=== PATIENT | female | born 1945 | race Two or more races ===

== ENCOUNTER 2017-03-12 12:50 | Inpatient (IN) | payer MEDICARE, OTHER ==
[~2017-03-12] VITALS: Ht 157.5 cm; Wt 58.5 kg
[~2017-03-12 12:50] MED LIST: CYCL30DR EACHEYE; GABA-534 PO; LORA0.5T PO; WARF5TAB77 PO
--- NOTE | 2017-03-12 12:55 | NUR ---
PT BIB RA C/O L SHOULDER PAIN, UNKNOWN ETIOLOGY, PT STATES SHE WOKE UP WITH IT. GOWNED PT . PLACED ON MONITOR
[2017-03-12] MEDS ORDERED: ACETAMINOPHEN ES 500 MG TABLET ONE (13:23)
[2017-03-12] MEDS ORDERED: ACETAMINOPHEN ES 500 MG TABLET PO ONE (13:30)
--- NOTE | 2017-03-12 13:34 | NUR ---
RAC #18 IV ACCESS. BLOOD SAMPLE COLLECTED SENT TO LAB
--- NOTE | 2017-03-12 13:38 | NUR ---
MOBILE DESIGNER AT BEDSIDE
[2017-03-12 13:56] LABS: BASOPHILS % (AUTO) 0.1 % (0.0-2.0); EOSINOPHILS % (AUTO) 0.2 % (0.0-6.0); HEMATOCRIT 46 % (33-45); HEMOGLOBIN 15.6 g/dL (11.5-14.8); LYMPHOCYTES # (AUTO) 1.1 /CMM (0.8-4.8); LYMPHOCYTES % (AUTO) 6.4 % (20.0-44.0); MEAN CORPUSCULAR HEMOGLOBIN 31 PG (26.0-33.0); MEAN CORPUSCULAR HGB CONC 34 g/dl (31.0-36.0); MEAN CORPUSCULAR VOLUME 91 fL (82-100); MONOCYTES % (AUTO) 5.4 % (2.0-12.0); NEUTROPHILS # (AUTO) 15.7 /CMM (1.8-8.9); NEUTROPHILS % (AUTO) 87.9 % (43.0-81.0); PLATELET COUNT (AUTO) 364 /CMM (150-450); RDW COEFFICIENT OF VARIATION 12.6 (11.5-15.0); RED BLOOD CELL COUNT(AUTO) 5.07 MIL/uL (4.0-5.2); WHITE BLOOD COUNT (AUTO) 17.8 K/uL (4.3-11.0)
[2017-03-12 14:01] LABS: CALCIUM, SERUM 9.3 mg/dL (8.5-10.1); CARBON DIOXIDE 26 mmol/L (21-32); CHLORIDE 104 mmol/L (98-107); GLUCOSE 117 mg/dL (74-106); POTASSIUM 3.5 mmol/L (3.5-5.1); SODIUM SERUM 139 mmol/L (136-145); UREA NITROGEN, BLOOD 12 mg/dL (7-18)
[2017-03-12 14:04] LABS: ALANINE AMINOTRANSFERASE 32 U/L (12-78); ALBUMIN 3.5 g/dL (3.4-5.0); ALKALINE PHOSPHATASE 86 U/L (46-116); ASPARTATE AMINOTRANSFERASE 26 U/L (15-37); BILIRUBIN,DIRECT 0.1 mg/dL (0.0-0.2); BILIRUBIN,TOTAL 0.5 mg/dL (0.2-1.0); TOTAL PROTEIN, SERUM 7.2 g/dL (6.4-8.2)
[2017-03-12 14:05] LABS: TROPONIN I < 0.017 ng/mL (0.00-0.056)
[2017-03-12 14:07] LABS: INR 1.92 (0.87-1.13); PROTHROMBIN TIME 21.4 SECS (9.5-12.7)
[2017-03-12] MEDS ORDERED: IV NS 0.9% 1,000 ML BAG IV ONE (14:30)
--- NOTE | 2017-03-12 16:55 | NUR ---
PAGED KARUNA MARI FOR PANEL ADMISSION
--- NOTE | 2017-03-12 16:59 | NUR ---
GAVE REPORT TO BLANKA GIMENEZ TELE ADMITTING DX SYNCOPE DR KARUNA MARI ADMITTING MD. TRANSFER VIA ACLS PROTOCOL
[2017-03-12 17:39] LABS: APPEARANCE,URINE Clear (CLEAR); BILIRUBIN,URINE Negative (NEGATIVE); BLOOD, URINE Negative Ery/uL (NEGATIVE); COLOR,URINE Yellow (YELLOW); KETONES,URINE 15 (NEGATIVE); LEUKOCYTE ESTERASE ,URINE Negative (NEGATIVE); NITRITE, URINE Negative (NEGATIVE); PH,URINE 7.5 (5.0-8.0); PROTEIN,URINE Negative (NEGATIVE); UGLUCOSE Negative (NEGATIVE); UROBILINOGEN,URINE 0.2 EU/dL (0.2)
[2017-03-12 18:11] LABS: BACTERIA,URINE None seen /HPF (None Seen); RBC,URINE 0-2 /HPF (0-2); SQUAMOUS EPITHELIAL CELL,UR None Seen /HPF (None Seen); WBC,URINE 0-2 /HPF (0-3)
[2017-03-12] MEDS ORDERED: TRAMADOL HCL 50 MG TABLET ONE (18:18)
[2017-03-12] MEDS ORDERED: TRAMADOL HCL 50 MG TABLET PO ONE (18:30)
[2017-03-12 18:43] VITALS: BP 106/60
--- NOTE | 2017-03-12 18:49 | NUR ---
HYDROTEL OPERATOR NOTES 71 YEARS OLD FEMALE, A/O X3 FORGETFUL. ADMITTED FROM HOME, BROUGHT IN FROM ER. ASSISTED PATIENT TO BED. AMBULATORY WITH ASSIST. LEFT SHOULDER WITH SLING IN PLACE. V/S TAKEN AND RECORDED, LEADS APPLIED FOR TELE MONITOR. BREATHING EVEN AND NON LABORED, ON ROOM AIR, TOLERATING WELL, NO SOB. PLACE CALL LIGHT WITHIN REACH. BED LOW AND LOCKED. FOR ADMISSION, WILL ENDORSE TO HOSPITAL ACCOUNT LIAISON RN.
--- NOTE | 2017-03-12 19:35 | NUR ---
DESIGNER/WRITER OPENING NOTES: RECEIVED PT IN BED LAYING DOWN WITH 2 FAMILY MEMBERS AT BEDSIDE. PT IS A/OX3 WITH MILD FORGETFULNESS. PT HAS SLING ON L SHOULDER. PT IS ON TELE MONITOR AND NO SIGNS OR SYMPTOMS OF DISTRESS NOTED AT THIS TIME. PT IS COMPLAINING OF L SHOULDER 9/10 PAIN. AWAITING FOR ADMISSION ORDERS TO BE PUT IN. CALL LIGHT WITHIN PT'S REACH. BED KEPT IN LOCKED, LOWEST POSITION, AND SIDE RAILS X 2 UP. WILL CONTINUE TO MONITOR PT.
[2017-03-12 20:00] VITALS: BP 106/60
--- NOTE | 2017-03-12 20:12 | NUR ---
FAMILY RESOURCE MANAGEMENT SPECIALIST NOTES: DR. MARI AT BEDSIDE SPEAKING TO PT AND 2 FAMILY MEMBERS. STILL AWAITING ADMITTING ORDERS.
--- NOTE | 2017-03-12 20:20 | NUR ---
COMMUNITY ARTS CENTRE MANAGER NOTES: DR. MARI SAID SHE IS ON REGULAR DIET. HE IS A LITTLE BACKED UP AND SAID WILL PUT IT ORDERS SOON HE CAN.
[2017-03-12 20:21] VITALS: BP 106/60
[2017-03-12] MEDS ORDERED: WARFARIN SODIUM 5 MG TABLET ONE (21:59)
[2017-03-12] MEDS ORDERED: WARFARIN SODIUM 5 MG TABLET PO SCH (22:00)
[2017-03-12] MEDS ORDERED: IV NS 0.9% 1,000 ML IV PRN (22:49)
[2017-03-12] MEDS ORDERED: LORAZEPAM 0.5 MG TABLET PO PRN (23:00)
[2017-03-12] MEDS ORDERED: ONDANSETRON HCL/PF 4 MG/2 ML VIAL IVP PRN (23:00)
[2017-03-12] MEDS ORDERED: ACETAMINOPHEN 325 MG TABLET PO PRN (23:00)
[2017-03-13] VITALS (8 sets, daily range): BP systolic 107–136; BP diastolic 68–79
[2017-03-13] MEDS ORDERED: ACETAMINOPHEN 325 MG TABLET ONE (01:37)
--- NOTE | 2017-03-13 01:39 | NUR ---
CARGO MATE NOTES: PT REQUESTED FOR PAIN MEDICATION FOR MILD HEADACHE PAIN. PT DOES NOT WANT ANY STRONG MEDICATION AND REQUESTED FOR TYLENOL. WILL CONTINUE TO MONITOR PT.
[2017-03-13 06:10] LABS: BASOPHILS # (AUTO) 0.1 /CMM (0.0-0.2); EOSINOPHILS # (AUTO) 0.1 /CMM (0.0-0.7); EOSINOPHILS % (AUTO) 0.5 % (0.0-6.0); HEMATOCRIT 43 % (33-45); HEMOGLOBIN 14.8 g/dL (11.5-14.8); LYMPHOCYTES # (AUTO) 2.6 /CMM (0.8-4.8); LYMPHOCYTES % (AUTO) 24.6 % (20.0-44.0); MEAN CORPUSCULAR HEMOGLOBIN 31 PG (26.0-33.0); MEAN CORPUSCULAR HGB CONC 34 g/dl (31.0-36.0); MEAN CORPUSCULAR VOLUME 92 fL (82-100); MONOCYTES # (AUTO) 0.6 /CMM (0.1-1.30); MONOCYTES % (AUTO) 5.6 % (2.0-12.0); NEUTROPHILS # (AUTO) 7.3 /CMM (1.8-8.9); NEUTROPHILS % (AUTO) 68.3 % (43.0-81.0); PLATELET COUNT (AUTO) 337 /CMM (150-450); RDW COEFFICIENT OF VARIATION 12.9 (11.5-15.0); WHITE BLOOD COUNT (AUTO) 10.7 K/uL (4.3-11.0)
--- NOTE | 2017-03-13 06:38 | NUR ---
LUBRICATION WORKER CLOSING NOTES: ALL NEEDS WERE ATTENDED AND ANTICIPATED FOR. PT IS A/OX2-3 WITH MILD FORGETFULNESS. PT HAS SLING ON L SHOULDER. PT IS ON TELE MONITOR AND NO SIGNS OR SYMPTOMS OF DISTRESS NOTED AT THIS TIME. PT IS SR 74. PT HAS IV ON R AC #18G AND IS PATENT AND INTACT AND IS CURRENTLY BEING INFUSED WITH NS AT 75ML/HR. CALL LIGHT WITHIN PT'S REACH. BED KEPT IN LOCKED, LOWEST POSITION, AND SIDE RAILS X 2 UP. WILL ENDORSE TO AM NURSE FOR ALIN.
[2017-03-13 06:39] LABS: ALBUMIN 3.1 g/dL (3.4-5.0); BILIRUBIN,TOTAL 0.5 mg/dL (0.2-1.0); CALCIUM, SERUM 8.5 mg/dL (8.5-10.1); CREATININE 0.8 mg/dL (0.6-1.3); MAGNESIUM 2.2 mg/dL (1.8-2.4); PHOSPHORUS 3.6 mg/dL (2.5-4.9); POTASSIUM 3.4 mmol/L (3.5-5.1); TOTAL PROTEIN, SERUM 6.6 g/dL (6.4-8.2)
[2017-03-13 06:47] LABS: THYROID STIMULATING HORMONE 0.711 uIU/mL (0.358-3.74)
[2017-03-13 06:53] LABS: INR 2.15 (0.87-1.13); PROTHROMBIN TIME 24.1 SECS (9.5-12.7)
--- NOTE | 2017-03-13 07:18 | NUR ---
MS/RN OPENING NOTES PT RECEIVED ASLEEP IN BED, EASILY AWAKENS. ALERT AND ORIENTED X2-3, NO C/O PAIN OR DISCOMFORTS AT THIS TIME. ON ROOM AIR, BREATHING EVEN AND UNLABORED. ON TELE-MONITORING WITH READING OF SR AND HR OF 78 AT THIS TIME, NO C/O CHEST PAIN AT THIS TIME. IV ACCESS ON RIGHT AC G#18 PATENT AND INTACT WITH IVF OF NS @ 75 ML/HR INFUSING, NO S/S OF INFILTRATION NOTED. BED IN LOWEST POSITION AND LOCKED. CALL LIGHT WITHIN REACH OF PT. WILL MAINTAIN ALL SAFETY MEASURES AND WILL CONTINUE TO MONITOR PT ACCORDINGLY.
[2017-03-13] MEDS ORDERED: IV NS 0.9% 1,000 ML IV PRN (09:01)
[2017-03-13 09:53] LABS: THYROID STIMULATING HORMONE 0.744 uIU/mL (0.358-3.74)
--- NOTE | 2017-03-13 10:15 | NUR ---
RN NOTES PATIENT WITH LOW K LEVEL OF 3.4, AWARE AND ORDERED K-DUR 20MEQ TAB X 3DOSES. WILL CONTINUE TO MONITOR
[2017-03-13] MEDS: POTASSIUM CHLORIDE 20 MEQ TAB.PRT.SR PO SCH ×3 (10:47→12:45)
--- NOTE | 2017-03-13 11:13 | NUR ---
RN NOTES PATIENT CHECKING FOR ORTHOSTATIC BLOOD PRESSURE. BP LYING 117/72MMHG AND SITTING 123/72MMHG. WILL CONTINUE TO MONITOR.
[2017-03-13] MEDS: WARFARIN SODIUM 1 MG TABLET PO SCH (17:19)
--- NOTE | 2017-03-13 19:01 | NUR ---
MS/RN CLOSING NOTES PATIENT RESTING IN BED IN NO SIGNS OF DISTRESS. ALERT AND ORIENTED X3, VERBALLY RESPONSIVE, NO COMPLAINTS OF PAIN DURING TOUR. NO SIGNIFICANT CHANGES NOTED THROUGHOUT THE DAY. ON TELE-MONITORING WITH CURRENT READING OF SR AND HR OF 86, NO C/O CHEST PAIN OR N & V. ON ROOM AIR, BREATHING EVEN AND UNLABORED, NO SOB NOTED. IV ACCESS ON RIGHT AC PATENT AND INTACT, SL LOCK ONLY. BED IN LOWEST POSITION AND LOCKED. CALL LIGHT WITHIN REACH OF PT. ALL SAFETY MEASURES MAINTAINED. ALL NEEDS ATTENDED WELL. WILL ENDORSED TO BOX STORAGE WORKER NURSE FOR ALIN.
--- NOTE | 2017-03-13 19:30 | NUR ---
RN NOTES RECEIVED PATIENT IN BED WAKE, AO X 3, ABLE TO MAKE NEEDS KNOWN. NO ACUTE DISTRESS NOTED. DENIES ANY PAIN AT THIS TIME. TELE READING SR HR 97. SAEFTY REMINDERS GIVEN. ON LOW BED WITH BILATERAL UPPER SIDE RAILS UP. CALL LIGHT WITHIN EASY REACH. WILL CONTINUE TO MONITOR.
[2017-03-13] MEDS ORDERED: QUETIAPINE FUMARATE 25 MG TABLET PO ONE (22:00)
[2017-03-13] MEDS: GABAPENTIN 300 MG CAPSULE PO SCH (22:56)
--- NOTE | 2017-03-13 23:58 | NUR ---
RN NOTES PATIENT C/O ANXIETY. NONPHARMACOLOGICAL INTERVENTIONS INEFFECTIVE. ATIVAN GIVEN ORDERED. WILL CONTINUE TO MONITOR.
[2017-03-14] VITALS: BP 133/74
[2017-03-14 04:44] VITALS: BP 104/70
--- NOTE | 2017-03-14 06:21 | NUR ---
RN NOTES PATIENT ASLEEP, AROUSES EASILY, RESPIRATIONS EVEN. NO SIGNS OF PAIN NOTED AT THIS TIME. DUE MEDS GIVEN WITH NO ASE NOTED. NEEDS ATTENDED. SAFETY PRECAUTIONS AND COMFORT MEASURES IN PLACE. WILL GIVE REPORT TO DAY SHIFT FOR CONTINUITY OF CARE.
[2017-03-14 06:38] LABS: BASOPHILS # (AUTO) 0.1 /CMM (0.0-0.2); BASOPHILS % (AUTO) 0.5 % (0.0-2.0); EOSINOPHILS # (AUTO) 0.3 /CMM (0.0-0.7); EOSINOPHILS % (AUTO) 2.5 % (0.0-6.0); HEMATOCRIT 42 % (33-45); HEMOGLOBIN 14.5 g/dL (11.5-14.8); LYMPHOCYTES # (AUTO) 3.6 /CMM (0.8-4.8); LYMPHOCYTES % (AUTO) 36.1 % (20.0-44.0); MEAN CORPUSCULAR HEMOGLOBIN 32 PG (26.0-33.0); MEAN CORPUSCULAR HGB CONC 35 g/dl (31.0-36.0); MEAN CORPUSCULAR VOLUME 92 fL (82-100); MONOCYTES # (AUTO) 0.8 /CMM (0.1-1.30); NEUTROPHILS # (AUTO) 5.3 /CMM (1.8-8.9); NEUTROPHILS % (AUTO) 52.9 % (43.0-81.0); PLATELET COUNT (AUTO) 319 /CMM (150-450); RED BLOOD CELL COUNT(AUTO) 4.54 MIL/uL (4.0-5.2)
[2017-03-14 07:02] VITALS: BP 105/70
[2017-03-14 07:12] LABS: ALBUMIN 2.9 g/dL (3.4-5.0); BILIRUBIN,TOTAL 0.5 mg/dL (0.2-1.0); CALCIUM, SERUM 8.5 mg/dL (8.5-10.1); CREATININE 0.8 mg/dL (0.6-1.3); MAGNESIUM 2.2 mg/dL (1.8-2.4); PHOSPHORUS 3.5 mg/dL (2.5-4.9); POTASSIUM 3.9 mmol/L (3.5-5.1); TOTAL PROTEIN, SERUM 6.5 g/dL (6.4-8.2)
--- NOTE | 2017-03-14 07:30 | NUR ---
MS/RN Patienet received Patient received from facilities maintenance supervisor. Sleeping at this time, appears comfortable in no distress. Tele reading NSR, heart rate 91. Call light within reach, bed in low setting, brakes locked. Will continue to monitor and ensure safety.
[2017-03-14] MEDS ORDERED: GADOVERSETAMIDE 2.5 MMOL/5 ML VIAL ONE (08:00)
--- NOTE | 2017-03-14 11:30 | NUR ---
MS/RN S/B Dr Gomez Seen by Dr Gomez - MRI brain ordered.
--- NOTE | 2017-03-14 12:30 | NUR ---
MS/RN S/B Dr Vásquez Seen by Dr Vásquez - patient to be discharged to home with prescription for sleeping medications.
[2017-03-14 12:38] VITALS: BP 98/62
--- NOTE | 2017-03-14 14:47 | NUR ---
MS/RN CT scan Call received from Letty Kim - patient to have CT scan of left shoulder before discharge.
[2017-03-14] MEDS ORDERED: MIRT15TA3 PO (15:06)
--- NOTE | 2017-03-14 15:54 | NUR ---
MS/RN CT scan Patient taken to CT scan of lrft shoulder.
--- NOTE | 2017-03-14 16:15 | NUR ---
MS/RN Back in room Patient back in room from CT scan, no result at this time.
[2017-03-14 16:46] VITALS: BP 101/76
--- NOTE | 2017-03-14 17:00 | NUR ---
MS/RN MRI Patient off floor at tis time in MRI, check list completed.
--- NOTE | 2017-03-14 18:06 | NUR ---
MS/RN End note Patient remains in MRI at this time. Discharge to home later this evening after dinner. Prescription sent electronically to [facility] pharmacy on [address] [facility] . Will endorse to material handler 2nd shift.
[2017-03-14] MEDS: WARFARIN SODIUM 1 MG TABLET PO SCH (18:51)
--- NOTE | 2017-03-14 19:30 | NUR ---
RN OPENING NOTES RECEIVED REPORT FROM GENNA RNHAYLEY. FOUND Pt AWAKE, RESTING IN BED. NO S/S OF ACUTE DISTRESS OR SOB NOTED. Pt IS A/OX3. IV ACCESS ON RHAND #22G, SL. Pt HAS ORDER TO BE DISCHARGED TONIGHT, BUT Pt IS REFUSING TO LEAVE TONIGHT AND IS REQUESTING TO STAY ONE MORE NIGHT AT THE HOSPITAL TO BE MONITORED DUE TO FEAR OF FALLING AGAIN. Pt IS ALSO REQUESTING TO STAY UNTIL RESULTS FROM MRI AND CT SCAN OF L SHOULDER IS IN. WILL SPEAK WITH SCLEROSCOPE TESTER EPIC MD TO SEE IF Pt CAN STAY FOR ONE MORE NIGHT. SAFETY MEASURES IN PLACE. BED LOW, LOCKED, HOB ELEVATED, SIDE RAILS UP, CALL LIGHT AND BEDSIDE TABLE WITHIN REACH. WILL CONTINUE TO MONITOR Pt THROUGHOUT THE NIGHT FOR SAFETY.
[2017-03-14 20:00] VITALS: BP 104/77
[2017-03-14] MEDS: GABAPENTIN 300 MG CAPSULE PO SCH (21:39)
[2017-03-14] MEDS ORDERED: MIRTAZAPINE 15 MG TABLET PO SCH ×2 (22:00)
--- NOTE | 2017-03-14 22:00 | NUR ---
HOSPITAL SOCIAL WORKER NOTES TAXI VOUCHER GIVEN FOR Pt TONIGHT TO BE TAKEN BACK HOME FOR DISCHARGE. ALL NEEDS MET AND ATTENDED TO. NO S/S OF ACUTE DISTRESS OR SOB NOTED. IV ACCESS PULLED OUT. SECURED WITH GAUZE AND TAPE. Pt TAKEN DOWN SAFELY VIA WHEELCHAIR BY NICOLE KIM. ALL DISCHARGE PAPERS SIGNED AND PLACED IN CHART AND COPIES GIVEN TO Pt.
== END 2017-03-14 21:45 | disposition home or self-care (01) | DRG 563 ==
LOC: ER 12:55 → TELE 18:31 → MED 03-14 12:28
PROVIDERS: ADMIT Nurse Practitioner Acute Care; ATTEND Nurse Practitioner Acute Care
DX: S42.122A Displaced fracture of acromial process, left shoulder, initial encounter for closed fracture (principal); E87.2 Acidosis; D68.61 Antiphospholipid syndrome; F33.1 Major depressive disorder, recurrent, moderate; G47.00 Insomnia, unspecified; D72.829 Elevated white blood cell count, unspecified; E87.6 Hypokalemia; F41.0 Panic disorder [episodic paroxysmal anxiety]; I10 Essential (primary) hypertension; Z86.718 Personal history of other venous thrombosis and embolism; Z86.711 Personal history of pulmonary embolism; Z79.01 Long term (current) use of anticoagulants; R56.9 Unspecified convulsions; X58.XXXA Exposure to other specified factors, initial encounter; Y93.9 Activity, unspecified; Y92.009 Unspecified place in unspecified non-institutional (private) residence as the place of occurrence of the external cause
CPT/HCPCS: 36415; 70450-TC; 70553-TC; 71010-TC; 73030-TC; 73200-TC; 80048-TC; 80053-TC; 80061-TC; 80076-TC; 81000-TC; 82306; 82550-TC; 83605-TC; 83735-TC; 84100-TC; 84439-TC; 84443-TC; 84484-TC; 85025-TC; 85610-TC; 85652-TC; 85730-TC; 86140-TC; 87040-TC; 87081-TC; 87086-TC; 93307-TC; 93880-TC; 95819-TC; A4606; A6402; A9579; J7030; Z7610

== ENCOUNTER 2017-04-10 18:39 | Emergency (ER) | payer MEDICARE, OTHER ==
[~2017-04-10] VITALS: Ht 157.5 cm; Wt 55.8 kg
[2017-04-10 18:39] VITALS: BP 131/70
[~2017-04-10 18:39] MED LIST changes: -GABA-534 PO; -LORA0.5T PO; +MIRT15TA3 PO
[2017-04-10] MEDS ORDERED: TETRACAINE HCL 0.5% OPHTALMIC 15 ML BOTTLE OP STA (18:57)
[2017-04-10] MEDS ORDERED: TETRACAINE HCL/PF 0.5% UD 2 ML BOTTLE ONE (19:03)
== END 2017-04-10 20:00 | disposition home or self-care (01) ==
LOC: ER 18:45
DX: B35.9 Dermatophytosis, unspecified (principal); I10 Essential (primary) hypertension; Z79.01 Long term (current) use of anticoagulants; Z88.2 Allergy status to sulfonamides
CPT/HCPCS: 93005; 99283; A4606; Z7610

== ENCOUNTER 2017-08-02 13:57 | Inpatient (IN) | payer MEDICARE, OTHER ==
[~2017-08-02] VITALS: Ht 162.6 cm; Wt 58.1 kg
[2017-08-02 14:25] LABS: BASOPHILS # (AUTO) 0.2 /CMM (0.0-0.2); BASOPHILS % (AUTO) 1.5 % (0.0-2.0); EOSINOPHILS % (AUTO) 0.2 % (0.0-6.0); HEMATOCRIT 48 % (33-45); HEMOGLOBIN 16.1 g/dL (11.5-14.8); LYMPHOCYTES # (AUTO) 1.6 /CMM (0.8-4.8); LYMPHOCYTES % (AUTO) 10.9 % (20.0-44.0); MEAN CORPUSCULAR HEMOGLOBIN 31 PG (26.0-33.0); MEAN CORPUSCULAR HGB CONC 34 g/dl (31.0-36.0); MEAN CORPUSCULAR VOLUME 91 fL (82-100); MONOCYTES # (AUTO) 0.6 /CMM (0.1-1.30); MONOCYTES % (AUTO) 4.1 % (2.0-12.0); NEUTROPHILS # (AUTO) 12.3 /CMM (1.8-8.9); NEUTROPHILS % (AUTO) 83.3 % (43.0-81.0); PLATELET COUNT (AUTO) 351 /CMM (150-450); RED BLOOD CELL COUNT(AUTO) 5.27 MIL/uL (4.0-5.2); WHITE BLOOD COUNT (AUTO) 14.7 K/uL (4.3-11.0)
[2017-08-02] MEDS ORDERED: IV NS 0.9% 1,000 ML BAG IV ONE (14:30)
[2017-08-02 14:36] LABS: CALCIUM, SERUM 9.9 mg/dL (8.5-10.1); CARBON DIOXIDE 17 mmol/L (21-32); CHLORIDE 103 mmol/L (98-107); CREATININE 1.2 mg/dL (0.6-1.3); GLUCOSE 142 mg/dL (74-106); POTASSIUM 3.5 mmol/L (3.5-5.1); SODIUM SERUM 140 mmol/L (136-145); UREA NITROGEN, BLOOD 10 mg/dL (7-18)
[2017-08-02 14:39] LABS: INR 2.21 (0.87-1.13)
[2017-08-02 14:42] LABS: ALANINE AMINOTRANSFERASE 21 U/L (12-78); ALBUMIN 3.9 g/dL (3.4-5.0); ALCOHOL, BLOOD 4 mg/dL (0-0); ALKALINE PHOSPHATASE 114 U/L (46-116); ASPARTATE AMINOTRANSFERASE 20 U/L (15-37); BILIRUBIN,TOTAL 0.3 mg/dL (0.2-1.0); TOTAL PROTEIN, SERUM 7.3 g/dL (6.4-8.2)
[2017-08-02 14:43] LABS: TROPONIN I < 0.017 ng/mL (0.00-0.056)
[2017-08-02 15:03] LABS: THYROID STIMULATING HORMONE 1.539 uIU/mL (0.358-3.74)
[2017-08-02] MEDS ORDERED: WARF3TAB6 PO (15:10)
[2017-08-02 15:18] LABS: APPEARANCE,URINE CLEAR (CLEAR); BILIRUBIN,URINE NEGATIVE (NEGATIVE); BLOOD, URINE TRACE-INTA Ery/uL (NEGATIVE); COLOR,URINE YELLOW (YELLOW); KETONES,URINE TRACE (NEGATIVE); LEUKOCYTE ESTERASE ,URINE NEGATIVE (NEGATIVE); NITRITE, URINE NEGATIVE (NEGATIVE); PH,URINE 6.5 (5.0-8.0); PROTEIN,URINE TRACE mg/dl (NEGATIVE); UGLUCOSE NEGATIVE (NEGATIVE); UROBILINOGEN,URINE 0.2 EU/dL (0.2)
[2017-08-02 15:25] LABS: BACTERIA,URINE 1+ /HPF (None Seen); WBC,URINE 0-2 /HPF (0-3)
[2017-08-02 15:26] LABS: MUCUS,URINE Few /LPF (None Seen); URINE AMORPHOUS URATE Few /HPF (None Seen)
[2017-08-02 17:00] VITALS: BP 120/71
[2017-08-02] MEDS ORDERED: MAG HYDROX/AL HYDROX/SIMETH 30 ML UDC PO PRN (17:00)
[2017-08-02] MEDS ORDERED: MAGNESIUM HYDROXIDE 30 ML UDC PO PRN (17:00)
[2017-08-02] MEDS ORDERED: Z GUARD REMEDY 2 OZ OINT TP PRN (17:00)
[2017-08-02] MEDS ORDERED: ACETAMINOPHEN 325 MG TABLET PO PRN (17:00)
[2017-08-02] MEDS ORDERED: ZOLPIDEM TARTRATE 5 MG TABLET PO PRN (17:00)
[2017-08-02] MEDS ORDERED: MORPHINE SULFATE INJ 2 MG/ML DISP.SYRIN IV PRN (17:00)
[2017-08-02] MEDS: ASPIRIN 81 MG TAB.CHEW PO SCH (17:33)
[2017-08-02] MEDS: IV NS 0.9% 1,000 ML IV PRN (17:33)
[2017-08-02] MEDS: ONDANSETRON HCL/PF 4 MG/2 ML VIAL IVP PRN (17:59)
[2017-08-02] MEDS: HYDROCODONE/APAP 5/325MG 1 EACH TABLET PO PRN ×2 (18:01→23:56)
[2017-08-02 20:00] VITALS: BP 98/61
[2017-08-02] MEDS: ATORVASTATIN 40 MG TABLET PO SCH (22:04)
[2017-08-03] VITALS: BP 99/61
[2017-08-03 04:00] VITALS: BP_SYST 108; BP_SYST 88; BP_DIAS 48; BP_DIAS 65
[2017-08-03] MEDS: IV NS 0.9% 1,000 ML IV PRN ×2 (05:17→17:36)
[2017-08-03] MEDS: HYDROCODONE/APAP 5/325MG 1 EACH TABLET PO PRN ×2 (07:51→23:16)
[2017-08-03] MEDS: ONDANSETRON HCL/PF 4 MG/2 ML VIAL IVP PRN (07:55)
[2017-08-03 08:00] VITALS: BP 124/71
[2017-08-03 08:33] LABS: BASOPHILS % (AUTO) 0.5 % (0.0-2.0); EOSINOPHILS # (AUTO) 0.1 /CMM (0.0-0.7); EOSINOPHILS % (AUTO) 1.4 % (0.0-6.0); HEMATOCRIT 42 % (33-45); HEMOGLOBIN 14.3 g/dL (11.5-14.8); LYMPHOCYTES # (AUTO) 2.3 /CMM (0.8-4.8); LYMPHOCYTES % (AUTO) 29.5 % (20.0-44.0); MEAN CORPUSCULAR HEMOGLOBIN 31 PG (26.0-33.0); MEAN CORPUSCULAR HGB CONC 34 g/dl (31.0-36.0); MEAN CORPUSCULAR VOLUME 92 fL (82-100); MONOCYTES # (AUTO) 0.6 /CMM (0.1-1.30); MONOCYTES % (AUTO) 7.6 % (2.0-12.0); NEUTROPHILS # (AUTO) 4.8 /CMM (1.8-8.9); PLATELET COUNT (AUTO) 296 /CMM (150-450); RDW COEFFICIENT OF VARIATION 13.9 (11.5-15.0); WHITE BLOOD COUNT (AUTO) 7.8 K/uL (4.3-11.0)
[2017-08-03] MEDS: ASPIRIN 81 MG TAB.CHEW PO SCH (09:00)
[2017-08-03 09:13] LABS: CALCIUM, SERUM 8.5 mg/dL (8.5-10.1); CREATININE 0.8 mg/dL (0.6-1.3); MAGNESIUM 2.3 mg/dL (1.8-2.4); PHOSPHORUS 3.2 mg/dL (2.5-4.9); POTASSIUM 3.5 mmol/L (3.5-5.1)
[2017-08-03] MEDS ORDERED: ALBUTEROL FS 2.5 MG/0.5 ML VIAL.NEB NEB ONE (09:30)
[2017-08-03] MEDS ORDERED: ALPRAZOLAM 0.25 MG TABLET PO ONE (09:30)
[2017-08-03 09:47] LABS: INR 1.9 (0.87-1.13); PROTHROMBIN TIME 19.9 SECS (9.5-12.7)
[2017-08-03 16:00] VITALS: BP 92/57
[2017-08-03] MEDS: WARFARIN SODIUM 1 MG TABLET PO SCH (17:32)
[2017-08-03 20:00] VITALS: BP 95/50
[2017-08-03 22:00] VITALS: BP 112/64
[2017-08-03] MEDS: ATORVASTATIN 40 MG TABLET PO SCH (23:13)
[2017-08-04 08:00] VITALS: BP 109/63
[2017-08-04] MEDS: ASPIRIN 81 MG TAB.CHEW PO SCH (09:36)
[2017-08-04 10:34] LABS: INR 1.67 (0.87-1.13); PROTHROMBIN TIME 17.5 SECS (9.5-12.7)
[2017-08-04] MEDS: HYDROCODONE/APAP 5/325MG 1 EACH TABLET PO PRN (14:15)
[2017-08-04] MEDS: ENOXAPARIN SODIUM 60 MG/0.6 ML DISP.SYRIN SQ SCH (15:43)
[2017-08-04 16:00] VITALS: BP 111/63
[2017-08-04] MEDS: BOOST PLUS FOOD-VANILLA 237 ML BOX PO SCH (16:52)
[2017-08-04] MEDS: WARFARIN SODIUM 1 MG TABLET PO SCH (16:57)
[2017-08-04 20:00] VITALS: BP 117/71
[2017-08-04 21:21] VITALS: BP 117/71
[2017-08-04] MEDS: ATORVASTATIN 40 MG TABLET PO SCH (21:44)
[2017-08-05 07:51] LABS: BASOPHILS # (AUTO) 0.1 /CMM (0.0-0.2); BASOPHILS % (AUTO) 0.7 % (0.0-2.0); EOSINOPHILS # (AUTO) 0.4 /CMM (0.0-0.7); EOSINOPHILS % (AUTO) 4.8 % (0.0-6.0); HEMATOCRIT 42 % (33-45); HEMOGLOBIN 14.5 g/dL (11.5-14.8); LYMPHOCYTES # (AUTO) 2.7 /CMM (0.8-4.8); LYMPHOCYTES % (AUTO) 34.8 % (20.0-44.0); MEAN CORPUSCULAR HEMOGLOBIN 31 PG (26.0-33.0); MEAN CORPUSCULAR HGB CONC 34 g/dl (31.0-36.0); MEAN CORPUSCULAR VOLUME 91 fL (82-100); MONOCYTES # (AUTO) 0.6 /CMM (0.1-1.30); MONOCYTES % (AUTO) 7.2 % (2.0-12.0); NEUTROPHILS % (AUTO) 52.5 % (43.0-81.0); PLATELET COUNT (AUTO) 283 /CMM (150-450); RDW COEFFICIENT OF VARIATION 13.5 (11.5-15.0); RED BLOOD CELL COUNT(AUTO) 4.66 MIL/uL (4.0-5.2); WHITE BLOOD COUNT (AUTO) 7.7 K/uL (4.3-11.0)
[2017-08-05 07:57] LABS: INR 1.57 (0.87-1.13); PROTHROMBIN TIME 16.4 SECS (9.5-12.7)
[2017-08-05 08:00] VITALS: BP 115/71
[2017-08-05 08:24] LABS: CALCIUM, SERUM 9.1 mg/dL (8.5-10.1); CREATININE 0.7 mg/dL (0.6-1.3); MAGNESIUM 2.2 mg/dL (1.8-2.4); PHOSPHORUS 3.2 mg/dL (2.5-4.9); POTASSIUM 3.7 mmol/L (3.5-5.1)
[2017-08-05] MEDS ORDERED: LEVETIRACETAM (250 MG) 250 MG TABLET PO SCH (09:00)
[2017-08-05] MEDS: ENOXAPARIN SODIUM 60 MG/0.6 ML DISP.SYRIN SQ SCH (09:05)
[2017-08-05] MEDS: BOOST PLUS FOOD-VANILLA 237 ML BOX PO SCH ×2 (10:17→17:44)
[2017-08-05] MEDS: HYDROCODONE/APAP 5/325MG 1 EACH TABLET PO PRN (15:18)
[2017-08-05 16:00] VITALS: BP 110/72
[2017-08-05] MEDS: WARFARIN SODIUM 1 MG TABLET PO SCH (17:46)
== END 2017-08-05 18:34 | disposition home or self-care (01) | DRG 887 ==
LOC: ER 14:01 → TELE 16:02 → MED 08-03 09:21
PROVIDERS: ADMIT Internal Medicine; ATTEND Internal Medicine
DX: G47.9 Sleep disorder, unspecified (principal); G93.40 Encephalopathy, unspecified; D68.62 Lupus anticoagulant syndrome; E86.0 Dehydration; D72.829 Elevated white blood cell count, unspecified; F32.9 Major depressive disorder, single episode, unspecified; Z88.2 Allergy status to sulfonamides; Z79.01 Long term (current) use of anticoagulants; Z86.711 Personal history of pulmonary embolism; R55 Syncope and collapse; E78.5 Hyperlipidemia, unspecified; I10 Essential (primary) hypertension
CPT/HCPCS: 36415; 70450-TC; 71010-TC; 71111-TC; 80048-TC; 80061-TC; 80076-TC; 80305; 81000-TC; 82550-TC; 83735-TC; 84100-TC; 84443-TC; 84484-TC; 85025-TC; 85610-TC; 85730-TC; 87081-TC; 95819-TC; 97116-TC; 97530-TC; A4606; G0480; J1650; J2405; J7030; Z7610

== ENCOUNTER 2017-08-28 16:25 | Inpatient (IN) | payer MEDICARE, OTHER ==
[~2017-08-28] VITALS: Ht 157.5 cm; Wt 57.2 kg
[~2017-08-28 16:25] MED LIST changes: -CYCL30DR EACHEYE; -MIRT15TA3 PO; +WARF3TAB6 PO; -WARF5TAB77 PO
[2017-08-28] MEDS ORDERED: IV NS 0.9% 1,000 ML BAG IV ONE (16:30)
--- NOTE | 2017-08-28 16:35 | NUR ---
NEW IV STARTED ON LAC, 18 G. BLOOD DRAWN AND SENT TO LAB.
[2017-08-28 16:39] LABS: BASOPHILS # (AUTO) 0.1 /CMM (0.0-0.2); BASOPHILS % (AUTO) 1.1 % (0.0-2.0); EOSINOPHILS # (AUTO) 0.1 /CMM (0.0-0.7); EOSINOPHILS % (AUTO) 1.4 % (0.0-6.0); HEMATOCRIT 44 % (33-45); HEMOGLOBIN 15.1 g/dL (11.5-14.8); LYMPHOCYTES # (AUTO) 1.9 /CMM (0.8-4.8); MEAN CORPUSCULAR HEMOGLOBIN 31 PG (26.0-33.0); MEAN CORPUSCULAR HGB CONC 35 g/dl (31.0-36.0); MEAN CORPUSCULAR VOLUME 91 fL (82-100); MONOCYTES # (AUTO) 0.5 /CMM (0.1-1.30); MONOCYTES % (AUTO) 6.9 % (2.0-12.0); NEUTROPHILS # (AUTO) 4.2 /CMM (1.8-8.9); NEUTROPHILS % (AUTO) 62.6 % (43.0-81.0); PLATELET COUNT (AUTO) 371 /CMM (150-450); RDW COEFFICIENT OF VARIATION 12.6 (11.5-15.0); RED BLOOD CELL COUNT(AUTO) 4.81 MIL/uL (4.0-5.2); WHITE BLOOD COUNT (AUTO) 6.8 K/uL (4.3-11.0)
--- NOTE | 2017-08-28 16:40 | NUR ---
PATIENT TAKEN TO CT VIA STRETCHER.
--- NOTE | 2017-08-28 16:48 | NUR ---
BBRA, PT FOUND BY NEIGHBOR LYING ON THE GROUND OUTSIDE HER HOME. BS-98. PT NOT ANSWERING QUESTIONS, ALERT, BUT UNABLE TO ASSESS MENTAL STATUS. BREATHING EVEN AND UNLABORED. NO SOB. VITALS STABLE. SAFETY AND COMFORT MEASURES IN PLACE. AWAITING MD ORDERS.
[2017-08-28 16:49] LABS: CALCIUM, SERUM 9.5 mg/dL (8.5-10.1); CARBON DIOXIDE 21 mmol/L (21-32); CHLORIDE 102 mmol/L (98-107); CREATININE 1.1 mg/dL (0.6-1.3); GLUCOSE 91 mg/dL (74-106); POTASSIUM 4.3 mmol/L (3.5-5.1); SODIUM SERUM 135 mmol/L (136-145); UREA NITROGEN, BLOOD 9 mg/dL (7-18)
[2017-08-28 16:53] LABS: INR 1.77 (0.87-1.13); PROTHROMBIN TIME 18.4 SECS (9.5-12.7)
[2017-08-28 16:54] LABS: ALANINE AMINOTRANSFERASE 18 U/L (12-78); ALBUMIN 3.8 g/dL (3.4-5.0); ALKALINE PHOSPHATASE 112 U/L (46-116); ASPARTATE AMINOTRANSFERASE 17 U/L (15-37); BILIRUBIN,TOTAL 0.3 mg/dL (0.2-1.0); TOTAL PROTEIN, SERUM 7.5 g/dL (6.4-8.2)
[2017-08-28 16:56] LABS: TROPONIN I < 0.017 ng/mL (0.00-0.056)
--- NOTE | 2017-08-28 16:56 | NUR ---
PATIENT RETURNED FROM CT IN STABLE CONDITION. TALKING AT THIS TIME, ALERT, BUT UNABLE TO RECAL HOW SHE GOT HERE. WILL CONTINUE TO MONITOR.
[2017-08-28 17:02] LABS: ALCOHOL, BLOOD < 3 mg/dL (0-0)
[2017-08-28 17:38] LABS: APPEARANCE,URINE Clear (CLEAR); BILIRUBIN,URINE Negative (NEGATIVE); BLOOD, URINE Negative Ery/uL (NEGATIVE); COLOR,URINE Yellow (YELLOW); KETONES,URINE Negative (NEGATIVE); LEUKOCYTE ESTERASE ,URINE Negative (NEGATIVE); NITRITE, URINE Negative (NEGATIVE); PH,URINE 7.5 (5.0-8.0); PROTEIN,URINE Negative (NEGATIVE); UGLUCOSE Negative (NEGATIVE); UROBILINOGEN,URINE 0.2 EU/dL (0.2)
[2017-08-28] MEDS: LEVETIRACETAM (500MG) 1,000 MG in IV NS 0.9% 100 ML IV SCH (18:35)
--- NOTE | 2017-08-28 18:40 | NUR ---
PATIENT C/O CHEST PAIN AND HEADACHE. MD INFORMED, ORDERED REPEAT EKG.
--- NOTE | 2017-08-28 19:02 | NUR ---
EPIC PAGED FOR PANEL CALL
[2017-08-28] MEDS ORDERED: IV NS 0.9% 1,000 ML IV PRN (19:15)
--- NOTE | 2017-08-28 19:20 | NUR ---
REPORT RECEIVED FROM AMMY BRITT ALIN.
--- NOTE | 2017-08-28 19:25 | NUR ---
REPORT GIVEN TO ABIOLA GIMENEZ FOR ALIN.
[2017-08-28] MEDS ORDERED: ACETAMINOPHEN 325 MG TABLET PO PRN (19:30)
[2017-08-28] MEDS ORDERED: Z GUARD REMEDY 2 OZ OINT TP PRN (19:30)
[2017-08-28] MEDS ORDERED: MAGNESIUM HYDROXIDE 30 ML UDC PO PRN (19:30)
[2017-08-28] MEDS ORDERED: MAG HYDROX/AL HYDROX/SIMETH 30 ML UDC PO PRN (19:30)
[2017-08-28] MEDS ORDERED: ZOLPIDEM TARTRATE 5 MG TABLET PO PRN (19:30)
[2017-08-28] MEDS ORDERED: ONDANSETRON HCL/PF 4 MG/2 ML VIAL IVP PRN (19:30)
[2017-08-28] MEDS ORDERED: ENOXAPARIN SODIUM 40 MG/0.4 ML DISP.SYRIN SQ SCH (21:00)
[2017-08-28 22:05] VITALS: BP 110/71
--- NOTE | 2017-08-28 22:05 | NUR ---
RN NOTES RECEIVED PATIENT FROM ER FOR DX ALOC. PATIENT AO X 3, ABLE TO MAKE NEEDS KNOWN. NO ACUTE DISTRESS NOTED. C/O 3/10 GENERALIZED PAIN AT THIS TIME. IV SITE PATENT, INTACT; FLUSHED. SKIN INTACT. ORIENTED TO ROOM. SAFETY REMINDERS GIVEN. ON LOW BED WITH BILATERAL UPPER SIDE RAILS UP. CALL BUTTON WITHIN EASY REACH. WILL CONTINUE TO MONITOR.
--- NOTE | 2017-08-28 22:30 | NUR ---
RN NOTES DR. ADHIKARI SAW PATIENT; ORDERED COUMADIN 3 MG PO TO BE GIVEN TO PATIENT TONIGHT ALONG WITH LOVENOX (ALREADY ORDERED); NOTED AND CARRIED OUT. PATIENT AWARE AND AGREEABLE WITH TREATMENT.
[2017-08-28] MEDS ORDERED: ENOXAPARIN SODIUM 60 MG/0.6 ML DISP.SYRIN SQ ONE (22:43)
[2017-08-28] MEDS ORDERED: WARFARIN SODIUM 2 MG TABLET ONE (22:44)
[2017-08-28] MEDS ORDERED: WARFARIN SODIUM 1 MG TABLET ONE (22:45)
[2017-08-28] MEDS ORDERED: HYDROCODONE/APAP 5/325MG 1 EACH TABLET ONE (23:01)
[2017-08-28] MEDS: HYDROCODONE/APAP 5/325MG 1 EACH TABLET PO PRN (23:18)
[2017-08-28] MEDS: WARFARIN SODIUM 1 MG TABLET PO SCH (23:23)
[2017-08-28] MEDS ORDERED: ENOXAPARIN SODIUM 60 MG/0.6 ML DISP.SYRIN SQ SCH (23:30)
[2017-08-29] VITALS (10 sets, daily range): BP systolic 93–127; BP diastolic 62–81
[2017-08-29] MEDS ORDERED: ONDANSETRON HCL/PF 4 MG/2 ML VIAL ONE (00:32)
[2017-08-29] MEDS: LEVETIRACETAM (500MG) 1,000 MG in IV NS 0.9% 100 ML IV SCH ×2 (05:30→16:50)
--- NOTE | 2017-08-29 06:00 | NUR ---
RN NOTES PATIENT ASLEEP, EASILY AROUSABLE. RESPIRATIONS EVEN. NO SIGNS OF PAIN NOTED. DUE MEDS GIVEN WITH NO ASE NOTED. NEEDS ATTENDED. SAFETY PRECAUTIONS AND COMFORT MEASURES IN PLACE. WILL GIVE REPORT TO DAY SHIFT FOR CONTINUITY OF CARE.
[2017-08-29] MEDS ORDERED: HYDROCODONE/APAP 5/325MG 1 EACH TABLET ONE (06:11)
--- NOTE | 2017-08-29 07:30 | NUR ---
RN NOTES KEPPRA ORDER FROM ER NOT ADMINISTERED
--- NOTE | 2017-08-29 07:30 | NUR ---
RN OPEN NOTES RECEIVED REPORT FROM CREW PERSON NURSE. PATIENT IS IN BED, AWAKE. ALERT AND ORIENTED TO NAME, PLACE AND TIME. NO SIGNS AND SYMPTOMS OF DISTRESS. BREATHING IS BILATERALLY EVEN AND UNLABORED. BED IN LOW POSITION, LOCKED AND TWO SIDE RAILS ARE UP. CALL LIGHT WITHIN REACH FOR SAFETY. WILL CONTINUE TO MONITOR AND ASSESS PATIENT THROUGH OUT MY SHIFT
--- NOTE | 2017-08-29 08:28 | NUR ---
ORTHOSTATIC BLOOD PRESSURE COMPETED IN A LAYING, SITTING AND STANDING POSITION. FIRER GLOST KILN DR DEL TORO NOTIFIED OF THE RESULT. REFER TO BLOOD PRESSURE FLOWCHART FOR DETAIL
[2017-08-29] MEDS ORDERED: ENOXAPARIN SODIUM 60 MG/0.6 ML DISP.SYRIN SQ SCH (08:41)
[2017-08-29] MEDS: HYDROCODONE/APAP 5/325MG 1 EACH TABLET PO PRN ×3 (08:44→22:08)
[2017-08-29 09:10] LABS: BASOPHILS # (AUTO) 0.1 /CMM (0.0-0.2); BASOPHILS % (AUTO) 0.9 % (0.0-2.0); EOSINOPHILS # (AUTO) 0.2 /CMM (0.0-0.7); HEMATOCRIT 38 % (33-45); HEMOGLOBIN 13.4 g/dL (11.5-14.8); LYMPHOCYTES # (AUTO) 2.9 /CMM (0.8-4.8); LYMPHOCYTES % (AUTO) 42.8 % (20.0-44.0); MEAN CORPUSCULAR HEMOGLOBIN 32 PG (26.0-33.0); MEAN CORPUSCULAR HGB CONC 35 g/dl (31.0-36.0); MEAN CORPUSCULAR VOLUME 93 fL (82-100); MONOCYTES # (AUTO) 0.5 /CMM (0.1-1.30); MONOCYTES % (AUTO) 7.8 % (2.0-12.0); NEUTROPHILS # (AUTO) 3.1 /CMM (1.8-8.9); NEUTROPHILS % (AUTO) 45.5 % (43.0-81.0); PLATELET COUNT (AUTO) 299 /CMM (150-450); RDW COEFFICIENT OF VARIATION 14.2 (11.5-15.0); RED BLOOD CELL COUNT(AUTO) 4.15 MIL/uL (4.0-5.2); WHITE BLOOD COUNT (AUTO) 6.8 K/uL (4.3-11.0)
[2017-08-29 09:45] LABS: ALBUMIN 3.1 g/dL (3.4-5.0); BILIRUBIN,TOTAL 0.4 mg/dL (0.2-1.0); CALCIUM, SERUM 8.7 mg/dL (8.5-10.1); CREATININE 0.8 mg/dL (0.6-1.3); MAGNESIUM 2.3 mg/dL (1.8-2.4); PHOSPHORUS 3.6 mg/dL (2.5-4.9); POTASSIUM 3.7 mmol/L (3.5-5.1); TOTAL PROTEIN, SERUM 6.2 g/dL (6.4-8.2)
[2017-08-29] MEDS: IV NS 0.9% 1,000 ML IV PRN ×2 (11:13→16:50)
[2017-08-29] MEDS ORDERED: LEVETIRACETAM (500MG) 500 MG in IV NS 0.9% 100 ML IV SCH (17:30)
[2017-08-29 17:37] LABS: INR 2.03 (0.87-1.13); PROTHROMBIN TIME 21.3 SECS (9.5-12.7)
[2017-08-29] MEDS: WARFARIN SODIUM 1 MG TABLET PO SCH (17:50)
[2017-08-29] MEDS ORDERED: Medication Not On Formulary EA (Warfarin Sodium 3 MG) PO SCH (18:00)
--- NOTE | 2017-08-29 18:41 | NUR ---
RN CLOSED NOTES PATIENT IS IN BED, AWAKE. ALERT AND ORIENTED TO NAME, PLACE AND TIME. NO SIGNS AND SYMPTOMS OF DISTRESS. BREATHING IS BILATERALLY EVEN AND UNLABORED. BED IN LOW POSITION, LOCKED AND TWO SIDE RAILS ARE UP. CALL LIGHT WITHIN REACH FOR SAFETY. ALL NURSING CARE PROVIDED. PATIENT KEPT CLEAN AND DRY. WILL ENDORSE TO SENIOR RELATIONSHIP MANAGER NURSE
--- NOTE | 2017-08-29 19:35 | NUR ---
TELE/RN NOTES RECEIVED PT. LYING IN BED. AWAKE, ALERT AND ORIENTED X3. BREATHING EVEN AND UNLABORED ON ROOM AIR. NO SOB, RESPIRATORY DISTRESS OR COMPLAINTS OF PAIN NOTED AT THIS TIME. PT. DENIES ANY LIGHTHEADED OR DIZZINESS AT THIS TIME. PT. WITH EXTERNAL PREVENTIVE MAINTENANCE ENGINEER PRESENT AND INTACT. CURRENT RHYTHM = SINUS RHYTHM HR 100. PT. WITH LEFT AC 18 GAUGE IV SALINE LOCK PRESENT, PATENT AND INTACT. PT. WITH RIGHT FOREARM 20 GAUGE PERIPHERAL IV PRESENT, PATENT AND INTACT ADMINISTERING TO PT. NS @ 200ML/HR. EDUCATED PT. TO CALL FOR ASSISTANCE BEFORE AMBULATING. PT. VERBALIZED UNDERSTANDING. BED LOCKED AND IN LOWEST POSITION, SIDE RAILS UP X2, BED ALARM ON, CALL LIGHT WITHIN REACH, WILL CONTINUE TO MONITOR.
[2017-08-30] VITALS: BP 102/67
[2017-08-30] MEDS: IV NS 0.9% 1,000 ML IV PRN (02:03)
[2017-08-30 04:00] VITALS: BP 105/68
--- NOTE | 2017-08-30 06:52 | NUR ---
TELE/RN NOTES PT. IS LYING IN BED RESTING. BREATHING EVEN AND UNLABORED ON ROOM AIR. NO SOB, RESPIRATORY DISTRESS OR COMPLAINTS OF PAIN NOTED AT THIS TIME. PT. DENIES ANY LIGHTHEADED OR DIZZINESS AT THIS TIME. PT. WITH EXTERNAL DENTAL RESIDENT PRESENT AND INTACT. CURRENT RHYTHM = SINUS RHYTHM HR 68. PT. WITH LEFT AC 18 GAUGE IV SALINE LOCK PRESENT, PATENT AND INTACT. PT. WITH RIGHT FOREARM 20 GAUGE PERIPHERAL IV PRESENT, PATENT AND INTACT ADMINISTERING TO PT. NS @ 200ML/HR. ALL PT. NEEDS MET. BED LOCKED AND IN LOWEST POSITION, SIDE RAILS UP X2, BED ALARM ON, CALL LIGHT WITHIN REACH, WILL ENDORSE TO DAYSHIFT NURSE FOR CONTINUITY OF CARE.
--- NOTE | 2017-08-30 07:45 | NUR ---
RN OPEN NOTES RECEIVED REPORT FROM CLIENT TECHNOLOGIES SPECIALIST NURSE. PATIENT IS IN BED, AWAKE. ALERT AND ORIENTED TO NAME, PLACE AND TIME. NO SIGNS AND SYMPTOMS OF DISTRESS. BREATHING IS BILATERALLY EVEN AND UNLABORED. BED IN LOW POSITION, LOCKED AND TWO SIDE RAILS ARE UP. CALL LIGHT WITHIN REACH FOR SAFETY. WILL CONTINUE TO MONITOR AND ASSESS PATIENT THROUGH OUT MY SHIFT
[2017-08-30 08:00] VITALS: BP 112/66
[2017-08-30] MEDS ORDERED: LEVETIRACETAM (500MG) 500 MG in IV NS 0.9% 100 ML IV SCH (09:00)
[2017-08-30 09:30] LABS: BASOPHILS # (AUTO) 0.1 /CMM (0.0-0.2); EOSINOPHILS # (AUTO) 0.5 /CMM (0.0-0.7); EOSINOPHILS % (AUTO) 7.6 % (0.0-6.0); HEMATOCRIT 39 % (33-45); HEMOGLOBIN 13.7 g/dL (11.5-14.8); LYMPHOCYTES # (AUTO) 3.1 /CMM (0.8-4.8); LYMPHOCYTES % (AUTO) 50.2 % (20.0-44.0); MEAN CORPUSCULAR HEMOGLOBIN 33 PG (26.0-33.0); MEAN CORPUSCULAR HGB CONC 35 g/dl (31.0-36.0); MEAN CORPUSCULAR VOLUME 93 fL (82-100); MONOCYTES # (AUTO) 0.4 /CMM (0.1-1.30); MONOCYTES % (AUTO) 6.4 % (2.0-12.0); NEUTROPHILS # (AUTO) 2.2 /CMM (1.8-8.9); NEUTROPHILS % (AUTO) 34.8 % (43.0-81.0); PLATELET COUNT (AUTO) 275 /CMM (150-450); RDW COEFFICIENT OF VARIATION 13.8 (11.5-15.0); RED BLOOD CELL COUNT(AUTO) 4.22 MIL/uL (4.0-5.2); WHITE BLOOD COUNT (AUTO) 6.3 K/uL (4.3-11.0)
[2017-08-30 10:08] LABS: ALANINE AMINOTRANSFERASE 17 U/L (12-78); ALBUMIN 2.9 g/dL (3.4-5.0); ALKALINE PHOSPHATASE 85 U/L (46-116); ASPARTATE AMINOTRANSFERASE 12 U/L (15-37); BILIRUBIN,TOTAL 0.3 mg/dL (0.2-1.0); CALCIUM, SERUM 8.5 mg/dL (8.5-10.1); CARBON DIOXIDE 24 mmol/L (21-32); CHLORIDE 113 mmol/L (98-107); CREATININE 0.8 mg/dL (0.6-1.3); GLUCOSE 87 mg/dL (74-106); PHOSPHORUS 2.9 mg/dL (2.5-4.9); POTASSIUM 3.7 mmol/L (3.5-5.1); SODIUM SERUM 147 mmol/L (136-145); TOTAL PROTEIN, SERUM 5.9 g/dL (6.4-8.2); UREA NITROGEN, BLOOD 6 mg/dL (7-18)
[2017-08-30 10:10] LABS: TROPONIN I < 0.017 ng/mL (0.00-0.056)
--- NOTE | 2017-08-30 14:15 | NUR ---
DRAFTER CONSTRUCTION NOTES DISCHARGE ORDER RECEIVED AND CARRIED OUT. PATIENT IS LEAVING IN A STABLE CONDITION. NO SIGNS AND SYMPTOMS OF DISTRESS. DENIED PAIN. DENIED DIZZINESS. ALL DISCHARGE INSTRUCTIONS EXPLAINED TO PATIENT. PATIENT IS AWARE TO F/U WITH PCP, NEURO, AND ZIPPER REPAIRER WITHIN 7 DAYS OF DISCHARGE. ALL PERSONAL BELONGING WITH PATIENT AT TIME OF DISCHARGE. BOTH DISCHARGE FORM AND BELONGING FORM SIGNED BY PATIENT AND PLACED IN THE CHART. IV SITE REMOVED. ID BAND REMOVED. PATIENT DISCHARGE HOME; PICKED UP BY HER NEIGHBOR. PATIENT ESCORTED TO THE MAIN LOBBY VIA A WHEELCHAIR AND A AIRFRAME TECHNICAL OFFICER.
== END 2017-08-30 14:05 | disposition home or self-care (01) | DRG 74 ==
LOC: ER 16:27 → TELE 20:13 → MED 08-30 09:24
PROVIDERS: ADMIT Internal Medicine; ATTEND Internal Medicine
DX: G90.8 Other disorders of autonomic nervous system (principal); D68.62 Lupus anticoagulant syndrome; R56.9 Unspecified convulsions; E87.1 Hypo-osmolality and hyponatremia; E86.1 Hypovolemia; E78.5 Hyperlipidemia, unspecified; I10 Essential (primary) hypertension; Z79.01 Long term (current) use of anticoagulants; Z86.711 Personal history of pulmonary embolism; Z88.2 Allergy status to sulfonamides; F32.9 Major depressive disorder, single episode, unspecified; F41.9 Anxiety disorder, unspecified; I49.9 Cardiac arrhythmia, unspecified; G47.00 Insomnia, unspecified; G89.29 Other chronic pain; I95.1 Orthostatic hypotension
CPT/HCPCS: 36415; 70450-TC; 71045-TC; 80048-TC; 80053-TC; 80076-TC; 80305; 81000-TC; 82550-TC; 82962-TC; 83735-TC; 84100-TC; 84484-TC; 85025-TC; 85610-TC; 85730-TC; 87081-TC; A4606; G0480; J1650; J1953; J2405; J7030; Z7610

== ENCOUNTER 2018-04-14 17:49 | Inpatient (IN) | payer MEDICARE, OTHER ==
[~2018-04-14] VITALS: Ht 160 cm; Wt 60.8 kg
[~2018-04-14 17:49] MED LIST changes: +WARF3TAB59 PO; -WARF3TAB6 PO
--- NOTE | 2018-04-14 17:50 | NUR ---
BIB 89 FROM HOME, JAX PERSON FOUND HER IN HER COUCH MOANING, AND REFUSING TO ANSWER QUESTIONS,BLOOD SUGAR 112. NAD NOTED, VSS, RESP EVEN AND UNLABORED, PT WAS PUT ON MONITOR, WAITING FOR MD CHU.
[2018-04-14] MEDS ORDERED: ALBU8.5H8 IH (18:29)
[2018-04-14] MEDS ORDERED: GABA-534 PO ×2 (18:29)
[2018-04-14] MEDS ORDERED: LORA1TAB PO (18:29)
[2018-04-14] MEDS ORDERED: ONDANSETRON HCL/PF 4 MG/2 ML VIAL IVP ONE (18:30)
[2018-04-14] MEDS ORDERED: PANTOPRAZOLE 40 MG VIAL IV ONE (18:30)
[2018-04-14] MEDS ORDERED: IV NS 0.9% 1,000 ML BAG IV ONE (18:30)
[2018-04-14] MEDS ORDERED: ONDANSETRON HCL/PF 4 MG/2 ML VIAL ONE (18:33)
[2018-04-14] MEDS ORDERED: PANTOPRAZOLE 40 MG VIAL ONE (18:33)
[2018-04-14] MEDS ORDERED: ACETAMINOPHEN ES 500 MG TABLET ONE (19:13)
[2018-04-14 19:21] LABS: CALCIUM, SERUM 9.2 mg/dL (8.5-10.1); CARBON DIOXIDE 21 mmol/L (21-32); CHLORIDE 104 mmol/L (98-107); GLUCOSE 107 mg/dL (74-106); POTASSIUM 3.4 mmol/L (3.5-5.1); SODIUM SERUM 135 mmol/L (136-145); UREA NITROGEN, BLOOD 12 mg/dL (7-18)
[2018-04-14 19:29] LABS: TROPONIN I 0.101 ng/mL (0.00-0.056)
[2018-04-14 19:35] LABS: SERUM AMMONIA 11 umol/L (11-32)
[2018-04-14 19:36] LABS: ALANINE AMINOTRANSFERASE 18 U/L (12-78); ALBUMIN 3.3 g/dL (3.4-5.0); ALCOHOL, BLOOD < 3 mg/dL (0-0); ALKALINE PHOSPHATASE 84 U/L (46-116); ASPARTATE AMINOTRANSFERASE 27 U/L (15-37); BILIRUBIN,DIRECT 0.1 mg/dL (0.0-0.2); BILIRUBIN,TOTAL 0.4 mg/dL (0.2-1.0); TOTAL PROTEIN, SERUM 7.2 g/dL (6.4-8.2)
[2018-04-14 19:37] LABS: BASOPHILS % (AUTO) 0.3 % (0.0-2.0); HEMATOCRIT 45 % (33-45); HEMOGLOBIN 14.9 g/dL (11.5-14.8); LYMPHOCYTES # (AUTO) 1.6 /CMM (0.8-4.8); LYMPHOCYTES % (AUTO) 12.5 % (20.0-44.0); MEAN CORPUSCULAR HEMOGLOBIN 31 PG (26.0-33.0); MEAN CORPUSCULAR HGB CONC 33 g/dl (31.0-36.0); MEAN CORPUSCULAR VOLUME 93 fL (82-100); MONOCYTES # (AUTO) 0.4 /CMM (0.1-1.30); MONOCYTES % (AUTO) 3.4 % (2.0-12.0); NEUTROPHILS # (AUTO) 10.5 /CMM (1.8-8.9); NEUTROPHILS % (AUTO) 83.8 % (43.0-81.0); PLATELET COUNT (AUTO) 323 /CMM (150-450); RDW COEFFICIENT OF VARIATION 12.3 (11.5-15.0); RED BLOOD CELL COUNT(AUTO) 4.83 MIL/uL (4.0-5.2); WHITE BLOOD COUNT (AUTO) 12.5 K/uL (4.3-11.0)
[2018-04-14] MEDS ORDERED: ASPIRIN 300 MG/SUPP.RECT RC ONE ×2 (19:39→20:00)
[2018-04-14] MEDS ORDERED: LORAZEPAM INJ 2 MG/ML VIAL ONE (19:40)
[2018-04-14 19:45] LABS: INR 3.51 (0.87-1.13); THYROID STIMULATING HORMONE 0.657 uIU/mL (0.358-3.74)
[2018-04-14] MEDS ORDERED: LORAZEPAM INJ 2 MG/ML VIAL IV ONE ×2 (20:00)
[2018-04-14] MEDS ORDERED: LEVETIRACETAM (500MG) 500 MG in IV NS 0.9% 100 ML IV SCH (20:00)
[2018-04-14] MEDS ORDERED: ENOXAPARIN SODIUM 60 MG/0.6 ML DISP.SYRIN SQ ONE ×2 (20:06→20:30)
[2018-04-14 20:17] LABS: ACETAMINOPHEN < 2 ug/ml (10-30)
[2018-04-14 20:30] LABS: APPEARANCE,URINE Clear (CLEAR); BILIRUBIN,URINE Negative (NEGATIVE); BLOOD, URINE Moderate Ery/uL (NEGATIVE); COLOR,URINE Yellow (YELLOW); KETONES,URINE 15 (NEGATIVE); LEUKOCYTE ESTERASE ,URINE Negative (NEGATIVE); NITRITE, URINE Negative (NEGATIVE); PH,URINE 8.5 (5.0-8.0); PROTEIN,URINE Trace mg/dl (NEGATIVE); UGLUCOSE Negative (NEGATIVE); UROBILINOGEN,URINE 0.2 EU/dL (0.2)
[2018-04-14 20:51] LABS: BACTERIA,URINE Few /HPF (None Seen); SQUAMOUS EPITHELIAL CELL,UR Few /HPF (None Seen); WBC,URINE 0-2 /HPF (0-3)
--- NOTE | 2018-04-14 21:14 | NUR ---
PT IS ASSIGNED TELE 324-1
[2018-04-14 21:55] VITALS: BP 109/69
--- NOTE | 2018-04-14 21:55 | NUR ---
TELE/RN NOTES RECEIVED PT. FROM ER VIA MARLEE. PT. IS AWAKE, ALERT AND ORIENTED TO SELF. BREATHING EVEN AND UNLABORED ON ROOM AIR. NO SOB, RESPIRATORY DISTRESS OR S/S OF PAIN NOTED AT THIS TIME. ORIENTED PT. TO ROOM. PLACED EXTERNAL OSTOMY NURSE ON PT. CURRENT RHYTHM = SINUS TACHYCARDIA HR 114. PT. WITH LEFT HAND 20 GAUGE IV SALINE LOCK PRESENT, PATENT AND INTACT. SEIZURE PRECAUTIONS IMPLEMENTED AND IN PLACE. BED LOCKED AND IN LOWEST POSITION, SIDE RAILS PADDED AND UP X3, BED ALARM ON, CALL LIGHT WITHIN REACH, WILL CONTINUE TO MONITOR.
[2018-04-14] MEDS ORDERED: Z GUARD REMEDY 2 OZ OINT TP PRN (22:30)
[2018-04-14] MEDS ORDERED: ONDANSETRON HCL/PF 4 MG/2 ML VIAL IVP PRN (22:30)
[2018-04-14] MEDS ORDERED: IV NS 0.9% 1,000 ML IV PRN (22:30)
[2018-04-14] MEDS ORDERED: ALBUTEROL 17GM INHALER IH PRN (22:30)
[2018-04-14 23:32] LABS: TROPONIN I 0.355 ng/mL (0.00-0.056)
[2018-04-14 23:41] LABS: CREATINE KINASE MB 1.6 ng/mL (0-3.6)
[2018-04-15] VITALS (8 sets, daily range): BP systolic 82–129; BP diastolic 41–72
--- NOTE | 2018-04-15 | NUR ---
TELE/RN NOTES PT. TEMPERATURE 100.4 F. COOLING MEASURES IMPLEMENTED. WILL CONTINUE TO MONITOR.
--- NOTE | 2018-04-15 00:40 | NUR ---
TELE/RN NOTES PT. CURRENT TEMPERATURE IS 98.2F, COOLING MEASURES EFFECTIVE. WILL CONTINUE TO MONITOR.
--- NOTE | 2018-04-15 01:24 | NUR ---
TELE/RN NOTES CALLED AND NOTIFIED EPIC VOCATIONAL TRAINING TEACHER DR. MARI PT. 2ND TROPONIN RESULTED AT 0.355 WHICH INCREASED FROM THE INITIAL RESULT OF 0.101. NO COMPLAINTS OF CHEST PAIN NOTED. PER MD MARI OK NO NEW ORDERS. ALSO NOTIFIED MD MARI PT. TOTAL CK RESULTED AT 2500, PER MD MARI NEW ORDER: INCREASE IV FLUIDS TO NS @ 100ML/HR. WILL CARRY OUT ORDER. WILL CONTINUE TO MONITOR.
[2018-04-15] MEDS: ACETAMINOPHEN 325 MG TABLET PO PRN ×2 (06:04→16:00)
[2018-04-15 06:14] LABS: CALCIUM, SERUM 8.2 mg/dL (8.5-10.1); CREATININE 0.8 mg/dL (0.6-1.3); MAGNESIUM 2.2 mg/dL (1.8-2.4); PHOSPHORUS 2.9 mg/dL (2.5-4.9); POTASSIUM 3.4 mmol/L (3.5-5.1)
--- NOTE | 2018-04-15 06:46 | NUR ---
TELE/RN NOTES PT. IS LYING IN BED RESTING. BREATHING EVEN AND UNLABORED ON ROOM AIR. NO SOB, RESPIRATORY DISTRESS OR S/S OF PAIN NOTED AT THIS TIME. PT. IS EASILY AROUSABLE TO NAME. AWAKE, ALERT AND ORIENTED X2-3. PT. WITH EXTERNAL COOK DINNER PRESENT AND INTACT, CURRENT RHYTHM = SINUS RHYTHM HR 93 PT. WITH LEFT HAND 20 GAUGE PERIPHERAL IV PRESENT, PATENT AND INTACT ADMINISTERING TO PT. NS @ 100ML/HR. ALL PT. NEEDS MET. SEIZURE PRECAUTIONS IMPLEMENTED AND IN PLACE. BED LOCKED AND IN LOWEST POSITION, SIDE RAILS PADDED AND UP X3, BED ALARM ON, CALL LIGHT WITHIN REACH, WILL ENDORSE TO DAYSHIFT NURSE FOR CONTINUITY OF CARE.
[2018-04-15 07:01] LABS: BASOPHILS % (AUTO) 0.4 % (0.0-2.0); EOSINOPHILS % (AUTO) 0.3 % (0.0-6.0); HEMATOCRIT 41 % (33-45); HEMOGLOBIN 13.6 g/dL (11.5-14.8); LYMPHOCYTES % (AUTO) 28.6 % (20.0-44.0); MEAN CORPUSCULAR HEMOGLOBIN 31 PG (26.0-33.0); MEAN CORPUSCULAR HGB CONC 34 g/dl (31.0-36.0); MEAN CORPUSCULAR VOLUME 94 fL (82-100); MONOCYTES # (AUTO) 0.7 /CMM (0.1-1.30); MONOCYTES % (AUTO) 6.8 % (2.0-12.0); NEUTROPHILS # (AUTO) 6.8 /CMM (1.8-8.9); NEUTROPHILS % (AUTO) 63.9 % (43.0-81.0); PLATELET COUNT (AUTO) 284 /CMM (150-450); RDW COEFFICIENT OF VARIATION 12.7 (11.5-15.0); RED BLOOD CELL COUNT(AUTO) 4.36 MIL/uL (4.0-5.2); WHITE BLOOD COUNT (AUTO) 10.7 K/uL (4.3-11.0)
--- NOTE | 2018-04-15 07:10 | NUR ---
TELE/RN NOTE PATIENT IN BED SLEEPING. RESPONSIVE TO VERBAL AND TACTILE STIMULI. RESPIRATION REGULAR AND UNLABORED. NO MANIFESTATION OF SOB AND DISTRESS NOTED. PATIENT IN STABLE CONDITION. LEFT HAND G 20 PATENT AND IV FLUID INFUSING WITH NO S/S INFILTRATION. BED LOW AND LOCKED. SIDE RAILS UP X3. CALL LIGHT WITHIN REACH. WILL CONTINUE TO MONITOR.
[2018-04-15 07:16] LABS: THYROID STIMULATING HORMONE 0.8 uIU/mL (0.358-3.74)
--- NOTE | 2018-04-15 07:50 | NUR ---
TELE/RN NOTE DR LEI IS MADE AWARE OF TROPONIN TRENDING UP. RECENT TROPONIN AT 0520 AND IT WAS 0.367. PER DR LEI, THE PATIENT WILL BE SEEN BY DR LAM FOR CARDIO EVAL. PATIENT DENIES CHEST PAIN AND OR ANY OTHER DISCOMFORT. PATIENT IN NO APPARENT DISTRESS. RESPIRATION REGULAR AND UNLABORED. DENIES SOB. WILL CONTINUE TO MONITOR.
[2018-04-15] MEDS: LEVETIRACETAM SOL (5 ML) 100 MG/ML UDC PO SCH ×2 (08:47→20:53)
[2018-04-15] MEDS ORDERED: GABAPENTIN 300 MG CAPSULE PO SCH ×2 (09:00→22:00)
[2018-04-15] MEDS: CEFTRIAXONE 1 G in IV D5W 50 ML IV SCH (09:14)
--- NOTE | 2018-04-15 10:00 | NUR ---
TELE/RN NOTE DR LAM IS MADE AWRAE OF TROPONIN TRENDING UP WITH RECENT RESULT AT 0520 WAS 0.367. PER MD, HE WILL PUT NEEDED ORDERS.
[2018-04-15] MEDS ORDERED: POTASSIUM CHLORIDE 20 MEQ TAB.PRT.SR PO SCH (10:30)
--- NOTE | 2018-04-15 10:41 | NUR ---
TELE/RN NOTE DR HAYS AND DR LAM ARE MADE AWARE OF INR 3.51 04/14/18 AND ACCORDING TO BOTH DOCTORS DISCONTINUE COUMADIN 2MG. PATIENT IS ON DAILY INR CHECK.
[2018-04-15] MEDS: PANTOPRAZOLE 40 MG TABLET.DR PO SCH (10:52)
[2018-04-15] MEDS: ASPIRIN EC 81 MG TABLET.DR PO SCH (10:52)
[2018-04-15] MEDS: IV NS 0.9% 1,000 ML IV PRN (10:58)
[2018-04-15] MEDS ORDERED: ALBUTEROL FS 2.5 MG/3 ML VIAL.NEB NEB PRN (11:30)
[2018-04-15] MEDS ORDERED: WARFARIN SODIUM 2 MG TABLET PO SCH (17:00)
--- NOTE | 2018-04-15 18:25 | NUR ---
TELE/RN CLOSING NOTE PATIENT ALERT AND ORIENTED X2. REDIRECTION AND REORIENTATION PROVIDED NEEDED. DENIES SOB AT THIS TIME. RESPIRATION REGULAR AND UNLABORED. PATIENT IS IN ROOM AIR AND OXYGEN SATURATION AT 96%. NO EPISODE OF SEIZURE DURING THE SHIFT. SEIZURE PRECAUTIONS TAKEN AT ALL TIMES. LEFT HAND G 20 PATENT AND IV INFUSING WITH NO S/S INFILTRATION. GOOD AND GENTLE SKIN CARE RENDERED. KEPT CLEAN, DRY AND COMFORTABLE. ALL NEEDS ATTENDED AND ANTICIPATED. BED LOW AND LOCKED. SIDE RAILS UP X3. CALL LIGHT WITHIN REACH. WILL ENDORSE TO QUALITY IMPROVEMENT COORDINATOR (RN).
--- NOTE | 2018-04-15 19:05 | NUR ---
DEALER ACCOUNTS INVESTIGATOR INITIAL NOTES Received patient A/O X2 with forgetfulness, on supine position on bed. With patent peripheral IV L hand G#20 with NS infusing well @100mL/hr. Kept bed padded, low and lock with 3 siderails up. On seizure precaution. No complaints of discomfort at this time. Kept clean, dry and comfortable. Will continue to monitor.
[2018-04-15] MEDS: ATORVASTATIN 10 MG TABLET PO SCH (21:06)
[2018-04-16] VITALS: BP 110/70
[2018-04-16] MEDS: IV NS 0.9% 1,000 ML IV PRN ×2 (01:58→16:48)
[2018-04-16 04:00] VITALS: BP 114/74
--- NOTE | 2018-04-16 06:43 | NUR ---
ELECTRICIAN MACHINE SHOP CLOSING NOTES Patient asleep on bed on supine position with patent peripheral IV line L hand G#20 with NS infusing well at 100ml/hr. On tele monitor with SR - 73. Remained free from injury all throughout the shift. Kept bed low, locked and 3 siderails up at all times. Room kept cool, quite and minimized lights. No new unusualities noted. Endorsed to the next shift.
[2018-04-16 07:09] LABS: BASOPHILS # (AUTO) 0.1 /CMM (0.0-0.2); BASOPHILS % (AUTO) 1.2 % (0.0-2.0); EOSINOPHILS % (AUTO) 4.9 % (0.0-6.0); HEMATOCRIT 39 % (33-45); HEMOGLOBIN 12.9 g/dL (11.5-14.8); LYMPHOCYTES % (AUTO) 40.4 % (20.0-44.0); MEAN CORPUSCULAR HEMOGLOBIN 31 PG (26.0-33.0); MEAN CORPUSCULAR HGB CONC 33 g/dl (31.0-36.0); MEAN CORPUSCULAR VOLUME 94 fL (82-100); MONOCYTES # (AUTO) 0.6 /CMM (0.1-1.30); NEUTROPHILS # (AUTO) 3.3 /CMM (1.8-8.9); NEUTROPHILS % (AUTO) 45.5 % (43.0-81.0); PLATELET COUNT (AUTO) 284 /CMM (150-450); RDW COEFFICIENT OF VARIATION 13.3 (11.5-15.0); WHITE BLOOD COUNT (AUTO) 7.3 K/uL (4.3-11.0)
--- NOTE | 2018-04-16 07:20 | NUR ---
TELE/RN OPENING NOTE PATIENT ALERT AND ORIENTED X2. PATIENT IN ROOM AIR AND DENIES SOB. RESPIRATION REGULAR AND UNLABORED. DENIES PAIN. EXTERNAL TELE MONITOR READING SR 93. LEFT HAND G 20 PATENT AND IV FLUID INFUSING WITH NO S/S INFILTRATION. BED LOW AND LOCKED. SIDE RAILS UP X3. CALL LIGHT WITHIN REACH. WILL CONTINUE TO MONITOR.
[2018-04-16 07:23] LABS: CALCIUM, SERUM 8.4 mg/dL (8.5-10.1); CREATININE 0.7 mg/dL (0.6-1.3); MAGNESIUM 2.2 mg/dL (1.8-2.4); PHOSPHORUS 2.4 mg/dL (2.5-4.9); POTASSIUM 3.8 mmol/L (3.5-5.1)
[2018-04-16] MEDS: PANTOPRAZOLE 40 MG TABLET.DR PO SCH (07:38)
[2018-04-16 08:00] VITALS: BP 122/70
--- NOTE | 2018-04-16 08:00 | NUR ---
TELE/RN NOTE PATIENT IS SEEN AND EXAMINED BY DR LAM AND IS MADE AWARE OF RECENT TROPONIN LEVEL OF 0.059. NO NEW ORDER. PATIENT IN STABLE CONDITION. NO MANIFESTATION OF DISTRESS NOTED. DENIES PAIN/DISCOMFORT. RESPIRATION REGULAR AND UNLABORED. DENIES SOB. WILL CONTINUE TO MONITOR.
[2018-04-16] MEDS: GABAPENTIN 300 MG CAPSULE PO SCH ×4 (08:07→21:03)
[2018-04-16] MEDS: LEVETIRACETAM SOL (5 ML) 100 MG/ML UDC PO SCH ×2 (08:07→20:17)
[2018-04-16] MEDS: ASPIRIN EC 81 MG TABLET.DR PO SCH (08:07)
[2018-04-16 09:31] LABS: INR 2.05 (0.87-1.13)
[2018-04-16] MEDS: CEFTRIAXONE 1 G in IV D5W 50 ML IV SCH (09:31)
--- NOTE | 2018-04-16 10:01 | NUR ---
MS/RN NOTE DR LEI IS MADE AWARE OF LAB RESULT PT=21.5 AND INR 2.05. NEW ORDERS ARE OBTAINED. READ BACK, VERIFIED. NOTED AND CARRIED OUT.
[2018-04-16] MEDS ORDERED: K PHOS NEUTRAL 250 MG TABLET PO ONE (15:30)
[2018-04-16 16:00] VITALS: BP 118/72
[2018-04-16] MEDS: WARFARIN SODIUM 2 MG TABLET PO SCH (16:44)
--- NOTE | 2018-04-16 17:54 | NUR ---
MS/RN NOTE NEW ORDER IS OBTAINED FROM DR THAKUR FOR NG TUBE TO BE CONNECTED TO LOW INTERMITTENT SUCTION. READ BACK, VERIFIED. NOTED AND CARRIED OUT. Addendum: 04/16/18 at 1756 by JASPREET HUITRON RN WRONG PATIENT CHARTING.
--- NOTE | 2018-04-16 18:14 | NUR ---
MS/RN CLOSING NOTE PATIENT ALERT AND ORIENTED X3 WITH EPISODES OF FORGETFULNESS. REDIRECTION AND REORIENTATION PROVIDED NEEDED. PATIENT IN ROOM AIR AND DENIES SOB. RESPIRATION REGULAR AND UNLABORED. DENIES PAIN. PATIENT IN NO APPARENT DISTRESS. LEFT HAND G 20 PATENT AND IV FLUID INFUSING PER ORDER AND NO S/S INFILTRATION NOTED. BED LOW AND LOCKED. SIDE RAILS UP X3. CALL LIGHT WITHIN REACH. WILL ENDORSE TO LOSS PREVENTION ASSOCIATE.
--- NOTE | 2018-04-16 19:10 | NUR ---
MS RN INITIAL NOTES Received patient awake on bed on semi-Rivas's position with patent peripheral IV line L hand G#20 with NS infusing well @ 100ml/hr. A/O x2-3, continent B/B with BSC, skin remained intact. No complaint made at this time. Kept clean, dry and comfortable. Will continue to monitor.
[2018-04-16 20:00] VITALS: BP 118/75
[2018-04-16] MEDS: ATORVASTATIN 10 MG TABLET PO SCH (21:04)
--- NOTE | 2018-04-16 21:55 | NUR ---
TILE EDGER NOTES ADMITTED PATIENT TO ROOM 328-2 FROM ER DUE TO S/P FALL WITH ADMITTING DIAGNOSIS SYNCOPE UNDER THE SERVICE OF DR. KARUNA MARI. A/O X3, WITH COMPLAINT OF PAIN ON L ANTERIOR CHEST WALL, PT UNABLE TO SCALE THE PAIN, NOTED MOANING AND GUARDING, AGGRAVATED BY MOVEMENT. PUT ON TELE MONITOR, NOTED WITH SR 76. ASSISTED TRANSFER TO BED, ADMISSION ROUTINE DONE. INITIAL BODY AND SKIN ASSESSMENT DONE. SKIN ISSUES NOTED AND PHOTOS TAKES. WITH PATENT PERIPHERAL IV LINE RAC G#18, SL. KEPT BED LOW AND LOCKED. CALL LIGHT WITHIN EASY REACH. WILL CONTINUE TO MONITOR. Addendum: 04/17/18 at 0220 by GENEVIEVE GAMBOA RN WRONG PATIENT
[2018-04-16] MEDS: LORAZEPAM 1 MG TABLET PO PRN (23:32)
--- NOTE | 2018-04-16 23:32 | NUR ---
MS RN NOTES Patient claimed unable to sleep and asking for something to sleep. Ativan 1mg given as ordered. Kept room cool and minimize lights. Monitored the patient.
[2018-04-17] MEDS: IV NS 0.9% 1,000 ML IV PRN ×2 (03:27→19:42)
--- NOTE | 2018-04-17 06:46 | NUR ---
MS RN CLOSING NOTES Patient asleep on semi-Fowlers position on bed with patent IV line L hand G#20 with NS infusing well at 100ml/hr as ordered. Noted asleep since receiving Ativan as ordered. Kept on low bed, locked, with 3 side rails padded and up, on seizure precautions. All needs attended. Kept clean, dry and comfortable. Afebrile the whole shift. For neuro eval. Endorsed to the next shift.
[2018-04-17 07:29] LABS: BASOPHILS % (AUTO) 0.4 % (0.0-2.0); EOSINOPHILS % (AUTO) 5.3 % (0.0-6.0); HEMATOCRIT 40 % (33-45); HEMOGLOBIN 13.4 g/dL (11.5-14.8); LYMPHOCYTES % (AUTO) 32.9 % (20.0-44.0); MEAN CORPUSCULAR HEMOGLOBIN 31 PG (26.0-33.0); MEAN CORPUSCULAR HGB CONC 33 g/dl (31.0-36.0); MEAN CORPUSCULAR VOLUME 93 fL (82-100); MONOCYTES # (AUTO) 0.1 /CMM (0.1-1.30); MONOCYTES % (AUTO) 1.5 % (2.0-12.0); NEUTROPHILS # (AUTO) 3.7 /CMM (1.8-8.9); NEUTROPHILS % (AUTO) 59.9 % (43.0-81.0); PLATELET COUNT (AUTO) 295 /CMM (150-450); RDW COEFFICIENT OF VARIATION 12.9 (11.5-15.0); WHITE BLOOD COUNT (AUTO) 6.2 K/uL (4.3-11.0)
--- NOTE | 2018-04-17 07:30 | NUR ---
RN MS OPENING NOTES PT RECEIVED ASLEEP IN BED IN LOWEST AND LOCKED POSITION SIDE RAILS X2, NO S/S OF DISTRESS OR PAIN NOTED, LEFT HAND 20 G IV PATENT AND INTACT WITH IVF RUNNING ORDERED, A/O X2-3, SAFETY PRECAUTIONS IN PLACE, WILL CONTINUE TO MONITOR AND ASSESS.
[2018-04-17 07:42] LABS: CREATININE 0.7 mg/dL (0.6-1.3); POTASSIUM 3.5 mmol/L (3.5-5.1)
[2018-04-17 07:54] LABS: INR 1.46 (0.87-1.13)
[2018-04-17 08:00] VITALS: BP 124/72
[2018-04-17] MEDS: GABAPENTIN 300 MG CAPSULE PO SCH ×4 (08:58→21:11)
[2018-04-17] MEDS: LEVETIRACETAM SOL (5 ML) 100 MG/ML UDC PO SCH ×2 (08:58→21:10)
[2018-04-17] MEDS: PANTOPRAZOLE 40 MG TABLET.DR PO SCH (08:58)
[2018-04-17] MEDS: ASPIRIN EC 81 MG TABLET.DR PO SCH (08:58)
[2018-04-17] MEDS: CEFTRIAXONE 1 G in IV D5W 50 ML IV SCH (09:07)
[2018-04-17] MEDS ORDERED: IV 1/2NS 1000 ML 1,000 ML IV ONE (12:00)
--- NOTE | 2018-04-17 14:56 | NUR ---
Social service consult requested by Dr. Patrick Vásquez for an APS report for self neglect. Pt. is a 72 year old female who was admitted to [facility] for Altered mental status. Pt. resides alone in an apartment located at [address] [place] [address], [address] Pt's emergency contact is her friend Megan . According to rn case management Sarah Catherine pt. has a caregiver who comes to see her daily. Pt. is refusing custodial facility at this time. Pt. to be discharged home with home health and a social service consult at home with the home health agency. SW filed APS report for self-neglect. APS report (Intake ID [id number]) was successfully submitted on 04/17/2018 at 2:54 PM.
[2018-04-17 16:00] VITALS: BP 117/72
[2018-04-17] MEDS: WARFARIN SODIUM 2 MG TABLET PO SCH (16:36)
--- NOTE | 2018-04-17 18:30 | NUR ---
RN MS CLOSING NOTES PT IN BED AT LOWEST AND LOCKED POSITION WITH SIDE RAILS UP X2, A/O X3, VS STABLE, NO S/S OF DISTRESS OR PAIN NOTED, PT SLEPT FOR MOST OF THE DAY, IV PATENT AND INTACT WITH IVF RUNNING ORDERED, CALL LIGHT WITHIN REACH AND WILL ENDORSE TO CUSTOMER SERVICE ADMINISTRATOR RN
--- NOTE | 2018-04-17 19:00 | NUR ---
MS RN INITIAL NOTES Received patient awake on semi-Fowlers position on bed 2 padded side rails up, low bed locked. A/O X3, able to communicated needs. With patent peripheral IV line R hand G#20 with 1/2NS infusing well at 150ml/hr as ordered. No complaints of discomfort at this time. Ensure bed safety, on seizure precaution. Kept clean dry and comfortable on bed. Will monitor accordingly.
--- NOTE | 2018-04-17 19:40 | NUR ---
MS RN NOTES Current IVF 1/2 NS consumed. Followed up with NS1L @ 100 ml/hr. Patient complained 2/10 localized posterior neck pain. Offered warm compress and asked if she wanted medication, patient denied medication this time. Provided rolled towel to support the neck, repositioned comfortably on bed. Will continue to monitor.
[2018-04-17 20:00] VITALS: BP 111/74
[2018-04-17] MEDS: ATORVASTATIN 10 MG TABLET PO SCH (21:10)
[2018-04-18] MEDS: LORAZEPAM 1 MG TABLET PO PRN (03:36)
--- NOTE | 2018-04-18 03:36 | NUR ---
MS RN NOTES Patient awake, asking for something to aid her sleep. Kept room cool, minimize lights. Administered Ativan as ordered. Will continue to monitor.
[2018-04-18] MEDS: IV NS 0.9% 1,000 ML IV PRN (05:59)
--- NOTE | 2018-04-18 06:44 | NUR ---
MS RN CLOSING NOTES Patient asleep on semi-Fowlers position with patent peripheral IV line L hand G#20 with NS infusing well @ 100ml/hr as ordered. Was able to sleep well with medication given as order. With patent peripheral IV line L hand G#20 with NS infusing well @ 100 ml/hr as ordered. No new complaint made,. no s/sx of discomfort at this time. Endorsed to the next shift.
--- NOTE | 2018-04-18 07:30 | NUR ---
RN MS NOTES PT IN BED, ASLEEP, EASY TO AROUSE, ALERT AND ORIENTED, NO COMPLAINT OF PAIN, IV FLUIDS INFUSING WELL, NOT IN DISTRESS, CALL LIGHT WITHIN REACH, NEEDS ATTENDED.
[2018-04-18 07:59] LABS: CALCIUM, SERUM 7.5 mg/dL (8.5-10.1); CREATININE 0.7 mg/dL (0.6-1.3); PHOSPHORUS 3.2 mg/dL (2.5-4.9); POTASSIUM 3.6 mmol/L (3.5-5.1)
[2018-04-18 08:00] VITALS: BP_SYST 103; BP_SYST 107; BP_DIAS 56; BP_DIAS 62
[2018-04-18 08:20] LABS: BASOPHILS # (AUTO) 0.1 /CMM (0.0-0.2); BASOPHILS % (AUTO) 0.9 % (0.0-2.0); EOSINOPHILS % (AUTO) 6.3 % (0.0-6.0); HEMATOCRIT 39 % (33-45); HEMOGLOBIN 13.3 g/dL (11.5-14.8); LYMPHOCYTES # (AUTO) 2.4 /CMM (0.8-4.8); LYMPHOCYTES % (AUTO) 40.9 % (20.0-44.0); MEAN CORPUSCULAR HEMOGLOBIN 32 PG (26.0-33.0); MEAN CORPUSCULAR HGB CONC 34 g/dl (31.0-36.0); MEAN CORPUSCULAR VOLUME 93 fL (82-100); MONOCYTES # (AUTO) 0.3 /CMM (0.1-1.30); MONOCYTES % (AUTO) 5.2 % (2.0-12.0); NEUTROPHILS # (AUTO) 2.7 /CMM (1.8-8.9); NEUTROPHILS % (AUTO) 46.7 % (43.0-81.0); PLATELET COUNT (AUTO) 312 /CMM (150-450); RDW COEFFICIENT OF VARIATION 12.7 (11.5-15.0); RED BLOOD CELL COUNT(AUTO) 4.21 MIL/uL (4.0-5.2); WHITE BLOOD COUNT (AUTO) 5.9 K/uL (4.3-11.0)
[2018-04-18] MEDS: GABAPENTIN 300 MG CAPSULE PO SCH ×3 (08:31→17:00)
[2018-04-18] MEDS: PANTOPRAZOLE 40 MG TABLET.DR PO SCH (08:31)
[2018-04-18] MEDS: LEVETIRACETAM SOL (5 ML) 100 MG/ML UDC PO SCH (08:31)
[2018-04-18] MEDS: CEFTRIAXONE 1 G in IV D5W 50 ML IV SCH (08:32)
[2018-04-18] MEDS: ASPIRIN EC 81 MG TABLET.DR PO SCH (08:32)
[2018-04-18 08:59] LABS: CREATINE KINASE MB 0.6 ng/mL (0-3.6)
[2018-04-18 10:01] LABS: INR 1.19 (0.87-1.13)
--- NOTE | 2018-04-18 13:00 | NUR ---
RN MS NOTES PT IN BED, RESTING, DENIES PAIN, RESPIRATIONS NORMAL AND NOT LABORED, SEEN BY PHYSICAL THERAPIST, ABLE TO WALK ALONG THE HALLWAY WITH AND WITHOUT WALKER, TOLERATED WELL, TOLERATING CURRENT DIET WELL, NEEDS ATTENDED.
[2018-04-18] MEDS ORDERED: ASPI-1152 PO (13:54)
[2018-04-18] MEDS ORDERED: GABA300C PO ×2 (13:54)
[2018-04-18] MEDS ORDERED: LEVE100S PO (13:54)
[2018-04-18] MEDS ORDERED: ATOR10TA PO (13:54)
[2018-04-18] MEDS ORDERED: WARF2TAB57 PO (13:54)
[2018-04-18] MEDS ORDERED: ENOX40DI SQ (13:55)
[2018-04-18 16:00] VITALS: BP 136/79
[2018-04-18] MEDS: WARFARIN SODIUM 2 MG TABLET PO SCH (16:59)
--- NOTE | 2018-04-18 19:05 | NUR ---
RN MS NOTES PT AWAKE, ALERT AND ORIENTED, NO COMPLAINT OF PAIN, RESPIRATIONS NORMAL AND NOT LABORED, PT SEEN BY DR. GOETZ, DISCHARGE ORDER GIVEN, PT INFORMED, DISCHARGE AND MEDICATION INSTRUCTIONS PROVIDED TO PT, VERBALIZED UNDERSTANDING, NEW PRESCRIPTIONS CALLED TO [facility], BELONGINGS ACCOUNTED FOR, PT TO BE FOLLOWED BY HOME HEALTH AT HOME, TAXI VOUCHER REQUESTED, ASSISTED BY LITHOGRAPHING MACHINE OPERATOR TO HOSPITAL LOBBY, LEFT IN STABLE CONDITION.
--- NOTE | 2018-04-21 14:47 | NUR ---
MILTON received a call from APS MILTON Gilbert following up regarding an APS report SW had made for self-neglect. MILTON informed ANNA Gilbert that pt. was discharged home with home health since pt. had refused SNF placement.
== END 2018-04-18 19:15 | disposition home or self-care (01) | DRG 871 ==
LOC: ER 17:50 → TELE 21:25 → MED 04-16 10:15
PROVIDERS: ADMIT Nurse Practitioner Acute Care; ATTEND Nurse Practitioner Acute Care
DX: A41.9 Sepsis, unspecified organism (principal); G93.40 Encephalopathy, unspecified; I21.A1 Myocardial infarction type 2; M62.82 Rhabdomyolysis; E87.1 Hypo-osmolality and hyponatremia; E87.2 Acidosis; E46 Unspecified protein-calorie malnutrition; D68.62 Lupus anticoagulant syndrome; K92.2 Gastrointestinal hemorrhage, unspecified; I10 Essential (primary) hypertension; Z88.2 Allergy status to sulfonamides; Z79.01 Long term (current) use of anticoagulants; Z79.899 Other long term (current) drug therapy; E78.5 Hyperlipidemia, unspecified; E87.6 Hypokalemia; Z86.711 Personal history of pulmonary embolism; R56.9 Unspecified convulsions; I49.9 Cardiac arrhythmia, unspecified; F41.9 Anxiety disorder, unspecified; G47.00 Insomnia, unspecified; F32.9 Major depressive disorder, single episode, unspecified; T45.515A Adverse effect of anticoagulants, initial encounter; Y92.009 Unspecified place in unspecified non-institutional (private) residence as the place of occurrence of the external cause
CPT/HCPCS: 36415; 70450-TC; 71045-TC; 80048-TC; 80061-TC; 80076-TC; 80305; 81000-TC; 82140-TC; 82550-TC; 82553-TC; 83605-TC; 83735-TC; 84100-TC; 84443-TC; 84484-TC; 85025-TC; 85610-TC; 85730-TC; 87040-TC; 87081-TC; 87086-TC; 93307-TC; 97110-TC; 97112-TC; 97116-TC; 97530-TC; A4606; C9113; G0480; J0696; J1650; J1953; J2060; J2405; J3490; J7030; J7060; Z7610

== ENCOUNTER 2018-05-11 13:51 | Outpatient (CLI) | payer MEDICARE, OTHER ==
[~2018-05-11 13:51] MED LIST changes: +ASPI-1152 PO; +ATOR10TA PO; +ENOX40DI SQ; +GABA300C PO; +LEVE100S PO; +WARF2TAB57 PO; -WARF3TAB59 PO
[2018-05-11 14:16] VITALS: BP 125/80
== END 2018-05-11 23:59 | disposition home or self-care (01) ==
LOC: MSC 13:51
PROVIDERS: ATTEND Internal Medicine
DX: Z51.89 Encounter for other specified aftercare (principal); R56.9 Unspecified convulsions; Z86.711 Personal history of pulmonary embolism; Z79.01 Long term (current) use of anticoagulants; G47.00 Insomnia, unspecified; F41.8 Other specified anxiety disorders; I10 Essential (primary) hypertension; D68.62 Lupus anticoagulant syndrome

== ENCOUNTER 2018-10-29 05:05 | Inpatient (IN) | payer MEDICARE, OTHER ==
[~2018-10-29] VITALS: Ht 157.5 cm; Wt 67.6 kg
[2018-10-29] VITALS (42 sets, daily range): BP systolic 71–102; BP diastolic 36–74
--- NOTE | 2018-10-29 05:09 | NUR ---
PT BIB RA WITH A C/O VOMITTING KRISHNA BLOOD X 3 HRS ROUTE DELIVERY MANAGER. PT IS AA&O X4. PT IS FEELING DIAPHORETIC, NAUSEATED, AND DIZZY. DR. ELAINE IS AT THE BEDSIDE. BLOOD WAS DRAWN AND SENT TO LAB.
--- NOTE | 2018-10-29 05:15 | NUR ---
PT STATED THAT SHE ONLY TAKES WARFARIN 3MG TUE, , TUE, AND 4MG ON TUE, TUE, TUESDAY, TUESDAY.
[2018-10-29] MEDS ORDERED: ONDANSETRON HCL/PF 4 MG/2 ML VIAL ONE (05:21)
[2018-10-29] MEDS ORDERED: PANTOPRAZOLE 40 MG VIAL ONE ×2 (05:26→06:35)
[2018-10-29] MEDS ORDERED: IV NS 0.9% 1,000 ML BAG IV ONE ×2 (05:30→07:00)
[2018-10-29] MEDS ORDERED: ONDANSETRON HCL/PF 4 MG/2 ML VIAL IVP ONE (05:30)
[2018-10-29] MEDS ORDERED: PANTOPRAZOLE 80 MG in IV NS 0.9% 500 ML IV ONE ×2 (05:30→07:00)
[2018-10-29] MEDS ORDERED: PANTOPRAZOLE 40 MG VIAL IV ONE ×2 (05:30→06:00)
--- NOTE | 2018-10-29 05:33 | NUR ---
PT REC'D MEDICATION ORDERED.
[2018-10-29 05:34] LABS: BASOPHILS # (AUTO) 0.1 /CMM (0.0-0.2); HEMATOCRIT 36 % (33-45); HEMOGLOBIN 12.2 g/dL (11.5-14.8); LYMPHOCYTES # (AUTO) 2.5 /CMM (0.8-4.8); LYMPHOCYTES % (AUTO) 26.2 % (20.0-44.0); MEAN CORPUSCULAR HGB CONC 34 g/dl (31.0-36.0); MEAN CORPUSCULAR VOLUME 89 fL (82-100); MONOCYTES # (AUTO) 0.5 /CMM (0.1-1.30); MONOCYTES % (AUTO) 5.4 % (2.0-12.0); NEUTROPHILS # (AUTO) 6.4 /CMM (1.8-8.9); NEUTROPHILS % (AUTO) 65.4 % (43.0-81.0); PLATELET COUNT (AUTO) 381 /CMM (150-450); RED BLOOD CELL COUNT(AUTO) 4.08 MIL/uL (4.0-5.2); WHITE BLOOD COUNT (AUTO) 9.7 K/uL (4.3-11.0)
[2018-10-29 05:43] LABS: CALCIUM, SERUM 8.7 mg/dL (8.5-10.1); CARBON DIOXIDE 24 mmol/L (21-32); CHLORIDE 106 mmol/L (98-107); CREATININE 0.9 mg/dL (0.6-1.3); GLUCOSE 117 mg/dL (74-106); POTASSIUM 4.6 mmol/L (3.5-5.1); SODIUM SERUM 139 mmol/L (136-145); UREA NITROGEN, BLOOD 43 mg/dL (7-18)
--- NOTE | 2018-10-29 05:45 | NUR ---
XRAY IN PROGRESS AT THE BEDSIDE.
[2018-10-29 05:49] LABS: ALANINE AMINOTRANSFERASE 29 U/L (12-78); ALKALINE PHOSPHATASE 72 U/L (46-116); ASPARTATE AMINOTRANSFERASE 21 U/L (15-37); BILIRUBIN,TOTAL 0.3 mg/dL (0.2-1.0); LIPASE 231 U/L (73-393); TOTAL PROTEIN, SERUM 6.4 g/dL (6.4-8.2)
--- NOTE | 2018-10-29 06:00 | NUR ---
PT LEFT FOR CT VIA GURNEY.
--- NOTE | 2018-10-29 06:12 | NUR ---
PT RETURNED FROM CT.
[2018-10-29 06:20] LABS: APPEARANCE,URINE CLEAR (CLEAR); BILIRUBIN,URINE NEGATIVE (NEGATIVE); BLOOD, URINE NEGATIVE Ery/uL (NEGATIVE); COLOR,URINE YELLOW (YELLOW); KETONES,URINE 1+ (NEGATIVE); LEUKOCYTE ESTERASE ,URINE NEGATIVE (NEGATIVE); NITRITE, URINE NEGATIVE (NEGATIVE); PROTEIN,URINE NEGATIVE (NEGATIVE); UGLUCOSE NEGATIVE (NEGATIVE); UROBILINOGEN,URINE 0.2 EU/dL (0.2)
[2018-10-29 06:31] LABS: SQUAMOUS EPITHELIAL CELL,UR Few /HPF (None Seen)
--- NOTE | 2018-10-29 06:31 | NUR ---
DR MONDRAGON IS AT THE BEDSIDE SPEAKING TO THE PT.
[2018-10-29 06:32] LABS: BACTERIA,URINE Rare /HPF (None Seen); RBC,URINE 0-2 /HPF (0-2); WBC,URINE 0-2 /HPF (0-3)
--- NOTE | 2018-10-29 06:35 | NUR ---
DR MONDRAGON IS AT THE BEDSIDE FOR GUIAC TEST. Female cloth mercerizer operator, China Del Real, accompanied female patient for the test. Guiac is positive.
--- NOTE | 2018-10-29 06:49 | NUR ---
CALLING RHEA RE: CT READ
--- NOTE | 2018-10-29 06:52 | NUR ---
AUTOMOBILE PARKER IS AT THE BEDSIDE FOR RE-TYPE AND SCREEN.
--- NOTE | 2018-10-29 07:33 | NUR ---
REPORT GIVEN TO AMMY SCHNEIDER FOR ALIN.
--- NOTE | 2018-10-29 07:36 | NUR ---
REPORT RECEIVED FROM [facility] FOR ALIN. PT IS AAOX3, NOT IN RESPIRATORY DISTRESS, V/S STABLE, AWAITING ROOM FOR ADMISSION.
[2018-10-29] MEDS ORDERED: MAGNESIUM HYDROXIDE 30 ML UDC PO PRN (08:00)
[2018-10-29] MEDS ORDERED: MAG HYDROX/AL HYDROX/SIMETH 30 ML UDC PO PRN (08:00)
[2018-10-29] MEDS ORDERED: Z GUARD REMEDY 2 OZ OINT TP PRN (08:00)
[2018-10-29] MEDS ORDERED: ZOLPIDEM TARTRATE 5 MG TABLET PO PRN (08:00)
--- NOTE | 2018-10-29 08:00 | NUR ---
REPORT GIVEN TO AMMY LINDSEY FOR ALIN.
--- NOTE | 2018-10-29 08:30 | NUR ---
SUPERVISOR ORDER TAKERS INITIAL NOTES RECEIVED PT REPORT FROM ER NURSE AT 0800. RECEIVED PT VIA MARLEE. PT A&OX3. PATIENT COMPLAINS OF NAUSEA. PATIENT KEPT NPO. STATED THAT SHE AMBULATES BUT IS VERY WEAK RIGHT NOW. IV IN LAC #18G S/L AND R WRIST 18G. ON OXYGEN 2L, TOLERATING WELL. SAFETY MEASURES IN PLACE. HEAD TO TOE ASSESSMENT DONE. ADMISSION ASSESSMENTS DONE. BED IN LOW LOCKED POSITION. CALL LIGHT WITHIN REACH. WILL CONTINUE TO MONITOR PATIENT CLOSELY THROUGHOUT SHIFT.
[2018-10-29] MEDS: ONDANSETRON HCL/PF 4 MG/2 ML VIAL IVP PRN ×2 (08:57→17:58)
--- NOTE | 2018-10-29 08:59 | NUR ---
CLARIFIED WITH DR. KOROMA PROTONIX DRIP PER MD CONTINUE DRIP FROM ER,[facility] THEY WILL TRY TO RECOMMEND TO MD TO WILL SWITCH TO IVP.WILL FF. UP.
--- NOTE | 2018-10-29 09:05 | NUR ---
QUALITY CLOTH TESTER NOTES PATIENT VOMITED APPROXIMATELY 90CC OF FLUIDS, BRIGHT RED. MADE AWARE.
[2018-10-29] MEDS: HYDROCODONE/APAP 5/325MG 1 EACH TABLET PO PRN (10:08)
[2018-10-29 11:00] LABS: BASOPHILS # (AUTO) 0.1 /CMM (0.0-0.2); BASOPHILS % (AUTO) 0.7 % (0.0-2.0); EOSINOPHILS % (AUTO) 0.7 % (0.0-6.0); HEMATOCRIT 23 % (33-45); HEMOGLOBIN 7.9 g/dL (11.5-14.8); LYMPHOCYTES # (AUTO) 2.6 /CMM (0.8-4.8); MEAN CORPUSCULAR HGB CONC 34 g/dl (31.0-36.0); MEAN CORPUSCULAR VOLUME 89 fL (82-100); MONOCYTES # (AUTO) 0.5 /CMM (0.1-1.30); MONOCYTES % (AUTO) 6.7 % (2.0-12.0); NEUTROPHILS # (AUTO) 4.9 /CMM (1.8-8.9); NEUTROPHILS % (AUTO) 59.9 % (43.0-81.0); PLATELET COUNT (AUTO) 301 /CMM (150-450); RED BLOOD CELL COUNT(AUTO) 2.61 MIL/uL (4.0-5.2); WHITE BLOOD COUNT (AUTO) 8.1 K/uL (4.3-11.0)
[2018-10-29] MEDS ORDERED: METOCLOPRAMIDE HCL 10 MG/2 ML VIAL IV PRN (11:00)
[2018-10-29] MEDS ORDERED: IV NS 0.9% 500 ML IV ONE (11:30)
--- NOTE | 2018-10-29 11:47 | NUR ---
BOLUS NORMAL SALINE GIVEN PER MD EDWARD NOTIFIED ALSO PT. HAD SEIZURE FOR 8 SECONDS AND BECOME ALTERED.
--- NOTE | 2018-10-29 11:48 | NUR ---
AT BEDSIDE AND DISCUSSED WITH PT. PLAN OF CARE ,PT. REFUSED TO TAKE ANY SEIZURE MEDS .MD AWARE,AWAITS NEURO AND GI CONSULT.WILL CONTINUE TO MONITOR.
--- NOTE | 2018-10-29 12:05 | NUR ---
c/o nausea and diaphoretic repeat sbp on 70 ,hr 150,c/o abdominal pain 02/28,dr. betancourt at bedside,requested icu bed for close monitoring.
--- NOTE | 2018-10-29 12:15 | NUR ---
STATE ARCHIVIST RECEIVED PT FROM KEVIN BY BED. REPORT RECEIVED FROM KEVIN RN. PT EASILY AROUSEABLE. FOLLOWING COMMANDS. PT HAD HEMATEMESIS BY REPORT. NONE AT THIS TIME. PT TACHYCARDIC 130'S HYPOTENSIVE. NS BOLUS INFUSING. NEW IV LINES STARTED IN RIGHT FOREARM. WILL REQUEST FOR PICC LINE.
--- NOTE | 2018-10-29 12:15 | NUR ---
JUNIOR BUSINESS ANALYST NOTES TRANSFERRED PATIENT TO ICU VIA BED D/T HEMODYNAMIC INSTABILITY. ENDORSED TO ICU NURSE FOR ALIN.
[2018-10-29] MEDS: IV NS 0.9% 1,000 ML IV PRN ×2 (12:44→21:16)
--- NOTE | 2018-10-29 16:30 | NUR ---
MOTOR GRADER OPERATOR. RECEIVED THE PT FROM SUSANNA MEAD RN. PT AWAKE. ALERT, FOLLOW COMMANDS. OXYGEN 2L VIA NASAL CANNULA. SAT 99%. NO ACUTE DISTRESS NOTED TISSUE COORDINATOR SHOWING S TACH. IV LT UPPER ARM PICC LINE. RT HAND 20G. IVF NS 125ML/H,PROTONIX 50ML/H. PRBC RUNNING. HOB ELEVATED. PT IS NPO. SEIZURE PRECAUTION INITIATED. AFEBRILE. WILL CONTINUE TO MONITOR VITALS.
--- NOTE | 2018-10-29 16:58 | NUR ---
MORTGAGE ACCOUNTING CLERK. PER CONTRACT PARALEGAL SUSANNA MÁRQUEZ TO USE PICC LINE.
--- NOTE | 2018-10-29 16:59 | NUR ---
CLEARANCE DIVER. ESSIE SIENE MAKER AT BED SIDE. EVALUATE THE PT.
--- NOTE | 2018-10-29 17:03 | NUR ---
AIRPLANE RIGGER. IST UNIT PRBC DONE. DURING TRANSFUSION NO COMPLICATION NOTED. WILL CONTINUE TO MONITOR,
[2018-10-29] MEDS ORDERED: CYAN100T PO (17:23)
[2018-10-29] MEDS ORDERED: WARF3TAB59 PO (17:23)
[2018-10-29] MEDS ORDERED: GABA-534 PO ×2 (17:23)
[2018-10-29] MEDS ORDERED: NOREPINEPHRINE 16 MG in IV D5W 500 ML IV PRN (17:30)
--- NOTE | 2018-10-29 17:47 | NUR ---
FINAL COAT SPRAYER. 2ND UNIT PRBC STARTED. WILL CONTINUE TO MONITOR.
[2018-10-29] MEDS: PANTOPRAZOLE 80 MG in IV NS 0.9% 500 ML IV PRN (17:58)
--- NOTE | 2018-10-29 19:05 | NUR ---
GRAVEL INSPECTOR. HEMATEMESIS NOTED. ZOFRAN GIVEN PER ORDERED. WILL CONTINUE TO MONITOR.
--- NOTE | 2018-10-29 19:06 | NUR ---
ROTARY DUMP OPERATOR. 2ND UNIT BLOOD FINISHED. DURING TRANSFUSION NO COMPLICATION NOTED.
[2018-10-29 20:24] LABS: HEMOGLOBIN 8.3 g/dL (11.5-14.8); WHITE BLOOD COUNT (AUTO) 11.6 K/uL (4.3-11.0)
[2018-10-29 20:25] LABS: BASOPHILS # (AUTO) 0.1 /CMM (0.0-0.2); BASOPHILS % (AUTO) 0.6 % (0.0-2.0); EOSINOPHILS % (AUTO) 0.2 % (0.0-6.0); HEMATOCRIT 25 % (33-45); LYMPHOCYTES # (AUTO) 2.5 /CMM (0.8-4.8); LYMPHOCYTES % (AUTO) 21.8 % (20.0-44.0); MEAN CORPUSCULAR HGB CONC 34 g/dl (31.0-36.0); MEAN CORPUSCULAR VOLUME 88 fL (82-100); MONOCYTES # (AUTO) 1.1 /CMM (0.1-1.30); MONOCYTES % (AUTO) 9.1 % (2.0-12.0); NEUTROPHILS # (AUTO) 7.9 /CMM (1.8-8.9); NEUTROPHILS % (AUTO) 68.3 % (43.0-81.0); PLATELET COUNT (AUTO) 210 /CMM (150-450)
--- NOTE | 2018-10-29 20:46 | NUR ---
CLEANING SUPERVISOR. ESSIE HYDROGEN TREATER ORDERED. NGT PLACEMENT AND LOW INTERMITTENT SUCTION. PT REFUSED. NGT. DURING PLACEMENT PT NGT PULLED OUT.
--- NOTE | 2018-10-29 20:48 | NUR ---
DETENTION DEPUTY. TOMORROW AM EGD . CONSENT PT SIGNED. CONSENT FORM PLACED IN THE CHART.
--- NOTE | 2018-10-29 21:27 | NUR ---
KETTLE CHIPPER. AFTER PRBC H&H RESULT ,DIMAS PINK MADE AWARE.
--- NOTE | 2018-10-29 22:08 | NUR ---
MANAGER MOLECULAR. ESSIE PINK ORDERED. 1 UNIT FFP.
--- NOTE | 2018-10-29 22:36 | NUR ---
TRANSACTION ADVISORY SERVICES MANAGER. BP 66/35. LEVOPHED STARTED PER PROTOCOL
--- NOTE | 2018-10-29 22:37 | NUR ---
BAKER DOUGHNUT. PT STOOL MIXED WITH BLOOD. H&H STAT ORDERED.
[2018-10-29 22:53] LABS: HEMOGLOBIN 7.9 g/dL (11.5-14.8)
[2018-10-30] VITALS (46 sets, daily range): BP systolic 83–129; BP diastolic 36–76
--- NOTE | 2018-10-30 00:01 | NUR ---
AIDS COUNSELOR. FFP FINISHED. DURING TRANSFUSION NO COMPLICATION NOTED
[2018-10-30 01:40] LABS: BASOPHILS # (AUTO) 0.1 /CMM (0.0-0.2); BASOPHILS % (AUTO) 0.4 % (0.0-2.0); EOSINOPHILS % (AUTO) 0.1 % (0.0-6.0); LYMPHOCYTES # (AUTO) 3.2 /CMM (0.8-4.8); LYMPHOCYTES % (AUTO) 20.4 % (20.0-44.0); MEAN CORPUSCULAR HGB CONC 34 g/dl (31.0-36.0); MEAN CORPUSCULAR VOLUME 88 fL (82-100); MONOCYTES # (AUTO) 0.9 /CMM (0.1-1.30); MONOCYTES % (AUTO) 5.8 % (2.0-12.0); NEUTROPHILS # (AUTO) 11.6 /CMM (1.8-8.9); NEUTROPHILS % (AUTO) 73.3 % (43.0-81.0); PLATELET COUNT (AUTO) 226 /CMM (150-450); RED BLOOD CELL COUNT(AUTO) 2.37 MIL/uL (4.0-5.2); WHITE BLOOD COUNT (AUTO) 15.8 K/uL (4.3-11.0)
[2018-10-30 01:44] LABS: HEMATOCRIT 21 % (33-45)
[2018-10-30 01:55] LABS: CARBON DIOXIDE 21 mmol/L (21-32); CHLORIDE 120 mmol/L (98-107); GLUCOSE 148 mg/dL (74-106); MAGNESIUM 1.8 mg/dL (1.8-2.4); PHOSPHORUS 2.8 mg/dL (2.5-4.9); POTASSIUM 4.5 mmol/L (3.5-5.1); SODIUM SERUM 149 mmol/L (136-145); UREA NITROGEN, BLOOD 48 mg/dL (7-18)
[2018-10-30 01:56] LABS: CHOLESTEROL 114 mg/dL (<200); HDL CHOLESTEROL 18 mg/dL (40-60); LDL 58 mg/dL (0-99); TRIGLYCERIDES 251 mg/dL (30-150)
--- NOTE | 2018-10-30 02:16 | NUR ---
TRANSPORTATION INSPECTOR. STAT LAB ORDER DONE. RESULT SHASHANK MADE AWARE.
[2018-10-30] MEDS ORDERED: PHENYLEPHRINE 10 MG/ML VIAL ONE (02:49)
[2018-10-30] MEDS: PHENYLEPHRINE 80 MG in IV D5W 250 ML IV PRN (02:58)
[2018-10-30] MEDS ORDERED: IV NS 0.9% 500 ML IV ONE (03:00)
--- NOTE | 2018-10-30 03:14 | NUR ---
ICU RM CARDIAC MO NITOR SHOWING S TACH. HEART RATE WAS 160S. STRATEGIC PLANNING SPECIALIST CATHALAN MADE AWARE. NEW ORDER RECEIVED. NS 500ML BOLUS GIVEN. LATEST H&H IS 7-0. ONE UNIT PRBC ORDERED. LEVOPHED CHANGED TO YANNA STARTED. WILL CONTINUE TO MONITOR.
--- NOTE | 2018-10-30 03:19 | NUR ---
FINE CRAFT ARTIST. AM CARE, ORAL CARE, BED BATH GIVEN. LINEN CHANGED. REMAINING SAME IV FLUIDS AND OXYGEN TOLERATED WELL. VENEER JOINTER OFFBEARER SHOWING S TACH. RATE IS 144. HOB ELEVATED. LT UPPER ARM PICC LINE. PT IS NPO. WILL CONTINUE TO MONITOR.
[2018-10-30] MEDS: PANTOPRAZOLE 80 MG in IV NS 0.9% 500 ML IV PRN (03:24)
[2018-10-30] MEDS: IV NS 0.9% 1,000 ML IV PRN ×2 (04:46→21:45)
--- NOTE | 2018-10-30 05:30 | NUR ---
COOKIE BREAKER. REMAINING SAME OXYGEN 2L VIA NASAL CANNULA TOLERATED WELL. SAT 98%. NO ACUTE DISTRESS NOTED. SECURITIES SETTLEMENT PROCESSOR SHOWING S TACH. IV LT UPPER ARM PICC LINE IVF NS 125ML/H,YANNA 40MCG/MIN,PROTONIX 50ML/H. HOB ELEVATED. NPO. THIS MORNING EGD. AFEBRILE. TURN AND REPOSITION Q2H. WILL CONTINUE TO MONITOR VITALS.
[2018-10-30 07:30] LABS: HEMOGLOBIN 6.9 g/dL (11.5-14.8)
--- NOTE | 2018-10-30 07:30 | NUR ---
RN NOTES RECEIVED PATIENT IN BED, ASLEEP BUT EASILY AWAKEN BY VERBAL STIMULI, A/O X4, ABLE TO MAKE NEEDS KNOWN. NO SOB NOTED. ON OXYGEN SUPPORT VIA NASAL CANNULA AT 2LPM, SATING AT 100. ST ON THE MONITOR WITH HR AT 120 AT THIS TIME. PATIENT WITH DWAYNE PICC LINE, L HAND G 20 AND R HAND G 20; ALL IN PLACE AND PATENT ON FLUSHING. DRESSING C/D/I. NO SIGN OF INFILTRATION OR PHLEBITIS NOTES PATIENT WITH RUNNING YANNA AT 40MCG/MIN, PROTONIX AT 53 ML/HR, AND NS AT 125 ML / HR. PATIENT REITERATED ON NPO STATUS. ENCOURAGE TO VERBALIZED FEELING AND CONCERN AND USE CALL LIGHT FOR ASSISTANCE. SAFETY MEASURES OBSERVED AND MAINTAINED. CALL LIGHT PLACED WITHIN REACH. WILL CONTINUE TO MONITOR PATIENT CLOSELY
--- NOTE | 2018-10-30 08:00 | NUR ---
RN NOTES INFORMED DR. LEI THAT HGB AT 6.9 TODAY. OBTAINED ORDER TO TRANSFUSE 2 UNIT OF PRBC. ORDER NOTED AND CARRIED OUT
--- NOTE | 2018-10-30 10:31 | NUR ---
RN NOTES STARTED INFUSION OF FIRST BAG: PRBC. MD CONSENT, PT FULL NAME, PT DATE OF , PT BLOOD TYPE, EXPIRATION DATE, SIGNS OF LEAGE , PRESENCE OF CLOT, DISCOLORATION: ALL CHECKED AND VERIFIED WITH AMMY SKINNER. PATIENT ENCOURAGE TO REPORT ANY UNTOWARD S/S SUCH FLUSHING, ITCHING AND SHORTNESS OF BREATHE. PATIENT MONITORED CLOSELY
--- NOTE | 2018-10-30 10:35 | NUR ---
PRBC VERIFIED WITH AMMY ACOSTA. CONSENT SIGNED, PT FULL NAME CHECKED, PT CHECKED, BLOOD TYPE CHECKED EXPIRATION DATE CHECKED, NO SIGNS OV LEAKING, NO CLOTS PRESENT, NO DISCOLORATION.
--- NOTE | 2018-10-30 13:20 | NUR ---
RN NOTES PATIENT STARTED ON 2ND BAG OF PRBC. OR TEAM ALSO AT BEDSIDE AT THIS TIME, PATIENT BEING PICKED UP FOR EGD. PATIENT ENDORSED FOR CONTINUITY OF CARE. PATIENT ON STABLE CONDITION NOT ON ANY FORM OF DISTRESS. VITAL SIGNS ARE FOLLOWS, BP AT 96/57. HR AT 117. RR AT 17.
--- NOTE | 2018-10-30 14:45 | NUR ---
RN NOTES PATIENT BACK FROM OR. AWAKE, ALERT AND ORIENTED. NOT ON ANY FORM OF DISTRESS NO SOB NOTED. NO COMPLAINTS OF PAIN. 2ND BAG OF RBC STILL INFUSING WELL. NO S/S OF BLOOD TRANSFUSION REACTION NOTED AT THIS TIME. PATIENT ENCOURAGE TO VERBALIZE FEELINGS AND CONCERN. POST PROCEDURE ORDERS NOTED. CLARIFIED DIET ORDER AND PROTONIX DRIP ADMINISTRATION Tamar PORTILLO. ORDERS CARRIED OUT. WILL CONTINUE TO MONITOR PATIENT
[2018-10-30] MEDS: CEFTRIAXONE 1 G in IV D5W 50 ML IV SCH (15:10)
--- NOTE | 2018-10-30 16:30 | NUR ---
RN NOTES ACCOMPANIED PATIENT TO HIDA SCAN VIA ACLS PROTOCOL.
--- NOTE | 2018-10-30 19:30 | NUR ---
RN NOTES ENDORSED PATIENT FOR CONTINUITY OF CARE. NO SIGNIFICANT CHANGES WITHIN THE SHIFT. PATIENT ON OXYGEN VIA NASAL CANNULA AT 2LPM, NO SHORTNESS OF BREATH NOTED, NO COMPLAINTS OF PAIN. S/P 2BAG OF RBC INFUSED, PENDING H/H RECHECKED. ENDORSED TO INCOMING SHIFT REGARDING ESSIE PORTILLO, NO WANTING RESULTS TO BE SEND TO HER. ALL NURSING NEEDS ATTENDED AND MET. SAFETY MEASURES AND SEIZURE PRECAUTIONS IN PLACE AT ALL TIMES. CALL LIGHT WITHIN REACH ALWAYS.
[2018-10-30] MEDS: PANTOPRAZOLE 40 MG VIAL IV SCH (19:33)
[2018-10-30] MEDS: LORAZEPAM INJ 2 MG/ML VIAL IV SCH ×2 (19:34→23:13)
[2018-10-30] MEDS: SUCRALFATE 1 G TABLET PO SCH ×2 (19:34→23:13)
--- NOTE | 2018-10-30 20:00 | NUR ---
CHIEF MEDICAL TECHNOLOGIST - NOTES - RECEIVED PATIENT IN BED, AWAKE A/O X4, ABLE TO MAKE NEEDS KNOWN. NO SOB NOTED. ON OXYGEN SUPPORT VIA NASAL CANNULA AT 2LPM, SATING AT 100. ST ON THE MONITOR WITH HR AT 130S AT THIS TIME. PATIENT WITH DWAYNE PICC LINE, R AC 20G AND R HAND 20G; ALL IN PLACE AND PATENT ON FLUSHING. DRESSING C/D/I. NO SIGN OF INFILTRATION OR PHLEBITIS NOTES PATIENT WITH RUNNING YANNA AT 40MCG/MIN, AND NS AT 125 ML/HR. PATIENT ON CLEAR LIQUID DIET. ENCOURAGE TO VERBALIZED FEELING AND CONCERN AND USE CALL LIGHT FOR ASSISTANCE. SAFETY MEASURES OBSERVED AND MAINTAINED. CALL LIGHT PLACED WITHIN REACH. WILL CONTINUE TO MONITOR PATIENT CLOSELY
[2018-10-30 20:40] LABS: HEMOGLOBIN 7.1 g/dL (11.5-14.8)
[2018-10-30] MEDS: ONDANSETRON HCL/PF 4 MG/2 ML VIAL IVP PRN (20:44)
--- NOTE | 2018-10-30 20:45 | NUR ---
PT JUST HAD AN EPISODE OF VOMITING BLOOD, HR INCREASED TO 160S, ZOFRAN GIVEN
--- NOTE | 2018-10-30 20:59 | NUR ---
PT JUST HAD 2ND EPISODE OF VOMITING SMALL AMOUNT OF BLOOD, HR 150S, BP 104/63, O2SAT 100%
--- NOTE | 2018-10-30 21:17 | NUR ---
PT HAD A MODERATE SIZED EPISODE OF LIQUID DARK RED STOOL, SAMPLE SENT OF STOOL OB
--- NOTE | 2018-10-30 22:15 | NUR ---
PT HAD 3RD EPISODE OF LARGE AMOUNT OF VOMITING BLOOD APPROX 400 ML, HR UP TO 160S, AWAITING BLOOD PRODUCTS
[2018-10-30 22:54] LABS: BASOPHILS # (AUTO) 0.1 /CMM (0.0-0.2); BASOPHILS % (AUTO) 0.7 % (0.0-2.0); EOSINOPHILS % (AUTO) 1.4 % (0.0-6.0); LYMPHOCYTES # (AUTO) 3.2 /CMM (0.8-4.8); LYMPHOCYTES % (AUTO) 26.4 % (20.0-44.0); MEAN CORPUSCULAR HGB CONC 33 g/dl (31.0-36.0); MEAN CORPUSCULAR VOLUME 92 fL (82-100); NEUTROPHILS # (AUTO) 7.7 /CMM (1.8-8.9); NEUTROPHILS % (AUTO) 63.5 % (43.0-81.0); PLATELET COUNT (AUTO) 104 /CMM (150-450); RED BLOOD CELL COUNT(AUTO) 2.05 MIL/uL (4.0-5.2); WHITE BLOOD COUNT (AUTO) 12.1 K/uL (4.3-11.0)
[2018-10-30 22:55] LABS: HEMOGLOBIN 6.2 g/dL (11.5-14.8)
[2018-10-30 22:56] LABS: HEMATOCRIT 19 % (33-45)
[2018-10-30 23:25] LABS: ALANINE AMINOTRANSFERASE 11 U/L (12-78); ALKALINE PHOSPHATASE 26 U/L (46-116); ASPARTATE AMINOTRANSFERASE 13 U/L (15-37); BILIRUBIN,TOTAL 0.1 mg/dL (0.2-1.0); CALCIUM, SERUM 6.5 mg/dL (8.5-10.1); CARBON DIOXIDE 19 mmol/L (21-32); CHLORIDE 123 mmol/L (98-107); CREATININE 0.9 mg/dL (0.6-1.3); GLUCOSE 140 mg/dL (74-106); POTASSIUM 3.9 mmol/L (3.5-5.1); SODIUM SERUM 150 mmol/L (136-145); TOTAL PROTEIN, SERUM 3.1 g/dL (6.4-8.2); UREA NITROGEN, BLOOD 40 mg/dL (7-18)
[2018-10-30 23:36] LABS: ALBUMIN 1.4 g/dL (3.4-5.0)
[2018-10-30 23:36] LABS: OCCULT BLOOD STOOL POSITIVE (NEGATIVE)
[2018-10-31] VITALS (140 sets, daily range): BP systolic 72–152; BP diastolic 29–98
--- NOTE | 2018-10-31 00:52 | NUR ---
PT SAID SHE TOOK COUMADIN 5 MG ON SATURDAY 10/28, SHE WAS TAKING DAILY BEFORE SAT.
[2018-10-31 01:08] LABS: NEUTROPHILS % (MANUAL) 75 (42-76)
[2018-10-31 01:09] LABS: LYMPHOCYTES % (MANUAL) 20 % (16-48); MONOCYTES % (MANUAL) 2 % (0-11.0)
[2018-10-31 01:28] LABS: PLATELET COUNT (AUTO) 104 /CMM (150-450)
[2018-10-31 01:29] LABS: D-DIMER < 0.19 mg/L(FEU (0.17-0.50)
--- NOTE | 2018-10-31 02:30 | NUR ---
PT HAD A 2ND LARGE DARK RED BLOODY BOWEL MOVEMENT, PT CLEANED AND REPOSITIONED.
[2018-10-31] MEDS: LORAZEPAM INJ 2 MG/ML VIAL IV SCH ×4 (04:41→22:13)
[2018-10-31 05:17] LABS: BASOPHILS # (AUTO) 0.1 /CMM (0.0-0.2); BASOPHILS % (AUTO) 0.5 % (0.0-2.0); CALCIUM, SERUM 6.6 mg/dL (8.5-10.1); CARBON DIOXIDE 23 mmol/L (21-32); CHLORIDE 120 mmol/L (98-107); CREATININE 0.8 mg/dL (0.6-1.3); EOSINOPHILS % (AUTO) 1.6 % (0.0-6.0); GLUCOSE 106 mg/dL (74-106); HEMATOCRIT 21 % (33-45); HEMOGLOBIN 7.3 g/dL (11.5-14.8); LYMPHOCYTES # (AUTO) 3.2 /CMM (0.8-4.8); LYMPHOCYTES % (AUTO) 33.7 % (20.0-44.0); MAGNESIUM 1.8 mg/dL (1.8-2.4); MEAN CORPUSCULAR HGB CONC 35 g/dl (31.0-36.0); MEAN CORPUSCULAR VOLUME 90 fL (82-100); MONOCYTES # (AUTO) 0.8 /CMM (0.1-1.30); MONOCYTES % (AUTO) 8.4 % (2.0-12.0); NEUTROPHILS # (AUTO) 5.3 /CMM (1.8-8.9); NEUTROPHILS % (AUTO) 55.8 % (43.0-81.0); PHOSPHORUS 2.4 mg/dL (2.5-4.9); PLATELET COUNT (AUTO) 61 /CMM (150-450); POTASSIUM 3.8 mmol/L (3.5-5.1); RED BLOOD CELL COUNT(AUTO) 2.36 MIL/uL (4.0-5.2); SODIUM SERUM 151 mmol/L (136-145); UREA NITROGEN, BLOOD 29 mg/dL (7-18); WHITE BLOOD COUNT (AUTO) 9.5 K/uL (4.3-11.0)
--- NOTE | 2018-10-31 05:30 | NUR ---
PT HAD A 3RD LARGE DARK RED BLOODY BOWEL MOVEMENT, PT CLEANED AND REPOSITIONED.
[2018-10-31] MEDS: SUCRALFATE 1 G TABLET PO SCH ×4 (05:40→23:13)
[2018-10-31 05:58] LABS: EOSINOPHILS % (MANUAL) 1 % (0-4); LYMPHOCYTES % (MANUAL) 30 % (16-48); MONOCYTES % (MANUAL) 5 % (0-11.0); NEUTROPHILS % (MANUAL) 64 (42-76)
--- NOTE | 2018-10-31 06:41 | NUR ---
PT HAD 2 UNITS PRBC AND 1 UNIT PRBC, HR NOW IN 110S, PT IS MORE COMFORTABLE, PT IS NOT PALE BEFORE AND RESTING COMFORTABLY IN BED, STILL ON 40 MCG OF YANNA AND IVF NS @ 125 ML/HR
--- NOTE | 2018-10-31 08:45 | NUR ---
Pt seen & examined by Dr. Saldaña & updated about pt condition.
--- NOTE | 2018-10-31 09:01 | NUR ---
Pt seen & examined by Dr. Verma w/ orders to do STAT US Doppler of the BLE to r/o DVT.
[2018-10-31] MEDS: PANTOPRAZOLE 40 MG VIAL IV SCH ×2 (09:26→17:24)
[2018-10-31 09:30] LABS: THYROID STIMULATING HORMONE 2.268 uIU/mL (0.358-3.74)
[2018-10-31] MEDS: IV NS 0.9% 1,000 ML IV PRN (09:30)
[2018-10-31] MEDS ORDERED: IV NS 0.9% 500 ML IV ONE (10:00)
--- NOTE | 2018-10-31 10:06 | NUR ---
Dr. Verma ordered to give IVF bolus NS 500cc bolus. May check CVP x1.
[2018-10-31] MEDS: IV D5W 1,000 ML IV PRN ×2 (10:39→22:20)
[2018-10-31] MEDS ORDERED: K PHOS NEUTRAL 250 MG TABLET PO ONE (11:00)
--- NOTE | 2018-10-31 11:00 | NUR ---
Consent secured for CT scan of the abdomen & pelvis w/ contrast, signed by pt.
[2018-10-31] MEDS: CEFTRIAXONE 1 G in IV D5W 50 ML IV SCH (13:15)
[2018-10-31] MEDS: PHENYLEPHRINE 80 MG in IV D5W 250 ML IV PRN (13:47)
--- NOTE | 2018-10-31 14:00 | NUR ---
1400H Pt had episode of bright red vomitus & melena. Gail PINK made aware w/ orders to insert NGT & connect to LIS. However, pt refusing NGT insertion. TUTORIAL LABORATORY SUPERVISOR made aware. 1425H Pt c/o of chest pain, pressure like, radiating to L arm, 05/31. Dr. Wilson made aware w/ orders to do STAT ECG. ECG relayed to Dr. Wilson. Per , he will inform GI but this is non cardiac related. Dr. Verma also updated about pt current condition & ordered STAT H/H. MD requesting to talk to Gail PINK, awaiting call from Gail PINK. Addendum: 10/31/18 at 1531 by MANUEL REICH RN Addendum: NGT successfully inserted on L nare, connected to LIS as ordered - noted bright red discharge. STAT CXR ordered per Dr. Verma for placement.
[2018-10-31] MEDS: ONDANSETRON HCL/PF 4 MG/2 ML VIAL IVP PRN (14:14)
--- NOTE | 2018-10-31 15:29 | NUR ---
Dr. Verma ordered to have standby of 6 units PRBC, 4 units FFP & 10 units Cryoprecipitate STAT.
--- NOTE | 2018-10-31 15:30 | NUR ---
FC inserted w/ clear pale yellow UOP. NGT inserted on L nare & connected to LIS as ordered. Noted bright red output upon insertion of NGT. CXR done & confirmed placement.
--- NOTE | 2018-10-31 16:30 | NUR ---
Pt seen & examined by Gail PINK & updated about pt condition. JOESPH Reynolds explained to the pt regarding the planned EGD today at 6pm. Pt verbalized understanding regarding the planned EGD procedure & consent was signed by the pt.
[2018-10-31 16:55] LABS: PLATELET COUNT (AUTO) 62 /CMM (150-450)
--- NOTE | 2018-10-31 17:08 | NUR ---
Per Gail CARPET BINDER to transfuse PRBC first - 2 units each & recheck H/H after BT. Then transfuse plasma after 2 units of PRBC.
[2018-10-31] MEDS ORDERED: ANESTHESIA TRAY IN PYXIS 1 EA TRAY MC ONE (17:41)
--- NOTE | 2018-10-31 18:00 | NUR ---
Clarified w/ Dr. Verma regarding the BT orders. Per MD, transfuse 2 units PRBC, 2 units FFP & 1 unit platelet.
[2018-10-31 18:05] LABS: D-DIMER < 0.19 mg/L(FEU (0.17-0.50)
--- NOTE | 2018-10-31 18:30 | NUR ---
183H OR team came at bedside to start EGD procedure as planned, c/o Dr. Rizvi. Per anesthesiologist to give 2nd unit of PRBC & platelet at the same time. 1854H PRBC started. 1856H Platelet started. While undergoing EGD procedure, pt noted desaturation <50%, OR team started ambu bagging the pt. HR at 150's, BP at 70's. OR team decided to intubate the pt. Per anesth this is for airway protection & be able to proceed w/ the EGD procedure. Dr. Ramirez & Dr. Verma updated about pt condition. Endorsed to PM RN for ALIN. Still pending to be transfused 2 units of FFP and to check CBC after BT.
[2018-10-31] MEDS ORDERED: ETOMIDATE 2 MG/ML VIAL ONE (20:58)
[2018-10-31] MEDS ORDERED: SUCCINYLCHOLINE CHLORIDE 20 MG/ML VIAL ONE (20:58)
[2018-10-31] MEDS: PROPOFOL 100 ML IV PRN ×3 (21:38→22:17)
--- NOTE | 2018-10-31 21:48 | NUR ---
@[address] BY [address] YEE, GOOD COLOR CHANGE ON THE CO2 DETECTOR EQUAL CHEST RISE. ETT SIZE IS 7.0 SECURED AT 22CM AT THE LIP. PLACED ON 840 VENT. AC 15, 450, 100%, +5.
[2018-10-31 22:39] LABS: ABG BASE EXCESS -2.8 mmol/L; ABG OXYGEN SATURATION 98.4 % (92.0-98.5); ABG PH 7.445 (7.350-7.450); ABG PO2 363.3 mmHg (75.0-100.0); AaDO2 318.7 mmHg; COHb 0.3 % (0.5-1.5); MetHb 1.2 % (0.0-1.5); O2Hb 96.9 % (94.0-97.0); PEEP,BG 5 cm H2O; SITE, ABG Right Radial
--- NOTE | 2018-10-31 22:41 | NUR ---
POST INTUBATION ABG DONE. NOTIFIED RN WITH THE RESULT.
[2018-11-01] VITALS (104 sets, daily range): BP systolic 82–127; BP diastolic 35–76
[2018-11-01] MEDS ORDERED: diphenhydrAMINE HCL 50 MG/ML VIAL IV ONE (01:00)
[2018-11-01] MEDS: PROPOFOL 100 ML IV PRN ×5 (03:01→22:42)
[2018-11-01 04:42] LABS: BASOPHILS # (AUTO) 0.1 /CMM (0.0-0.2); BASOPHILS % (AUTO) 1.1 % (0.0-2.0); EOSINOPHILS % (AUTO) 1.8 % (0.0-6.0); HEMATOCRIT 27 % (33-45); HEMOGLOBIN 9.6 g/dL (11.5-14.8); LYMPHOCYTES # (AUTO) 1.6 /CMM (0.8-4.8); LYMPHOCYTES % (AUTO) 14.6 % (20.0-44.0); MEAN CORPUSCULAR HGB CONC 36 g/dl (31.0-36.0); MEAN CORPUSCULAR VOLUME 88 fL (82-100); MONOCYTES # (AUTO) 0.4 /CMM (0.1-1.30); MONOCYTES % (AUTO) 3.4 % (2.0-12.0); NEUTROPHILS # (AUTO) 8.7 /CMM (1.8-8.9); NEUTROPHILS % (AUTO) 79.1 % (43.0-81.0); RED BLOOD CELL COUNT(AUTO) 3.06 MIL/uL (4.0-5.2); WHITE BLOOD COUNT (AUTO) 11.1 K/uL (4.3-11.0)
[2018-11-01 04:48] LABS: PLATELET COUNT (AUTO) 13 /CMM (150-450)
--- NOTE | 2018-11-01 05:02 | NUR ---
AUTOMOTIVE TIRE TESTER FERN BECERRA NOTIFIED OF CRITICAL PLATELET VALUE 13, SHE ORDERED 1 UNIT PLATELET AND 1 UNIT FFP, PT HGB INCREASED TO 9.6, WILL HOLD LAST 2 UNITS PRBC PER JOESPH BECERRA
[2018-11-01 05:05] LABS: ALANINE AMINOTRANSFERASE 12 U/L (12-78); ALKALINE PHOSPHATASE 28 U/L (46-116); ASPARTATE AMINOTRANSFERASE 15 U/L (15-37); BILIRUBIN,TOTAL 0.1 mg/dL (0.2-1.0); CALCIUM, SERUM 6.2 mg/dL (8.5-10.1); CARBON DIOXIDE 22 mmol/L (21-32); CHLORIDE 116 mmol/L (98-107); CREATININE 0.6 mg/dL (0.6-1.3); GLUCOSE 124 mg/dL (74-106); MAGNESIUM 1.5 mg/dL (1.8-2.4); PHOSPHORUS 1.8 mg/dL (2.5-4.9); SODIUM SERUM 146 mmol/L (136-145); UREA NITROGEN, BLOOD 28 mg/dL (7-18)
[2018-11-01 05:11] LABS: LYMPHOCYTES % (MANUAL) 10 % (16-48); MONOCYTES % (MANUAL) 3 % (0-11.0); NEUTROPHILS % (MANUAL) 87 (42-76)
[2018-11-01 05:14] LABS: ALBUMIN 1.3 g/dL (3.4-5.0)
[2018-11-01] MEDS: SUCRALFATE 1 G TABLET PO SCH ×4 (05:27→23:44)
[2018-11-01] MEDS: LORAZEPAM INJ 2 MG/ML VIAL IV SCH ×4 (05:27→23:43)
[2018-11-01] MEDS: POTASSIUM CL. PREMIX PERIPHER. 50 ML IV SCH ×4 (06:43→11:18)
[2018-11-01] MEDS ORDERED: POTASSIUM PHOSPHATE MM 15 MMOL in IV D5W 250 ML IV SCH (07:00)
[2018-11-01] MEDS: Magnesium 1GM/D5W 100ML PREMIX 100 ML IV SCH ×2 (07:02→08:28)
--- NOTE | 2018-11-01 07:45 | NUR ---
ICU/RN: Dr Ramirez at bedside; updated on labs, GI recommendations, ongoing transfusions. New orders noted and carried out.
[2018-11-01] MEDS: PANTOPRAZOLE 40 MG VIAL IV SCH ×2 (08:25→16:51)
--- NOTE | 2018-11-01 08:45 | NUR ---
ICU/RN: Dr Verma at bedside; updated on pt status. Vent settings reviewed.
[2018-11-01 08:52] LABS: ABG BASE EXCESS -1.3 mmol/L; ABG OXYGEN SATURATION 96.4 % (92.0-98.5); ABG PCO2 37.7 mmHg (35.0-45.0); ABG PH 7.407 (7.350-7.450); ABG PO2 95.9 mmHg (75.0-100.0); AaDO2 145.9 mmHg; COHb 0.3 % (0.5-1.5); O2Hb 95.1 % (94.0-97.0); PEEP,BG 5 cm H2O; SITE, ABG Right Radial; VT, ABG 450 mL
--- NOTE | 2018-11-01 09:17 | NUR ---
SPOKE WITH RN. PT STILL UNSTABLE TO COME DOWN FOR CT ABDOMEN PELVIS WITH CONTRAST.
--- NOTE | 2018-11-01 11:15 | NUR ---
ICU/RN: Dr Dumont at bedside; discussed labs and active bleeding with MD. S/P 5U PRBC, 4 FFP and 2 PLT transfusions. Pending repeat labs. Per MD, recheck labs in 6 hours, standing orders for blood transfusions given.
[2018-11-01] MEDS ORDERED: FUROSEMIDE 20 MG/2 ML VIAL IV PRN (11:30)
--- NOTE | 2018-11-01 11:30 | NUR ---
ICU/RN: Per Dr Dumont, order Amicar IV stat, per MD "they need to order it from another facility if they need to; Rx notified, per Rx not available. Per Rx, tranexamic acid available as replacement. Per Dr Dumont, "I will speak with Rx."
[2018-11-01 11:53] LABS: PLATELET COUNT (AUTO) 95 /CMM (150-450)
[2018-11-01] MEDS: PHENYLEPHRINE 80 MG in IV D5W 250 ML IV PRN (11:55)
[2018-11-01] MEDS ORDERED: TRANEXAMIC ACID IV ONE ×2 (12:00→17:00)
[2018-11-01] MEDS ORDERED: NS 0.9% IV ONE ×2 (12:00→17:00)
[2018-11-01] MEDS ORDERED: DESMOPRESSIN 20 MCG in IV NS 0.9% 50 ML IV ONE (12:00)
[2018-11-01] MEDS: IV D5W 1,000 ML IV PRN (12:01)
--- NOTE | 2018-11-01 12:15 | NUR ---
ICU/RN: Spoke with Rx, Jass - per pharmacy, martinez clemente MD. Okay to substitute tranexemic acid for Amicar IV.
[2018-11-01 12:37] LABS: D-DIMER < 0.19 mg/L(FEU (0.17-0.50)
[2018-11-01] MEDS: CEFTRIAXONE 1 G in IV D5W 50 ML IV SCH (13:31)
--- NOTE | 2018-11-01 14:00 | NUR ---
ICU/RN: Pt noted with periods of agitation and restlessness. Hygienic and restraint care rendered. Will cont to monitor pt.
[2018-11-01] MEDS: Potassium Chloride 40 MEQ in IV D5W 1,000 ML IV PRN (14:45)
--- NOTE | 2018-11-01 15:00 | NUR ---
ICU/RN: Noted with small amount black tarry stool.
--- NOTE | 2018-11-01 16:00 | NUR ---
ICU/RN: Repeat CBC, labs drawn. Pending results.
[2018-11-01] MEDS ORDERED: IOHEXOL-300 100 ML VIAL IV ONE (16:10)
[2018-11-01] MEDS ORDERED: IV NS 0.9% 250 ML IV ONE (16:10)
[2018-11-01] MEDS ORDERED: CT SWABBABLE VALVE TRANS SET 1 EA INFUS.SET MC ONE (16:10)
[2018-11-01 16:31] LABS: BASOPHILS # (AUTO) 0.1 /CMM (0.0-0.2); BASOPHILS % (AUTO) 0.6 % (0.0-2.0); EOSINOPHILS % (AUTO) 3.7 % (0.0-6.0); HEMATOCRIT 23 % (33-45); HEMOGLOBIN 7.9 g/dL (11.5-14.8); LYMPHOCYTES # (AUTO) 1.8 /CMM (0.8-4.8); LYMPHOCYTES % (AUTO) 16.8 % (20.0-44.0); MEAN CORPUSCULAR HGB CONC 35 g/dl (31.0-36.0); MEAN CORPUSCULAR VOLUME 87 fL (82-100); MONOCYTES # (AUTO) 0.6 /CMM (0.1-1.30); MONOCYTES % (AUTO) 5.3 % (2.0-12.0); NEUTROPHILS # (AUTO) 8.1 /CMM (1.8-8.9); NEUTROPHILS % (AUTO) 73.6 % (43.0-81.0); PLATELET COUNT (AUTO) 93 /CMM (150-450); RED BLOOD CELL COUNT(AUTO) 2.59 MIL/uL (4.0-5.2)
[2018-11-01 16:56] LABS: BAND % (MANUAL) 6 % (0.0-5.0); EOSINOPHILS % (MANUAL) 3 % (0-4); LYMPHOCYTES % (MANUAL) 11 % (16-48); MONOCYTES % (MANUAL) 2 % (0-11.0); NEUTROPHILS % (MANUAL) 78 (42-76)
--- NOTE | 2018-11-01 18:30 | NUR ---
ICU/RN: Unable to complete tranexamic dose; blood transfusion ongoing. Will administer after completion of blood products.
[2018-11-01] MEDS: TRANEXAMIC ACID IV SCH ×3 (19:00→23:44)
[2018-11-01] MEDS: NS 0.9% IV SCH ×3 (19:00→23:44)
--- NOTE | 2018-11-01 19:30 | NUR ---
ICU/RN: Gail Crum NP at bedside for GI consult. Informed that unable to take to CT Abd with contrast today dt pt instability, recommends transfer to tertiary facility for higher level of care. Addendum: 11/01/18 at 1941 by FELY HINDS RN Aware of limited intravenous access, will complete infusion of tranexamic acid as soon as blood products are finished infusing.
--- NOTE | 2018-11-01 20:23 | NUR ---
NAVAL GUNFIRE LIAISON OFFICER: TRANEXAMIC ACID AT 1900 NOT ADMINISTERED 1 MORE BAG IS STILL PENDING (1801 SCANNED BY DAY SHIFT RN) TO BE ADMINISTERED DUE TO LIMITED IV ACCESS. CHARGE NURSE AT BEDSIDE TRYING TO PUT ADDITIONAL IV ACCESS. STILL ONGOING PRBC TRANSFUSION AT THIS TIME. NO ADVERSE CHANGES NOTED. VENT SETTINGS ORDERED TO ETT WT NO ACUTE DISTRESS. WILL CONTINUE TO MONITOR.
--- NOTE | 2018-11-01 20:45 | NUR ---
TUBE AND MANIFOLD BUILDER: PRBC TRANSFUSED WT NO ADVERSE REACTION. CHARGE NURSE ABLE TO INSERT IV ACCESS ON LEFT BREAST GAUGE 22. WILL RESUME K PHOS AND TRANEXAMIC ACID.
--- NOTE | 2018-11-01 21:00 | NUR ---
FLAT FINISHER: CALLED BLOOD BANK AND SPOKE WT NICA AND SAID PLATELET IS NOT READY YET AND AWAITING FOR DELIVERY FROM [facility].
[2018-11-01] MEDS: DESMOPRESSIN 4 MCG/ML AMPUL SQ SCH (21:39)
[2018-11-02] VITALS (82 sets, daily range): BP systolic 91–140; BP diastolic 49–88
[2018-11-02] MEDS: PHENYLEPHRINE 80 MG in IV D5W 250 ML IV PRN (00:43)
[2018-11-02] MEDS: TRANEXAMIC ACID IV SCH ×6 (01:21→13:21)
[2018-11-02] MEDS: NS 0.9% IV SCH ×6 (01:21→13:21)
--- NOTE | 2018-11-02 02:00 | NUR ---
OFFICE LEAD: PLATELET TRANSFUSION ENDED WT NO ADVERSE REACTIONS. NO ACTIVE BLEEDING AT THIS TIME. WILL CONTINUE TO MONITOR.
[2018-11-02] MEDS: PROPOFOL 100 ML IV PRN ×2 (04:08→08:49)
[2018-11-02 05:00] LABS: ALANINE AMINOTRANSFERASE 15 U/L (12-78); ALBUMIN 1.6 g/dL (3.4-5.0); ALKALINE PHOSPHATASE 44 U/L (46-116); ASPARTATE AMINOTRANSFERASE 27 U/L (15-37); BILIRUBIN,TOTAL 0.3 mg/dL (0.2-1.0); CALCIUM, SERUM 6.6 mg/dL (8.5-10.1); CARBON DIOXIDE 22 mmol/L (21-32); CHLORIDE 109 mmol/L (98-107); CREATININE 0.6 mg/dL (0.6-1.3); GLUCOSE 99 mg/dL (74-106); MAGNESIUM 2.1 mg/dL (1.8-2.4); PHOSPHORUS 2.8 mg/dL (2.5-4.9); SODIUM SERUM 138 mmol/L (136-145); TOTAL PROTEIN, SERUM 4.1 g/dL (6.4-8.2); UREA NITROGEN, BLOOD 15 mg/dL (7-18)
[2018-11-02 05:20] LABS: BASOPHILS % (AUTO) 0.6 % (0.0-2.0); EOSINOPHILS % (AUTO) 6.5 % (0.0-6.0); HEMATOCRIT 24 % (33-45); HEMOGLOBIN 8.5 g/dL (11.5-14.8); LYMPHOCYTES # (AUTO) 1.3 /CMM (0.8-4.8); LYMPHOCYTES % (AUTO) 16.7 % (20.0-44.0); MEAN CORPUSCULAR HGB CONC 36 g/dl (31.0-36.0); MEAN CORPUSCULAR VOLUME 87 fL (82-100); MONOCYTES # (AUTO) 0.5 /CMM (0.1-1.30); MONOCYTES % (AUTO) 6.7 % (2.0-12.0); NEUTROPHILS # (AUTO) 5.2 /CMM (1.8-8.9); NEUTROPHILS % (AUTO) 69.5 % (43.0-81.0); PLATELET COUNT (AUTO) 94 /CMM (150-450); RED BLOOD CELL COUNT(AUTO) 2.75 MIL/uL (4.0-5.2); WHITE BLOOD COUNT (AUTO) 7.6 K/uL (4.3-11.0)
[2018-11-02] MEDS: LORAZEPAM INJ 2 MG/ML VIAL IV SCH ×4 (05:24→23:00)
[2018-11-02] MEDS: SUCRALFATE 1 G TABLET PO SCH ×4 (05:24→23:36)
[2018-11-02 05:33] LABS: EOSINOPHILS % (MANUAL) 3 % (0-4); LYMPHOCYTES % (MANUAL) 12 % (16-48); MONOCYTES % (MANUAL) 5 % (0-11.0); NEUTROPHILS % (MANUAL) 80 (42-76)
--- NOTE | 2018-11-02 06:05 | NUR ---
HEALTH SAFETY MANAGER: SEEN AND EXAMINED BY DR. MILTON. UPDATED PT'S CONDITION AND AM LAB RESULTS. WILL ORDER 1 UNIT OF PLATELET PER STANDING ORDER, AGREED. SPOKE WT BLOOD BANK AND SAID THEY WILL ORDER PLATELET FROM [facility]. PT REMAIN SEDATED ON DIPRIVAN AT 45MCG/KG/MIN, NEOSYNEPHRINE DRIP AT 60MCG/MINI AND D5W WT KCL 40MEQ AT 50ML/HR AND TRANEXAMIC ACID AT 70ML/HR. NO ACTIVE BLEEDING AT THIS TIME. VENT SETTINGS ORDERED WT NO ACUTE DISTRESS. WILL CONTINUE TO MONITOR.
--- NOTE | 2018-11-02 07:05 | NUR ---
CROSS TIE TURNER INITIAL NOTES RECEIVED PT IN BED, SEDATED ON DIPRIVAN DRIP AT 45MCG/KG/MIN. PT INTUBATED AND RESPONDING WELL TO VENT SETTINGS. SETTINGS CHECKED FOR ACCURACY. ( AC 15, TV 450, FIO2 40%, PEEP 5). PT SATING WELL AT 100%. NO SOB OR ACUTE SIGNS OF DISTRESS NOTED. BREATHING IS EVEN AND UNLABORED. PT CURRENTLY SR ON THE TELE MONITOR. CHILDS CATHETER NOTED TO BE PATENT AND INTACT/ LEFT NARES NG TUBE NOTED AND CONNECTED TO LOW INTERMITTENT SUCTION. NO CONTENTS NOTED IN SUCTION CANISTER AT THIS TIME. LEFT BREAST 22G IV NOTED TO BE PATENT AND INTACT. LEFT UPPER ARM MIDLINE NOTED TO BE PATENT AND INTACT. GOOD BLOOD RETURN NOTED. PT CURRENTLY RECEIVING YANNA DRIP @60MCG/MIN AND KCL 40MEQ @ 50ML/HR. PT TOLERATING IN FUSIONS WELL. NO REDNESS OR SIGNS OF INFILTRATION NOTED. BED IN LOW LOCKED POSITION, SIDE RAILS UP X3, BILATERAL SOFT WRIST RESTRAINTS NOTED, FOR FURTHER SAFETY. WILL CONTINUE TO MONITOR
--- NOTE | 2018-11-02 07:12 | NUR ---
RESEARCH MICROBIOLOGIST: RADIOLOGIST CALLED AND SAID TO HAVE PICC LINE NURSE CHECK THE PICC LINE PLACEMENT. ENDORSED TO DAY SHIFT RN.
--- NOTE | 2018-11-02 08:09 | NUR ---
RT NOTE RCVD PT ORALLY INTUBATED WITH 7.0 ETT SECURED @ 22 CM AT THE LIP. PT IS SEDATED. VENT PLUGGED INTO RED OUTLET , ALARM SET AND AUDIBLE. SUCTIONED MODERATE AMOUNT OF PINK TINGED. AMBU BAG AT BEDSIDE. NO RESPIRATORY DISTRESS NOTED AT THIS TIME. WILL CONTINUE TO MONITOR THE PT.
--- NOTE | 2018-11-02 08:23 | NUR ---
FOREST FIRE OFFICER NOTES: MD ROUNDING (DR. GARRETT) DR. GARRETT AT BEDSIDE AND MADE AWARE OF PT'S CONDITION. PER MD, "GET A DIETARY CONSULT SO THAT WE MAY BEGIN FEEDING HER"
--- NOTE | 2018-11-02 08:40 | NUR ---
ROLLOFF TRUCK DRIVER NOTES: BLOOD BANK (PLATELETS) BLOOD BANK TECH CALLED TO STATE THAT THEY ARE UNABLE TO GET PLATELETS UNTIL TOMORROW. TECH MADE AWARE THAT PT IS IN NEED OF BLOOD PRODUCTS. TECH STATES THE HE WILL TRY TO OBTAIN A UNIT TODAY
[2018-11-02] MEDS: PANTOPRAZOLE 40 MG VIAL IV SCH ×2 (08:49→18:23)
[2018-11-02] MEDS: DESMOPRESSIN 4 MCG/ML AMPUL SQ SCH ×2 (08:50→21:25)
[2018-11-02] MEDS: Potassium Chloride 40 MEQ in IV D5W 1,000 ML IV PRN (09:36)
--- NOTE | 2018-11-02 10:29 | NUR ---
BALLISTIC EXPERT NOTES: TRANEXAMIC ACID ADMINISTRATION PHARMACIST CALLED AROUND 0900 IN REGARDS TO ADMINISTRATION OF MEDICATION AND MED NOT BEING ON THE UNIT. PER PHARMACIST KIMI "THERE IS NO PROTOCOL TO ADMINISTER MEDICATION ON THE FLOOR, I WILL FOLLOW UP WITH DR. ANDERSON IF SHE WANTS TO CONTINUE ADMINISTRATION. HOLD MED FOR NOW". PT STABLE AT THIS TIME. VSS. NO SINGS OF BLEEDING NOTED AT THIS TIME. NO BLOOD NOTED FROM ETT SUCTION OF NG. WILL CONTINUE TO MONITOR
--- NOTE | 2018-11-02 12:15 | NUR ---
GLYCERINE PLANT OPERATOR NOTES: PICC LINE PLACEMENT PICC LINE NURSE NOTIFIED OF RADIOLOGIST'S CONCERN'S OF PICC PLACEMENT. PICC NURSE SHOWED CXR IMPRESSIONS AND IMAGES. PER PICC NURSE, "PT'S PICC IS IN CORRECT POSITIONING AND OKAY TO USE"
[2018-11-02] MEDS: CEFTRIAXONE 1 G in IV D5W 50 ML IV SCH (13:20)
[2018-11-02] MEDS: IV NS 0.9% 1,000 ML IV PRN (13:21)
[2018-11-02 15:11] LABS: ABG BASE EXCESS 0.8 mmol/L; ABG OXYGEN SATURATION 96.5 % (92.0-98.5); ABG PCO2 29.3 mmHg (35.0-45.0); ABG PH 7.518 (7.350-7.450); ABG PO2 89.5 mmHg (75.0-100.0); COHb 0.3 % (0.5-1.5); O2Hb 95.2 % (94.0-97.0); SITE, ABG Right Radial
[2018-11-02] MEDS ORDERED: DC PROPOFOL WHEN EXTUBATED XX PRN (15:15)
--- NOTE | 2018-11-02 15:16 | NUR ---
SCREED OPERATOR NOTES: EXTUBATION 1515 DR DA SILVA MADE AWARE OF PT'S MOST RECENT ABG RESULTS AND NEURO STATUS, PER "PROCEED WITH EXTUBATION" Addendum: 11/02/18 at 1619 by BROOKE DONALDSON RN PT SUCCESSFULLY ESTIMATED AT 1521. VSS. PT ON 4L VIA NC AND SATING WELL @ 100%. NO SOB OR ACUTE SIGNS OF DISTRESS NOTED
--- NOTE | 2018-11-02 15:24 | NUR ---
RT NOTE PT WAS EXTUBATED AT THIS TIME, PER MD WEANING ORDER, PT PLACED ON NASAL CANNULA CHANI WELL, WILL CONTINUE TO MONITOR
--- NOTE | 2018-11-02 18:30 | NUR ---
TRACTOR TRAILER MECHANIC NOTES: MATHEMATICS DEPARTMENT CHAIR ROUNDING ESSIE MATHEMATICS DEPARTMENT CHAIR AT BEDSIDE AND UPDATED ON PT'C CONDITION. MATHEMATICS DEPARTMENT CHAIR ALSO MADE AWARE THAT PT WAS UNABLE TO GO TO CT DUE TO EARLIER CONDITION. MATHEMATICS DEPARTMENT CHAIR STATES THAT IT MAY BE DONE TOMORROW. MATHEMATICS DEPARTMENT CHAIR ALSO MADE AWARE THAT PT NO LONGER HAS AN NG TUBE AND STATES THAT IT IS FINE.
--- NOTE | 2018-11-02 18:48 | NUR ---
PUNCH BOX TENDER CLOSING NOTES PT REMAINS STABLE S/P EXTUBATION. VSS. NO SOB OR ACUTE SIGNS OF DISTRESS NOTED. BREATHING EVEN AND UNLABORED. INVASIVE LINES REMAIN C/D/I. CHILDS CATHETER REMAINS PATENT AND DRAINING TO GRAVITY. PT STABLE POST 1UNIT OF PLATELETS. CAMP ASSISTANT MADE AWARE TO RETURN AT 1900 FOR BLOOD DRAW FOR CBC AND FIBRINOGEN. PRN CARE RENDERED. PT REPOSITIONED AND TURNED PER PROTOCOL. SAFETY MEASURES REMAIN IN PLACE. WILL ENDORSE TO NIGHTSHIFT RN FOR ALIN
[2018-11-02 21:08] LABS: BASOPHILS % (AUTO) 0.4 % (0.0-2.0); EOSINOPHILS % (AUTO) 2.8 % (0.0-6.0); HEMATOCRIT 23 % (33-45); HEMOGLOBIN 7.9 g/dL (11.5-14.8); LYMPHOCYTES # (AUTO) 1.1 /CMM (0.8-4.8); LYMPHOCYTES % (AUTO) 14.4 % (20.0-44.0); MEAN CORPUSCULAR HGB CONC 35 g/dl (31.0-36.0); MEAN CORPUSCULAR VOLUME 88 fL (82-100); MONOCYTES # (AUTO) 0.4 /CMM (0.1-1.30); MONOCYTES % (AUTO) 5.3 % (2.0-12.0); NEUTROPHILS # (AUTO) 5.7 /CMM (1.8-8.9); NEUTROPHILS % (AUTO) 77.1 % (43.0-81.0); PLATELET COUNT (AUTO) 113 /CMM (150-450); RED BLOOD CELL COUNT(AUTO) 2.56 MIL/uL (4.0-5.2); WHITE BLOOD COUNT (AUTO) 7.3 K/uL (4.3-11.0)
--- NOTE | 2018-11-02 22:10 | NUR ---
STUDENT SPECIALIST: NOTIFIED DR. MENDEZ OF LATEST CBC RESULTS WT EMPHASIS ON HGB=7.9 WT NO ACTIVE BLEEDING. CLARIFIED IF SHE STILL WANTS 1U PRBC TRANSFUSION PER STANDING ORDER. SAID TO HOLD TRANSFUSION AT THIS TIME AND TO CONTINUE TO MONITOR. NO ALIN. PT REMAINS WEAK BUT ABLE TO ANSWER QUESTIONS CORRECTLY. ON 02 VIA NC WT NO ACUTE DISTRESS. NO C/O PAIN. SAFETY MEASURES IN PLACE. WILL CONTINUE TO MONITOR.
[2018-11-02] MEDS: ONDANSETRON HCL/PF 4 MG/2 ML VIAL IVP PRN (22:45)
--- NOTE | 2018-11-02 23:03 | NUR ---
SOLIDWORKS DRAFTER: HELD ATIVAN IV AT THIS TIME. PT IS STILL LETHARGIC/DROWSY. SEIZURE PRECAUTION NOTED AT ALL TIMES.
[2018-11-03] VITALS (21 sets, daily range): BP systolic 89–129; BP diastolic 51–71
[2018-11-03 04:32] LABS: BASOPHILS % (AUTO) 0.7 % (0.0-2.0); EOSINOPHILS % (AUTO) 5.1 % (0.0-6.0); HEMATOCRIT 22 % (33-45); HEMOGLOBIN 7.6 g/dL (11.5-14.8); LYMPHOCYTES % (AUTO) 17.5 % (20.0-44.0); MEAN CORPUSCULAR HGB CONC 35 g/dl (31.0-36.0); MEAN CORPUSCULAR VOLUME 87 fL (82-100); MONOCYTES # (AUTO) 0.4 /CMM (0.1-1.30); MONOCYTES % (AUTO) 6.5 % (2.0-12.0); NEUTROPHILS # (AUTO) 4.2 /CMM (1.8-8.9); NEUTROPHILS % (AUTO) 70.2 % (43.0-81.0); PLATELET COUNT (AUTO) 102 /CMM (150-450)
[2018-11-03 04:43] LABS: CALCIUM, SERUM 6.7 mg/dL (8.5-10.1); CREATININE 0.6 mg/dL (0.6-1.3); GLUCOSE 92 mg/dL (74-106); MAGNESIUM 1.9 mg/dL (1.8-2.4); PHOSPHORUS 2.3 mg/dL (2.5-4.9); UREA NITROGEN, BLOOD 8 mg/dL (7-18)
[2018-11-03] MEDS: IV NS 0.9% 1,000 ML IV PRN ×2 (04:44→22:58)
[2018-11-03 04:50] LABS: CHLORIDE 105 mmol/L (98-107); SODIUM SERUM 139 mmol/L (136-145)
[2018-11-03 04:51] LABS: CARBON DIOXIDE 26 mmol/L (21-32)
[2018-11-03] MEDS: LORAZEPAM INJ 2 MG/ML VIAL IV SCH ×3 (05:00→17:00)
[2018-11-03] MEDS: SUCRALFATE 1 G TABLET PO SCH (05:13)
--- NOTE | 2018-11-03 05:13 | NUR ---
DEVOPS: ATIVAN IV CONTINUE TO HOLD PT REMAINS LETHARGIC AT THIS TIME. CARAFATE HELD WELL AWAITING SWALLOW EVAL. NO ACTIVE BLEEDING NOTED. ON 2L 02 VIA NC WT NO ACUTE DISTRESS. ABLE TO MAKE NEEDS KNOWN. ST ON PRINCIPAL ACCOUNTS CLERK. SAFETY/SEIZURE PRECAUTION NOTED AT ALL TIMES.
[2018-11-03] MEDS: POTASSIUM CL. PREMIX PERIPHER. 50 ML IV SCH ×4 (06:22→10:20)
[2018-11-03] MEDS ORDERED: POTASSIUM PHOSPHATE MM 15 MMOL in IV D5W 250 ML IV SCH (06:30)
--- NOTE | 2018-11-03 06:40 | NUR ---
INSPECTOR AIDE: KCL REPLACEMENT INITIATED PER DR. DEL TORO'S ORDER. K PHOS WILL BE ENDORSED TO DAY SHIFT WHEN PHARMACY OPENS AND WILL ENDORSE HGB=7.6 FROM 7.9 (WT NO ACTIVE BLEEDING) IF DR. MENDEZ WANTS TO HOLD ANOTHER UNIT OF PRBC PER STANDING BLOOD TRANSFUSION ORDERS.
--- NOTE | 2018-11-03 07:58 | NUR ---
INITIAL FINANCIAL SERVICE REP NOTE RCVD PT AWAKE AND ALERT, SHOWING NO S/O DISTRESS/PAIN AT THIS TIME. SR/ST ON MONITOR, TOLERATING O2 VIA NASAL CANNULA, CHILDS TO GRAVITY DRAINING CLEAR, YELLOW URINE. DWAYNE PICC C/D/I/PATENT, NO S/O INFILTRATION/PHLEBITIS OBSERVED UPON FLUSHING, IVF INFUSING ORDERED. WILL CONTINUE TO MONITOR PT FOR SAFETY AND COMFORT. BED IN LOW AND LOCKED POSITION, HEAD OF BED ELEVATED, CALL LIGHT WITHIN REACH.
[2018-11-03] MEDS: PANTOPRAZOLE 40 MG VIAL IV SCH ×2 (08:18→17:43)
[2018-11-03] MEDS: DESMOPRESSIN 4 MCG/ML AMPUL SQ SCH ×2 (08:18→21:41)
--- NOTE | 2018-11-03 08:37 | NUR ---
SALES SERVICE ASSISTANT NOTE DR. MILTON IN UNIT DISCONTINUED CVP MONITORING, NO BLOOD TRANSFUSION RECOMMENDED AT THIS TIME DESPITE HGB TRENDING DOWN THIS AM. NO ACTIVE BLEEDING OBSERVED. VITAL SIGNS STABLE, WILL CONTINUE TO MONITOR.
[2018-11-03] MEDS ORDERED: CT SWABBABLE VALVE TRANS SET 1 EA INFUS.SET MC ONE (12:11)
[2018-11-03] MEDS ORDERED: IV NS 0.9% 250 ML IV ONE (12:11)
[2018-11-03] MEDS ORDERED: IOHEXOL-300 100 ML VIAL IV ONE (12:11)
[2018-11-03] MEDS: SUCRALFATE 1 G/10 ML UDC GT SCH ×2 (12:51→17:42)
[2018-11-03] MEDS: CEFTRIAXONE 1 G in IV D5W 50 ML IV SCH (12:52)
[2018-11-03 16:57] LABS: BASOPHILS % (AUTO) 0.5 % (0.0-2.0); EOSINOPHILS % (AUTO) 4.2 % (0.0-6.0); HEMATOCRIT 25 % (33-45); HEMOGLOBIN 8.8 g/dL (11.5-14.8); LYMPHOCYTES % (AUTO) 16.2 % (20.0-44.0); MEAN CORPUSCULAR HGB CONC 35 g/dl (31.0-36.0); MEAN CORPUSCULAR VOLUME 88 fL (82-100); MONOCYTES # (AUTO) 0.5 /CMM (0.1-1.30); MONOCYTES % (AUTO) 7.7 % (2.0-12.0); NEUTROPHILS # (AUTO) 4.3 /CMM (1.8-8.9); NEUTROPHILS % (AUTO) 71.4 % (43.0-81.0); RED BLOOD CELL COUNT(AUTO) 2.86 MIL/uL (4.0-5.2)
[2018-11-03 16:58] LABS: PLATELET COUNT (AUTO) 94 /CMM (150-450)
[2018-11-03] MEDS: GABAPENTIN 300 MG CAPSULE PO SCH ×2 (17:42→21:24)
--- NOTE | 2018-11-03 18:04 | NUR ---
CONFIGURATOR NOTE PT REMAINS STABLE, NO S/O DISTRESS OBSERVED DURING SHIFT, SR/ST ON MONITOR, CHILDS TO GRAVITY DRAINING CLEAR, GREEN TINGED URINE, POOR APPETITE ALL DAY, DENIES NAUSEA, NO VOMITING. PT WAS TAKEN TO RADIOLOGY FOR CT ABDOMEN/PELVIS PER PROTOCOL, TOLERATED STUDY WELL. PT TO BE TRANSFERRED TO [facility] VIA BED TO ROOM 114-1.
--- NOTE | 2018-11-03 18:30 | NUR ---
KEVIN RN NOTES RECEIVED REPORT FROM ICU NURSEDEAN FOR ALIN.
--- NOTE | 2018-11-03 18:40 | NUR ---
KEVIN RN INITIAL NOTES RECEIVED PT FROM ICU VIA BED. AWAKE AND ALERT, SHOWING NO S/O DISTRESS/PAIN AT THIS TIME. ON 2L VIA NC, TOLERATING WELL, NO SOB NOTED, RR EVEN AND UNLABORED. VITALS WNL. SR ON MONITOR WITH HR 90. CHILDS TO GRAVITY DRAINING CLEAR, YELLOW URINE. DWAYNE PICC C/D/I/PATENT, NO S/O INFILTRATION/PHLEBITIS OBSERVED UPON FLUSHING. SAFETY MEASURES IN PLACE. BED IN LOW AND LOCKED POSITION, HEAD OF BED ELEVATED, CALL LIGHT WITHIN REACH. WILL CONTINUE TO MONITOR THROUGHOUT SHIFT.
--- NOTE | 2018-11-03 19:00 | NUR ---
KEVIN RN CLOSING NOTES PATIENT CURRENTLY STABLE. ENDORSED TO WOOD BOAT BUILDER SUPERVISOR NURSE FOR ALIN.
--- NOTE | 2018-11-03 20:00 | NUR ---
KEVIN RN NOTES RECEIVED PTS IN BED A/OX3 ON 02 AT 1 LITER VIA NC SATING 96% ,SR ON THE MONITOR , NO SOB NO DISTRESS NOTED , V/S STABLE AFEBRILE .PTS WITH PICC LINE ON LEFT UPPER ARM INTACT AND PATENT ,ALL NEEDS ATTENDED TOO .CALL LIGHT WITHIN REACH , KEPT PTS CLEAN DRY AND COMFORTABLE .F/C INTACT AND PATENT DRAINING WITH YELLOWISH URINE OUTPUT, WILL CONTINUE TO MONITOR PTS.
--- NOTE | 2018-11-03 20:30 | NUR ---
KEVIN RN NOTES PTS ON IVF OF NS AT 40CC/HR INFUSING WELL.
[2018-11-04] VITALS: BP 102/53
[2018-11-04] MEDS: SUCRALFATE 1 G/10 ML UDC GT SCH ×5 (00:38→23:05)
[2018-11-04 04:00] VITALS: BP 96/56
[2018-11-04] MEDS: HYDROCODONE/APAP 5/325MG 1 EACH TABLET PO PRN (05:11)
--- NOTE | 2018-11-04 06:00 | NUR ---
KEVIN RN NOTES WEIGHTS TAKEN FROM BEDS ROSINA IS 160 PTS NOTED WITH GENERALIZED EDEMA.PTS REMAINS IN BED A/O X4 NO SOB NO DISTRESS NOTED , PICC LINE DRESSING ON DWAYNE DONE WITH ASEPTIC TECHNIQUE, KEPT PTS CLEAN DRY AND COMFORTABLE.
--- NOTE | 2018-11-04 07:00 | NUR ---
KEVIN RN OPENING NOTES RECEIVED PT IN BED, ASLEEP BUT AROUSABLE. A/OX3. ON 2L NC O2 SAT WNL. PT C/O GENERALIZED WEAKNESS. PER PM NURSE, PT HAD A SMALL SMEAR OF BLOOD WITH BM. F/C DRAINING CLEAR YELLOW URINE. NS INFUSING AT 40 ML/HR. NO C/O OF PAIN AT THIS TIME. BED IN LOCKED/LOWEST POSITION. WILL CONT TO MONITOR.
[2018-11-04 08:00] VITALS: BP 109/58
[2018-11-04] MEDS: GABAPENTIN 300 MG CAPSULE PO SCH ×4 (09:27→21:32)
[2018-11-04] MEDS: PANTOPRAZOLE 40 MG VIAL IV SCH ×2 (09:27→21:32)
[2018-11-04] MEDS: DESMOPRESSIN 4 MCG/ML AMPUL SQ SCH ×2 (09:27→23:21)
[2018-11-04 10:36] LABS: BASOPHILS % (AUTO) 0.5 % (0.0-2.0); EOSINOPHILS % (AUTO) 3.9 % (0.0-6.0); HEMATOCRIT 24 % (33-45); HEMOGLOBIN 8.3 g/dL (11.5-14.8); LYMPHOCYTES # (AUTO) 0.6 /CMM (0.8-4.8); LYMPHOCYTES % (AUTO) 14.4 % (20.0-44.0); MEAN CORPUSCULAR HGB CONC 35 g/dl (31.0-36.0); MEAN CORPUSCULAR VOLUME 87 fL (82-100); MONOCYTES # (AUTO) 0.4 /CMM (0.1-1.30); MONOCYTES % (AUTO) 9.1 % (2.0-12.0); NEUTROPHILS # (AUTO) 3.2 /CMM (1.8-8.9); NEUTROPHILS % (AUTO) 72.1 % (43.0-81.0); PLATELET COUNT (AUTO) 91 /CMM (150-450); RED BLOOD CELL COUNT(AUTO) 2.71 MIL/uL (4.0-5.2); WHITE BLOOD COUNT (AUTO) 4.5 K/uL (4.3-11.0)
[2018-11-04] MEDS ORDERED: diphenhydrAMINE HCL 50 MG/ML VIAL IV PRN (11:30)
[2018-11-04 11:38] LABS: EOSINOPHILS % (MANUAL) 4 % (0-4); LYMPHOCYTES % (MANUAL) 13 % (16-48); MONOCYTES % (MANUAL) 2 % (0-11.0); NEUTROPHILS % (MANUAL) 81 (42-76)
[2018-11-04 12:00] VITALS: BP 114/62
[2018-11-04] MEDS: ENSURE ENLIVE 237 ML LIQUID (VANILLA) PO SCH ×2 (12:29→16:58)
[2018-11-04 16:00] VITALS: BP 122/71
--- NOTE | 2018-11-04 17:00 | NUR ---
KEVIN RN NOTES PHARMACY CALLED RE: PROTONIX IV. PER PHARMACY DRUG IS NOT STOCKED AT THIS TIME. WILL FOLLOW UP.
[2018-11-04 17:33] LABS: BASOPHILS % (AUTO) 0.4 % (0.0-2.0); HEMATOCRIT 25 % (33-45); HEMOGLOBIN 8.8 g/dL (11.5-14.8); LYMPHOCYTES # (AUTO) 0.8 /CMM (0.8-4.8); LYMPHOCYTES % (AUTO) 15.9 % (20.0-44.0); MEAN CORPUSCULAR HGB CONC 35 g/dl (31.0-36.0); MEAN CORPUSCULAR VOLUME 87 fL (82-100); MONOCYTES # (AUTO) 0.5 /CMM (0.1-1.30); MONOCYTES % (AUTO) 9.1 % (2.0-12.0); NEUTROPHILS # (AUTO) 3.6 /CMM (1.8-8.9); NEUTROPHILS % (AUTO) 70.6 % (43.0-81.0); PLATELET COUNT (AUTO) 87 /CMM (150-450); WHITE BLOOD COUNT (AUTO) 5.2 K/uL (4.3-11.0)
[2018-11-04 18:40] LABS: EOSINOPHILS % (MANUAL) 3 % (0-4); LYMPHOCYTES % (MANUAL) 20 % (16-48); MONOCYTES % (MANUAL) 9 % (0-11.0); NEUTROPHILS % (MANUAL) 68 (42-76)
--- NOTE | 2018-11-04 19:00 | NUR ---
KEVIN RN CLOSING NOTES PT RESTING IN BED, FAMILY VISITING. PT NOT IN DISTRESS. NO C/O PAIN. HAD 1 BM TODAY W/ MELENA. REPORTED TO ESSIE PORTILLO NP. SEIZURE PRECAUTIONS MAINTAINED. BED IN LOCKED/LOWEST POSITION. CALL LIGHT IN REACH. WILL ENDORSE TO PM SHIFT FOR ALIN.
[2018-11-04 20:00] VITALS: BP 119/74
--- NOTE | 2018-11-04 20:00 | NUR ---
KEVIN RN NOTES RECEIVED PTS IN BED A/OX3 NO SOB NO DISTRESS NOTED V/S STABLE AFEBRILE REMAINS ON 2LITERS OF O2 VIA NC SATING 94% ALL NEEDS ATTENDED TOO CALL LIGHT WITHIN REACH, DUE MEDS GIVEN ORDERED ON IVF OF NS AT 40CC/HR INFUSING WELL .DUE MEDS GIVEN ORDERED ,TURNED AND REPOSITION . WILL CONTINUE TO MONITOR PTS.
[2018-11-04] MEDS ORDERED: PANTOPRAZOLE 40 MG VIAL ONE (21:24)
[2018-11-04] MEDS ORDERED: POTASSIUM CHLORIDE 20 MEQ TAB.PRT.SR PO ONE (23:00)
[2018-11-04] MEDS ORDERED: DESMOPRESSIN 4 MCG/ML AMPUL ONE (23:14)
[2018-11-04] MEDS: IV NS 0.9% 1,000 ML IV PRN (23:14)
[2018-11-05] VITALS: BP 115/67
[2018-11-05 04:00] VITALS: BP 130/73
[2018-11-05] MEDS: SUCRALFATE 1 G/10 ML UDC GT SCH ×3 (05:59→17:03)
[2018-11-05] MEDS: ACETAMINOPHEN 325 MG TABLET PO PRN (06:05)
--- NOTE | 2018-11-05 07:30 | NUR ---
KEVIN RN NOTES RECEIVED PTS IN BED A/OX3 NO SOB NO DISTRESS NOTED ON 2LITERS OF O2 VIA NC , ALL NEEDS ATTENDED CALL LIGHT WITHIN REACH, ON IVF OF NS AT 40CC/HR INFUSING WELL . ORDERED ,TURNED AND REPOSITION . WILL CONTINUE TO MONITOR PTS.,ON TELE MONITOR ST 105 . LT UA PICC LINE INTACT,BED IN LOWEST AND LOCKED POSITION .PLAN OF CARE DISCUSSED WITH PATIENT
[2018-11-05 08:00] VITALS: BP 98/53
[2018-11-05] MEDS: GABAPENTIN 300 MG CAPSULE PO SCH ×4 (08:08→21:32)
[2018-11-05] MEDS: ENSURE ENLIVE 237 ML LIQUID (VANILLA) PO SCH ×2 (08:09→16:12)
--- NOTE | 2018-11-05 09:00 | NUR ---
KEVIN RN NOTE DR BRENNAN DIALS INSPECTOR AT BEDSIDE NOTIFIED THAT PATIENT C\O COUGHING AND CHEST TIGHT ,ROBITUSSIN ORDERED WILL F\U Addendum: 11/05/18 at 0954 by JOSEPH GARCIA RN ROBITUSSIN I GIVEN ORDERED ,WILL Lamine
[2018-11-05] MEDS: PANTOPRAZOLE 40 MG VIAL IV SCH ×2 (09:05→16:15)
[2018-11-05] MEDS: GUAIFENESIN/D-METHORPHAN HB 5 ML UDC PO PRN ×2 (09:10→19:15)
[2018-11-05 12:00] VITALS: BP 110/80
--- NOTE | 2018-11-05 12:51 | NUR ---
KEVIN RN NOTE SPOKE WITH DR MILTON NOTIFIED THAT EARLIER PATIENT WAS COUGHING AND ROBITUSSIN GIVEN STATED THAT NO NEED TO DO CHEST X RAY AT THIS TIME , WILL CONT TO MONITOR CLOSELY
--- NOTE | 2018-11-05 13:56 | NUR ---
KEVIN RN NOTE SPOKE WITH ESSIE POWERS RN FRONT DESK MANAGER, AWARE THAT NO BLEEDING IN STOOL AT THIS TIME ,OK TO START SOFT DIET
--- NOTE | 2018-11-05 15:05 | NUR ---
KEIVN RN NOTE ASSISTED TO GET UP 0N CHAIR , ALL NEEDS ATTENDED ,CALL LIGHT WITHIN REACH , WILL CONT TO MONITOR CLOSELY ON IVF ORDERED
[2018-11-05 16:00] VITALS: BP 109/68
[2018-11-05 17:09] LABS: BASOPHILS % (AUTO) 0.5 % (0.0-2.0); EOSINOPHILS % (AUTO) 4.1 % (0.0-6.0); HEMATOCRIT 26 % (33-45); HEMOGLOBIN 8.9 g/dL (11.5-14.8); LYMPHOCYTES # (AUTO) 0.9 /CMM (0.8-4.8); LYMPHOCYTES % (AUTO) 16.8 % (20.0-44.0); MEAN CORPUSCULAR HGB CONC 35 g/dl (31.0-36.0); MEAN CORPUSCULAR VOLUME 86 fL (82-100); MONOCYTES # (AUTO) 0.6 /CMM (0.1-1.30); MONOCYTES % (AUTO) 11.3 % (2.0-12.0); NEUTROPHILS # (AUTO) 3.8 /CMM (1.8-8.9); NEUTROPHILS % (AUTO) 67.3 % (43.0-81.0); PLATELET COUNT (AUTO) 92 /CMM (150-450); RED BLOOD CELL COUNT(AUTO) 2.97 MIL/uL (4.0-5.2); WHITE BLOOD COUNT (AUTO) 5.6 K/uL (4.3-11.0)
[2018-11-05 17:34] LABS: EOSINOPHILS % (MANUAL) 2 % (0-4); LYMPHOCYTES % (MANUAL) 18 % (16-48); MONOCYTES % (MANUAL) 10 % (0-11.0); NEUTROPHILS % (MANUAL) 69 (42-76); REACTIVE LYMPHOCYTES 1 % (0-0)
--- NOTE | 2018-11-05 18:14 | NUR ---
KEVIN RN NOTE DR MENDEZ AT BEDSIDE WITH ORDER UPON DISCHARGE TRANFER TO [facility] NOTIFIED
--- NOTE | 2018-11-05 18:25 | NUR ---
KEVIN RN NOTE HAVING DINNER , ABLE TO EAT SELF, NOT IN ACUTE DISTRESS, NO SOB NOTED , CONT ON IVF ORDERED , BED IN LOWEST AND LOCKED POSITION , BOTH LEGS WITH DVT PUMPS, WILL CONT TO MONITOR CLOSELY
[2018-11-05 20:00] VITALS: BP 112/60
[2018-11-05] MEDS: IV NS 0.9% 1,000 ML IV PRN (23:45)
[2018-11-06] VITALS: BP 115/58
[2018-11-06] MEDS: SUCRALFATE 1 G/10 ML UDC GT SCH ×5 (00:52→23:39)
[2018-11-06] MEDS: ACETAMINOPHEN 325 MG TABLET PO PRN ×2 (01:44→17:40)
[2018-11-06 04:00] VITALS: BP 112/56
[2018-11-06 06:38] LABS: CALCIUM, SERUM 7.3 mg/dL (8.5-10.1); CARBON DIOXIDE 25 mmol/L (21-32); CHLORIDE 114 mmol/L (98-107); CREATININE 0.6 mg/dL (0.6-1.3); GLUCOSE 121 mg/dL (74-106); PHOSPHORUS 2.2 mg/dL (2.5-4.9); SODIUM SERUM 146 mmol/L (136-145); UREA NITROGEN, BLOOD 7 mg/dL (7-18)
[2018-11-06 06:42] LABS: POTASSIUM 2.7 mmol/L (3.5-5.1)
[2018-11-06 08:00] VITALS: BP 109/54
[2018-11-06] MEDS: GABAPENTIN 300 MG CAPSULE PO SCH ×4 (09:34→21:17)
[2018-11-06] MEDS: ENSURE ENLIVE 237 ML LIQUID (VANILLA) PO SCH (09:34)
[2018-11-06 12:00] VITALS: BP 110/73
[2018-11-06] MEDS: PANTOPRAZOLE 40 MG VIAL IV SCH ×2 (12:11→18:11)
[2018-11-06] MEDS: POTASSIUM CHLORIDE 20 MEQ TAB.PRT.SR PO SCH ×2 (14:39→15:26)
[2018-11-06] MEDS: ENSURE ENLIVE CHOC 237 ML CAN PO SCH ×2 (15:25→17:41)
[2018-11-06 16:00] VITALS: BP 134/81
[2018-11-06] MEDS ORDERED: K PHOS NEUTRAL 250 MG TABLET PO ONE (16:00)
[2018-11-06 17:43] LABS: BASOPHILS % (AUTO) 0.7 % (0.0-2.0); EOSINOPHILS % (AUTO) 2.5 % (0.0-6.0); HEMATOCRIT 27 % (33-45); HEMOGLOBIN 9.4 g/dL (11.5-14.8); LYMPHOCYTES # (AUTO) 0.8 /CMM (0.8-4.8); LYMPHOCYTES % (AUTO) 10.6 % (20.0-44.0); MEAN CORPUSCULAR HGB CONC 35 g/dl (31.0-36.0); MEAN CORPUSCULAR VOLUME 88 fL (82-100); MONOCYTES # (AUTO) 0.7 /CMM (0.1-1.30); MONOCYTES % (AUTO) 9.6 % (2.0-12.0); NEUTROPHILS # (AUTO) 5.7 /CMM (1.8-8.9); NEUTROPHILS % (AUTO) 76.6 % (43.0-81.0); PLATELET COUNT (AUTO) 99 /CMM (150-450); RED BLOOD CELL COUNT(AUTO) 3.08 MIL/uL (4.0-5.2); WHITE BLOOD COUNT (AUTO) 7.5 K/uL (4.3-11.0)
[2018-11-06 19:04] LABS: EOSINOPHILS % (MANUAL) 3 % (0-4); LYMPHOCYTES % (MANUAL) 10 % (16-48); MONOCYTES % (MANUAL) 8 % (0-11.0); NEUTROPHILS % (MANUAL) 79 (42-76)
[2018-11-06 20:00] VITALS: BP 115/70
--- NOTE | 2018-11-06 20:11 | NUR ---
KEVIN RN NOTES, RECEIVED PATIENT IN BED SLEEPING AT THIS TIME, BUT EASILY AROUSABLE TO VERBAL STIMULI, NO SOB NO DISTRESS NOTED, ON 2LITERS OF O2 VIA NC, ST IN THE TELE MONITOR AT THIS TIME HR 120S, ON IVF OF NS AT 40CC/HR INFUSING WELL AND PATIENT TOLERATED WELL, DWAYNE PICC LINE INTACT, BED IN LOCKED POSITION, ALL NEEDS ATTENDED, CALL LIGHT WITHIN REACH, WILL CONTINUE TO MONITOR PATIENT CLOSELY.
[2018-11-07] VITALS: BP 124/74
[2018-11-07] MEDS: GUAIFENESIN/D-METHORPHAN HB 5 ML UDC PO PRN (00:39)
[2018-11-07 04:00] VITALS: BP 131/70
[2018-11-07] MEDS: ACETAMINOPHEN 325 MG TABLET PO PRN ×2 (04:10→15:38)
[2018-11-07] MEDS: IV NS 0.9% 1,000 ML IV PRN (04:14)
[2018-11-07] MEDS: SUCRALFATE 1 G/10 ML UDC GT SCH ×3 (06:17→17:19)
--- NOTE | 2018-11-07 06:42 | NUR ---
KEVIN RN NOTES, PATIENT IN BED SLEEPING AT THIS TIME, BUT EASILY AROUSABLE TO VERBAL STIMULI, NO SOB NO DISTRESS NOTED, ON O2 2L VIA NC, ST IN THE TELE MONITOR AT THIS TIME HR 110S, ON IVF OF NS AT 40CC/HR INFUSING WELL AND PATIENT TOLERATED WELL, DWAYNE PICC LINE INTACT, BED IN LOCKED POSITION, ALL NEEDS ATTENDED, NO SIGNIFICANT CHANGE IN CONDITION DURING THE NIGHT, CALL LIGHT WITHIN REACH, WILL ENDORSE CONTINUITY OF CARE TO ONCOMING NURSE.
[2018-11-07 08:00] VITALS: BP 102/70
[2018-11-07] MEDS: GABAPENTIN 300 MG CAPSULE PO SCH ×4 (08:20→21:47)
[2018-11-07] MEDS: ENSURE ENLIVE CHOC 237 ML CAN PO SCH ×2 (08:24→17:00)
[2018-11-07] MEDS: PANTOPRAZOLE 40 MG TABLET.DR PO SCH ×2 (08:47→21:47)
[2018-11-07 12:00] VITALS: BP 133/89
[2018-11-07 16:00] VITALS: BP_SYST 113; BP_SYST 131; BP_DIAS 81
[2018-11-07 17:50] LABS: BASOPHILS # (AUTO) 0.1 /CMM (0.0-0.2); BASOPHILS % (AUTO) 0.9 % (0.0-2.0); HEMATOCRIT 26 % (33-45); HEMOGLOBIN 8.9 g/dL (11.5-14.8); LYMPHOCYTES # (AUTO) 1.1 /CMM (0.8-4.8); LYMPHOCYTES % (AUTO) 17.1 % (20.0-44.0); MEAN CORPUSCULAR HGB CONC 34 g/dl (31.0-36.0); MEAN CORPUSCULAR VOLUME 88 fL (82-100); MONOCYTES # (AUTO) 0.6 /CMM (0.1-1.30); MONOCYTES % (AUTO) 9.3 % (2.0-12.0); NEUTROPHILS # (AUTO) 4.5 /CMM (1.8-8.9); NEUTROPHILS % (AUTO) 68.7 % (43.0-81.0); PLATELET COUNT (AUTO) 105 /CMM (150-450); RED BLOOD CELL COUNT(AUTO) 2.95 MIL/uL (4.0-5.2); WHITE BLOOD COUNT (AUTO) 6.6 K/uL (4.3-11.0)
[2018-11-07 17:57] LABS: CALCIUM, SERUM 8.5 mg/dL (8.5-10.1); CARBON DIOXIDE 26 mmol/L (21-32); CHLORIDE 110 mmol/L (98-107); CREATININE 0.8 mg/dL (0.6-1.3); GLUCOSE 119 mg/dL (74-106); POTASSIUM 3.5 mmol/L (3.5-5.1); SODIUM SERUM 143 mmol/L (136-145); UREA NITROGEN, BLOOD 13 mg/dL (7-18)
[2018-11-07 20:00] VITALS: BP 126/74
[2018-11-08] VITALS: BP 124/54
[2018-11-08] MEDS: SUCRALFATE 1 G/10 ML UDC GT SCH ×5 (00:27→23:59)
[2018-11-08] MEDS: ACETAMINOPHEN 325 MG TABLET PO PRN (00:32)
[2018-11-08 04:00] VITALS: BP 125/68
[2018-11-08] MEDS: HYDROCODONE/APAP 5/325MG 1 EACH TABLET PO PRN ×2 (05:39→15:37)
--- NOTE | 2018-11-08 06:00 | NUR ---
pt still having dark stool last night, headache complained overnight tylenol not effective and given norco this morning and more effctive.ambulatory. continue with iv fluids. vss,afebrile. will continue to monitor, sinus tachy on monitor. no significant changes overnight, all needs attended, bed bath provided with am care.
[2018-11-08 06:42] LABS: BASOPHILS # (AUTO) 0.1 /CMM (0.0-0.2); BASOPHILS % (AUTO) 1.1 % (0.0-2.0); EOSINOPHILS % (AUTO) 4.9 % (0.0-6.0); HEMATOCRIT 26 % (33-45); HEMOGLOBIN 8.9 g/dL (11.5-14.8); LYMPHOCYTES # (AUTO) 1.2 /CMM (0.8-4.8); LYMPHOCYTES % (AUTO) 19.2 % (20.0-44.0); MEAN CORPUSCULAR HGB CONC 35 g/dl (31.0-36.0); MEAN CORPUSCULAR VOLUME 87 fL (82-100); MONOCYTES # (AUTO) 0.6 /CMM (0.1-1.30); MONOCYTES % (AUTO) 10.4 % (2.0-12.0); NEUTROPHILS # (AUTO) 3.9 /CMM (1.8-8.9); NEUTROPHILS % (AUTO) 64.4 % (43.0-81.0); PLATELET COUNT (AUTO) 110 /CMM (150-450); RED BLOOD CELL COUNT(AUTO) 2.95 MIL/uL (4.0-5.2); WHITE BLOOD COUNT (AUTO) 6.1 K/uL (4.3-11.0)
--- NOTE | 2018-11-08 07:30 | NUR ---
RN OPENING NOTES RECEIVED REPORT FROM BACK GRINDER RN. PT IS AWAKE AND RESTING IN BED. DENIES ANY PAIN AT PRESENT MOMENT. PT DENIES ANY SOB. PT IS A&OX4. BED IS LOCKED AND IN LOWEST POSITION. CALL LIGHT WITHIN REACH OF PT. WILL CONTINUE TO MONITOR.
[2018-11-08 08:00] VITALS: BP 118/65
[2018-11-08] MEDS: ENSURE ENLIVE CHOC 237 ML CAN PO SCH (08:53)
[2018-11-08] MEDS: PANTOPRAZOLE 40 MG TABLET.DR PO SCH ×2 (08:53→20:28)
[2018-11-08] MEDS: GABAPENTIN 300 MG CAPSULE PO SCH ×4 (08:53→20:28)
[2018-11-08 12:00] VITALS: BP 118/65
[2018-11-08 16:00] VITALS: BP 112/72
[2018-11-08 18:06] LABS: BASOPHILS # (AUTO) 0.1 /CMM (0.0-0.2); EOSINOPHILS % (AUTO) 4.9 % (0.0-6.0); HEMATOCRIT 27 % (33-45); HEMOGLOBIN 9.1 g/dL (11.5-14.8); LYMPHOCYTES # (AUTO) 1.1 /CMM (0.8-4.8); LYMPHOCYTES % (AUTO) 21.1 % (20.0-44.0); MEAN CORPUSCULAR HGB CONC 34 g/dl (31.0-36.0); MEAN CORPUSCULAR VOLUME 88 fL (82-100); MONOCYTES # (AUTO) 0.5 /CMM (0.1-1.30); MONOCYTES % (AUTO) 8.5 % (2.0-12.0); NEUTROPHILS # (AUTO) 3.4 /CMM (1.8-8.9); NEUTROPHILS % (AUTO) 64.5 % (43.0-81.0); PLATELET COUNT (AUTO) 103 /CMM (150-450); RED BLOOD CELL COUNT(AUTO) 3.05 MIL/uL (4.0-5.2); WHITE BLOOD COUNT (AUTO) 5.3 K/uL (4.3-11.0)
--- NOTE | 2018-11-08 19:17 | NUR ---
RN CLOSING NOTES GAVE REPORT TO RETAIL BUYER RN. PT IS AWAKE AND RESTING IN BED. DENIES ANY PAIN AT PRESENT MOMENT. PT DENIES ANY SOB. PT IS A&OX4. BED IS LOCKED AND IN LOWEST POSITION. CALL LIGHT WITHIN REACH OF PT. ENDORSED CONTINUITY OF CARE .
[2018-11-08 20:00] VITALS: BP 126/78
[2018-11-08] MEDS ORDERED: PEG 3350/NA SULF,BICARB,CL/KCL 4,000 ML BOTTLE PO ONE (20:00)
[2018-11-09] MEDS: ACETAMINOPHEN 325 MG TABLET PO PRN ×2 (02:09→06:25)
[2018-11-09 04:00] VITALS: BP 110/67
[2018-11-09] MEDS: SUCRALFATE 1 G/10 ML UDC GT SCH ×3 (05:50→18:00)
[2018-11-09] MEDS ORDERED: SORBITOL SOLUTION 30 ML PO ONE (06:00)
[2018-11-09] MEDS ORDERED: SORBITOL SOLUTION 30 ML PO SCH (06:00)
--- NOTE | 2018-11-09 07:00 | NUR ---
PT FOR COLONOSCOPY AND EGD TODAY, TOLERATED 4 LITERS OF GOLYTELY AND JUST TOOK SORBITOL THIS MORNING. STOOL ALREADY CLEAR, INCONTINENT. CONTINUE WITH IV FLUIDS , VSS,AFEBRILE. ALL NEEDS ATTENDED, KEPT CLEAN AND DRY.
[2018-11-09 08:00] VITALS: BP 137/72
[2018-11-09] MEDS: PANTOPRAZOLE 40 MG TABLET.DR PO SCH ×2 (09:00→22:20)
[2018-11-09] MEDS: GABAPENTIN 300 MG CAPSULE PO SCH ×4 (09:00→22:20)
[2018-11-09] MEDS: HYDROCODONE/APAP 5/325MG 1 EACH TABLET PO PRN ×2 (12:30→22:21)
[2018-11-09 16:00] VITALS: BP 111/62
[2018-11-09 16:23] VITALS: BP 137/72
[2018-11-09] MEDS: LORAZEPAM INJ 2 MG/ML VIAL IV PRN (16:50)
[2018-11-09 20:00] VITALS: BP 97/68
[2018-11-10] MEDS: SUCRALFATE 1 G/10 ML UDC GT SCH ×3 (00:59→11:57)
[2018-11-10] MEDS: ACETAMINOPHEN 325 MG TABLET PO PRN (02:13)
[2018-11-10] MEDS: LORAZEPAM INJ 2 MG/ML VIAL IV PRN ×2 (03:14→13:34)
[2018-11-10 04:00] VITALS: BP 118/67
[2018-11-10 07:08] LABS: BASOPHILS # (AUTO) 0.1 /CMM (0.0-0.2); BASOPHILS % (AUTO) 2.5 % (0.0-2.0); HEMATOCRIT 25 % (33-45); HEMOGLOBIN 8.4 g/dL (11.5-14.8); LYMPHOCYTES # (AUTO) 1.2 /CMM (0.8-4.8); LYMPHOCYTES % (AUTO) 31.6 % (20.0-44.0); MEAN CORPUSCULAR HGB CONC 34 g/dl (31.0-36.0); MEAN CORPUSCULAR VOLUME 88 fL (82-100); MONOCYTES # (AUTO) 0.4 /CMM (0.1-1.30); MONOCYTES % (AUTO) 10.4 % (2.0-12.0); NEUTROPHILS # (AUTO) 1.9 /CMM (1.8-8.9); NEUTROPHILS % (AUTO) 49.5 % (43.0-81.0); PLATELET COUNT (AUTO) 83 /CMM (150-450); RED BLOOD CELL COUNT(AUTO) 2.84 MIL/uL (4.0-5.2); WHITE BLOOD COUNT (AUTO) 3.8 K/uL (4.3-11.0)
--- NOTE | 2018-11-10 07:15 | NUR ---
RN OPENING NOTE RECEIVED PATIENT ASLEEP BUT EASILY AROUSABLE. WAS COMPLAINING OF PAIN 8/10 HEADACHE. WILL GIVE PAIN MEDS. A&Ox4. HAS A RIGHT HAND #20 WITH NS RUNNING AT 40ML/HR. PATIENT WILL BE DISCHARGED TODAY TO [facility]. WILL CONTINUE TO MONITOR PATIENT CLOSELY
[2018-11-10 08:00] VITALS: BP 115/77
--- NOTE | 2018-11-10 08:00 | NUR ---
RN NOTE ADMINISTERED NORCO FOR HEADACHE 03/31.
[2018-11-10] MEDS: PANTOPRAZOLE 40 MG TABLET.DR PO SCH (08:22)
[2018-11-10] MEDS: GABAPENTIN 300 MG CAPSULE PO SCH ×2 (08:22→12:01)
[2018-11-10] MEDS: HYDROCODONE/APAP 5/325MG 1 EACH TABLET PO PRN (08:31)
[2018-11-10 08:53] LABS: EOSINOPHILS % (MANUAL) 5 % (0-4); LYMPHOCYTES % (MANUAL) 27 % (16-48); MONOCYTES % (MANUAL) 8 % (0-11.0); NEUTROPHILS % (MANUAL) 60 (42-76)
--- NOTE | 2018-11-10 10:03 | NUR ---
AMMY NOTE PATIENT WANTED TO ADVANCE HER DIET TO PUREED FROM CLEAR LIQUIDS. ORDER CARRIED OUT Addendum: 11/10/18 at 1005 by ELYSIA CHAUDHRY RN PER JILLIAN MORELAND RN, DIET CAN BE ADVANCED PER PATIENT REQUEST, PER MD ORDER STARTING YESTERDAY
[2018-11-10] MEDS ORDERED: ENSURE ENLIVE 237 ML LIQUID (VANILLA) PO SCH (11:30)
--- NOTE | 2018-11-10 14:00 | NUR ---
RN NOTE PATIENT WAS PICKED UP BY THE AMBULANCE TO BE TRANSFER TO [facility]. PATIENT WAS A BIT ANXIOUS AND REQUESTED ATIVAN. EXIT CARE WAS GIVEN TO THE AMBULANCE PERSONNEL WITH NEW PRESCRIPTION OF MEDICATION. PATIENT STABLE WHEN LEAVING THE UNIT.
[2018-11-27] MEDS ORDERED: WARF5TAB77 PO (11:11)
== END 2018-11-10 14:00 | DRG 377 ==
LOC: ER 05:12 → TELE1 08:07 → TELE-TD 11:11 → ICU 12:04 → TELE-TD 11-03 18:22 → TELE1 11-07 12:35 → MEDSG1 11-08 10:12
PROVIDERS: ADMIT Student in an Organized Health Care Education/Training Program; ATTEND Nurse Practitioner Acute Care
PROC: 02HV33Z Insertion of Infusion Device into Superior Vena Cava, Percutaneous Approach (ICD-10-PCS; principal; 2018-10-29)
PROC: B548ZZA Ultrasonography of Superior Vena Cava, Guidance (ICD-10-PCS; 2018-10-29)
PROC: 30233N1 Transfusion of Nonautologous Red Blood Cells into Peripheral Vein, Percutaneous Approach (ICD-10-PCS; 2018-10-29)
PROC: 30233K1 Transfusion of Nonautologous Frozen Plasma into Peripheral Vein, Percutaneous Approach (ICD-10-PCS; 2018-10-29)
PROC: 0DB98ZX Excision of Duodenum, Via Natural or Artificial Opening Endoscopic, Diagnostic (ICD-10-PCS; 2018-10-30)
PROC: 5A1945Z Respiratory Ventilation, 24-96 Consecutive Hours (ICD-10-PCS; 2018-10-31)
PROC: 0BH17EZ Insertion of Endotracheal Airway into Trachea, Via Natural or Artificial Opening (ICD-10-PCS; 2018-10-31)
PROC: 30233R1 Transfusion of Nonautologous Platelets into Peripheral Vein, Percutaneous Approach (ICD-10-PCS; 2018-10-31)
PROC: 0D598ZZ Destruction of Duodenum, Via Natural or Artificial Opening Endoscopic (ICD-10-PCS; 2018-10-31)
PROC: 0D548ZZ Destruction of Esophagogastric Junction, Via Natural or Artificial Opening Endoscopic (ICD-10-PCS; 2018-10-31)
PROC: 0DJD8ZZ Inspection of Lower Intestinal Tract, Via Natural or Artificial Opening Endoscopic (ICD-10-PCS; 2018-11-09)
PROC: 0DJ08ZZ Inspection of Upper Intestinal Tract, Via Natural or Artificial Opening Endoscopic (ICD-10-PCS; 2018-11-09)
DX: K29.81 Duodenitis with bleeding (principal); R57.8 Other shock; D65 Disseminated intravascular coagulation [defibrination syndrome]; E43 Unspecified severe protein-calorie malnutrition; D62 Acute posthemorrhagic anemia; D68.61 Antiphospholipid syndrome; R65.10 Systemic inflammatory response syndrome (SIRS) of non-infectious origin without acute organ dysfunction; E87.2 Acidosis; E87.0 Hyperosmolality and hypernatremia; K22.10 Ulcer of esophagus without bleeding; K21.0 Gastro-esophageal reflux disease with esophagitis; K31.82 Dieulafoy lesion (hemorrhagic) of stomach and duodenum; G40.909 Epilepsy, unspecified, not intractable, without status epilepticus; F41.9 Anxiety disorder, unspecified; E78.5 Hyperlipidemia, unspecified; E86.9 Volume depletion, unspecified; K44.9 Diaphragmatic hernia without obstruction or gangrene; F32.9 Major depressive disorder, single episode, unspecified; E87.6 Hypokalemia; I10 Essential (primary) hypertension; Z86.711 Personal history of pulmonary embolism; Z79.01 Long term (current) use of anticoagulants; K57.30 Diverticulosis of large intestine without perforation or abscess without bleeding; Z68.27 Body mass index [BMI] 27.0-27.9, adult; K64.8 Other hemorrhoids; K22.2 Esophageal obstruction; K25.9 Gastric ulcer, unspecified as acute or chronic, without hemorrhage or perforation; D72.829 Elevated white blood cell count, unspecified; G47.00 Insomnia, unspecified; K31.9 Disease of stomach and duodenum, unspecified
CPT/HCPCS: 31720; 36415; 36569; 36600; 70450-TC; 71045-TC; 80048-TC; 80053-TC; 80061-TC; 80076-TC; 80305; 81000-TC; 82248-TC; 82272-TC; 82728-TC; 82803-TC; 82962-TC; 83540-TC; 83605-TC; 83690-TC; 83735-TC; 84100-TC; 84439-TC; 84443-TC; 84484-TC; 85025-TC; 85027-TC; 85385-TC; 85396; 85610-TC; 85730-TC; 86850-TC; 86921-TC; 87040-TC; 87081-TC; 87086-TC; 88305-TC; 92521; 92526; 93307-TC; 93970-TC; 93971-TC; 94002-TC; 94003-TC; 94760-TC; 94799-TC; 97110-TC; 97116-TC; 97530-TC; 99082-TC; A4216; A6403; A9560; C1751; C9113; G0378; J0330; J0696; J1200; J1940; J2060; J2370; J2405; J2597; J2704; J2765; J3475; J3480; J3490; J7030; J7040; J7050; J7060; J7070; P9016-BL; P9017-BL; P9034-BL; Q9967

== ENCOUNTER 2018-11-14 16:13 | Inpatient (IN) | payer MEDICARE, OTHER ==
[~2018-11-14] VITALS: Ht 157.5 cm; Wt 65.3 kg
[~2018-11-14 16:13] MED LIST changes: -ASPI-1152 PO; -ATOR10TA PO; +CYAN100T PO; -ENOX40DI SQ; +GABA-534 PO; -GABA300C PO; -LEVE100S PO; -WARF2TAB57 PO
--- NOTE | 2018-11-14 16:15 | NUR ---
PT BIB PA DUE TO ELEVATED TROPONIN THIS MORNING,C/O ON & OFF CP, PT IS AAOX3, NOT IN RESPIRATORY DISTRESS, V/S STABLE, HOOKED TO MONITOR, KEPT RESTED AND COMFORTABLE, WILL CONTINUE TO MONITOR.
--- NOTE | 2018-11-14 16:42 | NUR ---
DR. STOVER AT BEDSIDE FOR EVAL.
--- NOTE | 2018-11-14 17:10 | NUR ---
ER PHLEB AT BEDSIDE FOR BLOOD DRAW.
[2018-11-14 17:18] LABS: BASOPHILS # (AUTO) 0.1 /CMM (0.0-0.2); BASOPHILS % (AUTO) 1.1 % (0.0-2.0); EOSINOPHILS % (AUTO) 4.2 % (0.0-6.0); HEMATOCRIT 28 % (33-45); HEMOGLOBIN 9.4 g/dL (11.5-14.8); LYMPHOCYTES # (AUTO) 1.2 /CMM (0.8-4.8); LYMPHOCYTES % (AUTO) 25.1 % (20.0-44.0); MEAN CORPUSCULAR HGB CONC 33 g/dl (31.0-36.0); MEAN CORPUSCULAR VOLUME 87 fL (82-100); MONOCYTES # (AUTO) 0.6 /CMM (0.1-1.30); MONOCYTES % (AUTO) 11.8 % (2.0-12.0); NEUTROPHILS # (AUTO) 2.8 /CMM (1.8-8.9); NEUTROPHILS % (AUTO) 57.8 % (43.0-81.0); PLATELET COUNT (AUTO) 123 /CMM (150-450); RED BLOOD CELL COUNT(AUTO) 3.23 MIL/uL (4.0-5.2); WHITE BLOOD COUNT (AUTO) 4.8 K/uL (4.3-11.0)
[2018-11-14] MEDS ORDERED: IOHEXOL-350 100 ML VIAL IV ONE (17:22)
[2018-11-14] MEDS ORDERED: CT SWABBABLE VALVE TRANS SET 1 EA INFUS.SET MC ONE (17:22)
[2018-11-14] MEDS ORDERED: IV NS 0.9% 250 ML IV ONE (17:23)
[2018-11-14 17:28] LABS: CALCIUM, SERUM 8.6 mg/dL (8.5-10.1); CARBON DIOXIDE 27 mmol/L (21-32); CHLORIDE 106 mmol/L (98-107); CREATININE 1.2 mg/dL (0.6-1.3); GLUCOSE 80 mg/dL (74-106); POTASSIUM 4.2 mmol/L (3.5-5.1); SODIUM SERUM 139 mmol/L (136-145); UREA NITROGEN, BLOOD 14 mg/dL (7-18)
[2018-11-14 17:32] LABS: ALBUMIN 2.5 g/dL (3.4-5.0); BILIRUBIN,TOTAL 0.1 mg/dL (0.2-1.0); TOTAL PROTEIN, SERUM 6.3 g/dL (6.4-8.2)
[2018-11-14 17:41] LABS: B-TYPE NATRIURETIC PEPTIDE 385 PG/ML (0-125)
--- NOTE | 2018-11-14 17:54 | NUR ---
PT IS BACK FROM THE CT SCAN.
--- NOTE | 2018-11-14 18:10 | NUR ---
URINE SPECIMEN COLLECTED AND SENT TO LAB.
--- NOTE | 2018-11-14 18:10 | NUR ---
TECH AT BEDSIDE FOR ULTRASOUND.
[2018-11-14 18:20] LABS: APPEARANCE,URINE Clear (CLEAR); BILIRUBIN,URINE Negative (NEGATIVE); BLOOD, URINE Trace-intact Ery/uL (NEGATIVE); COLOR,URINE Yellow (YELLOW); KETONES,URINE Negative (NEGATIVE); LEUKOCYTE ESTERASE ,URINE Negative (NEGATIVE); NITRITE, URINE Negative (NEGATIVE); PH,URINE 7.5 (5.0-8.0); PROTEIN,URINE Negative (NEGATIVE); UGLUCOSE Negative (NEGATIVE); UROBILINOGEN,URINE 0.2 EU/dL (0.2)
[2018-11-14] MEDS ORDERED: ASPIRIN 81 MG TAB.CHEW PO ONE (19:00)
[2018-11-14 19:02] LABS: BACTERIA,URINE None seen /HPF (None Seen); SQUAMOUS EPITHELIAL CELL,UR Few /HPF (None Seen); WBC,URINE 0-2 /HPF (0-3)
[2018-11-14] MEDS ORDERED: ASPIRIN 81 MG TAB.CHEW ONE (19:12)
--- NOTE | 2018-11-14 19:30 | NUR ---
REPORT GIVEN TO AMMY SAM FOR ALIN.
--- NOTE | 2018-11-14 19:40 | NUR ---
EPIC PAGED FOR POSSIBLE ADMISSIONS
--- NOTE | 2018-11-14 19:52 | NUR ---
113-1 TELE NATI MILTON
[2018-11-14] MEDS ORDERED: CARVEDILOL 6.25 MG TABLET PO SCH (21:00)
[2018-11-14] MEDS ORDERED: MAG HYDROX/AL HYDROX/SIMETH 30 ML UDC PO PRN (21:00)
[2018-11-14] MEDS ORDERED: DOCUSATE SODIUM 100 MG CAPSULE PO PRN (21:00)
[2018-11-14] MEDS ORDERED: ONDANSETRON HCL/PF 4 MG/2 ML VIAL IVP PRN (21:00)
[2018-11-14 21:05] VITALS: BP 118/96
--- NOTE | 2018-11-14 21:05 | NUR ---
KEVIN RN NOTE PATIENT RECEIVED FROM ER A/O X 4. PATIENT HAS NO C/O DISTRESS. NO CHEST PAIN, NO SOB/. PATIENT HAS PICC TLC PICC IN DWAYNE, VERY DIFFICULT TO FLUSH.. PATIENT SKIN GROSSLY INTACT. LUNG SOUNDS CLEAR TO AUSCULTATION,NO ABNORMAL HEART SOUNDS. RN WILL CONTINUE TO MONITOR CLOSELY.
[2018-11-14] MEDS: GABAPENTIN 300 MG CAPSULE PO SCH (21:30)
[2018-11-14] MEDS: CYANOCOBALAMIN 100 MCG TABLET PO SCH (21:32)
[2018-11-14] MEDS: NITROGLYCERIN 0.4 MG/TAB BOTTLE SL PRN (22:53)
[2018-11-14] MEDS: MORPHINE SULFATE INJ 2 MG/ML DISP.SYRIN IV PRN (22:58)
--- NOTE | 2018-11-14 23:37 | NUR ---
KEVIN RN NOTE SPOKE TO MD NEGRETE ABOUT PATIENT'S HIGH VTE RISK. RECOMMENDED CHEMICAL PROPHYLAXIS. MD STATED SHE HAS HAD "MASSIVE GI BLEED". DVT PUMPS APPLIED PER MD ORDER.
[2018-11-15] VITALS: BP 90/49
[2018-11-15 04:00] VITALS: BP 96/61
[2018-11-15 06:39] LABS: BASOPHILS # (AUTO) 0.1 /CMM (0.0-0.2); BASOPHILS % (AUTO) 2.4 % (0.0-2.0); EOSINOPHILS % (AUTO) 6.4 % (0.0-6.0); HEMATOCRIT 27 % (33-45); LYMPHOCYTES # (AUTO) 1.1 /CMM (0.8-4.8); LYMPHOCYTES % (AUTO) 31.2 % (20.0-44.0); MEAN CORPUSCULAR HGB CONC 34 g/dl (31.0-36.0); MEAN CORPUSCULAR VOLUME 86 fL (82-100); MONOCYTES # (AUTO) 0.5 /CMM (0.1-1.30); MONOCYTES % (AUTO) 14.2 % (2.0-12.0); NEUTROPHILS # (AUTO) 1.7 /CMM (1.8-8.9); NEUTROPHILS % (AUTO) 45.8 % (43.0-81.0); PLATELET COUNT (AUTO) 144 /CMM (150-450); RED BLOOD CELL COUNT(AUTO) 3.11 MIL/uL (4.0-5.2); WHITE BLOOD COUNT (AUTO) 3.7 K/uL (4.3-11.0)
[2018-11-15 06:58] LABS: CALCIUM, SERUM 8.8 mg/dL (8.5-10.1); CARBON DIOXIDE 25 mmol/L (21-32); CHLORIDE 106 mmol/L (98-107); CREATININE 1.2 mg/dL (0.6-1.3); GLUCOSE 94 mg/dL (74-106); MAGNESIUM 2.5 mg/dL (1.8-2.4); PHOSPHORUS 5.2 mg/dL (2.5-4.9); POTASSIUM 4.1 mmol/L (3.5-5.1); SODIUM SERUM 140 mmol/L (136-145); UREA NITROGEN, BLOOD 12 mg/dL (7-18)
--- NOTE | 2018-11-15 07:13 | NUR ---
KEVIN RN NOTE PATIENT TOLERATED THE NIGHT WELL NO FURTHER S/S OF DISTRESS/CHEST PAIN. PATIENT SLEPT WELL. NO SOB/. ENDORSED POC TO AM FOR ALIN.
[2018-11-15 07:14] LABS: CHOLESTEROL 200 mg/dL (<200); HDL CHOLESTEROL 33 mg/dL (40-60); LDL 135 mg/dL (0-99); TRIGLYCERIDES 195 mg/dL (30-150)
--- NOTE | 2018-11-15 07:47 | NUR ---
RN NOTE: RECEIVED PATIENT IN BED, AWAKE, ALERT AND VERBALLY RESPONSIVE. RESPIRATION EVEN AND UNLABORED SATURATING 98%. DENIED ANY PAIN. NO CHEST PAIN NOTED. (L) UA PICC LINE WITH 3 LUMENS NOTED IN PLACED AND WAS NOTED WITH RESISTANCE UPON FLUSHING WITH NS AND PER REPORT OF THE PM SHIFT NURSE. ON MEDICAL DEVICE ASSEMBLER SR= 88. BED ON LOWEST POSITION AND LOCKED AT ALL TIMES. HOB ELEVATED. CALL LIGHT WITHIN REACH. NEEDS ANTICIPATED.
[2018-11-15 08:00] VITALS: BP 111/67
[2018-11-15] MEDS: ASPIRIN 81 MG TAB.CHEW PO SCH (09:05)
[2018-11-15] MEDS: GABAPENTIN 300 MG CAPSULE PO SCH ×3 (09:05→21:15)
[2018-11-15] MEDS: CYANOCOBALAMIN 100 MCG TABLET PO SCH (09:05)
[2018-11-15] MEDS: IV NS 0.9% 1,000 ML IV PRN ×2 (10:11→19:29)
--- NOTE | 2018-11-15 11:30 | NUR ---
RN NOTE: CALLED AND INFORMED DR. DEL TORO REGARDING THE PATIENT'S BP OF 93/57 AND HR= 90. PATIENT WAS SCHEDULED TO GO FOR A CTCA PER DR. DEL TORO. PER , OK TO DO THE PROCEDURE BY TOMORROW. DR. THAKUR WAS INFORMED ABOUT IT. PATIENT MADE AWARE.
[2018-11-15 12:00] VITALS: BP 99/54
[2018-11-15] MEDS: METOPROLOL TARTRATE 50 MG TABLET PO SCH ×2 (12:00→18:00)
[2018-11-15 16:00] VITALS: BP 108/64
--- NOTE | 2018-11-15 19:26 | NUR ---
RN NOTE: PATIENT ON STABLE CONDITION. BEDSIDE REPORT GIVEN TO PM SHIFT NURSE FOR CONTINUITY OF CARE. CALL LIGHT WITHIN REACH.
--- NOTE | 2018-11-15 19:30 | NUR ---
BOW TACKER NOTE REPORT GIVEN BEDSIDE. PATIENT IN BED A/O X 4. NO C/O PAIN/ CHEST PAIN/ SOB/. PATIENT 20 G LFA PATENT ON 125 ML/ HR OF NS. NO S/S OF INFILTRATION/INFECTION. PATIENT DENIES PAIN/DISCOMFORT AT IV SITE. PATIENT SR ON MONITOR IN THE 80'S. PATIENT STABLE NO S.S OF ACUTE DISTRESS. RN WILL CONTINUE TO MONITOR. SAFETY PRECAUTIONS IN PLACE, CALL LIGHT AT HAND.
[2018-11-15 20:00] VITALS: BP 115/75
[2018-11-15] MEDS: NITROGLYCERIN 0.4 MG/TAB BOTTLE SL PRN (21:15)
[2018-11-15] MEDS: MORPHINE SULFATE INJ 2 MG/ML DISP.SYRIN IV PRN (22:23)
[2018-11-16] VITALS: BP 112/61
[2018-11-16] MEDS: METOPROLOL TARTRATE 50 MG TABLET PO SCH ×4 (00:42→17:10)
[2018-11-16 04:00] VITALS: BP 112/61
[2018-11-16] MEDS: IV NS 0.9% 1,000 ML IV PRN ×2 (04:33→15:26)
[2018-11-16] MEDS: MORPHINE SULFATE INJ 2 MG/ML DISP.SYRIN IV PRN (04:33)
[2018-11-16 06:45] LABS: BASOPHILS # (AUTO) 0.1 /CMM (0.0-0.2); BASOPHILS % (AUTO) 2.5 % (0.0-2.0); HEMATOCRIT 27 % (33-45); LYMPHOCYTES % (AUTO) 26.8 % (20.0-44.0); MEAN CORPUSCULAR HGB CONC 34 g/dl (31.0-36.0); MEAN CORPUSCULAR VOLUME 87 fL (82-100); MONOCYTES # (AUTO) 0.5 /CMM (0.1-1.30); MONOCYTES % (AUTO) 12.3 % (2.0-12.0); NEUTROPHILS % (AUTO) 53.4 % (43.0-81.0); PLATELET COUNT (AUTO) 189 /CMM (150-450); RED BLOOD CELL COUNT(AUTO) 3.07 MIL/uL (4.0-5.2); WHITE BLOOD COUNT (AUTO) 3.7 K/uL (4.3-11.0)
[2018-11-16 06:55] LABS: ALANINE AMINOTRANSFERASE 35 U/L (12-78); ALBUMIN 2.5 g/dL (3.4-5.0); ALKALINE PHOSPHATASE 76 U/L (46-116); ASPARTATE AMINOTRANSFERASE 34 U/L (15-37); BILIRUBIN,TOTAL 0.2 mg/dL (0.2-1.0); CALCIUM, SERUM 8.8 mg/dL (8.5-10.1); CARBON DIOXIDE 23 mmol/L (21-32); CHLORIDE 109 mmol/L (98-107); CREATININE 1.1 mg/dL (0.6-1.3); GLUCOSE 82 mg/dL (74-106); MAGNESIUM 2.2 mg/dL (1.8-2.4); PHOSPHORUS 4.2 mg/dL (2.5-4.9); POTASSIUM 4.2 mmol/L (3.5-5.1); SODIUM SERUM 144 mmol/L (136-145); TOTAL PROTEIN, SERUM 6.2 g/dL (6.4-8.2); UREA NITROGEN, BLOOD 15 mg/dL (7-18)
--- NOTE | 2018-11-16 07:14 | NUR ---
CNC OPERATOR MACHINIST NOTE PATIENT TOLERATED THE NIGHT WELL NO FURTHER S/S OF DISTRESS/CHEST PAIN. PATIENT SLEPT WELL. NO SOB/. ENDORSED POC TO AM FOR ALIN.
[2018-11-16 08:00] VITALS: BP 105/64
--- NOTE | 2018-11-16 08:00 | NUR ---
TELE1/RN AM SHIFT INITIAL NOTES RECEIVED PT AWAKE SITTING IN BED, PT A/O X 4, DENIES CHEST PAIN. NO ACUTE CHANGE OF CONDITION NOTED. ON ROOM AIR SATURATING @ 96%, RESPIRATIONS EVEN & UNLABORED, LUNG SOUNDS CLEAR. ON TELE WITH SINUS RHYTHM, HR 93. WITH ON GOING IV INFUSION OF NS @ 125CC/HR, PICC LINE (2) PORT CLOGGED, OTHER WITH ON GOING INFUSION, PATENT BUT WITH NO BLOOD RETURN, NO S/S OF INFECTION. PT IS COMFORTABLE, SCHEDULED AM MEDS TO BE GIVEN. CL WITHIN REACHED AND SAFETY MAINTAINED. ON GOING MONITORING.
[2018-11-16] MEDS: CYANOCOBALAMIN 100 MCG TABLET PO SCH (08:46)
[2018-11-16] MEDS: GABAPENTIN 300 MG CAPSULE PO SCH ×3 (08:46→21:57)
[2018-11-16] MEDS: ASPIRIN 81 MG TAB.CHEW PO SCH (08:46)
--- NOTE | 2018-11-16 11:00 | NUR ---
MS1/RN ROUNDS - DR. THAKUR UPDATED PT'S CONDITION. PT SEEN AND EXAMINED BY DR. THAKUR. PT DISCUSSED WITH MD REGARDING METOPROLOL MEDICATION PER MD TO DEFER THIS TO DR. DEL TORO. DR. DEL TORO NOTIFIED VIA PHONE TEXT. NO NEW ORDERS RECEIVED AT THIS TIME. ON GOING MONITORING. Addendum: 11/16/18 at 1118 by KYE LADD RN ADDENDUM: DR. DEL TORO REPLIED SAID TO CONTINUED METOPROLOL. NOTED AND CARRIED, DR. THAKUR MADE AWARE.
--- NOTE | 2018-11-16 11:56 | NUR ---
MS1/RN CTA NOTIFIED DR. DEL TORO THAT RADIOLOGY REFUSED TO TAKE PT FOR CTA D/T PT'S BP TENDS TO DECREASED. ALSO NOTIFIED MD THAT PT REFUSED METOPROLOL MEDICATION. ASKED MD IF HE STILL WANT THE CTA PROCEDURE, MD REPLIED TO DISCONTINUE PROCEDURE. RADIOLOGY NOTIFIED, CHARGE NURSE MADE AWARE.
[2018-11-16 12:00] VITALS: BP 124/71
[2018-11-16 16:00] VITALS: BP 123/74
--- NOTE | 2018-11-16 19:15 | NUR ---
MS1/RN AM SHIFT END NOTES NO ACUTE CHANGE OF CONDITION NOTED DURING THE SHIFT. ALL NEEDS MET. PT ENDORSED TO PM NURSE TO CONTINUE CARE. PT HAS A DISCHARGE ORDER BUT SNF DO NOT HAVE AVAILABLE BED FOR PT. ACCORDING TO CASE MANAGEMENT. CL WITHIN REACHED AND SAFETY MAINTAINED.
--- NOTE | 2018-11-16 19:29 | NUR ---
MS RN INITIAL NOTE REPORT GIVEN BEDSIDE. PATIENT IN BED A/O X 3-4. NO C/O PAIN/ CHEST PAIN/ SOB/. PATIENT DWAYNE PICC PATENT ON 125 ML/ HR OF NS. NO S/S OF INFILTRATION/INFECTION, PICC IN PLACE. PATIENT DENIES PAIN/DISCOMFORT AT IV SITE.. PATIENT STABLE NO S.S OF ACUTE DISTRESS. RN WILL CONTINUE TO MONITOR. SAFETY PRECAUTIONS IN PLACE, CALL LIGHT AT HAND.
[2018-11-16 20:00] VITALS: BP 116/62
--- NOTE | 2018-11-16 22:44 | NUR ---
MS RN NOTE PATIENT EXPRESSED DESIRE TO RETURN BACK TO [facility] FOR DISCHARGE. PATIENT STATES DR SOUSA SPOKE TO HER AND CONVINCED HER TO GO BACK. SW NOTIFIED. MILTON MAGANA STATED THAT SHE WILL WORK ON IT AND THERE IS NO BED AVAILABLE AT [facility]. PATIENT UNDERSTANDS AND SAID SHE IS WILLING TO WAIT.
[2018-11-17] MEDS: IV NS 0.9% 1,000 ML IV PRN ×2 (00:59→08:53)
[2018-11-17 04:00] VITALS: BP 96/57
[2018-11-17] MEDS: METOPROLOL TARTRATE 50 MG TABLET PO SCH ×3 (05:00→11:40)
[2018-11-17 05:10] VITALS: BP 96/57
[2018-11-17 06:29] LABS: BASOPHILS # (AUTO) 0.1 /CMM (0.0-0.2); BASOPHILS % (AUTO) 1.5 % (0.0-2.0); EOSINOPHILS % (AUTO) 3.7 % (0.0-6.0); HEMATOCRIT 25 % (33-45); HEMOGLOBIN 8.6 g/dL (11.5-14.8); LYMPHOCYTES % (AUTO) 21.2 % (20.0-44.0); MEAN CORPUSCULAR HGB CONC 34 g/dl (31.0-36.0); MEAN CORPUSCULAR VOLUME 86 fL (82-100); MONOCYTES # (AUTO) 0.5 /CMM (0.1-1.30); NEUTROPHILS % (AUTO) 63.6 % (43.0-81.0); PLATELET COUNT (AUTO) 216 /CMM (150-450); RED BLOOD CELL COUNT(AUTO) 2.96 MIL/uL (4.0-5.2); WHITE BLOOD COUNT (AUTO) 4.7 K/uL (4.3-11.0)
[2018-11-17 06:41] LABS: CALCIUM, SERUM 8.1 mg/dL (8.5-10.1); CARBON DIOXIDE 23 mmol/L (21-32); CHLORIDE 110 mmol/L (98-107); GLUCOSE 97 mg/dL (74-106); SODIUM SERUM 141 mmol/L (136-145); UREA NITROGEN, BLOOD 14 mg/dL (7-18)
--- NOTE | 2018-11-17 07:30 | NUR ---
MS RN NOTE NO FURTHER CHANGES THROUGHOUT THE NIGHT. PATIENT STABLE NO S/S OF DISTRESS. ENDORSED POC TO AM FOR ALIN.
[2018-11-17 08:00] VITALS: BP 112/51
[2018-11-17] MEDS: GABAPENTIN 300 MG CAPSULE PO SCH (08:52)
[2018-11-17] MEDS: CYANOCOBALAMIN 100 MCG TABLET PO SCH (08:52)
[2018-11-17] MEDS: MORPHINE SULFATE INJ 2 MG/ML DISP.SYRIN IV PRN (08:52)
[2018-11-17] MEDS: ASPIRIN 81 MG TAB.CHEW PO SCH (08:52)
[2018-11-17 11:40] VITALS: BP 112/51
--- NOTE | 2018-11-17 11:50 | NUR ---
MS RN NOTES REPORT CALLED IN TO KAYLEY GIMENEZ AT [facility] FOR TRANSFER.
[2018-11-17] MEDS ORDERED: PNEUMOCOCCAL 23-VAL P-SAC VAC 0.5 ML VIAL SQ ONE (12:00)
--- NOTE | 2018-11-17 13:50 | NUR ---
MS RN NOTES PT DISCHARGED TO [facility]. ID BAND REMOVED. PICC LINE IN PLACE. DISCHARGE INSTRUCTIONS PROVIDED WITH MEDICAL RECORDS. BELONGINGS SIGNED FOR. ALL NEEDS ATTENDED TO.
[2018-11-27] MEDS ORDERED: WARF5TAB77 PO (11:11)
== END 2018-11-17 13:50 | DRG 377 ==
LOC: ER 16:20 → TELE1 20:13 → TELE-TD 22:11 → TELE1 11-15 09:40 → MEDSG1 11-16 09:47
PROVIDERS: ADMIT Internal Medicine; ATTEND Family Medicine
DX: K29.81 Duodenitis with bleeding (principal); I21.A1 Myocardial infarction type 2; D62 Acute posthemorrhagic anemia; D68.61 Antiphospholipid syndrome; Q26.1 Persistent left superior vena cava; F32.9 Major depressive disorder, single episode, unspecified; E78.5 Hyperlipidemia, unspecified; I10 Essential (primary) hypertension; E88.09 Other disorders of plasma-protein metabolism, not elsewhere classified; E86.9 Volume depletion, unspecified; G47.00 Insomnia, unspecified; F41.9 Anxiety disorder, unspecified; G40.909 Epilepsy, unspecified, not intractable, without status epilepticus; Z86.711 Personal history of pulmonary embolism; K44.9 Diaphragmatic hernia without obstruction or gangrene; Z88.2 Allergy status to sulfonamides
CPT/HCPCS: 36415; 71045-TC; 80048-TC; 80053-TC; 80061-TC; 80076-TC; 81000-TC; 83735-TC; 83880; 84100-TC; 84484-TC; 85025-TC; 85730-TC; 87081-TC; 90732; 93970-TC; G0378; J2270; J2405; J7030; J7050; Q9967

== ENCOUNTER 2018-11-20 20:20 | Emergency (ER) | payer MEDICARE, OTHER ==
[~2018-11-20] VITALS: Ht 154.9 cm; Wt 66.8 kg
[2018-11-20] MEDS: ASPIRIN 81 MG TAB.CHEW PO ONE (21:00)
[2018-11-20] MEDS ORDERED: ASPIRIN 81 MG TAB.CHEW ONE (21:14)
[2018-11-20 21:24] LABS: BASOPHILS # (AUTO) 0.1 /CMM (0.0-0.2); BASOPHILS % (AUTO) 2.4 % (0.0-2.0); EOSINOPHILS % (AUTO) 3.8 % (0.0-6.0); HEMATOCRIT 28 % (33-45); HEMOGLOBIN 9.4 g/dL (11.5-14.8); LYMPHOCYTES # (AUTO) 1.4 /CMM (0.8-4.8); LYMPHOCYTES % (AUTO) 31.3 % (20.0-44.0); MEAN CORPUSCULAR HGB CONC 34 g/dl (31.0-36.0); MEAN CORPUSCULAR VOLUME 85 fL (82-100); MONOCYTES # (AUTO) 0.6 /CMM (0.1-1.30); MONOCYTES % (AUTO) 12.6 % (2.0-12.0); NEUTROPHILS # (AUTO) 2.3 /CMM (1.8-8.9); NEUTROPHILS % (AUTO) 49.9 % (43.0-81.0); PLATELET COUNT (AUTO) 142 /CMM (150-450); RED BLOOD CELL COUNT(AUTO) 3.26 MIL/uL (4.0-5.2); WHITE BLOOD COUNT (AUTO) 4.6 K/uL (4.3-11.0)
--- NOTE | 2018-11-20 21:29 | NUR ---
PT BIB RA WITH A C/O EPIGASTRIC BURNING PAIN THAT RADIATES TO THE LEFT BREAST AND TO THE LEFT BACK. PT STATED THAT IT STARTED AT 1999 AND IS INTERMITTENT SHARP, STABBING PAIN. PT'S RESP ARE EVEN AND UNLABORED. PT IS ON THE MONITOR AND CONTINUOUS PULSE OX. VSS. PT HAS A LUE TRIPLE LUMEN PICC LINE. PURPLE LINE IS MARKED "NOT WORKING". OTHER TWO PORTS ARE PATENT AND FLUSHING WELL.
[2018-11-20 21:47] LABS: CALCIUM, SERUM 8.9 mg/dL (8.5-10.1); CARBON DIOXIDE 25 mmol/L (21-32); CHLORIDE 108 mmol/L (98-107); CREATININE 1.1 mg/dL (0.6-1.3); GLUCOSE 96 mg/dL (74-106); POTASSIUM 4.2 mmol/L (3.5-5.1); SODIUM SERUM 144 mmol/L (136-145); UREA NITROGEN, BLOOD 15 mg/dL (7-18)
--- NOTE | 2018-11-20 22:04 | NUR ---
DR MENDEZ PAGED PER DR JONES.
--- NOTE | 2018-11-20 22:12 | NUR ---
PT APPEARS TO BE RESTING COMFORTABLY WITH NO S/S OF PAIN OR DISTRESS. PT REC'D A PILLOW AND WAS ADJUSTED IN BED.
--- NOTE | 2018-11-20 23:34 | NUR ---
PT APPEARS TO BE RESTING COMFORTABLY WITH NO S/S OF PAIN OR DISTRESS.
--- NOTE | 2018-11-21 00:45 | NUR ---
CALLED [facility] [place] FOR TRANSPORT ETA OF 0200 WAS GIVEN. TRIP#[id number]
--- NOTE | 2018-11-21 01:19 | NUR ---
PT APPEARS TO BE SLEEPING COMFORTABLY WITH NO S/S OF PAIN AND DISTRESS.
[2018-11-21 01:59] VITALS: BP 110/71
[2018-11-22] MEDS ORDERED: MAG30ORA PO (18:51)
[2018-11-22] MEDS ORDERED: NITR0.4T48 SL (18:51)
[2018-11-22] MEDS ORDERED: ACET325T53 PO (18:51)
[2018-11-27] MEDS ORDERED: WARF5TAB77 PO (11:11)
== END 2018-11-21 02:00 | disposition home or self-care (01) ==
LOC: ER 20:22
DX: R07.89 Other chest pain (principal); I10 Essential (primary) hypertension; F32.9 Major depressive disorder, single episode, unspecified; F41.9 Anxiety disorder, unspecified; G47.00 Insomnia, unspecified; G40.909 Epilepsy, unspecified, not intractable, without status epilepticus; I16.0 Hypertensive urgency; Z86.711 Personal history of pulmonary embolism; Z88.2 Allergy status to sulfonamides
CPT/HCPCS: 36415; 71045-TC; 80048-TC; 84484-TC; 85025-TC

== ENCOUNTER 2018-11-22 16:26 | Inpatient (IN) | payer MEDICARE, OTHER ==
[~2018-11-22] VITALS: Ht 157.5 cm; Wt 59.4 kg
[~2018-11-22 16:26] MED LIST changes: -CYAN100T PO; +CYAN100T47 PO
--- NOTE | 2018-11-22 16:37 | NUR ---
PT [id number], FROM SNF, C/O R LEG PAIN AND WEAKNESS. HEADACHE AND DOUBLE VISION LAST NIGHT, PT IS AAOX3, NOT IN RESPIRATORY DISTRESS, V/S STABLE, HOOKED TO MONITOR, KEPT RESTED AND COMFORTABLE, WILL CONTINUE TO MONITOR.
--- NOTE | 2018-11-22 16:40 | NUR ---
IV LINE ESTABLISHED, LABS DRAWNED AND SENT TO LAB.
--- NOTE | 2018-11-22 16:46 | NUR ---
DR. COPPOLA AT BEDSIDE FOR EVAL.
[2018-11-22] MEDS ORDERED: IOHEXOL-350 100 ML VIAL IV ONE ×2 (16:59→17:08)
[2018-11-22] MEDS ORDERED: IV NS 0.9% 250 ML IV ONE (16:59)
[2018-11-22 17:02] LABS: BASOPHILS # (AUTO) 0.1 /CMM (0.0-0.2); BASOPHILS % (AUTO) 1.8 % (0.0-2.0); EOSINOPHILS % (AUTO) 4.1 % (0.0-6.0); HEMATOCRIT 30 % (33-45); LYMPHOCYTES # (AUTO) 1.3 /CMM (0.8-4.8); LYMPHOCYTES % (AUTO) 24.4 % (20.0-44.0); MEAN CORPUSCULAR HGB CONC 33 g/dl (31.0-36.0); MEAN CORPUSCULAR VOLUME 86 fL (82-100); MONOCYTES # (AUTO) 0.7 /CMM (0.1-1.30); MONOCYTES % (AUTO) 13.4 % (2.0-12.0); NEUTROPHILS # (AUTO) 2.9 /CMM (1.8-8.9); NEUTROPHILS % (AUTO) 56.3 % (43.0-81.0); PLATELET COUNT (AUTO) 189 /CMM (150-450); RED BLOOD CELL COUNT(AUTO) 3.51 MIL/uL (4.0-5.2); WHITE BLOOD COUNT (AUTO) 5.1 K/uL (4.3-11.0)
[2018-11-22 17:11] LABS: CALCIUM, SERUM 8.9 mg/dL (8.5-10.1); CARBON DIOXIDE 24 mmol/L (21-32); CHLORIDE 105 mmol/L (98-107); CREATININE 1.1 mg/dL (0.6-1.3); POTASSIUM 4.1 mmol/L (3.5-5.1); SODIUM SERUM 137 mmol/L (136-145); UREA NITROGEN, BLOOD 16 mg/dL (7-18)
[2018-11-22 17:27] LABS: GLUCOSE 100 mg/dL (74-106)
[2018-11-22 18:02] LABS: CHOLESTEROL 216 mg/dL (<200); HDL CHOLESTEROL 34 mg/dL (40-60); LDL 155 mg/dL (0-99); TRIGLYCERIDES 195 mg/dL (30-150)
[2018-11-22] MEDS ORDERED: ONDANSETRON HCL/PF 4 MG/2 ML VIAL ONE (18:37)
[2018-11-22] MEDS ORDERED: MORPHINE SULFATE INJ 4 MG/ML DISP.SYRIN ONE (18:38)
--- NOTE | 2018-11-22 18:45 | NUR ---
MORPHINE 4MG AND ZOFRAN 4MG IVP GIVEN VERBAL ORDERED BY .
[2018-11-22] MEDS ORDERED: ACET325T53 PO (18:51)
[2018-11-22] MEDS ORDERED: MAG30ORA PO (18:51)
[2018-11-22] MEDS ORDERED: NITR0.4T48 SL (18:51)
[2018-11-22] MEDS: ONDANSETRON HCL/PF - ER 4 MG/2 ML VIAL IV ONE (19:00)
[2018-11-22] MEDS: MORPHINE SULFATE INJ 2 MG/ML DISP.SYRIN IV ONE (19:00)
--- NOTE | 2018-11-22 19:14 | NUR ---
REPORT GIVEN TO AMMY SAM FOR ALIN.
--- NOTE | 2018-11-22 19:39 | NUR ---
[facility] 325-1
--- NOTE | 2018-11-22 19:50 | NUR ---
REPORT GIVEN TO AMMY THOMAS FOR ALIN
--- NOTE | 2018-11-22 20:17 | NUR ---
PAULINA VARGAS (FRIEND/NEIGHBOR) [phone] (HOME) [phone] (CELL)
[2018-11-22 20:30] VITALS: BP 114/69
--- NOTE | 2018-11-22 20:45 | NUR ---
RECEIVED PATIENT FROM ER FOR DX R/O CVA. PATIENT AO X 3, ABLE TO COMMUNICATE WELL. NO ACUTE DISTRESS NOTED. 5/10 HEADACHE AT THIS TIME. TELE READING SR HR 90. IV SITES PATENT, INTACT. SKIN INTACT. SAFETY REMINDERS GIVEN. NIHSS DONE. ON LOW BED WITH BILATERAL UPPER SIDE RAILS UP. CALL SCHREIBER WITHIN EASY REACH. WILL CONTINUE TO MONITOR.
[2018-11-22 22:00] VITALS: BP 114/69
[2018-11-22] MEDS ORDERED: NITROGLYCERIN 0.4 MG/TAB BOTTLE SL PRN (22:00)
[2018-11-22] MEDS ORDERED: ACETAMINOPHEN 325 MG TABLET PO PRN (22:00)
[2018-11-22] MEDS ORDERED: ONDANSETRON HCL/PF 4 MG/2 ML VIAL IVP PRN (22:00)
[2018-11-22] MEDS ORDERED: MAG HYDROX/AL HYDROX/SIMETH 30 ML UDC PO PRN (22:00)
[2018-11-22] MEDS ORDERED: TEMAZEPAM 15 MG CAPSULE PO PRN (22:00)
[2018-11-22] MEDS: ATORVASTATIN 40 MG TABLET PO SCH (22:19)
[2018-11-22] MEDS: GABAPENTIN 300 MG CAPSULE PO SCH (22:19)
--- NOTE | 2018-11-22 22:30 | NUR ---
PATIENT REFUSED LIPITOR. PATIENT EDUCATED ON INDICATION FOR LIPITOR, ESPECIALLY IF BEING TREATED FOR CVA. PATIENT INFORMED THAT HER LDL IS ELEVATED. PATIENT WAS ENCOURAGED TO TAKE LIPITOR. PATIENT STRONGLY REFUSED. LIPITOR NOT GIVEN. DR. ACOSTA MADE AWARE.
[2018-11-22] MEDS: ACETAMINOPHEN 325 MG TABLET PO PRN (23:40)
[2018-11-23] VITALS: BP 102/65
[2018-11-23 00:30] VITALS: BP 102/65
--- NOTE | 2018-11-23 00:55 | NUR ---
DR. ACOSTA SAW PATIENT; GAVE NEW ORDERS FOR MAALOX 30 ML PO Q 6 HOURS PRN AND ECOTRIN 325 MG PO X 1; NOTED AND CARRIED OUT.
[2018-11-23] MEDS ORDERED: MAG HYDROX/AL HYDROX/SIMETH 30 ML UDC PO PRN (01:00)
[2018-11-23] MEDS ORDERED: ASPIRIN EC 325 MG TABLET.DR PO ONE (01:00)
[2018-11-23 04:00] VITALS: BP 91/60
--- NOTE | 2018-11-23 06:30 | NUR ---
PATIENT ASLEEP, EASILY AROUSABLE. RESPIRATIONS EVEN. NO SIGNS OF PAIN NOTED. DUE MEDS GIVEN WITH NO ASE NOTED. NEEDS ATTENDED. KEPT CLEAN, DRY, AND COMFORTABLE. SAFETY PRECAUTIONS AND COMFORT MEASURES IN PLACE. WILL GIVE REPORT TO DAY SHIFT FOR CONTINUITY OF CARE.
[2018-11-23 06:40] LABS: ALANINE AMINOTRANSFERASE 18 U/L (12-78); ALBUMIN 2.8 g/dL (3.4-5.0); ALKALINE PHOSPHATASE 90 U/L (46-116); ASPARTATE AMINOTRANSFERASE 17 U/L (15-37); B-TYPE NATRIURETIC PEPTIDE 227 PG/ML (0-125); BASOPHILS # (AUTO) 0.1 /CMM (0.0-0.2); BASOPHILS % (AUTO) 1.4 % (0.0-2.0); BILIRUBIN,TOTAL 0.3 mg/dL (0.2-1.0); CARBON DIOXIDE 26 mmol/L (21-32); CHLORIDE 106 mmol/L (98-107); CREATININE 1.1 mg/dL (0.6-1.3); EOSINOPHILS % (AUTO) 6.2 % (0.0-6.0); GLUCOSE 93 mg/dL (74-106); HEMATOCRIT 29 % (33-45); HEMOGLOBIN 9.9 g/dL (11.5-14.8); LYMPHOCYTES # (AUTO) 1.1 /CMM (0.8-4.8); LYMPHOCYTES % (AUTO) 31.4 % (20.0-44.0); MAGNESIUM 2.5 mg/dL (1.8-2.4); MEAN CORPUSCULAR HGB CONC 35 g/dl (31.0-36.0); MEAN CORPUSCULAR VOLUME 85 fL (82-100); MONOCYTES # (AUTO) 0.5 /CMM (0.1-1.30); MONOCYTES % (AUTO) 14.8 % (2.0-12.0); NEUTROPHILS # (AUTO) 1.6 /CMM (1.8-8.9); NEUTROPHILS % (AUTO) 46.2 % (43.0-81.0); PHOSPHORUS 4.2 mg/dL (2.5-4.9); PLATELET COUNT (AUTO) 182 /CMM (150-450); RED BLOOD CELL COUNT(AUTO) 3.39 MIL/uL (4.0-5.2); SODIUM SERUM 142 mmol/L (136-145); TOTAL PROTEIN, SERUM 6.7 g/dL (6.4-8.2); UREA NITROGEN, BLOOD 14 mg/dL (7-18); WHITE BLOOD COUNT (AUTO) 3.6 K/uL (4.3-11.0)
[2018-11-23 06:56] LABS: THYROID STIMULATING HORMONE 1.432 uIU/mL (0.358-3.74)
--- NOTE | 2018-11-23 08:00 | NUR ---
RN AM OPEN NOTE ATTEMPTED TO DO BEDSIDE REPORT DURING SHIFT CHANGE BUT PATIENT FOUND TO BE LAYING IN A COMFORTABLE APPAREANCE IN NO APPARENT DISTRESS WITH EYES CLOSED. PATIENT SEEN AT THIS TIME SITTING IN BED ON RA IN NO APPARENT DISTRESS. REVIEWED POC. DENIES LOSS OF SENSATION TO RIGHT FOOT/LEG. STATES "WHEN i WAS WALKING IT WOULD JUST GET WEAK." FALL PRECAUTIONS IN PLACE. BED DOWN LOCKED SR X2 CALL LIGHT IN REACH WILL CONT TO MONITOR.
[2018-11-23] MEDS: PANTOPRAZOLE 40 MG TABLET.DR PO SCH (09:12)
[2018-11-23] MEDS: CYANOCOBALAMIN 100 MCG TABLET PO SCH (09:12)
[2018-11-23] MEDS: DOCUSATE SODIUM 100 MG CAPSULE PO SCH ×2 (09:12→16:18)
[2018-11-23] MEDS: GABAPENTIN 300 MG CAPSULE PO SCH ×3 (09:13→21:57)
[2018-11-23] MEDS: WARFARIN SODIUM 5 MG TABLET PO SCH (11:11)
[2018-11-23] MEDS: ENOXAPARIN SODIUM 60 MG/0.6 ML DISP.SYRIN SQ SCH ×2 (11:11→22:12)
--- NOTE | 2018-11-23 14:30 | NUR ---
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 WILL CONTINUE TO MONITOR.
--- NOTE | 2018-11-23 19:15 | NUR ---
RN CLOSING NOTE. REPORT GIVEN TO PM SHIFT RN. PATIENT IN BED IN NO APPARENT DISTRESS. PATIENT UPDATED WITH POC. PATIENT IS UPSET STATES SHE IS ANXIOUS AND REQUESTIONG MAYBE SOME ATIVAN, ENDDORSED TO NOC SHIFT. PATIENT LEFT WITH BED DOWN LOCKED AND SR X3. CALL LIGHT IN REACH.
--- NOTE | 2018-11-23 19:30 | NUR ---
RECEIVED PATIENT IN BED AWAKE. AO X 3, ABLE TO MAKE NEEDS KNOWN. NO ACUTE DISTRESS NOTED. NO SIGNS OF PAIN NOTED. IV SITES PATENT, INTACT; FLUSHED. SAFETY REMINDERS GIVEN. ON LOW BED WITH BILATERAL UPPER SIDE RAILS UP. CALL SCHREIBER WITHIN EASY REACH. WILL CONTINUE TO MONITOR.
[2018-11-23 20:00] VITALS: BP 110/66
[2018-11-23] MEDS: ATORVASTATIN 40 MG TABLET PO SCH (21:57)
--- NOTE | 2018-11-23 22:46 | NUR ---
DR. ACOSTA MADE AWARE THAT PATIENT IS REQUESTING FOR ATIVAN FOR ANXIETY. PATIENT REFUSED RESTORIL AND INSISTED OF HAVING THE ATIVAN. DR. ACOSTA ORDERED TO DC RESTORIL AND START ATIVAN 0.5 MG PO QHS PRN; NOTED AND CARRIED OUT.
[2018-11-23] MEDS: LORAZEPAM 0.5 MG TABLET PO PRN (23:37)
[2018-11-24 06:37] LABS: BASOPHILS % (AUTO) 1.1 % (0.0-2.0); EOSINOPHILS % (AUTO) 6.4 % (0.0-6.0); HEMATOCRIT 28 % (33-45); HEMOGLOBIN 9.6 g/dL (11.5-14.8); LYMPHOCYTES # (AUTO) 1.5 /CMM (0.8-4.8); LYMPHOCYTES % (AUTO) 33.1 % (20.0-44.0); MEAN CORPUSCULAR HGB CONC 34 g/dl (31.0-36.0); MEAN CORPUSCULAR VOLUME 84 fL (82-100); MONOCYTES # (AUTO) 0.7 /CMM (0.1-1.30); MONOCYTES % (AUTO) 14.7 % (2.0-12.0); NEUTROPHILS % (AUTO) 44.7 % (43.0-81.0); PLATELET COUNT (AUTO) 194 /CMM (150-450); RED BLOOD CELL COUNT(AUTO) 3.37 MIL/uL (4.0-5.2); WHITE BLOOD COUNT (AUTO) 4.5 K/uL (4.3-11.0)
[2018-11-24 06:41] LABS: CALCIUM, SERUM 8.8 mg/dL (8.5-10.1); CARBON DIOXIDE 26 mmol/L (21-32); CHLORIDE 105 mmol/L (98-107); GLUCOSE 96 mg/dL (74-106); MAGNESIUM 2.6 mg/dL (1.8-2.4); POTASSIUM 3.9 mmol/L (3.5-5.1); SODIUM SERUM 138 mmol/L (136-145); UREA NITROGEN, BLOOD 16 mg/dL (7-18)
[2018-11-24 08:37] VITALS: BP 90/66
--- NOTE | 2018-11-24 09:00 | NUR ---
MS AMMY NOTES DR. MENDEZ MADE AWARE OF CBC AND COUG. RESULTS NO NEW ORDERS CONTINUE MONITORING. Addendum: 11/24/18 at 1200 by NIRMALA AVALOS RN CONTINUE COUMADIN AND LOVENOX PRESCRIBED.
[2018-11-24] MEDS: PANTOPRAZOLE 40 MG TABLET.DR PO SCH (09:25)
[2018-11-24] MEDS: GABAPENTIN 300 MG CAPSULE PO SCH ×3 (09:25→22:15)
[2018-11-24] MEDS: DOCUSATE SODIUM 100 MG CAPSULE PO SCH ×2 (09:25→17:01)
[2018-11-24] MEDS: CYANOCOBALAMIN 100 MCG TABLET PO SCH (09:26)
[2018-11-24] MEDS ORDERED: GADODIAMIDE 2.5 MMOL/5 ML VIAL IJ ONE (11:00)
[2018-11-24] MEDS: ENOXAPARIN SODIUM 60 MG/0.6 ML DISP.SYRIN SQ SCH ×2 (11:36→22:17)
[2018-11-24] MEDS ORDERED: ALBUTEROL FS 2.5 MG/0.5 ML VIAL.NEB NEB PRN (13:00)
--- NOTE | 2018-11-24 17:00 | NUR ---
MS RN NOTES PATIENT REPORTS FEELING WEEK VS CHECKED NOTED 98/63 PULSE 83 O2 SATURATION 99 RESPIRATION 18. PATIENT ALSO REPORTS FEELING LIGHT HEADED. PATIENT STATES SHE ALSO HAS HEART BURN. DMITIRY GRAIN OPERATIONS MANAGER NOTIFIED ORDERS OBTAINED ORDERS TO GIVE PRN MALOX AND NS 500ML BOLUS. ORDERS NOTED AND CARRIED OUT. WILL CONTINUE TO MONITOR.
[2018-11-24] MEDS: WARFARIN SODIUM 5 MG TABLET PO SCH (17:03)
[2018-11-24] MEDS ORDERED: IV NS 0.9% 500 ML IV ONE (17:30)
[2018-11-24] MEDS ORDERED: IV NS 0.9% 500 ML BAG IV ONE (17:30)
--- NOTE | 2018-11-24 18:44 | NUR ---
RN CLOSING NOTES PATIENT AWAKE RESPIRATIONS EVEN. NO SIGNS OF PAIN NOTED. IV BOLUS FINISING UP. PATIENT REPORTS FEELING A BIT BETTER. STATES , "i DON'T THINK I WANT THAT BELLY SHOT ANYMORE." TEACHING PERFORMED THAT REINFOCED LOVENOX IMPORTANCE AND THE UNLIKELY NATURE IT WAS MAKING HER NAUSEOUS AND LIGHT HEADED THIS EVENING. NEEDS ATTENDED. KEPT CLEAN, DRY, AND COMFORTABLE. SAFETY PRECAUTIONS AND COMFORT MEASURES IN PLACE. WILL GIVE REPORT TO ENVIRONMENTAL SPECIALIST FOR CONTINUITY OF CARE.
[2018-11-24 20:00] VITALS: BP 110/41
--- NOTE | 2018-11-24 20:00 | NUR ---
MS RN NOTES RECEIVED PATIENT AWAKE IN BED WITH NO DISTRESS NOTED. CALL LIGHT WITHIN REACH. NO C/O PAIN OR DISCOMFORT. DWAYNE PICC LINE INTACT AND PATENT AND RUNNING BOLUS NS. NO FURTHER C/O DIZZINESS OR NAUSEA. RIGHT HAND PERIPHERAL LINE REMOVED D/T LEAKING AND TOLERATED WELL. NO ACTIVE BLEEDING NOTED. ENCOURAGED USE OF CALL LIGHT FOR ASSISTANCE AND VERBALIZED GOOD UNDERSTANDING. BED IN LOW LOCK SETTING. ROOM FREE OF CLUTTER AND BELONGINGS KEPT NEAR BEDSIDE. WILL CONTINUE TO MONITOR.
[2018-11-24] MEDS: ATORVASTATIN 40 MG TABLET PO SCH (22:09)
[2018-11-24] MEDS: LORAZEPAM 0.5 MG TABLET PO PRN (22:35)
--- NOTE | 2018-11-25 06:51 | NUR ---
MS RN NOTES PATIENT ASLEEP IN BED WITH NO DISTRESS NOTED. CALL LIGHT WITHIN REACH. PATIENT SEEN AND EXAMINED BY NEUROLOGIST DR. GUILLEN WITH ORDERS FOR EEG. CONSENT OBTAINED AND PATIENT VERBALIZED GOOD UNDERSTANDING. NO C/O PAIN OR DISCOMFORT. CENTRAL LINE INTACT AND PATENT. BED IN LOW LOCK SETTING. ROOM FREE OF CLUTTER AND ALL BELONGINGS KEPT NEAR BEDSIDE. WILL ENDORSE TO ONCOMING SHIFT.
[2018-11-25 07:05] LABS: BASOPHILS # (AUTO) 0.1 /CMM (0.0-0.2); BASOPHILS % (AUTO) 1.2 % (0.0-2.0); EOSINOPHILS % (AUTO) 6.9 % (0.0-6.0); HEMATOCRIT 28 % (33-45); HEMOGLOBIN 9.7 g/dL (11.5-14.8); LYMPHOCYTES # (AUTO) 1.7 /CMM (0.8-4.8); LYMPHOCYTES % (AUTO) 35.4 % (20.0-44.0); MEAN CORPUSCULAR HGB CONC 34 g/dl (31.0-36.0); MEAN CORPUSCULAR VOLUME 83 fL (82-100); MONOCYTES # (AUTO) 0.7 /CMM (0.1-1.30); MONOCYTES % (AUTO) 15.5 % (2.0-12.0); NEUTROPHILS # (AUTO) 1.9 /CMM (1.8-8.9); PLATELET COUNT (AUTO) 206 /CMM (150-450); RED BLOOD CELL COUNT(AUTO) 3.38 MIL/uL (4.0-5.2); WHITE BLOOD COUNT (AUTO) 4.7 K/uL (4.3-11.0)
[2018-11-25 07:16] LABS: ALANINE AMINOTRANSFERASE 21 U/L (12-78); ALBUMIN 2.9 g/dL (3.4-5.0); ALKALINE PHOSPHATASE 82 U/L (46-116); ASPARTATE AMINOTRANSFERASE 17 U/L (15-37); BILIRUBIN,TOTAL 0.3 mg/dL (0.2-1.0); CALCIUM, SERUM 9.3 mg/dL (8.5-10.1); CARBON DIOXIDE 28 mmol/L (21-32); CHLORIDE 108 mmol/L (98-107); CREATININE 0.9 mg/dL (0.6-1.3); GLUCOSE 90 mg/dL (74-106); POTASSIUM 4.3 mmol/L (3.5-5.1); SODIUM SERUM 144 mmol/L (136-145); TOTAL PROTEIN, SERUM 6.7 g/dL (6.4-8.2); UREA NITROGEN, BLOOD 15 mg/dL (7-18)
--- NOTE | 2018-11-25 07:45 | NUR ---
MS RN OPENING NOTES RECEIVED PT LAYING IN BED WITH HOB ELEVATED. PT IS A/O X3, AFEBRILE. RESPIRATIONS ARE EVEN AND UNLABORED, NOT IN ANY ACUTE DISTRESS NOTED. PUPILS ARE REACTIVE TO LIGHT, BILATERAL HAND LEAD CASHIER ARE STRONG AND EQUAL. WEAKNESS NOTED TO RLE BUT ABLE TO PERFORM AROM. DENIES ANY CHEST PAIN, SOB, N/V. IV SITE TO R WRIST INTACT, NO INFILTRATION NOTED. DRESSING KEPT CLEAN AND DRY. SAFETY MEASURES ARE IN PLACE. INSTRUCTED PT TO USE CALL LIGHT WHEN ASSISTANCE IS NEEDED, CALL LIGHT IS LEFT WITHIN REACH. WILL REPOSITION PER PROTOCOL. WILL MONITOR THROUGHOUT SHIFT FOR CONTINUITY OF CARE.
[2018-11-25 08:00] VITALS: BP 116/69
[2018-11-25] MEDS: DOCUSATE SODIUM 100 MG CAPSULE PO SCH ×2 (08:39→16:04)
[2018-11-25] MEDS: CYANOCOBALAMIN 100 MCG TABLET PO SCH (08:40)
[2018-11-25] MEDS: GABAPENTIN 300 MG CAPSULE PO SCH ×3 (08:40→21:25)
[2018-11-25] MEDS: PANTOPRAZOLE 40 MG TABLET.DR PO SCH (08:40)
[2018-11-25] MEDS: ENOXAPARIN SODIUM 60 MG/0.6 ML DISP.SYRIN SQ SCH ×2 (10:32→23:09)
--- NOTE | 2018-11-25 12:16 | NUR ---
MS RN NOTES-- RELAYED CBC, PT/INR RESULTS TO DR. MENDEZ WITH ORDERS TO REPEAT CBC, PT/INR IN AM AND CONTINUE COUMADIN 5MG. ORDERS READ BACK AND VERIFIED. NOTED AND CARRIED OUT. PT MADE AWARE AND AGREED.
--- NOTE | 2018-11-25 15:58 | NUR ---
MS RN NOTES-- PT TRANSFERRED TO RM 322-2.
[2018-11-25 16:00] VITALS: BP 101/65
[2018-11-25] MEDS: WARFARIN SODIUM 5 MG TABLET PO SCH (16:07)
--- NOTE | 2018-11-25 18:25 | NUR ---
MS RN CLOSING NOTES ALL DUE MEDS GIVEN, NEEDS MET AND RENDERED. PT REMAINS A/O X4, AFEBRILE. RESPIRATIONS ARE EVEN AND UNLABORED, NOT IN ANY ACUTE DISTRESS NOTED. DENIES ANY PAIN, SOB,N/V. PICC LINE TO DWAYNE INTACT, NO INFILTRATION NOTED. DRESSING KEPT CLEAN AND DRY. SAFETY MEASURES ARE IN PLACE. REPOSITIONED PER PROTOCOL. WILL ENDORSE TO NEXT SHIFT FOR CONTINUITY OF CARE.
--- NOTE | 2018-11-25 19:20 | NUR ---
MS RN NOTES RECEIVED ON BED A/O X4,BREATHING REGULAR,NOT IN ANY FORM OF DISTRESS.WITH DWAYNE PICC LINE FOR IV AND MEDS.DVT PUMP IN USED FOR DVT PROPHYLAXIS.WITH RIGHT LOWER EXTREMITY WEAKNESS DUE TO CVA.WILL CONTINUE TO MONITOR STATUS.CALL LIGHT IN REACH,NEEDS ANTICIPATED.
[2018-11-25 20:00] VITALS: BP 96/51
[2018-11-26] MEDS: ACETAMINOPHEN 325 MG TABLET PO PRN (01:04)
--- NOTE | 2018-11-26 01:04 | NUR ---
MS RN NOTES C/O HEADACHE,TYLENOL 650MG PO GIVEN WITH APPLE SAUCE PER PATIENT REQUEST.
[2018-11-26 01:07] VITALS: BP 99/62
--- NOTE | 2018-11-26 06:13 | NUR ---
MS RN NOTES FAIRLY RESTED,MED COMPLIANT,HEADACHE RESOLVED, NO BLEEDING NOTED,LABS TO DAY AWAITING FOR PT WITH INR CALL LIGHT IN REACH,NEEDS ATTENDED.IN NO ACUTE DISTRESS.WILL ENDORSE TO DAY NURSE FOR ALIN.
[2018-11-26 06:20] LABS: BASOPHILS # (AUTO) 0.2 /CMM (0.0-0.2); BASOPHILS % (AUTO) 3.6 % (0.0-2.0); EOSINOPHILS % (AUTO) 7.7 % (0.0-6.0); HEMATOCRIT 28 % (33-45); HEMOGLOBIN 9.6 g/dL (11.5-14.8); LYMPHOCYTES # (AUTO) 1.4 /CMM (0.8-4.8); LYMPHOCYTES % (AUTO) 33.9 % (20.0-44.0); MEAN CORPUSCULAR HGB CONC 34 g/dl (31.0-36.0); MEAN CORPUSCULAR VOLUME 84 fL (82-100); MONOCYTES # (AUTO) 0.6 /CMM (0.1-1.30); MONOCYTES % (AUTO) 14.1 % (2.0-12.0); NEUTROPHILS # (AUTO) 1.7 /CMM (1.8-8.9); NEUTROPHILS % (AUTO) 40.7 % (43.0-81.0); PLATELET COUNT (AUTO) 204 /CMM (150-450); RED BLOOD CELL COUNT(AUTO) 3.36 MIL/uL (4.0-5.2); WHITE BLOOD COUNT (AUTO) 4.2 K/uL (4.3-11.0)
[2018-11-26 06:37] LABS: CARBON DIOXIDE 26 mmol/L (21-32); CHLORIDE 104 mmol/L (98-107); CREATININE 0.9 mg/dL (0.6-1.3); GLUCOSE 96 mg/dL (74-106); POTASSIUM 3.9 mmol/L (3.5-5.1); SODIUM SERUM 139 mmol/L (136-145); UREA NITROGEN, BLOOD 15 mg/dL (7-18)
--- NOTE | 2018-11-26 07:12 | NUR ---
MS RN OPENING NOTES RECEIVED PT LAYING IN BED WITH HOB ELEVATED. PT IS A/O X4, AFEBRILE. RESPIRATIONS ARE EVEN AND UNLABORED, NOT IN ANY ACUTE DISTRESS NOTED. PUPILS ARE REACTIVE TO LIGHT, BILATERAL HAND MAINTENANCE REPRESENTATIVE ARE STRONG AND EQUAL. WEAKNESS NOTED TO RLE BUT ABLE TO PERFORM AROM. DENIES ANY CHEST PAIN, SOB, N/V. IV SITE TO R WRIST INTACT, NO INFILTRATION NOTED. DRESSING KEPT CLEAN AND DRY. SAFETY MEASURES ARE IN PLACE. INSTRUCTED PT TO USE CALL LIGHT WHEN ASSISTANCE IS NEEDED, CALL LIGHT IS LEFT WITHIN REACH. WILL REPOSITION PER PROTOCOL. WILL MONITOR THROUGHOUT SHIFT FOR CONTINUITY OF CARE.
[2018-11-26 08:00] VITALS: BP 89/49
[2018-11-26] MEDS: DOCUSATE SODIUM 100 MG CAPSULE PO SCH ×2 (08:10→17:08)
[2018-11-26] MEDS: CYANOCOBALAMIN 100 MCG TABLET PO SCH (08:10)
[2018-11-26] MEDS: PANTOPRAZOLE 40 MG TABLET.DR PO SCH (08:10)
[2018-11-26] MEDS: GABAPENTIN 300 MG CAPSULE PO SCH ×3 (08:10→21:18)
[2018-11-26] MEDS: ENOXAPARIN SODIUM 60 MG/0.6 ML DISP.SYRIN SQ SCH ×2 (10:08→23:10)
[2018-11-26] MEDS ORDERED: MORPHINE SULFATE INJ 2 MG/ML DISP.SYRIN IV PRN (14:33)
--- NOTE | 2018-11-26 14:34 | NUR ---
MS RN NOTES-- PT C/O LEFT SIDED CHEST PAIN RADIATING TO LEFT NECK, SHOULDER, ARM. BP 100/63, HR 83. NOTIFIED VALDO, ROTARY SHEAR WORKER HELPER WITH ORDERS FOR STAT EKG, MORPHINE 2MG IVP Q6HPRN. ORDERS READ BACK AND VERIFIED. NOTED AND CARRIED OUT.
--- NOTE | 2018-11-26 15:11 | NUR ---
MS RN NOTES-- PT STATED PAIN HAS SUBSIDED. BP 103/65, HR 82. PUPILS ARE REACTIVE TO LIGHT. BILATERAL HAND CARTON MARKER MACHINE ARE STRONG AN EQUAL. NO SLURRED SPEECH NOTED. PT ABLE TO RAISE ARMS AND HOLD FOR 10 SECONDS. NOTED WITH RLE WHICH WAS BASELINE PER PT. PT ABLE TO PERFORM ACTIVE ROM TO LLE. WILL CONTINUE TO MONITOR.
[2018-11-26 16:00] VITALS: BP 104/68
--- NOTE | 2018-11-26 17:05 | NUR ---
MS RN NOTES-- RELAYED INR AND CBC RESULTS TO DR. MENDEZ, INCLUDING PT'S PREVIOUS C/O LEFT SIDED CHEST PAIN. PER DR. MENDEZ, CONTINUE LOVENOX AND COUMADIN DOSAGE.
[2018-11-26] MEDS: WARFARIN SODIUM 5 MG TABLET PO SCH (17:09)
[2018-11-26] MEDS: ENSURE ENLIVE 237 ML LIQUID (VANILLA) PO SCH (18:30)
--- NOTE | 2018-11-26 19:20 | NUR ---
MS RN NOTES RECEIVED ON BED A/O X4,BREATHING [id number],NOT IN ANY FORM OF RESPIRATORY DISTRESS.PER REPORT BY DAY NURSE,PATIENT COMPLAINTS OF BLURRY VISION BUT ITS IMPROVING RIGHT NOW.PUBLIC AD[employer]ESS [employer] MECHANIC ELECTRIC TRANSFER OPERATOR WAS NOTIFIED BY DAY NURSE IF HE WANTS TO ORDER HEAD CT,AWAITNG TO CALL BACK.CLAIMED CHEST PAIN ALREADY GONE.PICC LINE LEFT UPPER ARM INTACT AND PATENT.DVT PUMP IN USED FOR DVT PROPHYLAXIS.CALL LIGHT IN REACH,NEEDS ANTICIPATED.
[2018-11-26 20:00] VITALS: BP 90/54
[2018-11-26 20:18] VITALS: BP 90/54
--- NOTE | 2018-11-27 06:35 | NUR ---
MS RN NOTES SLEPT WELL AT NIGHT.DENIES BLURRY VISION,NOR CHEST PAIN.PICC LINE REMAINS PATENT.IN NO ACUTE DISTRESS.POSSIBLE D/C BACK TO SNF WHEN STABLE.WILL ENDORSE TO DAY NURSE FOR ALIN.
[2018-11-27 07:23] LABS: BASOPHILS # (AUTO) 0.1 /CMM (0.0-0.2); BASOPHILS % (AUTO) 1.3 % (0.0-2.0); EOSINOPHILS % (AUTO) 7.1 % (0.0-6.0); HEMATOCRIT 29 % (33-45); HEMOGLOBIN 10.2 g/dL (11.5-14.8); LYMPHOCYTES # (AUTO) 1.6 /CMM (0.8-4.8); LYMPHOCYTES % (AUTO) 35.3 % (20.0-44.0); MEAN CORPUSCULAR HGB CONC 35 g/dl (31.0-36.0); MEAN CORPUSCULAR VOLUME 83 fL (82-100); MONOCYTES # (AUTO) 0.6 /CMM (0.1-1.30); MONOCYTES % (AUTO) 14.1 % (2.0-12.0); NEUTROPHILS # (AUTO) 1.9 /CMM (1.8-8.9); NEUTROPHILS % (AUTO) 42.2 % (43.0-81.0); PLATELET COUNT (AUTO) 217 /CMM (150-450); RED BLOOD CELL COUNT(AUTO) 3.51 MIL/uL (4.0-5.2); WHITE BLOOD COUNT (AUTO) 4.5 K/uL (4.3-11.0)
[2018-11-27 07:32] LABS: CALCIUM, SERUM 9.3 mg/dL (8.5-10.1); CARBON DIOXIDE 26 mmol/L (21-32); CHLORIDE 103 mmol/L (98-107); CREATININE 0.9 mg/dL (0.6-1.3); GLUCOSE 91 mg/dL (74-106); SODIUM SERUM 139 mmol/L (136-145); UREA NITROGEN, BLOOD 20 mg/dL (7-18)
[2018-11-27 08:00] VITALS: BP 96/56
[2018-11-27] MEDS: ENSURE ENLIVE 237 ML LIQUID (VANILLA) PO SCH ×2 (08:00→13:00)
[2018-11-27] MEDS: PANTOPRAZOLE 40 MG TABLET.DR PO SCH (09:07)
[2018-11-27] MEDS: CYANOCOBALAMIN 100 MCG TABLET PO SCH (09:07)
[2018-11-27] MEDS: GABAPENTIN 300 MG CAPSULE PO SCH (09:07)
[2018-11-27] MEDS: DOCUSATE SODIUM 100 MG CAPSULE PO SCH (09:07)
[2018-11-27] MEDS ORDERED: WARF5TAB77 PO (11:11)
[2018-11-27] MEDS: ENOXAPARIN SODIUM 60 MG/0.6 ML DISP.SYRIN SQ SCH (11:34)
[2018-11-27] MEDS: ACETAMINOPHEN 325 MG TABLET PO PRN (14:06)
--- NOTE | 2018-11-27 15:56 | NUR ---
NURSES NOTE PT D/C TO [facility] IN STABLE CONDITION DEINED ANY PAIN OR DISCOMFORT AT THIS TIME, PT WERE CONCERN AND WHAT TO KNOW WHY SHE HAS STROKE, CALLED FOR REPORT SPOKE TO KAYLEY THE CHARGE NURSE,
== END 2018-11-27 16:10 | DRG 65 ==
LOC: ER 16:33 → TELE 20:04 → MED 11-23 10:59
PROVIDERS: ADMIT Internal Medicine; ATTEND Nurse Practitioner Acute Care
DX: I63.9 Cerebral infarction, unspecified (principal); D68.61 Antiphospholipid syndrome; I10 Essential (primary) hypertension; I25.10 Atherosclerotic heart disease of native coronary artery without angina pectoris; K64.8 Other hemorrhoids; E78.5 Hyperlipidemia, unspecified; I27.20 Pulmonary hypertension, unspecified; K21.0 Gastro-esophageal reflux disease with esophagitis; Z79.01 Long term (current) use of anticoagulants; Z86.73 Personal history of transient ischemic attack (TIA), and cerebral infarction without residual deficits; Z86.711 Personal history of pulmonary embolism; Z86.718 Personal history of other venous thrombosis and embolism; G47.00 Insomnia, unspecified; F32.9 Major depressive disorder, single episode, unspecified; I25.2 Old myocardial infarction; K57.30 Diverticulosis of large intestine without perforation or abscess without bleeding; M19.90 Unspecified osteoarthritis, unspecified site; G62.9 Polyneuropathy, unspecified; G40.909 Epilepsy, unspecified, not intractable, without status epilepticus; G83.11 Monoplegia of lower limb affecting right dominant side; K22.2 Esophageal obstruction; Z87.11 Personal history of peptic ulcer disease; R29.700 NIHSS score 0
CPT/HCPCS: 36415; 70450-TC; 70496-TC; 70498-TC; 70553-TC; 71045-TC; 80048-TC; 80053-TC; 80061-TC; 82962-TC; 83735-TC; 83880; 84100-TC; 84443-TC; 84484-TC; 85025-TC; 85610-TC; 85730-TC; 87081-TC; 92611-TC; 93880-TC; 94799-TC; 95819-TC; 97112-TC; 97116-TC; 97530-TC; A9579; G0378; J1650; J2270; J2405; J7040; J7050; Q9967

== ENCOUNTER 2019-01-13 14:17 | Emergency (ER) | payer MEDICARE, OTHER ==
[~2019-01-13] VITALS: Ht 162.6 cm; Wt 68.0 kg
[~2019-01-13 14:17] MED LIST changes: +ACET325T53 PO; +MAG30ORA PO; +NITR0.4T48 SL; +WARF5TAB77 PO
[2019-01-13 14:55] LABS: BASOPHILS # (AUTO) 0.1 /CMM (0.0-0.2); BASOPHILS % (AUTO) 1.5 % (0.0-2.0); EOSINOPHILS % (AUTO) 4.5 % (0.0-6.0); HEMATOCRIT 32 % (33-45); HEMOGLOBIN 10.4 g/dL (11.5-14.8); LYMPHOCYTES # (AUTO) 2.1 /CMM (0.8-4.8); LYMPHOCYTES % (AUTO) 38.6 % (20.0-44.0); MEAN CORPUSCULAR HGB CONC 32 g/dl (31.0-36.0); MEAN CORPUSCULAR VOLUME 77 fL (82-100); MONOCYTES # (AUTO) 0.5 /CMM (0.1-1.30); MONOCYTES % (AUTO) 9.2 % (2.0-12.0); NEUTROPHILS # (AUTO) 2.5 /CMM (1.8-8.9); NEUTROPHILS % (AUTO) 46.2 % (43.0-81.0); PLATELET COUNT (AUTO) 182 /CMM (150-450); RED BLOOD CELL COUNT(AUTO) 4.17 MIL/uL (4.0-5.2); WHITE BLOOD COUNT (AUTO) 5.5 K/uL (4.3-11.0)
--- NOTE | 2019-01-13 14:55 | NUR ---
PT REC'D TO ER VIA EMS HAD A SEIZURE SNF PT ABLE TO SAY NAME AND BIRTHDAY. IV STARTED 20G RT [facility] SENT TO LAB VSS AWAITING EVALUATION BY ER PROVIDER.
[2019-01-13 15:10] LABS: CALCIUM, SERUM 9.3 mg/dL (8.5-10.1); CARBON DIOXIDE 23 mmol/L (21-32); CHLORIDE 105 mmol/L (98-107); CREATININE 1.3 mg/dL (0.6-1.3); GLUCOSE 92 mg/dL (74-106); POTASSIUM 3.9 mmol/L (3.5-5.1); SODIUM SERUM 142 mmol/L (136-145); UREA NITROGEN, BLOOD 15 mg/dL (7-18)
[2019-01-13 15:18] LABS: ALANINE AMINOTRANSFERASE 26 U/L (12-78); ALBUMIN 3.3 g/dL (3.4-5.0); ALKALINE PHOSPHATASE 74 U/L (46-116); ASPARTATE AMINOTRANSFERASE 25 U/L (15-37); BILIRUBIN,TOTAL 0.1 mg/dL (0.2-1.0); TOTAL PROTEIN, SERUM 7.2 g/dL (6.4-8.2)
[2019-01-13] MEDS ORDERED: LACT-58 PO (15:18)
[2019-01-13] MEDS ORDERED: BISA10SU8 RC (15:18)
[2019-01-13] MEDS ORDERED: ONDA4TAB5 PO (15:18)
[2019-01-13] MEDS ORDERED: MAGN400O6 PO (15:18)
[2019-01-13] MEDS ORDERED: PANT40TA2 PO (15:18)
[2019-01-13] MEDS ORDERED: MAG HYDROX/AL HYDROX/SIMETH 30 ML UDC ONE (16:00)
[2019-01-13] MEDS ORDERED: MAG HYDROX/AL HYDROX/SIMETH 30 ML UDC PO ONE (16:00)
--- NOTE | 2019-01-13 16:04 | NUR ---
[facility] ETA 1800 TRIP#[id number]
[2019-01-13] MEDS ORDERED: LORAZEPAM INJ 2 MG/ML VIAL ONE (17:39)
--- NOTE | 2019-01-13 17:44 | NUR ---
pt had a seiaure ativan 2 mg ivp o2 8l 100 % monitors appplied
[2019-01-13] MEDS ORDERED: LORAZEPAM INJ 2 MG/ML VIAL IV ONE (18:00)
[2019-01-13] MEDS ORDERED: LEVETIRACETAM (500MG) 1,000 MG in IV NS 0.9% 100 ML IV SCH (18:00)
--- NOTE | 2019-01-13 18:16 | NUR ---
MASK 8L O2 KEPPRA IVPB GIVEN PER MD ORDER CONT TO MONITOR HR 150
--- NOTE | 2019-01-13 18:54 | NUR ---
CHAYO INFUSED IV SITE GOOD FLUSHED
--- NOTE | 2019-01-13 19:07 | NUR ---
EMMY EVANGELISTA Addendum: 01/13/19 at 1906 by PADDY Amendment vaibhav in EDM - 01/13/19 at 1906 by PADDY MARCOS [id number]
--- NOTE | 2019-01-13 19:07 | NUR ---
TRIP [id number]
--- NOTE | 2019-01-13 19:10 | NUR ---
PT RECEIVED FROM AMMY HANDY FOR ALIN. PT IS PENDING TRANSFER BACK TO THE FACILITY SHE IS STAYING. PT IS IN BED NAD NOTED.
--- NOTE | 2019-01-13 19:10 | NUR ---
TRIP [id number]
--- NOTE | 2019-01-13 20:25 | NUR ---
ROUNDED WITH PT. C/O GEN BODY PAIN. MADE AWARE. ORDER RECEIVED FOR APAP 1000MG.
[2019-01-13] MEDS ORDERED: ACETAMINOPHEN ES 500 MG TABLET ONE (20:29)
[2019-01-13] MEDS ORDERED: ACETAMINOPHEN ES 500 MG TABLET PO ONE (20:30)
--- NOTE | 2019-01-13 20:47 | NUR ---
CALLED [facility] FOR REPORT. SPOKE WITH NURSE NOHELIA.
--- NOTE | 2019-01-13 21:08 | NUR ---
PT BEING P/U BY [facility] UNIT 113 ON A GURNEY. IN STABLE CONDITION.
[2019-01-13 21:10] VITALS: BP 113/73
== END 2019-01-13 21:11 | disposition home or self-care (01) ==
LOC: ER 14:23
DX: G40.909 Epilepsy, unspecified, not intractable, without status epilepticus (principal); I10 Essential (primary) hypertension; Z88.2 Allergy status to sulfonamides
CPT/HCPCS: 36415; 71045; 80048; 80076; 85025; 96365; 96375; 99284; J1953; J2060; J7030

== ENCOUNTER 2019-05-10 17:07 | Emergency (ER) | payer MEDICARE, OTHER ==
[~2019-05-10] VITALS: Ht 157.5 cm; Wt 55.3 kg
[~2019-05-10 17:07] MED LIST changes: +BISA10SU11 RC; +LACT-58 PO; +MAGN400O6 PO; +ONDA4TAB5 PO; +PANT40TA2 PO; -WARF5TAB77 PO
--- NOTE | 2019-05-10 17:11 | NUR ---
JESSICA Gomez FROM HOME C/O COUGH AND CONGESTION FOR 4 DAYS, ALSO C/O R SIDED HEADACHE. TO ER BED 11, HOOKED TO MONITOR, CHANGED TO HOSPITAL GOWN, PROVIDED W WARM BLANKET, AWAITING MD CHU.
--- NOTE | 2019-05-10 17:40 | NUR ---
DR CHRISTY AT BEDSIDE
--- NOTE | 2019-05-10 17:58 | NUR ---
WHEELED OUT VIA RNEY FOR CT SCAN
[2019-05-10 17:59] LABS: BASOPHILS # (AUTO) 0.1 /CMM (0.0-0.2); BASOPHILS % (AUTO) 1.1 % (0.0-2.0); EOSINOPHILS % (AUTO) 1.9 % (0.0-6.0); HEMATOCRIT 33 % (33-45); HEMOGLOBIN 10.5 g/dL (11.5-14.8); LYMPHOCYTES # (AUTO) 1.4 /CMM (0.8-4.8); LYMPHOCYTES % (AUTO) 18.8 % (20.0-44.0); MEAN CORPUSCULAR HGB CONC 32 g/dl (31.0-36.0); MEAN CORPUSCULAR VOLUME 69 fL (82-100); MONOCYTES # (AUTO) 0.5 /CMM (0.1-1.30); MONOCYTES % (AUTO) 7.5 % (2.0-12.0); NEUTROPHILS # (AUTO) 5.1 /CMM (1.8-8.9); NEUTROPHILS % (AUTO) 70.7 % (43.0-81.0); PLATELET COUNT (AUTO) 330 /CMM (150-450); RED BLOOD CELL COUNT(AUTO) 4.74 MIL/uL (4.0-5.2); WHITE BLOOD COUNT (AUTO) 7.2 K/uL (4.3-11.0)
[2019-05-10] MEDS ORDERED: ONDANSETRON HCL/PF 4 MG/2 ML VIAL ONE (17:59)
[2019-05-10] MEDS ORDERED: KETOROLAC TROMETHAMINE 15 MG/ML VIAL ONE (17:59)
[2019-05-10] MEDS ORDERED: IV NS 0.9% 500 ML BAG IV ONE (18:00)
[2019-05-10] MEDS ORDERED: ALPRAZOLAM 0.5 MG TABLET PO ONE (18:00)
[2019-05-10] MEDS ORDERED: ALPRAZOLAM 0.5 MG TABLET ONE (18:00)
[2019-05-10] MEDS ORDERED: KETOROLAC TROMETHAMINE INJ 30 MG/ML VIAL IV ONE (18:00)
[2019-05-10] MEDS ORDERED: ONDANSETRON HCL/PF 4 MG/2 ML VIAL IVP ONE (18:00)
[2019-05-10 18:07] LABS: CALCIUM, SERUM 8.7 mg/dL (8.5-10.1); CARBON DIOXIDE 24 mmol/L (21-32); CHLORIDE 99 mmol/L (98-107); CREATININE 1.1 mg/dL (0.6-1.3); GLUCOSE 94 mg/dL (74-106); POTASSIUM 3.7 mmol/L (3.5-5.1); SODIUM SERUM 132 mmol/L (136-145); UREA NITROGEN, BLOOD 12 mg/dL (7-18)
[2019-05-10 18:13] LABS: ALANINE AMINOTRANSFERASE 28 U/L (12-78); ALBUMIN 3.3 g/dL (3.4-5.0); ALKALINE PHOSPHATASE 75 U/L (46-116); ASPARTATE AMINOTRANSFERASE 23 U/L (15-37); BILIRUBIN,DIRECT 0.1 mg/dL (0.0-0.2); BILIRUBIN,TOTAL 0.3 mg/dL (0.2-1.0); LIPASE 239 U/L (73-393); TOTAL PROTEIN, SERUM 6.9 g/dL (6.4-8.2)
--- NOTE | 2019-05-10 19:14 | NUR ---
REPORT GIVEN TO KANDY GIMENEZ FOR ALIN
[2019-05-10 19:28] LABS: EOSINOPHILS % (MANUAL) 2 % (0-4); LYMPHOCYTES % (MANUAL) 20 % (16-48); MONOCYTES % (MANUAL) 10 % (0-11.0); NEUTROPHILS % (MANUAL) 68 (42-76)
[2019-05-10 19:46] LABS: APPEARANCE,URINE Clear (CLEAR); BILIRUBIN,URINE Negative (NEGATIVE); BLOOD, URINE Negative Ery/uL (NEGATIVE); COLOR,URINE Yellow (YELLOW); KETONES,URINE Negative (NEGATIVE); LEUKOCYTE ESTERASE ,URINE Negative (NEGATIVE); NITRITE, URINE Negative (NEGATIVE); PH,URINE 6.5 (5.0-8.0); PROTEIN,URINE Negative (NEGATIVE); UGLUCOSE Negative (NEGATIVE); UROBILINOGEN,URINE 0.2 EU/dL (0.2)
[2019-05-10] MEDS ORDERED: oxyCODONE/APAP (5/325 MG) 1 UDTAB TABLET PO ONE (20:00)
[2019-05-10] MEDS ORDERED: oxyCODONE/APAP (5/325 MG) 1 UDTAB TABLET ONE (20:46)
--- NOTE | 2019-05-10 21:38 | NUR ---
Patient discharged to home in stable condition. Written and verbal after care instructions given. Patient verbalizes understanding of instruction.IV removed. Catheter intact and site benign. Pressure and 4x4 applied to site. No bleeding noted. Pt ambulatory with a steady gait. Pt provided with taxi voucher to get home. pt's son is out of state , he is a cdl dedicated truck driver. Pt lives alone and nobody can pick her up.
[2019-05-10 21:40] VITALS: BP 75/114
== END 2019-05-10 21:41 | disposition home or self-care (01) ==
LOC: ER 17:10
DX: R05 Cough (principal); R10.9 Unspecified abdominal pain; R51 Headache; I10 Essential (primary) hypertension; G40.909 Epilepsy, unspecified, not intractable, without status epilepticus; D69.6 Thrombocytopenia, unspecified; I25.2 Old myocardial infarction; F41.9 Anxiety disorder, unspecified; Z86.711 Personal history of pulmonary embolism; Z88.2 Allergy status to sulfonamides
CPT/HCPCS: 36415; 71045; 74176; 80048; 80076; 81001; 83690; 84484; 85025; 85378; 93005; 96374; 96375; 99284; J1885; J2405; J7040; 81000-TC

== ENCOUNTER 2019-05-25 17:06 | Inpatient (IN) | payer MEDICARE, OTHER ==
[~2019-05-25] VITALS: Ht 162.6 cm; Wt 54.9 kg
--- NOTE | 2019-05-25 17:40 | NUR ---
Chest Pain, Pressure-like sensation 10/10 severity, associated N/V and dizziness. PT AAOX4, VSS. RR EVEN & UNLABORED. SEEN & EVAL'D BY DR. PASTOR. PLACED ON SPRING INTERN, SR, NO ECTOPY NOTED. WILL CONT TO MONITOR.
[2019-05-25 17:45] LABS: BASOPHILS % (AUTO) 0.3 % (0.0-2.0); EOSINOPHILS % (AUTO) 1.4 % (0.0-6.0); HEMATOCRIT 33 % (33-45); HEMOGLOBIN 10.4 g/dL (11.5-14.8); LYMPHOCYTES # (AUTO) 1.4 /CMM (0.8-4.8); LYMPHOCYTES % (AUTO) 23.3 % (20.0-44.0); MEAN CORPUSCULAR HGB CONC 32 g/dl (31.0-36.0); MEAN CORPUSCULAR VOLUME 70 fL (82-100); MONOCYTES # (AUTO) 0.5 /CMM (0.1-1.30); MONOCYTES % (AUTO) 7.9 % (2.0-12.0); NEUTROPHILS # (AUTO) 4.1 /CMM (1.8-8.9); NEUTROPHILS % (AUTO) 67.1 % (43.0-81.0); PLATELET COUNT (AUTO) 315 /CMM (150-450); RED BLOOD CELL COUNT(AUTO) 4.66 MIL/uL (4.0-5.2); WHITE BLOOD COUNT (AUTO) 6.1 K/uL (4.3-11.0)
[2019-05-25 17:55] LABS: CALCIUM, SERUM 9.4 mg/dL (8.5-10.1); CARBON DIOXIDE 23 mmol/L (21-32); CHLORIDE 102 mmol/L (98-107); GLUCOSE 103 mg/dL (74-106); POTASSIUM 3.6 mmol/L (3.5-5.1); SODIUM SERUM 128 mmol/L (136-145); UREA NITROGEN, BLOOD 9 mg/dL (7-18)
[2019-05-25 18:07] LABS: ALANINE AMINOTRANSFERASE 14 U/L (12-78); ALBUMIN 3.5 g/dL (3.4-5.0); ALKALINE PHOSPHATASE 69 U/L (46-116); ASPARTATE AMINOTRANSFERASE 14 U/L (15-37); B-TYPE NATRIURETIC PEPTIDE 75 PG/ML (0-125); BILIRUBIN,DIRECT 0.1 mg/dL (0.0-0.2); BILIRUBIN,TOTAL 0.3 mg/dL (0.2-1.0); TOTAL PROTEIN, SERUM 7.1 g/dL (6.4-8.2)
[2019-05-25] MEDS ORDERED: LEVE250T2 PO (18:23)
[2019-05-25] MEDS ORDERED: WARF3TAB59 PO (18:23)
[2019-05-25] MEDS ORDERED: ASPIRIN 81 MG TAB.CHEW PO ONE (19:00)
[2019-05-25] MEDS ORDERED: NITROGLYCERIN PACKET 1 GM PACKET TD ONE (19:00)
[2019-05-25] MEDS ORDERED: ASPIRIN 81 MG TAB.CHEW ONE (19:04)
[2019-05-25] MEDS ORDERED: NITROGLYCERIN PACKET 1 GM PACKET ONE (19:04)
--- NOTE | 2019-05-25 19:11 | NUR ---
MEDICATED FOR CP PER ERMD ORDER, PT CHANI WELL.
[2019-05-25] MEDS ORDERED: IV NS 0.9% 500 ML BAG IV ONE (19:30)
--- NOTE | 2019-05-25 19:35 | NUR ---
PT STS CP IS BETTER 03/31. DENIES SOB, DIZZINESS, N/V, WEAKNESS @ THIS TIME. WILL CONT TO MONITOR.
[2019-05-25 19:51] LABS: BAND % (MANUAL) 1 % (0.0-5.0); LYMPHOCYTES % (MANUAL) 19 % (16-48); MONOCYTES % (MANUAL) 8 % (0-11.0); NEUTROPHILS % (MANUAL) 72 (42-76)
--- NOTE | 2019-05-25 21:05 | NUR ---
REPORT GIVEN TO AMMY HERZOG FOR ALIN
[2019-05-25 22:00] VITALS: BP 94/60
[2019-05-25] MEDS ORDERED: Z GUARD REMEDY 2 OZ OINT TP PRN (22:30)
[2019-05-25] MEDS ORDERED: ONDANSETRON HCL/PF 4 MG/2 ML VIAL IVP PRN (22:30)
[2019-05-25] MEDS ORDERED: ACETAMINOPHEN 325 MG TABLET PO PRN (22:30)
[2019-05-25] MEDS ORDERED: MAG HYDROX/AL HYDROX/SIMETH 30 ML UDC PO PRN (22:30)
[2019-05-25] MEDS ORDERED: MAGNESIUM HYDROXIDE 30 ML UDC PO PRN (22:30)
[2019-05-25] MEDS ORDERED: ENOXAPARIN SODIUM 60 MG/0.6 ML DISP.SYRIN SQ ONE (23:30)
[2019-05-26] VITALS (7 sets, daily range): BP systolic 95–114; BP diastolic 51–70
--- NOTE | 2019-05-26 00:04 | NUR ---
RN NOTES PATIENT IS FEELING ANXIOUS AND SAYING SHE CAN'T BREATH AND REQUESTING MEDICATION .MD KEVIN GALVAN NOTIFIED AND NEW ORDER OF LORAZEPAM 0.25MG PO PRN Q8HR IS IN PLACE. READ BACK AND VERIFICATION OF THE TELEPHONE ORDER HAS BEEN DONE. WILL CONTINUE TO MONITOR PATIENT CLOSELY.
[2019-05-26] MEDS ORDERED: LEVETIRACETAM (250 MG) 250 MG TABLET PO ONE (00:30)
[2019-05-26] MEDS: IV NS 0.9% 1,000 ML IV PRN ×2 (00:30→20:42)
[2019-05-26] MEDS: LORAZEPAM 0.5 MG TABLET PO PRN ×2 (00:44→18:44)
[2019-05-26] MEDS: HYDROCODONE/APAP 5/325MG 1 EACH TABLET PO PRN ×2 (05:35→15:23)
[2019-05-26 06:53] LABS: BASOPHILS # (AUTO) 0.1 /CMM (0.0-0.2); CALCIUM, SERUM 8.2 mg/dL (8.5-10.1); EOSINOPHILS % (AUTO) 2.5 % (0.0-6.0); HEMATOCRIT 28 % (33-45); LYMPHOCYTES # (AUTO) 2.1 /CMM (0.8-4.8); LYMPHOCYTES % (AUTO) 40.3 % (20.0-44.0); MAGNESIUM 2.3 mg/dL (1.8-2.4); MEAN CORPUSCULAR HGB CONC 32 g/dl (31.0-36.0); MEAN CORPUSCULAR VOLUME 69 fL (82-100); MONOCYTES # (AUTO) 0.5 /CMM (0.1-1.30); MONOCYTES % (AUTO) 9.4 % (2.0-12.0); NEUTROPHILS # (AUTO) 2.4 /CMM (1.8-8.9); NEUTROPHILS % (AUTO) 46.8 % (43.0-81.0); PHOSPHORUS 3.6 mg/dL (2.5-4.9); PLATELET COUNT (AUTO) 293 /CMM (150-450); POTASSIUM 3.7 mmol/L (3.5-5.1); RED BLOOD CELL COUNT(AUTO) 4.04 MIL/uL (4.0-5.2); WHITE BLOOD COUNT (AUTO) 5.1 K/uL (4.3-11.0)
[2019-05-26 06:58] LABS: THYROID STIMULATING HORMONE 1.335 uIU/mL (0.358-3.74)
--- NOTE | 2019-05-26 07:52 | NUR ---
MS RN OPENING NOTE PATIENT IN BED RESTING COMFORTABLY. PATIENT IN NO ACUTE DISTRESS. NO SOB NOTED. PATIENT BREATHING IS EVEN AND UNLABORED. NO FACIAL GRIMACING NOTE. PATIENT STATES PAIN IS 4/10 AND IS TOLERABLE. SAFETY PRECAUTIONS IN PLACE. PATIENT BED IS LOCKED AND IN LOWEST POSITION. CALL LIGHT WITHIN REACH. WILL CONTINUE TO MONITOR.
[2019-05-26] MEDS: ENOXAPARIN SODIUM 60 MG/0.6 ML DISP.SYRIN SQ SCH ×2 (09:51→21:06)
[2019-05-26] MEDS ORDERED: WARFARIN SODIUM 1 MG TABLET PO SCH (17:00)
--- NOTE | 2019-05-26 18:51 | NUR ---
MS RN CLOSING NOTE PATIENT IN BED RESTING COMFORTABLY. PATIENT IN NO ACUTE DISTRESS. NO SOB NOTED. PATIENT BREATHING IS EVEN AND UNLABORED. PATIENT STATED PAIN 3/10 AND TOLERABLE. HOB IS ELEVATED. IV INTACT.SEIZURE PRECAUTIONS IN PLACE. PATIENT KEPT CLEAN DRY AND COMFORTABLE THROUGHOUT SHIFT. PATIENT VERBALIZED NEEDS AND CONCERNS. PATIENT NEEDS AND CONCERNS ADDRESSED. PATIENT BED IS LOCKED AND IN LOWEST POSITION. CALL LIGHT WITHIN REACH. WILL ENDORSE CARE TO PM SHIFT FOR ALIN.
[2019-05-26 18:54] LABS: OSMOLALITY,URINE 239 mOS/kg (340-1090)
[2019-05-26 18:56] LABS: URINE SODIUM, RANDOM 39 mmol/l (40-220)
--- NOTE | 2019-05-26 19:30 | NUR ---
MS RN OPENING NOTES RECEIVED PATIENT FROM MORNING SHIFT, ALERT AND ORIENTED X 4. VERBALLY RESPONSIVE AND ABLE TO FOLLOW DIRECTIONS. BREATHING REGULAR AND UNLABORED ON ROOM AIR. LEFT FOREARM IV SITE INTACT AND PATENT INFUSING WELL WITH NO BLEEDING OR S/S OF INFECTION/INFILTRATION NOTED. NO COMPLAINTS OF PAIN/DISCOMFORT REPORTED OF THE TIME. BED LOW AND LOCKED ON SEMI FOWLERS POSITION. WILL CONTINUE TO MONITOR.
--- NOTE | 2019-05-26 21:20 | NUR ---
MS RN NOTES REFUSED DOSE OF LIPITOR, RISK AND BENEFITS EXPLAINED. PER PATIENT SHE'S TAKING TOO MANY MEDICATIONS AND HAVING SIDE EFFECTS FROM IT. WILL CONTINUE TO MONITOR.
[2019-05-26] MEDS ORDERED: LEVETIRACETAM (250 MG) 250 MG TABLET PO SCH (22:00)
[2019-05-26] MEDS ORDERED: ATORVASTATIN 10 MG TABLET PO SCH (22:00)
[2019-05-27] MEDS: HYDROCODONE/APAP 5/325MG 1 EACH TABLET PO PRN (00:02)
--- NOTE | 2019-05-27 00:20 | NUR ---
MS RN NOTES COMPLAINED OF 6/10 GENERALIZED PAIN, NORCO 5/325 GIVEN NEEDED. NON-PHARMACOLOGICAL INTERVENTIONS PROVIDED. WILL CONTINUE TO MONITOR.
[2019-05-27] MEDS: LORAZEPAM 0.5 MG TABLET PO PRN ×2 (03:01→16:11)
--- NOTE | 2019-05-27 03:08 | NUR ---
MS RN NOTES PATIENT VERBALIZED FEELING ANXIOUS, ATIVAN 0.25MG TABLET GIVEN BY MOUTH. WILL CONTINUE TO MONITOR.
--- NOTE | 2019-05-27 06:37 | NUR ---
MS RN CLOSING NOTES PATIENT IN BED ALERT AND ORIENTED X 4. VERBALLY RESPONSIVE AND ABLE TO FOLLOW DIRECTIONS. BREATHING REGULAR AND UNLABORED ON ROOM AIR. LEFT FOREARM IV SITE INTACT AND PATENT INFUSING WELL WITH NO BLEEDING OR S/S OF INFECTION/INFILTRATION NOTED. ASSISTED ON BATHROOM PRIVILEGES WITH CLEAR YELLOW URINE. BED LOW AND LOCKED ON SEMI FOWLERS POSITION. WILL ENDORSE TO MORNING SHIFT FOR ALIN.
[2019-05-27 07:12] LABS: THYROID STIMULATING HORMONE 1.351 uIU/mL (0.358-3.74); URIC ACID 3.4 mg/dL (2.6-7.2)
--- NOTE | 2019-05-27 07:20 | NUR ---
MS RN OPENING NOTE RECEIVE PATIENT SLEEPING IN BED COMFORTABLY. PATIENT IN NO ACUTE DISTRESS. NO SOB NOTED. PATIENT BREATHING IS EVEN AND UNLABORED. NO FACIAL GRIMACING NOTED. SEIZURE PRECAUTIONS IN PLACE. HOB IS SLIGHTLY ELEVATED. SAFETY PRECAUTIONS IN PLACE. PATIENT BED IS LOCKED AND IN LOWEST POSITION. CALL LIGHT WITHIN REACH. WILL CONTINUE TO MONITOR.
[2019-05-27 09:00] VITALS: BP 101/61
[2019-05-27] MEDS: ENOXAPARIN SODIUM 60 MG/0.6 ML DISP.SYRIN SQ SCH (09:21)
[2019-05-27] MEDS ORDERED: ENOX60DI SQ (14:40)
[2019-05-27] MEDS ORDERED: ATOR10TA PO (14:40)
[2019-05-27] MEDS ORDERED: WARF3TAB59 PO (14:40)
[2019-05-27] MEDS ORDERED: INFLUENZA VACCINE 2019-20 0.5 ML DISP.SYRIN IM ONE (16:00)
[2019-05-27] MEDS ORDERED: PNEUMOCOCCAL 23-VAL P-SAC VAC 0.5 ML VIAL SQ ONE (16:00)
[2019-05-27] MEDS ORDERED: WARFARIN SODIUM 5 MG TABLET PO SCH ×2 (17:00)
--- NOTE | 2019-05-27 18:25 | NUR ---
MS RN CLOSING NOTE PATIENT MEDICALLY STABLE TO GO HOME. PATIENT IN NO ACUTE DISTRESS. NO SOB NOTED. PATIENT BREATHING IS EVEN AND UNLABORED. DC INSTRUCTIONS PROVIDED TO PATIENT AND SON. PATIENT AND SON VERBALIZED UNDERSTANDING. PER PATIENT KARUNA MARI ALSO CAME TO SPEAK TO PATIENT ABOUT HOME HEALTH MANAGEMENT AND PRESCRIPTION ADHERENCE. PATIENT ID BAND REMOVED. PATIENT IV REMOVED WITH NO REDNESS OR BLEEDING. PATIENT RECEIVED INFLUENZA AND PNEUMOCOCCAL VACCINE AND TOLERATED WELL. PATIENT SIGNED BELONGINGS LIST AND HAS ALL BELONGINGS WITH HER. PATIENT DC PACKET WITH PATIENT. SKIN ASSESSED, NO NEW SKIN BREAKDOWN NOTED. PATIENT WAS KEPT CLEAN, DRY, AND COMFORTABLE DURING MY SHIFT. ALL NEEDS AND CONCERNS ADDRESSED. ALL NURSING NEEDS MET. PATIENT WENT BACK HOME WITH SON. MD AWARE OF DISCHARGE. Addendum: 05/27/19 at 1907 by KRISHNA BALTAZAR RN DISCHARGE NOTE
== END 2019-05-27 18:31 | disposition home health service (06) | DRG 641 ==
LOC: ER 17:13 → TELE 20:42 → MED 05-26 07:59
PROVIDERS: ADMIT Nurse Practitioner Acute Care; ATTEND Nurse Practitioner Acute Care
DX: E87.1 Hypo-osmolality and hyponatremia (principal); I69.351 Hemiplegia and hemiparesis following cerebral infarction affecting right dominant side; D68.61 Antiphospholipid syndrome; I25.10 Atherosclerotic heart disease of native coronary artery without angina pectoris; R07.89 Other chest pain; G40.909 Epilepsy, unspecified, not intractable, without status epilepticus; Z79.01 Long term (current) use of anticoagulants; Z86.711 Personal history of pulmonary embolism; G62.9 Polyneuropathy, unspecified; I10 Essential (primary) hypertension; E78.5 Hyperlipidemia, unspecified; M19.90 Unspecified osteoarthritis, unspecified site; F41.9 Anxiety disorder, unspecified; F32.9 Major depressive disorder, single episode, unspecified; G47.9 Sleep disorder, unspecified; Z88.2 Allergy status to sulfonamides; I25.2 Old myocardial infarction; G47.00 Insomnia, unspecified; I27.20 Pulmonary hypertension, unspecified; D64.9 Anemia, unspecified; I95.9 Hypotension, unspecified; E86.1 Hypovolemia; E86.0 Dehydration
CPT/HCPCS: 36415; 71045-TC; 80048-TC; 80061-TC; 80076-TC; 83735-TC; 83880; 83935-TC; 84100-TC; 84300-TC; 84443-TC; 84484-TC; 84550-TC; 85025-TC; 85610-TC; 85730-TC; 87081-TC; 90732; 93307-TC; G0378; J1650; J7030; J7040; Q2036

== ENCOUNTER 2020-12-07 10:53 | Inpatient (IN) | payer MEDICARE, OTHER ==
[~2020-12-07] VITALS: Ht 162.6 cm; Wt 49.9 kg
[~2020-12-07 10:53] MED LIST changes: -ACET325T53 PO; +ATOR10TA PO; -BISA10SU11 RC; -CYAN100T47 PO; +ENOX60DI SQ; -GABA-534 PO; -LACT-58 PO; +LEVE250T2 PO; -MAG30ORA PO; -MAGN400O6 PO; -NITR0.4T48 SL; -ONDA4TAB5 PO; -PANT40TA2 PO; +WARF3TAB59 PO
--- NOTE | 2020-12-07 11:04 | NUR ---
The patient is [id number], c/o chest pressure x 1 month 6/10 pain scale. The patient patient is alert and oriented x3. Denies SOB. In room air and respiration is regular and unlabored. Attached the patient on a monitor. Warm blanket provided. Will continue to monitor the patient.
--- NOTE | 2020-12-07 11:06 | NUR ---
blood specimen collected and sent to the lab
[2020-12-07] MEDS ORDERED: WARF1TAB86 PO (11:14)
[2020-12-07] MEDS ORDERED: LORA-259 PO (11:14)
[2020-12-07 11:15] LABS: BASOPHILS # (AUTO) 0.1 /CMM (0.0-0.2); BASOPHILS % (AUTO) 1.4 % (0.0-2.0); HEMATOCRIT 41 % (33-45); HEMOGLOBIN 13.7 g/dL (11.5-14.8); LYMPHOCYTES # (AUTO) 2.1 /CMM (0.8-4.8); LYMPHOCYTES % (AUTO) 26.4 % (20.0-44.0); MEAN CORPUSCULAR HGB CONC 33 g/dl (31.0-36.0); MEAN CORPUSCULAR VOLUME 81 fL (82-100); MONOCYTES # (AUTO) 0.8 /CMM (0.1-1.30); MONOCYTES % (AUTO) 10.2 % (2.0-12.0); NEUTROPHILS # (AUTO) 4.6 /CMM (1.8-8.9); PLATELET COUNT (AUTO) 282 /CMM (150-450); RED BLOOD CELL COUNT(AUTO) 5.09 MIL/uL (4.0-5.2); WHITE BLOOD COUNT (AUTO) 7.8 K/uL (4.3-11.0)
[2020-12-07 11:22] LABS: CALCIUM, SERUM 8.5 mg/dL (8.5-10.1); CARBON DIOXIDE 28 mmol/L (21-32); CHLORIDE 103 mmol/L (98-107); CREATININE 1.2 mg/dL (0.6-1.3); GLUCOSE 104 mg/dL (74-106); POTASSIUM 3.2 mmol/L (3.5-5.1); SODIUM SERUM 136 mmol/L (136-145); UREA NITROGEN, BLOOD 12 mg/dL (7-18)
--- NOTE | 2020-12-07 11:39 | NUR ---
JENNI, SISTER, CALLED AND CHECKED TO KNOW PATIENT CONDITION.
--- NOTE | 2020-12-07 12:03 | NUR ---
covid swab done and sent to the lab
--- NOTE | 2020-12-07 12:36 | NUR ---
PAGED EPIC ACCOUNTANT CERTIFIED PUBLIC FOR PENDING ADMIT
--- NOTE | 2020-12-07 12:36 | NUR ---
SUBMITTED MOVE SHEET
[2020-12-07] MEDS ORDERED: NITROGLYCERIN 0.4 MG/TAB BOTTLE SL PRN (13:00)
[2020-12-07] MEDS ORDERED: WARFARIN SODIUM 1 MG TABLET PO SCH (13:00)
[2020-12-07] MEDS ORDERED: MORPHINE SULFATE INJ 2 MG/ML DISP.SYRIN IV PRN (13:00)
--- NOTE | 2020-12-07 13:33 | NUR ---
room 326-1
--- NOTE | 2020-12-07 14:55 | NUR ---
The patient is transfered to [facility] per acls protocol.
[2020-12-07 15:00] VITALS: BP 117/63
[2020-12-07] MEDS ORDERED: METOPROLOL TARTRATE 25 MG TABLET PO SCH (17:00)
--- NOTE | 2020-12-07 17:31 | NUR ---
RECIEVED PT AT 1530 FROM ER NURSE MAURA, PATIENT IN STABLE CONDITION. PATIENT IS POOR HISTORIAN, PT HAS DVT RISK OF 2, ORDERED AND APPLIED DVT STOCKINGS AND MACHINES FOR PROPHYLAXIS. PATIENT HAS NECK BRACE ON BUT IS NOT MEDICALLY INDICATED ( PATIENT REQUESTED SHE HAVE IT ON). PATIENT IS AMBULATORY BUT HAS LITTLE UNSTEADY GAIT , L AC 18 GAUGE IV PRESENT , PATIENT INTACT NA DFLUSHING WELLL, WILL CONTINUE TO MONITOR.
[2020-12-07 20:00] VITALS: BP 123/71
--- NOTE | 2020-12-07 20:48 | NUR ---
dr. pittman in to see the patient. new orders recieved to start patient on d5 half ns at 80 ml per hour new orders place.d
--- NOTE | 2020-12-07 21:07 | NUR ---
PATIENT REQUESTING SLEEPING PILL. RUTHIE PINK CONTACTED NEW ORDER FOR 5MG AMBIEN PRN HS GIVEN. ORDERS ENTERED IN COMP.
[2020-12-07] MEDS ORDERED: ZOLPIDEM TARTRATE 5 MG TABLET PO PRN (21:30)
[2020-12-07] MEDS: IV D5/0.45 NACL 1,000 ML IV PRN (21:39)
--- NOTE | 2020-12-07 21:54 | NUR ---
patient reporting mild chest pain reports pain as 3/10 non radiating. reports it makes her feel sob. patient placed on 2lnc. reports mild decrease in pain level now rated 2/10 will cont to monitor.
[2020-12-08] VITALS: BP 121/64
[2020-12-08] MEDS: LORAZEPAM 1 MG TABLET PO PRN ×2 (00:46→13:55)
--- NOTE | 2020-12-08 00:54 | NUR ---
patient still complaining of insomnia ativan administered as prn as ordered. patient given warm glass of milk and encouraged to listen to ambient sounds on phone. patient verbalized understanding will cont to monitor.
--- NOTE | 2020-12-08 03:58 | NUR ---
PATIENT AWAKE COMPLAINING OF ANXIETY. REPORTS SHE CAN;T SLEEP. REPORTS SHE TAKES MULTIPLE ATIVAN PILLS AT NIGHT TO CONT SLEEPING. PATIENT INFORMED DOING THAT WHEN RX IS NOT PRESCRIBED FOR THAT FREQUENCY IS DANGEROUS. PT VERBALIZED UNDERSTANDING. SUGGESTED PATIENT ATTEMPT NON PHARMACOLOGIC METHODS TO HELP WITH SLEEP INCLUDING SITTING IN CHAIR, ATTEMPTING PRAYER AND MEDITATION, BUT PATIENT STATES, "NO THAT DOESN'T WORK." PT REQUESTING ADDITIONAL ANXIETY MEDICINE TO GO BACK TO SLEEP. CONTACTED ROBERTO PINK INFORMED OF PATIENT CONDITION AND REQUEST. ONE TIME DOSE ORDERED FOR ATIVAN 1MG RECIEVED BUT WOULD LIKE THIS ISSUE ENDORSED TO DAYTIME PRACTITIONER FOR FURTHER REVIEW. WILL ENDORSE TO DAY SHIFT RN IN AM.
[2020-12-08 04:00] VITALS: BP 135/77
[2020-12-08] MEDS ORDERED: LORAZEPAM 1 MG TABLET PO ONE ×2 (04:30→23:18)
--- NOTE | 2020-12-08 05:15 | NUR ---
after recieving one time dose of ativan patient reports she is feeling better. pt appears relaxed laying in bed resp even and unlabored. . will cont to monitor.
[2020-12-08 06:51] LABS: BASOPHILS # (AUTO) 0.1 /CMM (0.0-0.2); BASOPHILS % (AUTO) 0.9 % (0.0-2.0); HEMATOCRIT 39 % (33-45); LYMPHOCYTES # (AUTO) 1.8 /CMM (0.8-4.8); LYMPHOCYTES % (AUTO) 27.9 % (20.0-44.0); MEAN CORPUSCULAR HGB CONC 34 g/dl (31.0-36.0); MEAN CORPUSCULAR VOLUME 81 fL (82-100); MONOCYTES # (AUTO) 0.6 /CMM (0.1-1.30); MONOCYTES % (AUTO) 9.7 % (2.0-12.0); NEUTROPHILS # (AUTO) 3.8 /CMM (1.8-8.9); NEUTROPHILS % (AUTO) 58.5 % (43.0-81.0); PLATELET COUNT (AUTO) 305 /CMM (150-450); RED BLOOD CELL COUNT(AUTO) 4.83 MIL/uL (4.0-5.2); WHITE BLOOD COUNT (AUTO) 6.5 K/uL (4.3-11.0)
--- NOTE | 2020-12-08 07:45 | NUR ---
tele fish smoker: cardio consult seen and examined by dr. swift at this time. pt denies chest pain, shortness of breath, n/v, or any discomfort. tele wk=[id number]. will continue to monitor.
[2020-12-08 07:47] LABS: CALCIUM, SERUM 8.8 mg/dL (8.5-10.1); MAGNESIUM 2.1 mg/dL (1.8-2.4); POTASSIUM 3.1 mmol/L (3.5-5.1)
[2020-12-08 08:00] VITALS: BP 112/64
--- NOTE | 2020-12-08 08:05 | NUR ---
tele shredding machine operator: md visit seen and examined by dr. driscoll at this time, md aware of abnormal labs.
[2020-12-08 08:08] VITALS: BP 112/64
--- NOTE | 2020-12-08 08:20 | NUR ---
tele ship harbor pilot: notes received ct angio heart with/3d image order and pt made aware. pt verbalized understanding and signed the consent form. pt has gauge #18 to left ac.
[2020-12-08] MEDS: METOPROLOL TARTRATE 25 MG TABLET PO SCH ×2 (08:48→16:40)
[2020-12-08] MEDS: POTASSIUM CHLORIDE 20 MEQ TAB.PRT.SR PO SCH ×3 (08:48→12:25)
[2020-12-08 09:03] LABS: THYROID STIMULATING HORMONE 0.844 uIU/mL (0.358-3.74)
[2020-12-08] MEDS ORDERED: METOPROLOL TARTRATE 50 MG TABLET ONE (09:27)
[2020-12-08] MEDS ORDERED: IOHEXOL-350 100 ML VIAL IV ONE ×2 (09:27→11:07)
[2020-12-08] MEDS ORDERED: METOPROLOL TARTRATE INJ 5 MG/5 ML AMPUL ONE ×3 (09:29→10:39)
[2020-12-08] MEDS ORDERED: CT SWABBABLE VALVE TRANS SET 1 EA INFUS.SET MC ONE (09:30)
[2020-12-08] MEDS ORDERED: NITROGLYCERIN 0.4 MG/TAB BOTTLE ONE (09:30)
[2020-12-08] MEDS ORDERED: IV NS 0.9% 250 ML IV ONE ×2 (09:30→11:07)
--- NOTE | 2020-12-08 09:30 | NUR ---
m/s manufacturing engineering director: notes tele removed as ordered. pt down for cta via wheelchair with consent accompanied by radiology transporter.
[2020-12-08] MEDS: METOPROLOL TARTRATE INJ 5 MG/5 ML AMPUL IVP PRN ×10 (10:12→10:57)
[2020-12-08] MEDS ORDERED: NITROGLYCERIN 0.4 MG/TAB BOTTLE SL ONE (10:30)
[2020-12-08] MEDS ORDERED: IV NS 0.9% 500 ML IV PRN (10:30)
--- NOTE | 2020-12-08 11:03 | NUR ---
pt consented for CTA heart. verbalized understanding of procedure; total of Metoprolol 5 mg UIVPx10 doses per protocol given and NTG 0.4 mg SL given; VSS ; report given to floor RN; transported back to floor via wheelchair
--- NOTE | 2020-12-08 11:09 | NUR ---
add: repeat CTA imaging per Dr Bowers no meds given as Meotprolol 50 mg given
--- NOTE | 2020-12-08 11:25 | NUR ---
m/s drywall hanger: notes pt back from cta and informed her that dr. baez (pcp) called and wants her to call her, but pt refused to communicate with her at this time. number provided. will continue to monitor.
[2020-12-08] MEDS: IV D5/0.45 NACL 1,000 ML IV PRN (12:09)
--- NOTE | 2020-12-08 12:15 | NUR ---
m/s deputy assessor: notes pt still doesn't want to call her pcp outside.
--- NOTE | 2020-12-08 13:55 | NUR ---
m/s copra processor: notes pt verbalized anxiety m/b nervousness and request for ativan. ativan 1mg po as ordered. will continue to monitor.
--- NOTE | 2020-12-08 14:55 | NUR ---
m/s computer programming supervisor: notes pt is calm at this time. no distress noted. will continue to monitor.
[2020-12-08 16:00] VITALS: BP 104/59
--- NOTE | 2020-12-08 18:00 | NUR ---
m/s assessment analyst: notes resting comfortable. no distress noted. call light within reach. iv fluids infusing well. needs attended. will continue to monitor.
--- NOTE | 2020-12-08 19:10 | NUR ---
m/s hunter skin diver: notes report given to saleem (nicolas) for continuity of care.
--- NOTE | 2020-12-08 19:55 | NUR ---
MS/RN OPENING NOTE RECEIVED PATIENT SLEEPING IN BED. ALERT AND ORIENTED X 3. ABLE TO MAKE NEEDS KNOWN. NO COMPLAINTS OF PAIN OR ANXIETY AT THIS TIME. IV ACCESS TO LEFT AC INTACT AND PATENT. CONTINUES ON IVF D5 1/2 NS @ 80 ML/HR. CONTINUES ON ROOM AIR WITH NO SIGNS OR SYMPTOMS OF RESPIRATORY DISTRESS NOTED. NO C/O CHEST PAIN, SOB, OR DIZZINESS NOTED. CALL LIGHT WITHIN REACH. ASPIRATION, FALL AND SAFETY PRECAUTIONS MAINTAINED. WILL CONTINUE TO MONITOR. Addendum: 12/09/20 at 0340 by CAROLINE MORLEY RN CORRECTION: PATIENT ON 2L O2 VIA NC WITH NO SIGNS OR SYMPTOMS OF RESPIRATORY DISTRESS NOTED.
[2020-12-08 20:00] VITALS: BP 145/85
--- NOTE | 2020-12-08 23:00 | NUR ---
MS/RN NOTE PATIENT WITH C/O INCREASED ANXIETY AND REQUESTING ATIVAN. ORDER OBTAINED FROM DR. MEJIA FOR ONE TIME ATIVAN 1MG. ORDER INPUTTED AND CARRIED OUT.
[2020-12-09] MEDS: LORAZEPAM 1 MG TABLET PO PRN (04:49)
[2020-12-09] MEDS: IV D5/0.45 NACL 1,000 ML IV PRN (04:49)
--- NOTE | 2020-12-09 06:50 | NUR ---
MS/RN CLOSING NOTE PATIENT CURRENTLY SLEEPING IN BED. ALERT AND ORIENTED X 3. ABLE TO MAKE NEEDS KNOWN. NO COMPLAINTS OF PAIN OR ANXIETY AT THIS TIME. IV ACCESS TO LEFT AC INTACT AND PATENT. CONTINUES ON IVF D5 1/2 NS @ 80 ML/HR. CONTINUES O2 @ 2L VIA NC WITH NO SIGNS OR SYMPTOMS OF RESPIRATORY DISTRESS NOTED. NO C/O CHEST PAIN, SOB, OR DIZZINESS NOTED. CALL LIGHT WITHIN REACH. ASPIRATION, FALL AND SAFETY PRECAUTIONS MAINTAINED. WILL ENDORSE PLAN OF CARE TO ONCOMING SHIFT.
--- NOTE | 2020-12-09 07:35 | NUR ---
MS RN Opening notes: Patient receved on bed with alert and oriented with no signs of distress. On moderate to high back rest. On normal bedy alignment. Comfort measures provided. Encouraged to do deep breathign exercises. Needs attended. Patient with periods of anxiety, none noted at this time. With IV fluid hydration rof D5 1/2 Normal Saline running at 80ml/hr. With no sign of infiltration upon assessment. Provided with calm and quiet environment. Call light within reach at all times. Not in distress.
[2020-12-09 08:00] VITALS: BP 121/71
[2020-12-09] MEDS: METOPROLOL TARTRATE 25 MG TABLET PO SCH (09:44)
[2020-12-09 10:41] LABS: CALCIUM, SERUM 8.7 mg/dL (8.5-10.1); CREATININE 0.8 mg/dL (0.6-1.3); POTASSIUM 3.6 mmol/L (3.5-5.1)
[2020-12-09] MEDS ORDERED: ONDANSETRON HCL/PF 4 MG/2 ML VIAL IV PRN (11:00)
--- NOTE | 2020-12-09 11:00 | NUR ---
MSRN Notes Patient seen by Dr. Topete with orders made and carried out. Comfort measures provided. Patient seem to be easily aggitated. Health teaching done regarding relaxation techniques. Comfort measures provided. Encouraged to do deep breathing exercises.
[2020-12-09 15:48] VITALS: BP 113/70
--- NOTE | 2020-12-09 16:35 | NUR ---
Patient for discharge as ordered. Transportation pick-up made via ambulance on a gurney. Health teaching done regarding discharge and follow-up including homehealth follow up. Discharge papers sent with patient. Patient verbalized understanding of health teaching. With no signs of distress. In stable condition.
--- NOTE | 2020-12-09 16:51 | NUR ---
MS RN SPOKE WITH CHINESE (SON) NOTIFIED OF PATIENT ON HER WAY HOME.
== END 2020-12-09 16:30 | disposition home health service (06) | DRG 303 ==
LOC: ER 11:05 → TELE 13:35 → MED 12-08 08:24
PROVIDERS: ADMIT Internal Medicine; ATTEND Family Medicine
DX: I25.110 Atherosclerotic heart disease of native coronary artery with unstable angina pectoris (principal); D68.62 Lupus anticoagulant syndrome; N17.9 Acute kidney failure, unspecified; M19.90 Unspecified osteoarthritis, unspecified site; I10 Essential (primary) hypertension; F32.9 Major depressive disorder, single episode, unspecified; G40.909 Epilepsy, unspecified, not intractable, without status epilepticus; I27.20 Pulmonary hypertension, unspecified; E78.5 Hyperlipidemia, unspecified; E87.6 Hypokalemia; Z86.711 Personal history of pulmonary embolism; K44.9 Diaphragmatic hernia without obstruction or gangrene; I25.2 Old myocardial infarction; Z79.01 Long term (current) use of anticoagulants; Z20.822 Contact with and (suspected) exposure to COVID-19
CPT/HCPCS: 36415; 71045-TC; 75574; 80048-TC; 80061-TC; 83735-TC; 84100-TC; 84439-TC; 84443-TC; 84484-TC; 85025-TC; 85610-TC; 87081-TC; 93307-TC; C9803; G0378; J2405; J3490; J7050; Q9967

== ENCOUNTER 2020-12-28 20:54 | Inpatient (IN) | payer MEDICARE, OTHER ==
[~2020-12-28] VITALS: Ht 157.5 cm; Wt 46.3 kg
[~2020-12-28 20:54] MED LIST changes: -ATOR10TA PO; -ENOX60DI SQ; -LEVE250T2 PO; +LORA-259 PO; +WARF1TAB86 PO; -WARF3TAB59 PO
[2020-12-28] MEDS ORDERED: IV NS 0.9% 500 ML BAG IV ONE (21:00)
--- NOTE | 2020-12-28 21:01 | NUR ---
JESSICA FROM HOME FOR C/O POST ICTAL CONFUTION AND NON WITHNESSED SZ. PMH OF SEZURE ON KEPPRA AND ATIVAN. WAS PLACED IN BED 1 ER ON MONITOR. VSS. WILL CONT TO MONITOR ,
--- NOTE | 2020-12-28 21:40 | NUR ---
RAD AT BED SIDE
[2020-12-28 21:46] LABS: BASOPHILS # (AUTO) 0.1 /CMM (0.0-0.2); BASOPHILS % (AUTO) 0.7 % (0.0-2.0); EOSINOPHILS % (AUTO) 3.4 % (0.0-6.0); HEMATOCRIT 38 % (33-45); HEMOGLOBIN 12.7 g/dL (11.5-14.8); LYMPHOCYTES # (AUTO) 1.6 /CMM (0.8-4.8); LYMPHOCYTES % (AUTO) 21.8 % (20.0-44.0); MEAN CORPUSCULAR HGB CONC 34 g/dl (31.0-36.0); MEAN CORPUSCULAR VOLUME 81 fL (82-100); MONOCYTES # (AUTO) 0.7 /CMM (0.1-1.30); NEUTROPHILS # (AUTO) 4.9 /CMM (1.8-8.9); NEUTROPHILS % (AUTO) 65.1 % (43.0-81.0); PLATELET COUNT (AUTO) 199 /CMM (150-450); RED BLOOD CELL COUNT(AUTO) 4.64 MIL/uL (4.0-5.2); WHITE BLOOD COUNT (AUTO) 7.5 K/uL (4.3-11.0)
--- NOTE | 2020-12-28 21:51 | NUR ---
WAS WHELLED FOR CT
[2020-12-28 21:56] LABS: CARBON DIOXIDE 24 mmol/L (21-32); CHLORIDE 100 mmol/L (98-107); CREATININE 0.7 mg/dL (0.6-1.3); GLUCOSE 101 mg/dL (74-106); POTASSIUM 3.5 mmol/L (3.5-5.1); SODIUM SERUM 132 mmol/L (136-145); UREA NITROGEN, BLOOD 18 mg/dL (7-18)
--- NOTE | 2020-12-28 22:00 | NUR ---
BACK FROM CT
[2020-12-28 22:02] LABS: ALANINE AMINOTRANSFERASE 22 U/L (12-78); ALBUMIN 3.2 g/dL (3.4-5.0); ALKALINE PHOSPHATASE 67 U/L (46-116); ASPARTATE AMINOTRANSFERASE 17 U/L (15-37); BILIRUBIN,DIRECT 0.1 mg/dL (0.0-0.2); BILIRUBIN,TOTAL 0.4 mg/dL (0.2-1.0); TOTAL PROTEIN, SERUM 6.6 g/dL (6.4-8.2)
--- NOTE | 2020-12-28 22:12 | NUR ---
Send UA to lab
[2020-12-28 22:29] LABS: BILIRUBIN,URINE NEGATIVE (NEGATIVE); COLOR,URINE YELLOW (YELLOW); LEUKOCYTE ESTERASE ,URINE NEGATIVE (NEGATIVE); NITRITE, URINE NEGATIVE (NEGATIVE); PH,URINE 6.5 (5.0-8.0); PROTEIN,URINE NEGATIVE (NEGATIVE); UGLUCOSE NEGATIVE (NEGATIVE); UROBILINOGEN,URINE 0.2 EU/dL (0.2)
[2020-12-28 22:38] LABS: BACTERIA,URINE None seen /HPF (None Seen); SQUAMOUS EPITHELIAL CELL,UR Few /HPF (None Seen); WBC,URINE 0-2 /HPF (0-3)
[2020-12-28 22:39] LABS: MUCUS,URINE Few /LPF (None Seen); URINE AMORPHOUS URATE Few /HPF (None Seen)
[2020-12-28] MEDS ORDERED: LORAZEPAM INJ 2 MG/ML VIAL ONE (22:47)
[2020-12-28] MEDS ORDERED: LORAZEPAM INJ 2 MG/ML VIAL IV ONE (23:00)
[2020-12-28] MEDS ORDERED: LEVETIRACETAM (500MG) 500 MG in IV NS 0.9% 100 ML IV SCH (23:00)
[2020-12-28] MEDS ORDERED: LEVETIRACETAM (500MG) 500 MG/5 ML VIAL IV ONE (23:03)
--- NOTE | 2020-12-28 23:10 | NUR ---
CALLED PT'S SON, GUAMANIAN. NO ANSWER. LEFT A VOICE MESSAGE.
[2020-12-28] MEDS ORDERED: HYDR-500 PO (23:11)
--- NOTE | 2020-12-29 00:29 | NUR ---
DR MONDRAGON AT THE BED SIDE SPEAKING TO THE PT. PER PT SHE HAS NO RIDE BACK HOME AT THIS TIME AND HAS NO WHATLEY TO HER HOUSE.
[2020-12-29] MEDS ORDERED: LEVE500T9 PO (00:33)
--- NOTE | 2020-12-29 00:41 | NUR ---
COIVD SWAB COLLECTED AND SENT TO LAB
[2020-12-29] MEDS ORDERED: LORAZEPAM 1 MG TABLET PO PRN (01:00)
[2020-12-29] MEDS ORDERED: ACETAMINOPHEN 325 MG TABLET PO PRN (01:00)
[2020-12-29] MEDS ORDERED: MAGNESIUM HYDROXIDE 30 ML UDC PO PRN (01:00)
[2020-12-29] MEDS ORDERED: ONDANSETRON HCL/PF 4 MG/2 ML VIAL IVP PRN (01:00)
[2020-12-29] MEDS ORDERED: Z GUARD REMEDY 2 OZ OINT TP PRN (01:00)
[2020-12-29] MEDS ORDERED: MAG HYDROX/AL HYDROX/SIMETH 30 ML UDC PO PRN (01:00)
[2020-12-29] MEDS ORDERED: ZOLPIDEM TARTRATE 5 MG TABLET ONE (01:55)
[2020-12-29] MEDS ORDERED: ZOLPIDEM TARTRATE 5 MG TABLET PO ONE (02:00)
[2020-12-29] MEDS ORDERED: hydrOXYzine PAMOATE 25 MG CAPSULE PO PRN (04:00)
--- NOTE | 2020-12-29 07:51 | NUR ---
BED 306-1
--- NOTE | 2020-12-29 07:58 | NUR ---
REPORT GIVEN TO LAKSHMI GIMENEZ FOR ALIN.
--- NOTE | 2020-12-29 08:10 | NUR ---
REFINERY OPERATOR COKING ADMITTING NOTES PT TRANSPORTED TO UNIT BY [facility] AT THIS TIME. RECEIVED REPORT FROM AMMY CAUSEY @ ED. PT AOX4. NO SOB NOTED, NO S/O OF ANY ACUTE DISTRESS NOTED, NO C/O PAIN AT THIS TIME. 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 SKIN IS INTACT AND WARM TO TOUCH, ACTIVE BOWEL SOUNDS AUSCULTATED THROUGHOUT, LUNGS ARE CLEAR TO AUSCULTATION. NO S/O BLEEDING NOTED. PULSES PRESENT BILATERALLY, CAPILLARY REFILL <3SECONDS. IV ACCESS NOTED IN RIGHT HAND G#18, INTACT, PATENT AND FLUSHING WELL. SKIN INTACT. BELONGINGS ACCOUNTED FOR AND SIGNED BY PATIENT. PT ORIENTED TO ROOM AND INSTRUCTED TO CALL FOR ASSISTANTS. PT VERBALIZE UNDERSTANDING. ASPIRATION, SEIZURE AND SAFETY PRECAUTIONS IN PLACE AND MAINTAINED AT ALL TIMES. BED IN LOWEST LOCKED POSITION, HOB ELEVATED, SIDE RAILS UP X2 AND PADDED, CALL LIGHT AND TABLE WITHIN REACH. WILL CONTINUE TO MONITOR
--- NOTE | 2020-12-29 08:20 | NUR ---
PATIENT A/OX4, BREATHING EVEN AND UNLABORED, NO SOB NOTED, TRANSFERRED TO ROOM 306-1 VIA ACLS PROTOCOL. NO DISTRESS NOTED. NEEDS ATTENDED. ENDORSED TO IMMACULATE.
[2020-12-29] MEDS: PANTOPRAZOLE 40 MG TABLET.DR PO SCH (08:50)
[2020-12-29] MEDS: LEVETIRACETAM SOL (5 ML) 100 MG/ML UDC PO SCH ×2 (08:50→21:47)
[2020-12-29] MEDS: IV NS 0.9% 1,000 ML IV PRN (08:58)
--- NOTE | 2020-12-29 11:40 | NUR ---
Social Service Consult: school services officer consult requested to meet with patient to discuss placement. Patient is a 75-year-old, female. SW met with the patient at her hospital bed in the med-surg unit. Patient is alert and oriented x4. Patient is resting but presents weak. Per patients chart, patient was brought in by ambulance from home on 12/29/2020 for failure to thrive. Patient currently lives at [address] [place] [address], [place] [address]; [phone]. Patient stated that she plans to return to her prior living arrangements upon discharge. SW discussed options for care with the patient including, Acute Rehab Unit or Home Health. Patient stated that she wants to go home and will consider Home Health. Patient stated that she will have to think about the options and is unsure at this time. SW acknowledged the patients request and mentioned that case management would be notified to follow up with the patient to ensure a safe discharge plan. SW asked patient if she currently has any social support and patient mentioned her friend/neighbor Megan, . Patient reported that Megan helps her as needed. SW asked patient if she has any family and patient stated that her son, Attila, lives [id number]. SW asked patient about her current source of income and patient reported that she receives SSI. Patient stated that she is independent with her ADLs, but has trouble ambulating so she uses a walker. SW asked patient if she has a history of substance abuse and patient denied any history. Patient denied any history of mental illness and any current suicidal or homicidal ideation. SW discussed discharge plans with the patient. Patient stated that she wants to return to her prior living arrangement but will consider Home Health. SW offered patient Senior Resources packet and New Lifestyles Guide to Intermediate and Care booklet. Patient accepted the resources and thanked this SW. PLAN: SW will notify case management and case management to follow-up with the patient to ensure a safe and appropriate discharge plan. No further SS interventions at this time, however SW will remain available as needed. -Senior Resource Guide- ABUSE PREVENTION: Elder Abuse Hotline (14/03) Adult Protective Services [facility] Area On Aging (Hotline) ADULT DAY HEALTH CARE CARE CENTERS: Private pay or Medi-sharon funded adult day care [facility] , [facility] , [facility] , [facility] Adult Day Health Care , [facility] Adult [facility] Health Care , [facility] Adult [facility] Center , [place] [facility] , [facility] , [facility] ASSOCIATIONS: AARP www.aarp.org ALS Association (ask for Shayla) www.als.org Azerba[place] Diabetes Association www.diabetes.org [place] Heart Association www.heart.org [place] Lung Association www.lungusa.org [place] Parkinson Disease Association www.apdaparkinson.org [place] , www.redcross.org Arthritis Foundation www.arthritis.org Crohns & Colitis Foundation of [place] www.ccfa.org/chapters/losangetasneem National Multiple Sclerosis Society www.nationalmssociety.org Myasthenia Gravis Foundation www.myasthenia-ca.org National Stroke Association www.stroke.org CONSERVATORSHIP & GUARDIANSHIP: AARP Nikia López Legal Services Center for Health Care Rights Eldercare Information and Referral Nib Adjuster [facility]: [facility] Bar Referral Service [facility] Neighborhood Legal Services Office of the Public Guardian [place] GRIEF AND BEREAVEMENT RESOURCES: [facility] [place] [facility] , [facility] , [facility] Bereavement Center , [place] HELP AT HOME CAREGIVER SUPPORT: In Home Support Services (Must have Medi-Sharon to be eligible) *Ask for a list of agencies that provide services to assist with care in the home. Local Senior Centers also have listings of care providers. HOME SAFETY MODIFICATIONS AND EQUIPMENT: Senior centers have additional referrals. MS [employer] and [facility] Investment Dept. Handyworker Program (low income) or Visit http://hcidla.[facility].org/pqc-tcjusp-du for more information National Seating and Mobility and/or ; Forever Active www.foreveractivemed.Tourjive Stay Home Safe www.Stayhomesafe.com LIFE ALERT RESPONSE SYSTEM: [facility] Lifeline Services 576-565-3810 www. LifeSensiGen.Tourjive Life Alert 147-347-1470 www.lifealert.Tourjive Life Station 773-813-3528 www.lifestation.com Safe Return 899-576-9015 www.alz.or/safereturn Cell Phones for Seniors www.Karo Internet MEALS AND FOOD PROGRAMS: Verenice Meals on Wheels [phone] [place] Meals on Wheels [phone] [facility] [phone] [place] to the Homebound [phone] [place] to the Homebound [phone] [place] to the Homebound [phone] [facility] to the Homebound [phone] [facility] Ismael Monteiro [phone] [facility] [phone] ONE Generation [phone] [facility] [phone] [facility] [phone] Meals on Wheels [phone] For all ages: $6.85/ meal w side. Delivered M-F from 10 am-1pm. Application and payment is done over the phone. Frozen meals available for weekends. Emergency Food [facility] [phone] [facility] Internet Project Manager [phone] [facility] [phone] [facility]- Brown bag lunches [phone] [facility] [phone] MEAL/GROCERY DELIVERY PROGRAMS: [facility] Gourmet Meals [phone]- [facility] [phone]- [facility] Magic Kitchen [phone] Moms Meals [phone] (ask Anaya for Discount Select grocery stores may provide delivery. MEDICAL INSURANCE SUPPORT SERVICES: Center for Health Care Rights [phone] Health Insurance Counseling/Advocacy Programs (HICAP)-Must have Medicare. Offers counseling for Medi-Sharon eligibility [phone] Department of Public Internet Project Manager [phone] www.[facility].ca.gov Medicare 828-538-0670 www.socialsecurity.org Social Security [phone] SENIOR ACTIVITY PROGRAMS: *Contact a local senior center, adult school, recreation facility or community college for education, fitness, recreation, and social programs. Aquatic Therapy and Adapted Exercise programs through [facility] [phone] En[facility] at [facility] [phone] www.[facility]/encore H2U- Senior Friends [phone] [place] Senior Programs [phone] www.oasisnet.org Suddenly 65 www.ulvxbyoe69.com SENIOR CENTERS: [facility] [phone] [facility] Surgery[facility]el [phone] [facility] [phone] [facility] [phone] [facility] [phone] [facility] [phone] [facility] [phone] [facility] [phone] Mercedes [facility] [phone] [facility] [phone] [facility] [phone] [facility] [phone] [facility] [phone] TRANSPORTATION: Local [facility] may have applications for transportation programs and additional resources. ACCESS Services [phone] Transportation for seniors and disabled persons 7 days a week requiring 254 hr. advance reservation. Must apply and register for program to be eligible. too.me [phone] or [phone] Transportation for seniors and persons with ADA card/metro disabled card in the [facility]. M-F only. Must register for services. ONE GENERATION [phone] Serves 65 years + in conjunction with PassivSystems program. Must be registered with both programs. A to B Transport [phone] Provides wheelchair/gurney van service. TRANSPORTATION CONTINUED: Adult Medical Transport [phone] Accepts [facility] with prior authorization. Care Van [phone] Provides wheelchair Transport. [facility] Wide Transportation [phone] Provides gurney service [facility] [phone] Gurney Transport. All Town Transportation [phone] wheelchair & gurney transport D Transportation [phone] wheelchair & gurney transport Parkin Non-Emergency Transport [phone] wheelchair & gurney transport [facility] Living [place] [phone] (Short Term Transportation primarily for adults with disabilities on social security income. Nominal fee may apply and a reservation is required.) City [employer] [phone] or [phone] [facility] [phone] [place], [place] [phone] For additional programs & services.
--- NOTE | 2020-12-29 11:52 | NUR ---
PATIENT C/O ANXIETY. VS BP 128/67, HR 71, RR 18, TEMP 97.6, SP02 96 ON RA. PER PATIENT REQUEST, ATIVAN 1MG PO DAILY PRN FOR ANXIETY ADMINISTERED PER ORDER. WILL CONTINUE MONITOR
[2020-12-29 12:00] VITALS: BP 136/74
--- NOTE | 2020-12-29 12:17 | NUR ---
Data Developer note: SW notified case management that patient wants to return to her prior living arrangement at [address] [facility]. [address] [place], [place] [address];[phone] and is considering Home Health. MILTON spoke to foster care case manager, Berenice who stated she will follow-up with the patient to ensure a safe and appropriate discharge plan. No further SS intervention, however SW will remain available as needed.
[2020-12-29 16:06] VITALS: BP 129/72
[2020-12-29] MEDS: WARFARIN SODIUM 1 MG TABLET PO SCH (16:44)
--- NOTE | 2020-12-29 18:59 | NUR ---
RN CLOSING NOTES PT AWAKE IN BED AT THIS TIME. PT REMAINED STABLE THROUGHOUT SHIFT. ALL CARE, NEEDS, TREATMENT AND MEDICATIONS ADMINISTERED ANTICIPATED PER ORDER. PT KEPT CLEAN AND DRY. SAFETY PRECAUTIONS IN PLACE AND MAINTAINED AT ALL TIMES. BED IN LOWEST LOCKED POSITION, HOB ELEVATED, SIDE RAILS UP X 2 AND PADDED. CALL LIGHT AND TABLE WITHIN REACH. WILL ENDORSE TO PSYCHIATRIC ASSISTANT NURSE FOR ALIN
[2020-12-29 20:00] VITALS: BP 148/81
[2020-12-30] VITALS: BP 144/85
[2020-12-30] MEDS ORDERED: diphenhydrAMINE HCL 25 MG CAPSULE PO PRN (00:30)
--- NOTE | 2020-12-30 00:44 | NUR ---
MS/TELE/RN PATIENT IS UNABLE TO SLEEP, OBTAINED ORDER FROM FERN BECERRA NP, OF BENADRYL 25 MG PO FOR SLEEP. ADMINISTERED. WILL MONITOR.
[2020-12-30] MEDS: IV NS 0.9% 1,000 ML IV PRN (02:46)
[2020-12-30 04:00] VITALS: BP 149/77
--- NOTE | 2020-12-30 06:04 | NUR ---
MS/TELE/RN PATIENT IS AWAKE AT THIS TIME, COMFORTABLE, NO C/O PAIN, NO DISTRESS NOTED, CALL LIGHT IN REACH, ALL NEEDS ATTENDED AT THIS TIME, WILL CONTINUE TO MONITOR.
[2020-12-30 06:15] LABS: BASOPHILS # (AUTO) 0.1 /CMM (0.0-0.2); BASOPHILS % (AUTO) 0.9 % (0.0-2.0); EOSINOPHILS % (AUTO) 4.8 % (0.0-6.0); HEMATOCRIT 38 % (33-45); HEMOGLOBIN 12.7 g/dL (11.5-14.8); LYMPHOCYTES # (AUTO) 1.5 /CMM (0.8-4.8); LYMPHOCYTES % (AUTO) 23.1 % (20.0-44.0); MEAN CORPUSCULAR HGB CONC 34 g/dl (31.0-36.0); MEAN CORPUSCULAR VOLUME 82 fL (82-100); MONOCYTES # (AUTO) 0.6 /CMM (0.1-1.30); MONOCYTES % (AUTO) 8.8 % (2.0-12.0); NEUTROPHILS % (AUTO) 62.4 % (43.0-81.0); PLATELET COUNT (AUTO) 191 /CMM (150-450); RED BLOOD CELL COUNT(AUTO) 4.62 MIL/uL (4.0-5.2); WHITE BLOOD COUNT (AUTO) 6.4 K/uL (4.3-11.0)
[2020-12-30 07:07] LABS: CALCIUM, SERUM 8.4 mg/dL (8.5-10.1); CREATININE 0.6 mg/dL (0.6-1.3); MAGNESIUM 2.2 mg/dL (1.8-2.4); PHOSPHORUS 3.2 mg/dL (2.5-4.9); POTASSIUM 3.2 mmol/L (3.5-5.1)
[2020-12-30 07:12] LABS: THYROID STIMULATING HORMONE 1.056 uIU/mL (0.358-3.74)
--- NOTE | 2020-12-30 07:53 | NUR ---
KILN PUSHER NOTES Patient is awake, alert, and oriented x3. Denies pain or discomfort at this time. Verbalizes wanting to go home, educated pt that it is not safe at this time d/t she lives alone and is very weak right now. Continues on IV fluids at 50cc/hr. IV is patent and intact.
[2020-12-30 08:05] VITALS: BP 141/72
[2020-12-30] MEDS: PANTOPRAZOLE 40 MG TABLET.DR PO SCH (08:38)
[2020-12-30] MEDS: LEVETIRACETAM SOL (5 ML) 100 MG/ML UDC PO SCH (08:38)
[2020-12-30] MEDS: POTASSIUM CHLORIDE 20 MEQ TAB.PRT.SR PO SCH ×2 (10:57→11:30)
[2020-12-30 12:00] VITALS: BP 166/88
--- NOTE | 2020-12-30 12:32 | NUR ---
AFFIRMATIVE ACTION SPECIALIST NOTES Patient refused second tab of potassium despite patient education on the importance of this electrolyte. Patient also added that this medication gave her a stomach ache, nurse educated pt that if she takes it with food/lunch it will not irritate the stomach as much. Pt still refused.
[2020-12-30] MEDS: ENSURE ENLIVE 237 ML LIQUID (VANILLA) PO SCH ×2 (14:30→16:56)
[2020-12-30 15:53] VITALS: BP 138/74
[2020-12-30] MEDS: WARFARIN SODIUM 1 MG TABLET PO SCH (17:01)
--- NOTE | 2020-12-30 17:41 | NUR ---
TROLLEY COACH DRIVERINCINERATOR PLANT LABORER NOTES Patient discharged at 1520 in stable condition via private car with friend/neighbor Megan. Patient A&Ox3 -at baseline. Latest VS 138/74 HR 102, Temp 98.5, O2 sat 95%, RR 16. No c/o pain or discomfort. Patient is able to make needs known. Patient strong and steady enough to walk stand by assist. Much improvement from yesterday per Physical therapy. Patient was wheeled down with nurse. All belongings accounted for. IV and wrist bands removed.
== END 2020-12-30 17:25 | disposition home or self-care (01) | DRG 101 ==
LOC: ER 20:55 → TRANSITION 12-29 03:06 → MED 12-29 07:54 → TELE 12-29 08:25
PROVIDERS: ADMIT Student in an Organized Health Care Education/Training Program; ATTEND Nurse Practitioner Acute Care
DX: G40.909 Epilepsy, unspecified, not intractable, without status epilepticus (principal); E44.1 Mild protein-calorie malnutrition; D68.59 Other primary thrombophilia; E87.1 Hypo-osmolality and hyponatremia; F41.9 Anxiety disorder, unspecified; I10 Essential (primary) hypertension; Z79.01 Long term (current) use of anticoagulants; I25.2 Old myocardial infarction; I25.10 Atherosclerotic heart disease of native coronary artery without angina pectoris; D69.6 Thrombocytopenia, unspecified; Z86.711 Personal history of pulmonary embolism; Z86.73 Personal history of transient ischemic attack (TIA), and cerebral infarction without residual deficits; E78.5 Hyperlipidemia, unspecified; I27.20 Pulmonary hypertension, unspecified; K20.90 Esophagitis, unspecified without bleeding; Z88.2 Allergy status to sulfonamides; Z79.899 Other long term (current) drug therapy; G62.9 Polyneuropathy, unspecified; Z87.19 Personal history of other diseases of the digestive system; Z80.9 Family history of malignant neoplasm, unspecified; F32.9 Major depressive disorder, single episode, unspecified; G47.9 Sleep disorder, unspecified; D64.9 Anemia, unspecified
CPT/HCPCS: 36415; 70450-TC; 71045-TC; 80048-TC; 80061-TC; 80076-TC; 81001; 82550-TC; 83735-TC; 84100-TC; 84443-TC; 84484-TC; 85025-TC; 85610-TC; 85730-TC; 87081-TC; 95819-TC; 97112-TC; 97116-TC; 97530-TC; C9803; G0378; J1953; J2060; J2405; J7030; Q0163; Q0177

== ENCOUNTER 2021-01-06 17:28 | Emergency (ER) | payer MEDICARE, OTHER ==
[~2021-01-06] VITALS: Ht 162.6 cm; Wt 55.3 kg
[~2021-01-06 17:28] MED LIST changes: +HYDR-500 PO; +LEVE500T9 PO
--- NOTE | 2021-01-06 17:54 | NUR ---
JESSICA FROM HOME TO ER BED 3. ALERT, AWAKE BUT DISORIENTED. NOT IN RESP DISTRESS. BROUGHT IN FOR DIZZYNESS, L SIDED CHEST PAIN NON RADIATING AND WEAKNESS. PT IS IN NOTED LETHARGIC AND SHE VERBALIZED THAT SHE IF DISORIENTED. FEW MINUTES FAFTER RECEIVING PT, PT'S SISTER JENNI CALLED TO CHECK ON THE PT. PER SISTER SHE CALLED 911 BECAUSE SHE ALL OF A SUDDEN GOT SOB AND WAS ANXIOUS. SHE ALSO REPORTS THAT THE PATIENT IS TAKING XANAX. AT BEDSIDE FOR EVAL. PT ON MONITOR
[2021-01-06 18:08] LABS: BASOPHILS # (AUTO) 0.1 /CMM (0.0-0.2); BASOPHILS % (AUTO) 1.1 % (0.0-2.0); EOSINOPHILS % (AUTO) 3.2 % (0.0-6.0); HEMATOCRIT 35 % (33-45); LYMPHOCYTES # (AUTO) 1.3 /CMM (0.8-4.8); LYMPHOCYTES % (AUTO) 18.6 % (20.0-44.0); MEAN CORPUSCULAR HGB CONC 34 g/dl (31.0-36.0); MEAN CORPUSCULAR VOLUME 81 fL (82-100); MONOCYTES # (AUTO) 0.7 /CMM (0.1-1.30); MONOCYTES % (AUTO) 10.3 % (2.0-12.0); NEUTROPHILS # (AUTO) 4.7 /CMM (1.8-8.9); NEUTROPHILS % (AUTO) 66.8 % (43.0-81.0); PLATELET COUNT (AUTO) 206 /CMM (150-450); RED BLOOD CELL COUNT(AUTO) 4.34 MIL/uL (4.0-5.2); WHITE BLOOD COUNT (AUTO) 7.1 K/uL (4.3-11.0)
[2021-01-06 18:19] LABS: CALCIUM, SERUM 8.7 mg/dL (8.5-10.1); CARBON DIOXIDE 24 mmol/L (21-32); CHLORIDE 98 mmol/L (98-107); CREATININE 0.8 mg/dL (0.6-1.3); GLUCOSE 101 mg/dL (74-106); POTASSIUM 4.2 mmol/L (3.5-5.1); SODIUM SERUM 131 mmol/L (136-145); UREA NITROGEN, BLOOD 22 mg/dL (7-18)
[2021-01-06 18:25] LABS: ALANINE AMINOTRANSFERASE 18 U/L (12-78); ALBUMIN 2.9 g/dL (3.4-5.0); ALKALINE PHOSPHATASE 61 U/L (46-116); ASPARTATE AMINOTRANSFERASE 16 U/L (15-37); BILIRUBIN,TOTAL 0.2 mg/dL (0.2-1.0); TOTAL PROTEIN, SERUM 6.5 g/dL (6.4-8.2)
[2021-01-06] MEDS ORDERED: LORA-259 PO (19:07)
--- NOTE | 2021-01-06 19:17 | NUR ---
PT IS CLEARED FOR DISCAHRGED. CALLED HER SISTER WHOP WILL BE PICKING HER UP BUT NO ANSWER. MESSAGE LEFT
[2021-01-06 20:01] VITALS: BP 136/79
== END 2021-01-06 20:01 | disposition home or self-care (01) ==
LOC: ER 17:28
DX: R42 Dizziness and giddiness (principal); R07.89 Other chest pain; I10 Essential (primary) hypertension; M32.9 Systemic lupus erythematosus, unspecified; G40.909 Epilepsy, unspecified, not intractable, without status epilepticus; D64.9 Anemia, unspecified; I25.2 Old myocardial infarction; F41.9 Anxiety disorder, unspecified; Z88.2 Allergy status to sulfonamides; Z60.2 Problems related to living alone; Z79.899 Other long term (current) drug therapy; Z79.01 Long term (current) use of anticoagulants
CPT/HCPCS: 36415; 70450-TC; 71045-TC; 80048-TC; 80076-TC; 84484-TC; 85025-TC

== ENCOUNTER 2021-02-07 15:30 | Inpatient (IN) | payer MEDICARE, OTHER ==
[~2021-02-07] VITALS: Ht 165.1 cm; Wt 47.2 kg
--- NOTE | 2021-02-07 15:42 | NUR ---
The patient is [id number], from home, c/o generalized body weakness, dizzy, and chest pain. Denies any pain at this time. In room air and denies SOB. Respiration regular and unlabored. Will continue to monitor the patient.
--- NOTE | 2021-02-07 16:27 | NUR ---
SUBMITTED MOVE SHEET
--- NOTE | 2021-02-07 16:27 | NUR ---
CALLED NURSING SUP FOR BED
[2021-02-07 16:43] LABS: BASOPHILS # (AUTO) 0.1 /CMM (0.0-0.2); BASOPHILS % (AUTO) 0.9 % (0.0-2.0); HEMATOCRIT 38 % (33-45); HEMOGLOBIN 12.5 g/dL (11.5-14.8); LYMPHOCYTES # (AUTO) 1.4 /CMM (0.8-4.8); MEAN CORPUSCULAR HGB CONC 33 g/dl (31.0-36.0); MEAN CORPUSCULAR VOLUME 81 fL (82-100); MONOCYTES # (AUTO) 0.8 /CMM (0.1-1.30); MONOCYTES % (AUTO) 10.3 % (2.0-12.0); NEUTROPHILS # (AUTO) 5.3 /CMM (1.8-8.9); NEUTROPHILS % (AUTO) 67.8 % (43.0-81.0); PLATELET COUNT (AUTO) 289 /CMM (150-450); RED BLOOD CELL COUNT(AUTO) 4.63 MIL/uL (4.0-5.2); WHITE BLOOD COUNT (AUTO) 7.8 K/uL (4.3-11.0)
[2021-02-07 16:55] LABS: CALCIUM, SERUM 8.9 mg/dL (8.5-10.1); CARBON DIOXIDE 25 mmol/L (21-32); CHLORIDE 102 mmol/L (98-107); CREATININE 0.8 mg/dL (0.6-1.3); GLUCOSE 95 mg/dL (74-106); POTASSIUM 4.2 mmol/L (3.5-5.1); SODIUM SERUM 134 mmol/L (136-145); UREA NITROGEN, BLOOD 19 mg/dL (7-18)
--- NOTE | 2021-02-07 17:00 | NUR ---
covid swab done and sent to the lab
[2021-02-07 17:14] LABS: BILIRUBIN,DIRECT 0.1 mg/dL (0.0-0.2); BILIRUBIN,TOTAL 0.2 mg/dL (0.2-1.0)
[2021-02-07 17:15] LABS: ALBUMIN 3.2 g/dL (3.4-5.0); TOTAL PROTEIN, SERUM 6.8 g/dL (6.4-8.2)
[2021-02-07] MEDS ORDERED: IOHEXOL-350 100 ML VIAL IV ONE (17:23)
[2021-02-07] MEDS ORDERED: CT SWABBABLE VALVE TRANS SET 1 EA INFUS.SET MC ONE (17:23)
[2021-02-07] MEDS ORDERED: IV NS 0.9% 250 ML IV ONE (17:23)
--- NOTE | 2021-02-07 17:37 | NUR ---
URINE COLLECTED AND SENT TO THE LAB
--- NOTE | 2021-02-07 18:00 | NUR ---
PAGED EPIC COLLECTION SYSTEMS ADMINISTRATOR
--- NOTE | 2021-02-07 18:21 | NUR ---
ROOM GIVEN 327-2
--- NOTE | 2021-02-07 18:24 | NUR ---
BED 327-2
--- NOTE | 2021-02-07 18:33 | NUR ---
REPORT GIVEN TO BROOKS GIMENEZ. PATIENT AWAITING TRANSFER TO FLOOR.
[2021-02-07 18:42] LABS: BILIRUBIN,URINE Negative (NEGATIVE); COLOR,URINE YELLOW (YELLOW); LEUKOCYTE ESTERASE ,URINE Negative (NEGATIVE); NITRITE, URINE Negative (NEGATIVE); PROTEIN,URINE Negative (NEGATIVE); UGLUCOSE Negative (NEGATIVE); UROBILINOGEN,URINE 0.2 EU/dL (0.2)
[2021-02-07 18:46] LABS: BACTERIA,URINE Rare /HPF (None Seen); RBC,URINE 0-2 /HPF (0-2); SQUAMOUS EPITHELIAL CELL,UR 0-2 /HPF (None Seen); WBC,URINE 0-2 /HPF (0-3)
[2021-02-07] MEDS ORDERED: LORAZEPAM 1 MG TABLET PO PRN (19:00)
--- NOTE | 2021-02-07 19:04 | NUR ---
THE PATIENT IN STABLE CONDITON AND TRANSFERED TO [facility].
--- NOTE | 2021-02-07 19:30 | NUR ---
LEMON GROWER NOTE RE[facility]ED [facility]. PT RECEIVED IN BED ALERT AND ORIENTED X 3 PT IS VERY ANXIOUS SETSWANA SPEAKING WITH SOME BASIC IVORIAN. PT FROM HOME CAME IN TO ER DUE TO CHEST PAIN AND GENERALIZED WEAKNESS. PT IS NOT REPORTING CHEST PAIN AT THIS TIME. PT DOES NOT REPORT ANY PAIN OR DISCOMFORT. JUST ANXIETY OVER MAKING SURE SHE GETS ALL HER HOME MEDICATIONS. PT SKIN IS INTACT. PT HAS R FOREARM IV SITE 20# G SL NO REDNESS OR SWELLING NOTED AT SITE. PT ON TELE MONITOR SR. PT ORIENTED TO ROOM AND UNIT. SEIZURE PRECAUTIONS IN PLACE. SAFETY PRECAUTIONS FOLLOWED HOB ELEVATED, BILATERAL SIDE RAILS UP BED LOCKED AND LOW. BED ALARM IN PLACE.ALL NURSING NEEDS MET AT THIS TIME. WILL CONTINUE TO MONITOR.
[2021-02-07 20:00] VITALS: BP 143/71
[2021-02-07] MEDS: LEVETIRACETAM (250 MG) 250 MG TABLET PO SCH (21:41)
[2021-02-07 23:11] VITALS: BP 143/71
[2021-02-08] VITALS: BP 134/99
[2021-02-08 04:00] VITALS: BP 107/60
--- NOTE | 2021-02-08 06:42 | NUR ---
WATER METER INSTALLER NOTES PT ALERT AND ORIENTED X 3 PT IS VERY ANXIOUS TONGAN SPEAKING WITH SOME BASIC MONGOLIAN. PT FROM HOME PT IS NOT REPORTING CHEST PAIN AT THIS TIME. PT DOES NOT REPORT ANY PAIN OR DISCOMFORT. PT HAS R FOREARM IV SITE 20# G SL NO REDNESS OR SWELLING NOTED AT SITE. PT ON TELE MONITOR SR.. SEIZURE PRECAUTIONS IN PLACE. ALL DUE MEDS GIVEN AND TOLERATED WELL. PRN ATIVAN GIVEN FOR ANXIETY GIVEN EARLIER IN THE SHIFT PT N AT THIS TIME HAS NO ANXIETY.SAFETY PRECAUTIONS FOLLOWED HOB ELEVATED, BILATERAL SIDE RAILS UP BED LOCKED AND LOW. BED ALARM IN PLACE.ALL NURSING NEEDS MET AT THIS TIME. WILL ENDORSE TO DAY SHIFT NURSE.
--- NOTE | 2021-02-08 08:00 | NUR ---
RN OPENING NOTE RECEIVED PATIENT IN BED, AO X 2-3 MOHAWK SPEAKING, NO S/S OF DISTRESS OBSERVED. ABLE TO RESPONDS ALL STIMULI. SKIN IS WARM TO TOUCH KEEP CLEAN/DRY, INTACT IV SITE. RESPIRATORY EVEN AND UNLABORED ON ROOM AIR, NO DISTRESS OBSERVED. KEPT ELEVATED HOB FOR ENSURE AIRWAY AND ASPIRATION PRECAUTION, ALSO LOWEST BED POSITION FOR SAFETY. CALL LIGHT WITHIN REACH, WILL CONTINUE TO MONITOR.
[2021-02-08] MEDS ORDERED: WARFARIN SODIUM 1 MG TABLET PO SCH (09:00)
[2021-02-08] MEDS: LEVETIRACETAM (250 MG) 250 MG TABLET PO SCH ×3 (09:12→21:34)
[2021-02-08 09:30] LABS: BASOPHILS # (AUTO) 0.1 /CMM (0.0-0.2); BASOPHILS % (AUTO) 1.1 % (0.0-2.0); EOSINOPHILS % (AUTO) 5.3 % (0.0-6.0); HEMATOCRIT 41 % (33-45); HEMOGLOBIN 13.6 g/dL (11.5-14.8); LYMPHOCYTES # (AUTO) 1.9 /CMM (0.8-4.8); MEAN CORPUSCULAR HGB CONC 34 g/dl (31.0-36.0); MEAN CORPUSCULAR VOLUME 82 fL (82-100); MONOCYTES # (AUTO) 0.4 /CMM (0.1-1.30); MONOCYTES % (AUTO) 6.5 % (2.0-12.0); NEUTROPHILS % (AUTO) 59.1 % (43.0-81.0); PLATELET COUNT (AUTO) 308 /CMM (150-450); RED BLOOD CELL COUNT(AUTO) 4.96 MIL/uL (4.0-5.2); WHITE BLOOD COUNT (AUTO) 6.7 K/uL (4.3-11.0)
[2021-02-08 09:42] LABS: CARBON DIOXIDE 26 mmol/L (21-32); CHLORIDE 103 mmol/L (98-107); CREATININE 1.1 mg/dL (0.6-1.3); GLUCOSE 156 mg/dL (74-106); POTASSIUM 3.5 mmol/L (3.5-5.1); SODIUM SERUM 138 mmol/L (136-145); UREA NITROGEN, BLOOD 16 mg/dL (7-18)
[2021-02-08] MEDS: LORAZEPAM 1 MG TABLET PO PRN (10:42)
[2021-02-08] MEDS: ENSURE ENLIVE 237 ML LIQUID (VANILLA) PO SCH ×2 (14:04→17:11)
--- NOTE | 2021-02-08 16:07 | NUR ---
PATIENT HR 115-120 DURING SLEEP, OVER 130s DURING AWAKE, latest BP 124/70, doormaker shows sinus tachycardia. MD MADE AWARE RECEIVED METOPROLOL 25MG PO Q6 HOURS ROUTINE. NOTED AND CARRY OUT.
[2021-02-08] MEDS: METOPROLOL TARTRATE 25 MG TABLET PO SCH (17:10)
--- NOTE | 2021-02-08 17:47 | NUR ---
RN CLOSING NOTE PATIENT IN BED, NO S/S OF DISTRESS OBSERVED. SKIN IS WARM TO TOUCH KEEP CLEAN/DRY. HR 101-98 FLUCTUATE. RESPIRATORY EVEN AND UNLABORED ON ROOM AIR. KEPT ELEVATED HOB FOR ENSURE AIRWAY AND ASPIRATION PRECAUTION, ALSO LOWEST BED POSITION FOR SAFETY. CALL LIGHT WITHIN REACH, WILL ENDORSE VARNISHER APPRENTICE.
[2021-02-08 20:20] VITALS: BP 93/71
[2021-02-08] MEDS ORDERED: ENOXAPARIN SODIUM 40 MG/0.4 ML DISP.SYRIN SQ ONE (22:00)
[2021-02-08] MEDS ORDERED: LORAZEPAM 1 MG TABLET PO ONE (22:30)
[2021-02-09] MEDS: METOPROLOL TARTRATE 25 MG TABLET PO SCH ×5 (00:31→23:11)
[2021-02-09 00:45] VITALS: BP 129/88
[2021-02-09 04:11] VITALS: BP 129/70
--- NOTE | 2021-02-09 05:01 | NUR ---
ALERT AND ORIENTATED X4 AT THE BEGINNINGOF THE SHIFT HER SISTER WAS AT HER SIDE AND THEY BOTH WERE ABLE TO TALK TO TALK TO md Benavidez USING THE BSC D/T LEG WEAKNESS REQUESTED ATIVAN TO SLEEP AND EFFECTIVE CONTINENT PLEASENT NO SOB
[2021-02-09 06:44] LABS: HEMATOCRIT 37 % (33-45); HEMOGLOBIN 12.4 g/dL (11.5-14.8); LYMPHOCYTES % (AUTO) 32.1 % (20.0-44.0); MEAN CORPUSCULAR HGB CONC 33 g/dl (31.0-36.0); MEAN CORPUSCULAR VOLUME 82 fL (82-100); MONOCYTES % (AUTO) 10.5 % (2.0-12.0); NEUTROPHILS % (AUTO) 51.4 % (43.0-81.0); PLATELET COUNT (AUTO) 295 /CMM (150-450); RED BLOOD CELL COUNT(AUTO) 4.57 MIL/uL (4.0-5.2)
[2021-02-09 06:45] LABS: BASOPHILS # (AUTO) 0.1 /CMM (0.0-0.2); LYMPHOCYTES # (AUTO) 1.9 /CMM (0.8-4.8); MONOCYTES # (AUTO) 0.6 /CMM (0.1-1.30); NEUTROPHILS # (AUTO) 3.1 /CMM (1.8-8.9)
[2021-02-09 07:10] LABS: CALCIUM, SERUM 8.6 mg/dL (8.5-10.1); CREATININE 0.9 mg/dL (0.6-1.3); MAGNESIUM 2.5 mg/dL (1.8-2.4); PHOSPHORUS 3.5 mg/dL (2.5-4.9); POTASSIUM 3.6 mmol/L (3.5-5.1)
[2021-02-09 08:00] VITALS: BP 104/60
[2021-02-09] MEDS: ENSURE ENLIVE 237 ML LIQUID (VANILLA) PO SCH ×3 (08:00→17:12)
--- NOTE | 2021-02-09 08:00 | NUR ---
FORGING DIES FINAL FINISHER OPENING NOTE RECEIVED PATIENT IN BED, AWAKE, ANXIOUS. A/O X3. PORTUGUESE SPEAKING BUT UNDERSTANDS A LITTLE BELARUSIAN. STABLE ON ROOM AIR - NO SOB NOTED. NO PAIN NOTED AT THIS TIME. IV ACCESS TO RIGHT FOREARM #20 - INTACT, PATENT AND SALINE LOCKED. USES BEDSIDE COMMODE WITH NURSE ASSIST. SAFETY MEASURES IN PLACE. CALL LIGHT WITHIN REACH. WILL CONTINUE TO MONITOR.
[2021-02-09] MEDS: LEVETIRACETAM (250 MG) 250 MG TABLET PO SCH ×2 (08:34→22:12)
[2021-02-09] MEDS: ENOXAPARIN SODIUM 40 MG/0.4 ML DISP.SYRIN SQ SCH ×2 (08:36→22:18)
--- NOTE | 2021-02-09 11:49 | NUR ---
PERFUMER NOTE BP 100/55 - DID NOT ADMINISTER METOPROLOL
[2021-02-09 12:00] VITALS: BP 136/85
[2021-02-09] MEDS: LORAZEPAM 1 MG TABLET PO PRN ×2 (14:34→23:10)
[2021-02-09 16:00] VITALS: BP 100/66
--- NOTE | 2021-02-09 18:36 | NUR ---
FILTER WASHER CLOSING NOTE PATIENT CURRENTLY RESTING IN BED. EASY TO AROUSE. A/O X3. STABLE ON ROOM AIR - NO SOB OR DISTRESS NOTED. TELE MONITOR READS SINUS RHYTHM WITH PVC'S, HR IN THE 90S. PATIENT HAS HAD MULTIPLE PANIC ATTACKS THROUGHOUT THE SHIFT. RECEIVED ATIVAN 1MG PO @ 1434. IV ACCESS TO RIGHT FOREARM #20 - INTACT AND PATENT - SALINE LOCKED. PATIENT USES THE BEDISDE COMMODE - STATES SHE FEELS TOO WEAK TO WALK. SAFETY MEASURES IN PLACE. CALL LIGHT WITHIN REACH. WILL ENDORSE TO DATABASE TESTER NURSE FOR ALIN.
[2021-02-09 20:00] VITALS: BP 103/49
[2021-02-10] VITALS: BP 101/61
[2021-02-10 04:00] VITALS: BP 111/59
[2021-02-10 06:31] LABS: BASOPHILS # (AUTO) 0.1 /CMM (0.0-0.2); BASOPHILS % (AUTO) 1.3 % (0.0-2.0); EOSINOPHILS % (AUTO) 4.6 % (0.0-6.0); HEMATOCRIT 36 % (33-45); HEMOGLOBIN 12.1 g/dL (11.5-14.8); LYMPHOCYTES # (AUTO) 1.7 /CMM (0.8-4.8); LYMPHOCYTES % (AUTO) 29.3 % (20.0-44.0); MEAN CORPUSCULAR HGB CONC 34 g/dl (31.0-36.0); MEAN CORPUSCULAR VOLUME 81 fL (82-100); MONOCYTES # (AUTO) 0.6 /CMM (0.1-1.30); MONOCYTES % (AUTO) 9.8 % (2.0-12.0); NEUTROPHILS # (AUTO) 3.2 /CMM (1.8-8.9); PLATELET COUNT (AUTO) 283 /CMM (150-450); RED BLOOD CELL COUNT(AUTO) 4.37 MIL/uL (4.0-5.2); WHITE BLOOD COUNT (AUTO) 5.8 K/uL (4.3-11.0)
--- NOTE | 2021-02-10 06:40 | NUR ---
TELERN EASILY AWAKENED WHEN CALLED. SLEPT WELL SINCE ATIVAN DOSE. V/S STABLE. NO COMPLAINTS MADE
[2021-02-10] MEDS: METOPROLOL TARTRATE 25 MG TABLET PO SCH ×3 (06:47→17:38)
--- NOTE | 2021-02-10 07:49 | NUR ---
FLIGHT OPERATIONS SPECIALIST OPENING NOTE RECEIVED PATIENT RESTING IN BED. EASY TO AROUSE. A/O X3 WITH MOMENTS OF CONFUSION. PERSIAN SPEAKING BUT UNDERSTANDS A LITTLE HONG KONGER. STABLE ON ROOM AIR - NO SOB NOTED. NO PAIN NOTED AT THIS TIME. IV ACCESS TO RIGHT FOREARM #20 - INTACT, PATENT AND SALINE LOCKED. SAFETY MEASURES IN PLACE. CALL LIGHT WITHIN REACH. WILL CONTINUE TO MONITOR.
[2021-02-10 08:00] VITALS: BP 115/66
[2021-02-10] MEDS: LEVETIRACETAM (250 MG) 250 MG TABLET PO SCH ×2 (08:30→21:50)
[2021-02-10] MEDS: ENOXAPARIN SODIUM 40 MG/0.4 ML DISP.SYRIN SQ SCH ×2 (08:30→21:51)
[2021-02-10] MEDS: ENSURE ENLIVE 237 ML LIQUID (VANILLA) PO SCH ×3 (08:46→16:29)
[2021-02-10] MEDS: CYANOCOBALAMIN 500 MCG TABLET PO SCH (10:21)
[2021-02-10] MEDS: FOLIC ACID 1 MG TABLET PO SCH (10:21)
[2021-02-10] MEDS: PYRIDOXINE HCL 50 MG TABLET PO SCH (10:21)
[2021-02-10 11:08] LABS: *ANA ANTI-CENTROMERE B AB <0.2 AI (0.0-0.9); *ANA ANTI-DNA(DS) AB, QN <1 IU/mL (0-9); *ANA ANTI-JO-1 <0.2 AI (0.0-0.9); *ANA ANTICHROMATIN ANTIBODY <0.2 AI (0.0-0.9); *ANA RNP ANTIBODIES <0.2 AI (0.0-0.9); *ANA SJOGREN'S ANTI-SS-A <0.2 AI (0.0-0.9); *ANA SJOGREN'S ANTI-SS-B <0.2 AI (0.0-0.9); *ANAANTI-SCLERODERMA-70 AB 0.3 AI (0.0-0.9); *ANASMITH AB <0.2 AI (0.0-0.9)
[2021-02-10 11:09] LABS: CALCIUM, SERUM 8.6 mg/dL (8.5-10.1); CREATININE 0.9 mg/dL (0.6-1.3); POTASSIUM 4.1 mmol/L (3.5-5.1)
--- NOTE | 2021-02-10 11:52 | NUR ---
MS RN NOTE DID NOT ADMINISTER 1200 METOPROLOL. BP 113/59
[2021-02-10 12:00] VITALS: BP 113/59
[2021-02-10] MEDS: ALPRAZOLAM 0.25 MG TABLET PO PRN (13:48)
[2021-02-10 16:00] VITALS: BP 112/61
--- NOTE | 2021-02-10 18:43 | NUR ---
CUTTER OPERATOR TILE CLOSING NOTE PATIENT CURRENTLY RESTING IN BED. EASY TO AROUSE. A/O X3. STABLE ON ROOM AIR - NO SOB OR DISTRESS NOTED. TELE MONITOR READS SINUS RHYTHM HR IN THE 80S. PATIENT HAD A COUPLE OF PANIC ATTACKS THROUGHOUT SHIFT. RECEIVED XANAX 0.5MG @ 1348. PATIENT USES THE BEDAppScale SystemsE COMMODE, AMBULATORY WITH ASSIST. STATES SHE FEELS TOO WEAK TO WALK. SAFETY MEASURES IN PLACE. CALL LIGHT WITHIN REACH. WILL ENDORSE TO HIGH SCHOOL ASSISTANT PRINCIPAL NURSE FOR ALIN.
--- NOTE | 2021-02-10 19:30 | NUR ---
MS/TELE/RN PATIENT IS IN BED APPEAR SLEEPING, APPEAR COMFORTABLE, NO SIGNS OF DISTRESS NOTED, CALL LIGHT IN REACH. WILL MONITOR.
[2021-02-10 20:00] VITALS: BP 105/50
--- NOTE | 2021-02-10 22:00 | NUR ---
HAILEY/TELE/RN PATIENT IS AWAKE, ALERT, ORIENTED, DUE MEDS GIVEN.
[2021-02-11 00:11] VITALS: BP 99/60
--- NOTE | 2021-02-11 00:48 | NUR ---
MS/TELE/RN PATIENT IS SLEEPING, APPEAR COMFORTABLE, NO SIGNS OF DISTRESS NOTED, CALL LIGHT IN REACH, WILL CONTINUE TO MONITOR.
[2021-02-11] MEDS: ALPRAZOLAM 0.25 MG TABLET PO PRN ×3 (01:38→21:01)
--- NOTE | 2021-02-11 01:40 | NUR ---
MS/TELE/RN PATIENT IS AWAKE AND VERY ANXIOUS, XANAX 0.5 MG PO WAS GIVEN ORDERED. WILL MONITOR.
--- NOTE | 2021-02-11 02:47 | NUR ---
MS/TELE/RN PATIENT IS SLEEPING AT THIS TIME, APPEAR COMFORTABLE, NO SIGNS OF DISTRESS NOTE, CALL LIGHT IN REACH, WILL CONTINUE TO MONITOR.
[2021-02-11 04:00] VITALS: BP 99/55
[2021-02-11 05:58] LABS: BASOPHILS # (AUTO) 0.1 /CMM (0.0-0.2); BASOPHILS % (AUTO) 0.9 % (0.0-2.0); EOSINOPHILS % (AUTO) 4.5 % (0.0-6.0); HEMATOCRIT 34 % (33-45); HEMOGLOBIN 11.6 g/dL (11.5-14.8); LYMPHOCYTES # (AUTO) 1.7 /CMM (0.8-4.8); LYMPHOCYTES % (AUTO) 26.6 % (20.0-44.0); MEAN CORPUSCULAR HGB CONC 34 g/dl (31.0-36.0); MEAN CORPUSCULAR VOLUME 81 fL (82-100); MONOCYTES # (AUTO) 0.5 /CMM (0.1-1.30); NEUTROPHILS # (AUTO) 3.8 /CMM (1.8-8.9); PLATELET COUNT (AUTO) 240 /CMM (150-450); RED BLOOD CELL COUNT(AUTO) 4.21 MIL/uL (4.0-5.2); WHITE BLOOD COUNT (AUTO) 6.3 K/uL (4.3-11.0)
[2021-02-11] MEDS: METOPROLOL TARTRATE 25 MG TABLET PO SCH ×4 (06:00→17:03)
[2021-02-11 06:49] LABS: CALCIUM, SERUM 8.5 mg/dL (8.5-10.1); CREATININE 0.8 mg/dL (0.6-1.3); MAGNESIUM 2.4 mg/dL (1.8-2.4); POTASSIUM 3.8 mmol/L (3.5-5.1)
--- NOTE | 2021-02-11 06:53 | NUR ---
MS/TELE/RN PATIENT IS STILL SLEEPING AT THIS TIME, APPEAR COMFORTABLE, NO SIGNS OF DISTRESS NOTED, CALL LIGHT IN REACH, ALLL NEEDS ATTENDED AT THIS TIME, WILL CONTINUE TO MONITOR.
--- NOTE | 2021-02-11 07:30 | NUR ---
RN NOTE PATIENT WAS NOTED TO NOT HAVE IV ACCESS DURING MORNING ROUNDS. REINSERTED IV ACCESS #22 GAUGE IN THE LEFT FOREARM SALINE LOCKED. WILL CONTINUE TO MONITOR
--- NOTE | 2021-02-11 07:34 | NUR ---
POLICE ACADEMY INSTRUCTOR OPENING NOTE RECEIVED PATIENT RESTING IN BED. PATIENT IS A/O X3 WITH MOMENTS OF CONFUSION. PATIENT IS BREATHING EVENLY AND NONLABORED, STABLE ON ROOM AIR - NO SIGNS OF DISTRESS NOTED. NO PAIN NOTED AT THIS TIME. PATIENT IS ON TELE MONITOR SHOWING NSR, PER REPORT HAS TIMES OF SINUS TACHYCARDIA. SAFETY MEASURES IN PLACE, BED LOW LOCKED, BAD ALARM ON, SIDE RAILS UP X 2 CALL LIGHT WITHIN REACH. WILL CONTINUE TO MONITOR.
[2021-02-11 08:00] VITALS: BP 124/75
[2021-02-11] MEDS: FOLIC ACID 1 MG TABLET PO SCH (08:25)
[2021-02-11] MEDS: PYRIDOXINE HCL 50 MG TABLET PO SCH (08:25)
[2021-02-11] MEDS: LEVETIRACETAM (250 MG) 250 MG TABLET PO SCH ×2 (08:25→21:00)
[2021-02-11] MEDS: CYANOCOBALAMIN 500 MCG TABLET PO SCH (08:25)
[2021-02-11] MEDS: ENOXAPARIN SODIUM 40 MG/0.4 ML DISP.SYRIN SQ SCH ×2 (08:32→20:47)
[2021-02-11] MEDS: ENSURE ENLIVE 237 ML LIQUID (VANILLA) PO SCH ×3 (08:34→16:18)
--- NOTE | 2021-02-11 12:07 | NUR ---
RN NOTE PATIENT'S BLOOD PRESSURE 102/55. HELD METOPROLOL DOSE AT THIS TIME. WILL CONTINUE TO MONITOR
--- NOTE | 2021-02-11 13:09 | NUR ---
RN NOTE PATIENT CALLED STATING SHE WAS FEELING ANXIOUS AND IF SHE COULD HAVE PRN ANXIETY MEDICATION. WILL GIVE PRN MEDICATION ORDERED.
[2021-02-11] MEDS ORDERED: ALPR0.25 PO (13:32)
[2021-02-11] MEDS ORDERED: ENOX40DI SQ (13:32)
[2021-02-11 16:00] VITALS: BP 108/62
--- NOTE | 2021-02-11 17:04 | NUR ---
RN NOTE PATIENT'S BLOOD PRESSURE 98/59. HELD METOPROLOL DOSE AT THIS TIME. WILL CONTINUE TO MONITOR
[2021-02-11] MEDS ORDERED: PYRI-9 PO (17:30)
[2021-02-11] MEDS ORDERED: CYAN500T72 PO (17:30)
[2021-02-11] MEDS ORDERED: FOLI1CAP7 PO (17:30)
--- NOTE | 2021-02-11 18:37 | NUR ---
SUPERVISOR STAVE FINISHING CLOSING NOTE PATIENT RESTING IN BED. PATIENT IS A/O X3 WITH MOMENTS OF CONFUSION. PATIENT IS BREATHING EVENLY AND NONLABORED, STABLE ON ROOM AIR - NO SIGNS OF DISTRESS NOTED. NO PAIN NOTED AT THIS TIME. PATIENT IS ON TELE MONITOR SHOWING NSR. ALL MEDICATION GIVEN ORDERED. PATIENT HAS DISCHARGE ORDER FOR AFTER 2100 DOSE OF LOVENOX. ALL DISCHARGE PAPERWORK COMPLETED. DISCHARGE INSTRUCTIONS WERE GIVEN BOTH VERBALLY AND WRITTEN. JENNI WILL SURVEY DIRECTOR PATIENT. ALL BELONGINGS WERE ACCOUNTED FOR. SAFETY MEASURES IN PLACE, BED LOW LOCKED, BAD ALARM ON, SIDE RAILS UP X 2 CALL LIGHT WITHIN REACH. WILL ENDORSE TO ONCOMING SHIFT
--- NOTE | 2021-02-11 19:30 | NUR ---
RESEARCH SCHOLAR NOTES RECEIVED LYING COMFORTABLY ON BED,BREATHING REGULAR,NOT IN ANY FORM OF DISTRESS,SALINE LOCK LFA INTACT AND PATENT,DENIES DISCOMFORTS AT THE MOMENT.FOR DISCHARGE AFTER LOVENOX SQ GIVEN,NOTED.CALL LIGHT IN REACH,NEEDS ANTICIPATED.
[2021-02-11 20:00] VITALS: BP 117/63
--- NOTE | 2021-02-11 20:47 | NUR ---
MS RN NOTES DUE LOVENOX DOSE GIVEN SQ ORDERED.NO EVIDENCE OF ACTIVE BLEEDING
--- NOTE | 2021-02-11 21:00 | NUR ---
RN LPN LVN NOTES APPEARS ANXIOUS,XANAX 0.5MG PO GIVEN PER PATIENT REQUEST.
--- NOTE | 2021-02-11 21:20 | NUR ---
ARTIFICIAL FLY TIER NOTES SR ON TELE MONITOR,CONTRACTS ADVISOR BY SISTER JENNI IN STABLE CONDITION,SALINE LOCK TO LEFT FORE ARM REMOVED. VITAL SIGNS WITH IN NORMAL LIMITS.ALL PAPER WORKS GIVEN.
[2021-02-12 14:07] LABS: *CARD ANTI-CARDIOLIPIN AB IgM 53 MPL U/mL (0-12)
[2021-02-13 13:07] LABS: *CARD ANTI-CARDIOLIPIN AB IgG 140 GPL U/mL (0-14)
[2021-02-14 11:07] LABS: *ANTITHROMBIN III AG 112 % (72-124); *DILUTE PROTHROMBIN TIME (dPT) 127.1 sec (0.0-55.0); *THROMBIN TIME 18.7 sec (0.0-23.0); *dPT CONFIRM RATIO 2.16 Ratio (0.00-1.40); *dRVVT 106.2 sec (0.0-47.0); PROTEIN C ACTIVITY 75 % (73-180)
[2021-02-16 14:07] LABS: *FACTOR II, DNA ANALYSIS Negative (.)
== END 2021-02-11 21:00 | disposition home health service (06) | DRG 175 ==
LOC: ER 15:34 → TELE 18:29
PROVIDERS: ADMIT Internal Medicine; ATTEND Nurse Practitioner Family
DX: I27.82 Chronic pulmonary embolism (principal); E43 Unspecified severe protein-calorie malnutrition; E87.1 Hypo-osmolality and hyponatremia; R64 Cachexia; Z68.1 Body mass index [BMI] 19.9 or less, adult; D68.69 Other thrombophilia; I25.10 Atherosclerotic heart disease of native coronary artery without angina pectoris; F41.9 Anxiety disorder, unspecified; G40.909 Epilepsy, unspecified, not intractable, without status epilepticus; I10 Essential (primary) hypertension; M32.9 Systemic lupus erythematosus, unspecified; E78.5 Hyperlipidemia, unspecified; Z79.01 Long term (current) use of anticoagulants; Z86.718 Personal history of other venous thrombosis and embolism; Z88.2 Allergy status to sulfonamides; Z20.822 Contact with and (suspected) exposure to COVID-19; I25.2 Old myocardial infarction
CPT/HCPCS: 36415; 70450-TC; 71045-TC; 80048-TC; 80076-TC; 81001; 81240; 81241; 83090; 83690-TC; 83735-TC; 83880; 84100-TC; 84484-TC; 85025-TC; 85300; 85301; 85303; 85378-TC; 85610-TC; 85613; 85670; 85705; 85730-TC; 85732; 86140-TC; 86147; 86225; 86235; 86431-TC; 87081-TC; 93970-TC; C9803; G0378; J1650; J7050; Q9967

== ENCOUNTER 2021-08-06 14:35 | Emergency (ER) | payer MEDICARE, OTHER ==
[~2021-08-06] VITALS: Ht 162.6 cm; Wt 51.4 kg
[~2021-08-06 14:35] MED LIST changes: +ALPR0.25 PO; +CYAN500T64 PO; +ENOX40DI SQ; +FOLI1CAP7 PO; -HYDR-500 PO; -LORA-259 PO; +PYRI-9 PO; -WARF1TAB86 PO
--- NOTE | 2021-08-06 14:44 | NUR ---
BIBRA 89 FOR LEFT WRIST PAIN 03/31 S/P GLF YESTERDAY. THE PATIENT LANDED ON LEFT SIDE TRYING TO TAKE OF SOCKS. DENIES HITTING HEAD, DENIES LOC. DENIES KO. IN ROOM AIR AND DENIES SOB. RESPIRATION REGULAR AND UNLABORED. WILL CONTINUE TO MONITOR THE PATIENT.
--- NOTE | 2021-08-06 15:24 | NUR ---
PT TAKEN TO CT
[2021-08-06 15:39] LABS: BASOPHILS # (AUTO) 0.1 K/uL (0.0-0.2); EOSINOPHILS % (AUTO) 3.4 % (0.0-6.0); HEMATOCRIT 38 % (33-45); HEMOGLOBIN 12.5 g/dL (11.5-14.8); LYMPHOCYTES # (AUTO) 1.6 K/uL (0.8-4.8); LYMPHOCYTES % (AUTO) 20.1 % (20.0-44.0); MEAN CORPUSCULAR HGB CONC 33 g/dl (31.0-36.0); MEAN CORPUSCULAR VOLUME 76 fL (82-100); MONOCYTES # (AUTO) 0.7 K/uL (0.1-1.30); MONOCYTES % (AUTO) 8.4 % (2.0-12.0); NEUTROPHILS # (AUTO) 5.4 K/uL (1.8-8.9); NEUTROPHILS % (AUTO) 67.1 % (43.0-81.0); PLATELET COUNT (AUTO) 196 K/uL (150-450); RED BLOOD CELL COUNT(AUTO) 4.96 MIL/uL (4.0-5.2); WHITE BLOOD COUNT (AUTO) 8.1 K/uL (4.3-11.0)
[2021-08-06 16:07] LABS: CALCIUM, SERUM 8.8 mg/dL (8.5-10.1); CARBON DIOXIDE 23 mmol/L (21-32); CHLORIDE 101 mmol/L (98-107); GLUCOSE 95 mg/dL (74-106); POTASSIUM 3.8 mmol/L (3.5-5.1); SODIUM SERUM 134 mmol/L (136-145); UREA NITROGEN, BLOOD 11 mg/dL (7-18)
--- NOTE | 2021-08-06 17:36 | NUR ---
SPOKE WITH FRIEND JENNI WHO WILL PICK THE PATIENT UP IN 30-40 MIN.
[2021-08-06 18:23] VITALS: BP 126/81
--- NOTE | 2021-08-06 18:23 | NUR ---
Patient discharged to home in stable condition. Written and verbal after care instructions given. Patient verbalizes understanding of instruction.
== END 2021-08-06 18:24 | disposition home or self-care (01) ==
LOC: ER 14:40
DX: S52.502A Unspecified fracture of the lower end of left radius, initial encounter for closed fracture (principal); Z86.2 Personal history of diseases of the blood and blood-forming organs and certain disorders involving the immune mechanism; Z88.2 Allergy status to sulfonamides; Z79.899 Other long term (current) drug therapy; W19.XXXA Unspecified fall, initial encounter; Y93.89 Activity, other specified; Y92.89 Other specified places as the place of occurrence of the external cause; Y99.8 Other external cause status
CPT/HCPCS: 36415; 70450-TC; 71045-TC; 72125-TC; 73110; 80048-TC; 84484-TC; 85025-TC; 85730-TC

== ENCOUNTER 2021-12-03 09:52 | Emergency (ER) | payer MEDICARE, OTHER ==
[~2021-12-03] VITALS: Ht 157.5 cm; Wt 55.8 kg
[2021-12-03 09:56] VITALS: BP 161/80
--- NOTE | 2021-12-03 10:00 | NUR ---
DILAN BARNEY "From Home Anxiety". Multiple 911 for same in the past. In room air and denies SOB. Respiration regular and unlabored. Will continue to monitor the patient.
[2021-12-03] MEDS ORDERED: ALPRAZOLAM 0.25 MG TABLET PO ONE (10:30)
[2021-12-03] MEDS ORDERED: ALPRAZOLAM 0.25 MG TABLET ONE (10:40)
[2021-12-03] MEDS ORDERED: ALPR0.25 PO (10:41)
--- NOTE | 2021-12-03 11:54 | NUR ---
Patient discharged to home in stable condition. Written and verbal after care instructions given. Patient verbalizes understanding of instruction.
== END 2021-12-03 11:55 | disposition home or self-care (01) ==
LOC: ER 10:02
DX: F41.1 Generalized anxiety disorder (principal); I10 Essential (primary) hypertension; I25.10 Atherosclerotic heart disease of native coronary artery without angina pectoris; I25.2 Old myocardial infarction; I27.20 Pulmonary hypertension, unspecified; M32.9 Systemic lupus erythematosus, unspecified; Z87.19 Personal history of other diseases of the digestive system; Z86.2 Personal history of diseases of the blood and blood-forming organs and certain disorders involving the immune mechanism; Z88.2 Allergy status to sulfonamides; Z60.2 Problems related to living alone; Z79.899 Other long term (current) drug therapy

== ENCOUNTER 2021-12-31 21:15 | Emergency (ER) | payer MEDICARE, OTHER ==
[~2021-12-31] VITALS: Ht 157.5 cm; Wt 55.8 kg
[2021-12-31 21:43] VITALS: BP 142/85
--- NOTE | 2021-12-31 21:50 | NUR ---
BIBRA FOR C/O OF COUGHING UP BLOOD. UNWITNESSED BY CAREGIVER, BUT STATED THAT SHE FOUND BLOOD AND MUCUS ON COUNTER. PT BASELINE DEMENTED AND DOES NOT REMEMBER COUGHING UP BLOOD OR VOMITTING. PT DENIES ANY PAIN OR COMPLAINTS AT THIS TIME. PLACED ON MONITOR AND V/S WNL.
--- NOTE | 2021-12-31 22:51 | NUR ---
DAUGHTER IN LAW (LEXIE) [phone]
--- NOTE | 2022-01-01 00:48 | NUR ---
LEXIE CALLED FOR PATIENT PICKUP AND IS ON HER WAY
--- NOTE | 2022-01-01 01:32 | NUR ---
Patient discharged to home in stable condition. Written and verbal after care instructions given. Patient verbalizes understanding of instruction. Picked up by [email or web address] Christal.
== END 2022-01-01 01:33 | disposition home or self-care (01) ==
LOC: ER 21:27
DX: R04.2 Hemoptysis (principal); Z71.1 Person with feared health complaint in whom no diagnosis is made; I10 Essential (primary) hypertension; I25.2 Old myocardial infarction; F41.9 Anxiety disorder, unspecified; M32.9 Systemic lupus erythematosus, unspecified; D69.6 Thrombocytopenia, unspecified; Z86.73 Personal history of transient ischemic attack (TIA), and cerebral infarction without residual deficits; Z88.2 Allergy status to sulfonamides; Z60.2 Problems related to living alone; Z79.899 Other long term (current) drug therapy
CPT/HCPCS: 71045-TC

== ENCOUNTER 2022-01-28 18:23 | Emergency (ER) | payer MEDICARE, OTHER ==
[~2022-01-28] VITALS: Ht 160 cm; Wt 59.0 kg
--- NOTE | 2022-01-28 18:48 | NUR ---
TO ER BED 1, BIBDAUGHTER SENT HERE BY MD FOR LOW ON IRON, C/O WEAK/DIZZY WITH LAMBERT & VISION PROBLEM X 2 DAYS, AAOX3, BREATHING EVEN AND NON LABORED, CONNECTED TO MONITOR, AWAITING MD ORDERS
--- NOTE | 2022-01-28 18:49 | NUR ---
DR COPPOLA AT BEDSIDE FOR EVAL
--- NOTE | 2022-01-28 19:10 | NUR ---
URINE COLLECTED AND SENT TO LAB
--- NOTE | 2022-01-28 19:14 | NUR ---
SALINE LOCK ESTABLISHED, BLOOD DRAWN AND SENT TO LAB
--- NOTE | 2022-01-28 19:16 | NUR ---
pt being transported to ct via [facility]
--- NOTE | 2022-01-28 19:18 | NUR ---
TAKEN TO CT VIA [facility]
[2022-01-28 19:33] LABS: ALBUMIN 3.2 g/dL (3.4-5.0); CALCIUM, SERUM 8.4 mg/dL (8.5-10.1); CREATININE 1.1 mg/dL (0.6-1.3); POTASSIUM 4.4 mmol/L (3.5-5.1); TOTAL PROTEIN, SERUM 7.6 g/dL (6.4-8.2)
[2022-01-28 19:48] LABS: BILIRUBIN,DIRECT 0.3 mg/dL (0.0-0.2); BILIRUBIN,TOTAL 0.3 mg/dL (0.2-1.0)
[2022-01-28 19:52] LABS: BILIRUBIN,URINE NEGATIVE (NEGATIVE); COLOR,URINE YELLOW (YELLOW); LEUKOCYTE ESTERASE ,URINE NEGATIVE (NEGATIVE); NITRITE, URINE NEGATIVE (NEGATIVE); PH,URINE 6.5 (5.0-8.0); PROTEIN,URINE NEGATIVE (NEGATIVE); UGLUCOSE NEGATIVE (NEGATIVE); UROBILINOGEN,URINE 0.2 EU/dL (0.2)
[2022-01-28 19:57] LABS: THYROID STIMULATING HORMONE 0.832 uIU/mL (0.358-3.74)
[2022-01-28] MEDS ORDERED: IV NS 0.9% 500 ML BAG IV ONE (20:00)
--- NOTE | 2022-01-28 20:02 | NUR ---
FOR SENIOR DIGITAL DESIGNER DAUGHTER IN LAW LEXIE [phone]
[2022-01-28 20:09] LABS: BASOPHILS % (AUTO) 0.2 % (0.0-2.0); EOSINOPHILS % (AUTO) 0.4 % (0.0-6.0); HEMATOCRIT 30 % (33-45); HEMOGLOBIN 9.5 g/dL (11.5-14.8); LYMPHOCYTES # (AUTO) 0.8 K/uL (0.8-4.8); LYMPHOCYTES % (AUTO) 12.6 % (20.0-44.0); MEAN CORPUSCULAR HGB CONC 32 g/dl (31.0-36.0); MEAN CORPUSCULAR VOLUME 65 fL (82-100); MONOCYTES # (AUTO) 0.2 K/uL (0.1-1.30); MONOCYTES % (AUTO) 3.1 % (2.0-12.0); NEUTROPHILS # (AUTO) 5.1 K/uL (1.8-8.9); NEUTROPHILS % (AUTO) 83.7 % (43.0-81.0); PLATELET COUNT (AUTO) 146 K/uL (150-450); RED BLOOD CELL COUNT(AUTO) 4.56 MIL/uL (4.0-5.2); WHITE BLOOD COUNT (AUTO) 6.1 K/uL (4.3-11.0)
--- NOTE | 2022-01-28 20:54 | NUR ---
IV removed. Catheter intact and site benign. Pressure and 4x4 applied to site. No bleeding noted.
--- NOTE | 2022-01-28 21:00 | NUR ---
Patient discharged to home in stable condition. Written and verbal after care instructions given. Patient verbalizes understanding of instruction.
[2022-01-28 21:10] VITALS: BP 125/74
[2022-01-28 21:20] LABS: LYMPHOCYTES % (MANUAL) 18 % (16-48); NEUTROPHILS % (MANUAL) 82 (42-76)
== END 2022-01-28 21:10 | disposition home or self-care (01) ==
LOC: ER 18:31
DX: R42 Dizziness and giddiness (principal); E86.0 Dehydration; I10 Essential (primary) hypertension; I25.2 Old myocardial infarction; F41.9 Anxiety disorder, unspecified; D69.6 Thrombocytopenia, unspecified; Z86.69 Personal history of other diseases of the nervous system and sense organs; Z87.19 Personal history of other diseases of the digestive system; Z88.2 Allergy status to sulfonamides; Z60.2 Problems related to living alone
CPT/HCPCS: 36415; 70450; 71045; 80048; 80076; 81003; 84443; 85007; 85025; 85730; 93005; 99285; J7040

== ENCOUNTER 2022-02-08 17:26 | Emergency (ER) | payer MEDICARE, OTHER ==
[~2022-02-08] VITALS: Ht 167.6 cm; Wt 59.0 kg
--- NOTE | 2022-02-08 17:34 | NUR ---
TO ER BED 10. BIBS RA 99 FROM HOME C/O ANXIETY AFTER CAREGIVER LEFT THE HOUSE.
[2022-02-08] MEDS ORDERED: ALPRAZOLAM 0.5 MG TABLET PO ONE (18:00)
[2022-02-08] MEDS ORDERED: ALPRAZOLAM 0.5 MG TABLET ONE (18:07)
--- NOTE | 2022-02-08 18:14 | NUR ---
CALLED SON TO NOTIFY OF PT'S DISCHARGE. WAS NOTIFIED THAT HE CALLED HIS TO LIMOUSINE AND HEARSE UPHOLSTERER PT. THE HAS AN ETA OF [phone]
--- NOTE | 2022-02-08 18:48 | NUR ---
FAMILY MEMBER ARRIVED. PT DISCHARGED IN STABLE CONDITION, ABLE TO AMBULATE ON HER OWN.
[2022-02-08 18:49] VITALS: BP 132/67
== END 2022-02-08 18:49 | disposition home or self-care (01) ==
LOC: ER 17:29
DX: F41.9 Anxiety disorder, unspecified (principal); I10 Essential (primary) hypertension; I25.2 Old myocardial infarction; Z86.69 Personal history of other diseases of the nervous system and sense organs; Z87.19 Personal history of other diseases of the digestive system; Z88.2 Allergy status to sulfonamides; Z60.2 Problems related to living alone; Z79.899 Other long term (current) drug therapy

== ENCOUNTER 2022-03-31 19:44 | Emergency (ER) | payer MEDICARE, OTHER ==
[~2022-03-31] VITALS: Ht 162.6 cm; Wt 54.4 kg
[2022-03-31 20:36] VITALS: BP 149/70
--- NOTE | 2022-03-31 20:40 | NUR ---
TO ER BED 2. BIBCAREGIVER FROM HOME C/O NOSE BLEED FOR 30 MIN +BLOOD THINNERS. PT NOT ACTIVELY BLEEDING. PT IS ALERT. AMBULATORY WITH WALKER. BREATHING IS EVEN AND NON LABORED. CONNECTED TO MONITOR. AWAITING MD CHU
--- NOTE | 2022-03-31 20:57 | NUR ---
Patient eloped from facility. ER MD notified.
== END 2022-03-31 20:59 | disposition left against medical advice (07) ==
LOC: ER 19:47
DX: Z53.21 Procedure and treatment not carried out due to patient leaving prior to being seen by health care provider (principal); R04.0 Epistaxis; I10 Essential (primary) hypertension; I25.2 Old myocardial infarction; F41.9 Anxiety disorder, unspecified; Z86.73 Personal history of transient ischemic attack (TIA), and cerebral infarction without residual deficits

== ENCOUNTER 2022-11-22 07:52 | Inpatient (IN) | payer MEDICARE, OTHER ==
[~2022-11-22] VITALS: Ht 160 cm; Wt 65.8 kg
[2022-11-22] MEDS ORDERED: LORAZEPAM INJ 2 MG/ML VIAL IV ONE (08:00)
--- NOTE | 2022-11-22 08:00 | NUR ---
COVID TEST COLLECTED AND SENT
--- NOTE | 2022-11-22 08:00 | NUR ---
BIBRA88 FROM HOME FOR ALTERED MENTAL STATUS. LKW 8PM 2MG VERSED GIVEN BY EMS. BG 162 ON SCENE PER EMS.
[2022-11-22] MEDS ORDERED: LORAZEPAM INJ 2 MG/ML VIAL ONE (08:03)
[2022-11-22 08:27] LABS: SERUM AMMONIA 26 umol/L (11-32)
[2022-11-22 08:32] LABS: BASOPHILS # (AUTO) 0.1 K/uL (0.0-0.2); BASOPHILS % (AUTO) 0.8 % (0.0-2.0); CALCIUM, SERUM 9.1 mg/dL (8.5-10.1); CARBON DIOXIDE 22 mmol/L (21-32); CHLORIDE 104 mmol/L (98-107); CREATININE 1.4 mg/dL (0.6-1.3); EOSINOPHILS % (AUTO) 6.1 % (0.0-6.0); GLUCOSE 135 mg/dL (74-106); HEMATOCRIT 32 % (33-45); HEMOGLOBIN 10.1 g/dL (11.5-14.8); LYMPHOCYTES # (AUTO) 2.3 K/uL (0.8-4.8); LYMPHOCYTES % (AUTO) 32.8 % (20.0-44.0); MEAN CORPUSCULAR HGB CONC 31 g/dl (31.0-36.0); MEAN CORPUSCULAR VOLUME 76 fL (82-100); MONOCYTES # (AUTO) 0.6 K/uL (0.1-1.30); MONOCYTES % (AUTO) 8.4 % (2.0-12.0); NEUTROPHILS # (AUTO) 3.6 K/uL (1.8-8.9); NEUTROPHILS % (AUTO) 51.9 % (43.0-81.0); PLATELET COUNT (AUTO) 257 K/uL (150-450); POTASSIUM 3.7 mmol/L (3.5-5.1); RED BLOOD CELL COUNT(AUTO) 4.29 MIL/uL (4.0-5.2); SODIUM SERUM 139 mmol/L (136-145); UREA NITROGEN, BLOOD 15 mg/dL (7-18)
[2022-11-22 08:38] LABS: ALANINE AMINOTRANSFERASE 19 U/L (12-78); ALBUMIN 3.5 g/dL (3.4-5.0); ALKALINE PHOSPHATASE 83 U/L (46-116); ASPARTATE AMINOTRANSFERASE 21 U/L (15-37); BILIRUBIN,DIRECT 0.1 mg/dL (0.0-0.2); BILIRUBIN,TOTAL 0.4 mg/dL (0.2-1.0)
[2022-11-22 08:39] LABS: ACETAMINOPHEN 0 ug/ml (10-30); ALCOHOL, BLOOD < 3 mg/dL (0-0)
--- NOTE | 2022-11-22 08:47 | NUR ---
PT IS AWAKE CONFUSED X2. SHE CLAIMED SHE'S EPILEPTIC AND ON BLD THINNER
--- NOTE | 2022-11-22 09:19 | NUR ---
MOVE SHEET SUBMITTED.
--- NOTE | 2022-11-22 09:21 | NUR ---
MOTION PICTURE SET WORKER AT BEDSIDE.
--- NOTE | 2022-11-22 09:24 | NUR ---
PT TAKEN TO CT VIA [facility]
--- NOTE | 2022-11-22 09:37 | NUR ---
PT RETURNED FROM CT VIA [facility]
--- NOTE | 2022-11-22 09:47 | NUR ---
[facility] CALLED, SPECTROGRAPHER PAGED.
--- NOTE | 2022-11-22 10:17 | NUR ---
URINE SAMPLE OBTAINED SENT TO LAB
[2022-11-22] MEDS ORDERED: Z GUARD REMEDY 4 OZ OINT TP PRN (10:30)
[2022-11-22] MEDS ORDERED: MAGNESIUM HYDROXIDE 30 ML UDC PO PRN (10:30)
[2022-11-22] MEDS ORDERED: MAG HYDROX/AL HYDROX/SIMETH 30 ML UDC PO PRN (10:30)
[2022-11-22] MEDS ORDERED: ONDANSETRON HCL/PF 4 MG/2 ML VIAL IVP PRN (10:30)
[2022-11-22] MEDS ORDERED: ALPRAZOLAM 0.25 MG TABLET PO PRN (10:30)
[2022-11-22 10:36] LABS: BILIRUBIN,URINE NEGATIVE (NEGATIVE); COLOR,URINE YELLOW (YELLOW); LEUKOCYTE ESTERASE ,URINE NEGATIVE (NEGATIVE); NITRITE, URINE NEGATIVE (NEGATIVE); PROTEIN,URINE NEGATIVE (NEGATIVE); UGLUCOSE NEGATIVE (NEGATIVE); UROBILINOGEN,URINE 0.2 EU/dL (0.2)
[2022-11-22 10:44] LABS: BACTERIA,URINE None seen /HPF (None Seen); SQUAMOUS EPITHELIAL CELL,UR Rare /HPF (None Seen); WBC,URINE 0-2 /HPF (0-3)
--- NOTE | 2022-11-22 11:44 | NUR ---
GOT BED 326-1 ADMITTING INFORMED.
--- NOTE | 2022-11-22 11:51 | NUR ---
REPORT GIVEN TO KING GIMENEZ
--- NOTE | 2022-11-22 12:08 | NUR ---
MOVED TO INPATIENT ROOM SAFELY PER PROTOCOL
--- NOTE | 2022-11-22 12:45 | NUR ---
MS RN NOTE ADMITTED FROM ER TRANSPORTED ON A GURNEY, ACCOMPANIED BY 2 NURSES. TRANSFERRED TO BED AND COMFORT MEASURES PROVIDED. PATIENT IS AWAKE, ALERT AND ORIENTED X 2-3, ABLE TO MAKE NEEDS KNOWN. PATIENT ON ROOM AIR, NO SIGN OF RESPIRATORY DISTRESS. BODY CHECK DONE, NO APPARENT SKIN ISSUE. ABLE TO PROVIDE MINIMAL HISTORY. VERY FORGETFUL. COMFORT MEASURES PROVIDED. ADMISSION INSTRUCTIONS GIVEN AND VERBALIZED UNDERSTANDIGN. IN STABLE CONDITION. WITH IV ACCESS ON THE RIGHT AC G 20, ON SALINE LOCK PATENT AND INTACT. SAFETY MEASURES ENSURED WITH BED ON LOWEST LOCKED POSITION, ALARM ON, SIDERAILS RAISED AND CALL LIGHT WITHIN REACH AT ALL TIMES. IN STABLE CONDITION. WILL CONTINUE WITH PLAN OF CARE.
[2022-11-22 14:00] VITALS: BP 140/83
[2022-11-22] MEDS ORDERED: hydrALAZINE HCL IV 20 MG VIAL IV PRN (14:30)
[2022-11-22] MEDS ORDERED: MELA5TAB PO (15:02)
[2022-11-22] MEDS ORDERED: WARF3TAB59 PO (15:02)
[2022-11-22] MEDS ORDERED: ATOR80TA PO (15:02)
[2022-11-22] MEDS ORDERED: ASPI-1169 PO (15:02)
[2022-11-22] MEDS ORDERED: PANT40TA49 PO (15:02)
[2022-11-22] MEDS ORDERED: QUET25TA PO (15:02)
[2022-11-22] MEDS ORDERED: DULO60CA45 PO (15:02)
--- NOTE | 2022-11-22 15:30 | NUR ---
MS RN NOTE RECONCILED MEDICATIONS. HOSPITALIST FERN NOTIFIED OF ADMISSION AND MEDICATION RECONCILIATION. AWAITING UPDATE FROM DAUGHTER IN LAW REGARDING FACILITY WHERE SHE WAS AT BEFORE TO VERIFY LAST TIME SHE GOT KEPPRA AND HOW MUCH.
[2022-11-22 16:00] VITALS: BP 141/77
[2022-11-22] MEDS: ACETAMINOPHEN 325 MG TABLET PO PRN (16:29)
--- NOTE | 2022-11-22 16:45 | NUR ---
MS RN NOTE MEDICATIONS SURRENDERED TO PHARMACY AND NOTIFIED PHARMACY THAT THOSE ARE THE ONLY MEDICATIONS TAKEN AT HOME AND THAT HOSPITALIST WAS NOTIFIED THAT I HAVE ALREADY ENTERED MED RECON.
--- NOTE | 2022-11-22 18:10 | NUR ---
MS RN NOTE HOSPITALIST NOTIFIED THAT I CALLED 2 [facility] BUT NO RECORD OF PATIENT BEING DISPESED WITH KEPPRA. DAUGHTER IN LAW LEXIE CLAIMED THAT SHE GOT KEPPRA AT [facility] AND AT THE FACILITY FOR SEIZURE BUT WAS NEVER PRESCRIBED WHEN SHE GOT HOME AND WHY IT WAS STOPPED. SHE ALSO CLAIMS THAT PATIENT USUALLY HAVE SEIZURE AND GETS CONFUSED FOR A DAY AND AFTER A DAY WOULD GET BACK TO HER NORMAL SELF. PATIENT REMAINS STABLE. NO EPISODE OF SEIZURE NOTED. WILL CONTINUE TO MONITOR PATIENT.
--- NOTE | 2022-11-22 18:56 | NUR ---
MS RN CLOSING NOTE PATIENT IS AWAKE, ALERT AND ORIENTED X 2-3, ABLE TO MAKE NEEDS KNOWN. PATIENT ON ROOM AIR, NO SIGN OF RESPIRATORY DISTRESS. VERY FORGETFUL. ABLE TO MAKE NEEDS KNOWN. COMFORT MEASURES PROVIDED. WITH IV ACCESS ON THE RIGHT AC G 20, ON SALINE LOCK PATENT AND INTACT. SAFETY MEASURES ENSURED WITH BED ON LOWEST LOCKED POSITION, ALARM ON, SIDERAILS RAISED AND CALL LIGHT WITHIN REACH AT ALL TIMES. IN STABLE CONDITION. WILL ENDORSE TO NEXT SHIFT FOR CONTINUITY OF CARE.
[2022-11-22 20:00] VITALS: BP 130/71
[2022-11-22] MEDS ORDERED: ENOXAPARIN SODIUM 40 MG/0.4 ML DISP.SYRIN SQ SCH (21:00)
[2022-11-23] MEDS: ACETAMINOPHEN 325 MG TABLET PO PRN ×3 (01:04→15:28)
[2022-11-23 06:12] LABS: BASOPHILS # (AUTO) 0.1 K/uL (0.0-0.2); EOSINOPHILS % (AUTO) 4.4 % (0.0-6.0); HEMATOCRIT 32 % (33-45); HEMOGLOBIN 10.5 g/dL (11.5-14.8); LYMPHOCYTES # (AUTO) 2.1 K/uL (0.8-4.8); LYMPHOCYTES % (AUTO) 29.3 % (20.0-44.0); MEAN CORPUSCULAR HGB CONC 32 g/dl (31.0-36.0); MEAN CORPUSCULAR VOLUME 73 fL (82-100); MONOCYTES # (AUTO) 0.6 K/uL (0.1-1.30); MONOCYTES % (AUTO) 8.7 % (2.0-12.0); NEUTROPHILS % (AUTO) 56.6 % (43.0-81.0); PLATELET COUNT (AUTO) 240 K/uL (150-450); RED BLOOD CELL COUNT(AUTO) 4.43 MIL/uL (4.0-5.2); WHITE BLOOD COUNT (AUTO) 7.1 K/uL (4.3-11.0)
--- NOTE | 2022-11-23 06:26 | NUR ---
END OF SHIFT REPORT Patient in bed, Alert Oriented x2. Forgetful, confused at times. Frequent reorientation provided. Oxygen sat high 90's in RA. Ambulatory x1 assist. No BM during the night, patient continent voiding urine without difficulty. IV Right arm intact. Headache improved with Tylenol, denies N/V. Afebrile. No episode of Seizure. Keppra level pending result. Planned for Neuro eval. Fall/ Seizures precaution maintained. Will endorse to oncoming RN.
[2022-11-23 06:29] LABS: CALCIUM, SERUM 8.9 mg/dL (8.5-10.1); MAGNESIUM 2.5 mg/dL (1.8-2.4); PHOSPHORUS 3.5 mg/dL (2.5-4.9); POTASSIUM 3.2 mmol/L (3.5-5.1)
[2022-11-23 06:34] LABS: THYROID STIMULATING HORMONE 1.221 uIU/mL (0.358-3.74)
--- NOTE | 2022-11-23 07:15 | NUR ---
MS RN OPEN NOTE PATIENT IS AWAKE, ALERT AND ORIENTED X 2-3, ABLE TO MAKE NEEDS KNOWN. PATIENT ON ROOM AIR, NO SIGN OF RESPIRATORY DISTRESS. VERY FORGETFUL. ABLE TO MAKE NEEDS KNOWN. COMFORT MEASURES PROVIDED. WITH IV ACCESS ON THE RIGHT AC G 20, ON SALINE LOCK PATENT AND INTACT. SAFETY MEASURES ENSURED WITH BED ON LOWEST LOCKED POSITION, ALARM ON, SIDERAILS RAISED AND CALL LIGHT WITHIN REACH AT ALL TIMES. IN STABLE CONDITION. WILL CONTINUE TO MONITOR.
[2022-11-23 08:00] VITALS: BP 142/86
[2022-11-23] MEDS ORDERED: PANTOPRAZOLE 40 MG VIAL IV SCH (09:00)
[2022-11-23] MEDS ORDERED: PYRIDOXINE HCL 50 MG TABLET PO SCH (09:00)
[2022-11-23] MEDS ORDERED: CYANOCOBALAMIN 500 MCG TABLET PO SCH (09:00)
[2022-11-23] MEDS ORDERED: VIT B CMPLX 3/FA/VIT C/BIOTIN 1 TAB TABLET PO SCH (09:00)
[2022-11-23] MEDS ORDERED: PANTOPRAZOLE 40 MG TABLET.DR PO SCH (10:30)
[2022-11-23] MEDS ORDERED: LORA-258 PO (10:49)
[2022-11-23] MEDS: DULOXETINE HCL 30 MG CAPSULE.DR PO SCH (10:54)
[2022-11-23] MEDS: ASPIRIN 81 MG TAB.CHEW PO SCH (10:54)
[2022-11-23] MEDS ORDERED: LOSA50TA39 PO (10:57)
[2022-11-23] MEDS ORDERED: POTASSIUM CHLORIDE 20 MEQ POWDER PACKET PO ONE (11:00)
[2022-11-23 16:00] VITALS: BP 142/65
[2022-11-23] MEDS: PANTOPRAZOLE 40 MG TABLET.DR PO SCH (16:07)
[2022-11-23] MEDS: WARFARIN SODIUM 1 MG TABLET PO SCH (16:13)
--- NOTE | 2022-11-23 17:02 | NUR ---
RN NOTE PATIENT WA GIVEN TO THE RN TRENT TO CONTINUE WITH PLAN OF CARE FOR DAY SHIFT .REPORT WAS GIVEN VERBALLY AND IN WRITTEN
--- NOTE | 2022-11-23 17:05 | NUR ---
RN NOTE RECEIVED REPORT FROM AMMY GOLDSMITH. PT IS RESTING IN BED, WILL CONTINUE PLAN OF CARE FOR THE REST OF THE SHIFT
[2022-11-23] MEDS ORDERED: KETOROLAC TROMETHAMINE INJ 30 MG/ML VIAL IV PRN (17:30)
--- NOTE | 2022-11-23 18:34 | NUR ---
MS RN CLOSING NOTE PATIENT IS AWAKE, ALERT AND ORIENTED X 2-3, ABLE TO MAKE NEEDS KNOWN. PATIENT ON ROOM AIR, NO SIGN OF RESPIRATORY DISTRESS. GETTING FORGETFUL. ABLE TO MAKE NEEDS KNOWN. COMFORT MEASURES PROVIDED. WITH IV ACCESS ON THE RIGHT AC #20G, SALINE LOCK PATENT AND INTACT, FLUSHING WELL. SAFETY PRECAUTIONS IN PLACE. BED IN LOWEST LOCKED POSITION, HOB ELEVATED, SIDE RAILS UP X3, AND CALL LIGHT AND TABLE WITHIN REACH. ALL NEEDS MET AT THIS TIME. WILL ENDORSE TO ONCOMING NURSE FOR ALIN.
--- NOTE | 2022-11-23 19:20 | NUR ---
MS RN NOTES RECEIVED ON SITTING POSITION ON BED,A/O X2-3,WITH EPISODE OF CONFUSION,ABLE TO VERBALIZED NEEDS,WITH KNOWN HX OF SEIZURE,SIDE RAILS PADDED FOR SAFETY.BED ALARM TRIGGERED,ASSIST WITH ADL'S.WITH SALINE LOCK RIGHT AC INTACT AND PATENT.CALL LIGHT IN REACH,NEEDS ANTICIPATED.
[2022-11-23 20:00] VITALS: BP 141/77
--- NOTE | 2022-11-23 20:10 | NUR ---
MS RN NOTES AMBULATE WITH WALKER INSIDE THE ROOM,COMMENTED 'IM HAVING PANIC ATTACK', NOTED HAVING SLIGHT TREMORS OF HER HANDS AND UNSTEADY GAIT,EVEN WITH WALKER.
[2022-11-23] MEDS: ALPRAZOLAM 0.25 MG TABLET PO PRN (20:27)
--- NOTE | 2022-11-23 20:27 | NUR ---
MS RN NOTES MEDICATED WITH XANAX 0.25MG,1 TAB PO ORDERED FOR ANXIETY/PANIC ATTACK.VITAL SIGNS STABLE.WILL CONTINUE TO MONITOR .
[2022-11-23] MEDS: ATORVASTATIN 40 MG TABLET PO SCH (21:32)
--- NOTE | 2022-11-24 02:00 | NUR ---
MS RN NOTES SOUND ASLEEP,KEPT WARM AND COMFORTABLE.
[2022-11-24 06:11] LABS: BASOPHILS # (AUTO) 0.1 K/uL (0.0-0.2); BASOPHILS % (AUTO) 1.1 % (0.0-2.0); HEMATOCRIT 30 % (33-45); HEMOGLOBIN 9.6 g/dL (11.5-14.8); LYMPHOCYTES # (AUTO) 2.1 K/uL (0.8-4.8); LYMPHOCYTES % (AUTO) 35.8 % (20.0-44.0); MEAN CORPUSCULAR HGB CONC 33 g/dl (31.0-36.0); MEAN CORPUSCULAR VOLUME 73 fL (82-100); MONOCYTES # (AUTO) 0.5 K/uL (0.1-1.30); MONOCYTES % (AUTO) 8.8 % (2.0-12.0); NEUTROPHILS # (AUTO) 2.8 K/uL (1.8-8.9); NEUTROPHILS % (AUTO) 47.3 % (43.0-81.0); PLATELET COUNT (AUTO) 213 K/uL (150-450); RED BLOOD CELL COUNT(AUTO) 4.06 MIL/uL (4.0-5.2); WHITE BLOOD COUNT (AUTO) 5.9 K/uL (4.3-11.0)
--- NOTE | 2022-11-24 06:39 | NUR ---
MS RN NOTES FORGETFUL,COMMENTED ' I DID NOT SLEEP '.AWAKE,ALERT,CONFUSED AT TIMES.ASSISTED TO THE BATHROOM X2,MED COMPLIANT.NO FALL,NO INJURY,IN NO ACUTE DISTRESS.
[2022-11-24 06:42] LABS: CARBON DIOXIDE 25 mmol/L (21-32); CHLORIDE 103 mmol/L (98-107); GLUCOSE 99 mg/dL (74-106); MAGNESIUM 2.4 mg/dL (1.8-2.4); PHOSPHORUS 3.4 mg/dL (2.5-4.9); POTASSIUM 3.5 mmol/L (3.5-5.1); SODIUM SERUM 139 mmol/L (136-145); UREA NITROGEN, BLOOD 24 mg/dL (7-18)
[2022-11-24 07:00] VITALS: BP 139/89
--- NOTE | 2022-11-24 07:07 | NUR ---
BAKER PIE OPENING NOTES RECEIVED PATIENT AWAKE, A/Ox2-3, EPISODE OF CONFUSION. HE IS ON RA, NO SOB NOTED. IV ACCESS RIGHT AC #20 S/L. INTACT AND PATENT. AMBULATE WITH ASSISTANCE AND WALKER HAS BRP. SKIN INTACT. NO PAIN OR DISCOMFORT NOTED. SAFETY MEASURES IN PLACE: BED IS LOCK IN LOWEST POSITION, SIDE RAILS X2, CALL LIGHT IN REACH AND HOB ELEVATED. WILL CONTINUE TO MONITOR.
[2022-11-24] MEDS: ASPIRIN 81 MG TAB.CHEW PO SCH (08:44)
[2022-11-24] MEDS: PANTOPRAZOLE 40 MG TABLET.DR PO SCH ×2 (08:44→16:27)
[2022-11-24] MEDS: DULOXETINE HCL 30 MG CAPSULE.DR PO SCH (08:44)
[2022-11-24] MEDS: ALPRAZOLAM 0.25 MG TABLET PO PRN (08:47)
--- NOTE | 2022-11-24 08:57 | NUR ---
RESIDENT ADVISOR NOTE PATIENT NOTED ANXIOUS REQUESTED MEDICATION PRN XANAX ADMINISTERED. WILL CONTINUE TO MONITOR.
[2022-11-24] MEDS ORDERED: KETOROLAC TROMETHAMINE INJ 30 MG/ML VIAL IV ONE (11:30)
[2022-11-24] MEDS ORDERED: IV NS 0.9% 1,000 ML IV ONE (11:30)
[2022-11-24 12:25] VITALS: BP_SYST 145; BP_SYST 154; BP_SYST 159; BP_DIAS 78; BP_DIAS 79; BP_DIAS 89
--- NOTE | 2022-11-24 12:26 | NUR ---
RN NOTES PATIENT COMPLAINED OF PAIN 8/10 OF BACK. PRN TORADOL ADMINISTERED. WILL CONTINUE TO MONITOR. ORTHOSTATIC BP TAKEN, SUPINE: 159/78 HR 88, SITTING 154/79 HR 94, STANDING 145/89 HR 113. PATIENT COMPLAINED OF DIZZINESS ONCE SITTING UP. WILL CONTINUE TO MONITOR.
[2022-11-24 16:00] VITALS: BP 152/58
[2022-11-24] MEDS: WARFARIN SODIUM 1 MG TABLET PO SCH (16:26)
--- NOTE | 2022-11-24 18:49 | NUR ---
IRON HANDLER CLOSING NOTES PATIENT AWAKE, A/Ox2-3, EPISODE OF CONFUSION. STABLE ON RA, NO SOB NOTED. IV ACCESS LEFT FA #22G S/L. INTACT AND PATENT. AMBULATE WITH ASSISTANCE AND WALKER HAS BRP. SKIN INTACT. NO PAIN OR DISCOMFORT NOTED. SAFETY MEASURES MAINTAIN: BED IS LOCK IN LOWEST POSITION, SIDE RAILS X2, CALL LIGHT IN REACH AND HOB ELEVATED. WILL ENDORSE TO NEXT SHIFT ANY ALIN
--- NOTE | 2022-11-24 19:00 | NUR ---
RN OPENING NOTE RECEIVED PT AWAKE IN BED. PT IS A/OX 2-3, TELUGU & ECUADOREAN SPEAKING, ABLE TO MAKE NEEDS KNOWN. PT IV IS PRESENT ON LFA #22G SALINE LOCK SALINE LOCK, PATENT, INTACT AND FLUSHES WELL W/ NO S&SX OF INFILTRATION @ SITE NOTED. PT IS ON RA TOLERATING WELL, BREATHING AND UNLABORED @ THIS TIME. PT IS ON AMBULATORY, BRP W/ WALKER, ON STANDBY ASSIST. SAFETY MEASURES IS IN PLACE. BED AT ITS LOWEST AND LOCKED POSITION. SIDE RAILS UP X 3. BEDSIDE TABLE AND CALL LIGHT IS WITHIN REACH. BED ALARM IS ON. WILL CONTINUE TO MONITOR PT ACCORDINGLY.
[2022-11-24 20:00] VITALS: BP 159/77
[2022-11-24] MEDS ORDERED: TEMAZEPAM 15 MG CAPSULE PO PRN (21:30)
--- NOTE | 2022-11-24 22:00 | NUR ---
PT REQUESTED FOR SLEEP MEDICATION. PT STATED SHE HAD NOT SLEEP FOR 2-3 DAYS. MESSAGE ELIZABETH SHERMAN NP OF THE PT REQUEST AND KNOWN ALLERGY. PHARMACY DELIVERY DRIVER LANE ORDERED RESTORIL 15MG QHS PRN. CHARGED NURSE INFORMED AND NOTIFIED.
[2022-11-24] MEDS: ATORVASTATIN 40 MG TABLET PO SCH (22:06)
[2022-11-25 05:56] LABS: BASOPHILS # (AUTO) 0.1 K/uL (0.0-0.2); BASOPHILS % (AUTO) 1.1 % (0.0-2.0); EOSINOPHILS % (AUTO) 7.2 % (0.0-6.0); HEMATOCRIT 31 % (33-45); HEMOGLOBIN 9.7 g/dL (11.5-14.8); LYMPHOCYTES # (AUTO) 1.6 K/uL (0.8-4.8); LYMPHOCYTES % (AUTO) 28.7 % (20.0-44.0); MEAN CORPUSCULAR HGB CONC 32 g/dl (31.0-36.0); MEAN CORPUSCULAR VOLUME 74 fL (82-100); MONOCYTES # (AUTO) 0.4 K/uL (0.1-1.30); MONOCYTES % (AUTO) 7.6 % (2.0-12.0); NEUTROPHILS % (AUTO) 55.4 % (43.0-81.0); PLATELET COUNT (AUTO) 208 K/uL (150-450); RED BLOOD CELL COUNT(AUTO) 4.13 MIL/uL (4.0-5.2); WHITE BLOOD COUNT (AUTO) 5.4 K/uL (4.3-11.0)
[2022-11-25 06:22] LABS: CARBON DIOXIDE 24 mmol/L (21-32); CHLORIDE 106 mmol/L (98-107); GLUCOSE 98 mg/dL (74-106); POTASSIUM 3.8 mmol/L (3.5-5.1); SODIUM SERUM 140 mmol/L (136-145)
[2022-11-25 06:23] LABS: MAGNESIUM 2.4 mg/dL (1.8-2.4); PHOSPHORUS 4.1 mg/dL (2.5-4.9); UREA NITROGEN, BLOOD 23 mg/dL (7-18)
--- NOTE | 2022-11-25 06:37 | NUR ---
RN CLOSING NOTE PT ASLEEP, RESTING COMFORTABLY IN BED. A/O X 2-3, RESPONSIVE AND FOLLOWS VERBAL COMMAND. PT IS IN RA, W/ NO S&SX RESPIRATORY DISTRESS NOTED @ THIS TIME. PT IV PRESENT ON LFA #22G SALINE LOCK, PATENT, INTACT AND FLUSHES WELL W/ NO S & SX OF INFILTRATION. PT CAN WALK INDEPENDENTLY TO THE BATHROOM WITH MINIMAL ASSIST. ADMINISTERED MEDICATION ACCORDINGLY PER MD'S ORDER. SAFETY MEASURES IS IN PLACE. BED AT ITS LOWEST AND LOCKED POSITION. SIDE RAILS UP X 2. BEDSIDE TABLE AND CALL LIGHT IS EASY REACH. BED ALARM IS ON. WILL ENDORSE PT TO THE NEXT SHIFT FOR CONTINUITY OF CARE.
[2022-11-25 07:00] VITALS: BP 157/86
--- NOTE | 2022-11-25 07:16 | NUR ---
MS GIMENEZ CLOSING NOTE RECEIVED PATIENT ASLEEP IN BED, AOX3, CALM, COOPERATIVE. ABLE TO FOLLOW COMMANDS AND ABLE TO MAKE NEEDS KNOWN. ON ROOM AIR, WITH NO ACUTE RESPIRATORY DISTRESS NOTED. IV ACCESS ON LFA G#22 SALINE LOCKED, PATENT, INTACT AND FLUSHING WELL. DENIED PAIN NOR DISCOMFORT. SHE SAID SHE JUST WANT TO SLEEP FOR NOW BECAUSE SHE HASNT SLEPT FOR 2 DAYS. SAFETY MEASURES IN PLACE: BED AT ITS LOWEST AND LOCKED POSITION, SIDE RAILS UP X 2, BED ALARM ON, TRAY TABLE AND CALL LIGHT WITHIN EASY REACH. WILL CONTINUE PLAN OF CARE. Addendum: 11/25/22 at 1024 by MILAGRO WOODS RN ERRATUM: MS GIMENEZ OPENING NOTE
[2022-11-25] MEDS: ASPIRIN 81 MG TAB.CHEW PO SCH (09:05)
[2022-11-25] MEDS: DULOXETINE HCL 30 MG CAPSULE.DR PO SCH (09:05)
[2022-11-25] MEDS: PANTOPRAZOLE 40 MG TABLET.DR PO SCH (09:05)
--- NOTE | 2022-11-25 14:55 | NUR ---
MS GAUGE INSPECTOR NOTE PT DISCHARGED TO HOME WITH HOME HEALTH TO FOLLOW IN STABLE CONDITION, AOX4, CALM, COOPERATIVE, ABLE TO MAKE NEEDS KNOWN. PATIENT ON ROOM AIR BREATHING WITHOUT ANY DIFFICULTY. NO SOB NOTED, NOT IN ANY FORM OF ACUTE DISTRESS. VITAL SIGNS TAKEN, STABLE AND RECORDED. PT'S SKIN IS INTACT. DENIED PAIN NOR DISCOMFORT AT THIS TIME. ALL BELONGINGS ACCOUNTED FOR INCLUDING HOME MEDICATIONS. FORM SIGNED BY LEXIE, DAUGHTER IN LAW. DISCHARGE INSTRUCTIONS GIVEN TO LEXIE AND PATIENT. IV ACCESS ON LEFT ARM REMOVED AND PRESSURE GAUZE APPLIED WITHOUT ANY BLEEDING NOTED. PT LEFT THE UNIT AT 1445 VIA WHEELCHAIR ACCOMPANIED BY NICOLE HAMMOND AND LEXIE TO THE LOBBY. MD AND CHARGE NURSE AWARE OF THE DISCHARGE.
== END 2022-11-25 14:50 | disposition home health service (06) | DRG 100 ==
LOC: ER 08:01 → MED 12:03
PROVIDERS: ADMIT Registered Nurse; ATTEND Nurse Practitioner Acute Care
DX: R56.9 Unspecified convulsions (principal); G93.41 Metabolic encephalopathy; N17.0 Acute kidney failure with tubular necrosis; E86.0 Dehydration; Z20.822 Contact with and (suspected) exposure to COVID-19; Z86.73 Personal history of transient ischemic attack (TIA), and cerebral infarction without residual deficits; I10 Essential (primary) hypertension; I25.2 Old myocardial infarction; Z86.711 Personal history of pulmonary embolism; E78.5 Hyperlipidemia, unspecified; D63.8 Anemia in other chronic diseases classified elsewhere; I27.20 Pulmonary hypertension, unspecified; M32.9 Systemic lupus erythematosus, unspecified; F41.9 Anxiety disorder, unspecified; D69.6 Thrombocytopenia, unspecified; Z79.01 Long term (current) use of anticoagulants; Z79.899 Other long term (current) drug therapy; F32.A Depression, unspecified; E87.6 Hypokalemia; I25.10 Atherosclerotic heart disease of native coronary artery without angina pectoris
CPT/HCPCS: 36415; 70450-TC; 71045-TC; 80048-TC; 80076-TC; 80177; 81001; 82140-TC; 82962-TC; 83735-TC; 84100-TC; 84443-TC; 85025-TC; 85610-TC; 85730-TC; 87081-TC; 87086-TC; 92526; 92611-TC; 97112-TC; 97116-TC; 97530-TC; C9113; C9803; G0378; G0480; J1885; J2060; J7030

== ENCOUNTER 2023-01-26 17:54 | Inpatient (IN) | payer MEDICARE, OTHER ==
[~2023-01-26] VITALS: Ht 167.6 cm; Wt 62.6 kg
[~2023-01-26 17:54] MED LIST changes: -ALPR0.25 PO; +ASPI-1169 PO; +ATOR80TA PO; -CYAN500T64 PO; +DULO60CA45 PO; -ENOX40DI SQ; -FOLI1CAP7 PO; -LEVE500T9 PO; +LORA-258 PO; +MELA5TAB PO; +PANT40TA49 PO; -PYRI-9 PO; +QUET25TA PO; +WARF3TAB59 PO
--- NOTE | 2023-01-26 19:13 | NUR ---
PT PTC WHILE WALIKING WITH HER WALKER FELL HITTNG HIS FACE AND KNEE. NO LOC NOTED
--- NOTE | 2023-01-26 19:15 | NUR ---
PT IS AOX4
--- NOTE | 2023-01-26 19:19 | NUR ---
DR. BLANTON AT BEDSIDE FOR EVAL
--- NOTE | 2023-01-26 19:19 | NUR ---
PT GAVE REPORT TO AMMY POOL FOR ALIN
[2023-01-26] MEDS ORDERED: ACETAMINOPHEN ES 500 MG TABLET PO ONE (19:30)
[2023-01-26 19:51] LABS: BASOPHILS # (AUTO) 0.1 K/uL (0.0-0.2); BASOPHILS % (AUTO) 1.3 % (0.0-2.0); HEMATOCRIT 31 % (33-45); HEMOGLOBIN 9.8 g/dL (11.5-14.8); LYMPHOCYTES # (AUTO) 1.6 K/uL (0.8-4.8); LYMPHOCYTES % (AUTO) 18.1 % (20.0-44.0); MEAN CORPUSCULAR HGB CONC 32 g/dl (31.0-36.0); MEAN CORPUSCULAR VOLUME 70 fL (82-100); MONOCYTES # (AUTO) 0.7 K/uL (0.1-1.30); MONOCYTES % (AUTO) 7.8 % (2.0-12.0); NEUTROPHILS % (AUTO) 68.8 % (43.0-81.0); PLATELET COUNT (AUTO) 224 K/uL (150-450); RED BLOOD CELL COUNT(AUTO) 4.39 MIL/uL (4.0-5.2); WHITE BLOOD COUNT (AUTO) 8.8 K/uL (4.3-11.0)
[2023-01-26 20:01] LABS: CALCIUM, SERUM 9.2 mg/dL (8.5-10.1); CARBON DIOXIDE 22 mmol/L (21-32); CHLORIDE 96 mmol/L (98-107); CREATININE 1.1 mg/dL (0.6-1.3); GLUCOSE 93 mg/dL (74-106); POTASSIUM 4.1 mmol/L (3.5-5.1); SODIUM SERUM 129 mmol/L (136-145); UREA NITROGEN, BLOOD 22 mg/dL (7-18)
[2023-01-26 20:06] LABS: ALANINE AMINOTRANSFERASE 22 U/L (12-78); ALBUMIN 3.6 g/dL (3.4-5.0); ALKALINE PHOSPHATASE 95 U/L (46-116); ASPARTATE AMINOTRANSFERASE 12 U/L (15-37); BILIRUBIN,DIRECT 0.1 mg/dL (0.0-0.2); BILIRUBIN,TOTAL 0.4 mg/dL (0.2-1.0); TOTAL PROTEIN, SERUM 7.1 g/dL (6.4-8.2)
[2023-01-26] MEDS ORDERED: ACETAMINOPHEN ES 500 MG TABLET ONE (20:37)
[2023-01-26] MEDS ORDERED: LIDOCAINE 1%-EPI 1:100,000 20 ML VIAL TP ONE (21:30)
[2023-01-26] MEDS ORDERED: LORAZEPAM 1 MG TABLET PO ONE (21:30)
[2023-01-26] MEDS ORDERED: LIDOCAINE 1%-EPI 1:100,000 20 ML VIAL ONE (21:32)
[2023-01-26] MEDS ORDERED: LORAZEPAM 0.5 MG TABLET ONE (21:53)
[2023-01-26] MEDS ORDERED: ONDANSETRON HCL/PF 4 MG/2 ML VIAL IVP PRN (23:00)
[2023-01-26] MEDS ORDERED: MAG HYDROX/AL HYDROX/SIMETH 30 ML UDC PO PRN (23:00)
[2023-01-26] MEDS ORDERED: MAGNESIUM HYDROXIDE 30 ML UDC PO PRN (23:00)
[2023-01-26] MEDS ORDERED: Z GUARD REMEDY 4 OZ OINT TP PRN (23:00)
--- NOTE | 2023-01-26 23:53 | NUR ---
REPORT GIVEN TO NABIL GIMENEZ
--- NOTE | 2023-01-27 00:10 | NUR ---
PATIENT TRANSFERRED TO [facility]- TELE VIA ACLS PROTOCOL
[2023-01-27 00:15] VITALS: BP 143/57
[2023-01-27] MEDS: HYDROCODONE/APAP 5/325MG TABLET PO PRN ×2 (01:35→23:49)
--- NOTE | 2023-01-27 02:16 | NUR ---
PHARMACEUTICAL LABORATORY TECHNICIAN NOTES ADMITTED AT 77 YEAR OLD FEMALE UNDER THER SERVICE OF WITH S/P FALL AND WITH ADMITTING DIAGNOSIS OF CHEST PAIN POSSIBLE ACS. ON ROOM AIR SATURATING WELL NO SIGNS OF SOB/ NOTED AT THIS TIME. CAME IN VIA GURNEY, UNABLE TO AMBULATE MAINTAINED ON BED REST. TRANSFERRED PATIENT TO BED SAFELY AND SECURE. WITH IV ACCESS AT LEFT HAND #22G PATENT AND INTACT. SKIN ASSESSMENT DONE NOTED WOUND AT FOREHEAD AND UPPER LIP. PICTURE TAKEN AND RECORDED. ON CARDIAC DIET ABLE TO SWALLOW WITH NO ASPIRATION NOTED. HISTORY TAKEN AND RECORDED, PHYSICAL ASSESSMENT DONE. INFORMED ATTENDING PHYSICIAN REGARDING ADMISSION, ALL ADMISSION ORDERS MADE AND CARRIED OUT. ORIENTATION TO THE UNIT DONE. KEPT PATIENT WARM AND COMFORTABLE. KEPT BED ON LOWER LOCKED POSITION. PUT PATIENT TO PUREWICK CONNECTED TO SUCTION MACHINE. KEPT CALL LIGHT WITHIN AT REACH. WILL CONTINUE TO MONITOR.
[2023-01-27 04:00] VITALS: BP 129/68
[2023-01-27] MEDS: ACETAMINOPHEN 325 MG TABLET PO PRN (04:39)
--- NOTE | 2023-01-27 06:37 | NUR ---
FACILITIES ENGINEERING MANAGER CLOSING NOTES PATIENT IS IN BED, A/O X 4 BULGARIAN SPEAKING ON ROOM AIR SATURATING WELL NO COMPLAIN OF /SOB NOTED AT THIS TIME. WITH IV ACCESS AT LEFT HAND #22G PATENT AND INTACT. NO SWELLING OR INFILTRATION NOTED AT THIS TIME. ON BEDREST FOR NOW. HOOKED TO PUREWICK CONNECTED TO URINE BAG WITH NOTED URINE. PM CARE RENDERED, ALL DUE MEDICATIONS GIVEN, ALL NEED ATTENDED.FOR PT EVALUATION THIS AM, FOR CARDIO AND NEPHRO CONSULTS THIS AM SHIFT, KEPT BED ON LOWER LOCKED POSITION , KEPT SIDE RAILS UP X 2 ALL THE TIME, KEPT CALL LIGHT WITHIN AT REACH. KEPT PATIENT WARM AND COMFORTABLE AT ALL TIMES. WILL ENDORSED TO NEXT SHIFT FOR ALIN.
[2023-01-27 07:00] VITALS: BP 135/69
[2023-01-27 07:11] LABS: BASOPHILS # (AUTO) 0.1 K/uL (0.0-0.2); BASOPHILS % (AUTO) 1.3 % (0.0-2.0); EOSINOPHILS % (AUTO) 7.3 % (0.0-6.0); HEMATOCRIT 30 % (33-45); HEMOGLOBIN 9.7 g/dL (11.5-14.8); LYMPHOCYTES # (AUTO) 1.6 K/uL (0.8-4.8); LYMPHOCYTES % (AUTO) 29.9 % (20.0-44.0); MEAN CORPUSCULAR HGB CONC 32 g/dl (31.0-36.0); MEAN CORPUSCULAR VOLUME 69 fL (82-100); MONOCYTES # (AUTO) 0.5 K/uL (0.1-1.30); MONOCYTES % (AUTO) 9.2 % (2.0-12.0); NEUTROPHILS # (AUTO) 2.8 K/uL (1.8-8.9); NEUTROPHILS % (AUTO) 52.3 % (43.0-81.0); PLATELET COUNT (AUTO) 201 K/uL (150-450); RED BLOOD CELL COUNT(AUTO) 4.36 MIL/uL (4.0-5.2); WHITE BLOOD COUNT (AUTO) 5.4 K/uL (4.3-11.0)
[2023-01-27] MEDS: PANTOPRAZOLE 40 MG TABLET.DR PO SCH (07:30)
--- NOTE | 2023-01-27 08:00 | NUR ---
ceiling insulation blower Note Troponin result received from MD winter made aware, no new orders as of yet, pt will be seen by head grinder, .
[2023-01-27 08:11] LABS: CALCIUM, SERUM 9.3 mg/dL (8.5-10.1); MAGNESIUM 2.2 mg/dL (1.8-2.4); PHOSPHORUS 4.2 mg/dL (2.5-4.9); POTASSIUM 3.4 mmol/L (3.5-5.1)
[2023-01-27] MEDS ORDERED: LOSA50TA39 PO (08:58)
[2023-01-27] MEDS ORDERED: POTASSIUM CHLORIDE 20 MEQ POWDER PACKET PO ONE ×2 (09:00→17:00)
[2023-01-27 12:00] VITALS: BP 109/62
[2023-01-27 15:26] LABS: BILIRUBIN,URINE NEGATIVE (NEGATIVE); COLOR,URINE YELLOW (YELLOW); LEUKOCYTE ESTERASE ,URINE NEGATIVE (NEGATIVE); NITRITE, URINE NEGATIVE (NEGATIVE); PH,URINE 6.5 (5.0-8.0); PROTEIN,URINE NEGATIVE (NEGATIVE); UGLUCOSE NEGATIVE (NEGATIVE); UROBILINOGEN,URINE 0.2 EU/dL (0.2)
[2023-01-27 16:00] VITALS: BP 123/67
[2023-01-27] MEDS: IV NS 0.9% 1,000 ML IV PRN (17:34)
[2023-01-27] MEDS: ALPRAZOLAM 0.25 MG TABLET PO PRN (17:34)
--- NOTE | 2023-01-27 19:30 | NUR ---
LAYER OUT PLATE GLASS OPENING NOTE RECEIVED PATIENT IN BED, AWAKE, ALERT AND ORIENTED X3. ABLE TO MAKE NEEDS KNOWN. AFEBRILE AND NOT IN ANY FORM OF ACUTE DISTRESS. BREATHING EVEN AND NON LABORED. WITH NECK IMMOBILIZER. WITH IV ACCESS ON L HAND 22G-SL. ON TELE MONITORING WITH CURRENT READING OF SR. SAFETY MEASURES IN PLACE. KEPT BED IN LOCKED AND IN LOW POSITION. SIDE RAILS UP X2. ADVISED TO USE THE CALL LIGHT WHEN IN NEED OF ASSISTANCE.
[2023-01-27 20:11] VITALS: BP 124/75
[2023-01-27] MEDS: TEMAZEPAM 15 MG CAPSULE PO PRN (21:17)
[2023-01-28] VITALS: BP 135/65
[2023-01-28 04:19] VITALS: BP 130/77
[2023-01-28] MEDS: IV NS 0.9% 1,000 ML IV PRN ×2 (06:03→19:03)
--- NOTE | 2023-01-28 06:30 | NUR ---
CYBER ANALYST CLOSING NOTE PATIENT IN BED, ASLEEP BUT EASY TO AROUSE AND RESPONSIVE. ABLE TO MAKE NEEDS KNOWN. AFEBRILE AND NOT IN ANY FORM OF ACUTE DISTRESS. BREATHING EVEN AND NON LABORED. WITH NECK IMMOBILIZER. WITH IV ACCESS ON L HAND 22G RUNNING WITH NS AT 75ML/HR. ON TELE MONITORING WITH CURRENT READING OF SR 89. MEDICATED ORDERED. SAFETY MEASURES IN PLACE. KEPT BED IN LOCKED AND IN LOW POSITION. SIDE RAILS UP X2. ADVISED TO USE THE CALL LIGHT WHEN IN NEED OF ASSISTANCE. ALL NURSING NEEDS ATTENDED. ENDORSED TO INCOMING SHIFT FOR CONTINUITY OF CARE.
[2023-01-28] MEDS: ACETAMINOPHEN 325 MG TABLET PO PRN (07:08)
[2023-01-28 07:30] LABS: BASOPHILS # (AUTO) 0.1 K/uL (0.0-0.2); BASOPHILS % (AUTO) 1.4 % (0.0-2.0); EOSINOPHILS % (AUTO) 7.3 % (0.0-6.0); HEMATOCRIT 32 % (33-45); LYMPHOCYTES # (AUTO) 1.5 K/uL (0.8-4.8); LYMPHOCYTES % (AUTO) 33.6 % (20.0-44.0); MEAN CORPUSCULAR HGB CONC 32 g/dl (31.0-36.0); MEAN CORPUSCULAR VOLUME 71 fL (82-100); MONOCYTES # (AUTO) 0.4 K/uL (0.1-1.30); MONOCYTES % (AUTO) 10.1 % (2.0-12.0); NEUTROPHILS # (AUTO) 2.1 K/uL (1.8-8.9); NEUTROPHILS % (AUTO) 47.6 % (43.0-81.0); PLATELET COUNT (AUTO) 200 K/uL (150-450); RED BLOOD CELL COUNT(AUTO) 4.47 MIL/uL (4.0-5.2); WHITE BLOOD COUNT (AUTO) 4.4 K/uL (4.3-11.0)
--- NOTE | 2023-01-28 07:30 | NUR ---
DIRECTOR INDEX OPENING NOTES RECEIVED PATIENT IN BED, ALERT/ORIENTED X3, AWAKE, EASY TO AROUSE AND RESPONSIVE. ABLE TO MAKE NEEDS KNOWN. AFEBRILE AND NOT IN ANY FORM OF ACUTE DISTRESS. BREATHING EVEN AND NON LABORED, STABLE ON ROOM AIR. WITH NECK IMMOBILIZER. WITH IV ACCESS ON L HAND 22G RUNNING WITH NS AT 75ML/HR. ON TELE MONITORING WITH CURRENT READING OF SR 98. WILL ADMINISTER ALL MEDS ORDERED. SAFETY MEASURES IN PLACE. KEPT BED IN LOCKED AND IN LOW POSITION. SIDE RAILS UP X2. ADVISED TO USE THE CALL LIGHT WHEN IN NEED OF ASSISTANCE. ALL NURSING NEEDS ATTENDED. WILL CONTINE TO MONITOR.
[2023-01-28 07:42] LABS: ALBUMIN 3.2 g/dL (3.4-5.0); BILIRUBIN,TOTAL 0.3 mg/dL (0.2-1.0); CALCIUM, SERUM 9.1 mg/dL (8.5-10.1); CREATININE 0.9 mg/dL (0.6-1.3); MAGNESIUM 2.5 mg/dL (1.8-2.4); POTASSIUM 3.8 mmol/L (3.5-5.1); TOTAL PROTEIN, SERUM 6.8 g/dL (6.4-8.2)
[2023-01-28 07:59] LABS: THYROID STIMULATING HORMONE 1.862 uIU/mL (0.358-3.74)
[2023-01-28 08:00] VITALS: BP 138/74
[2023-01-28] MEDS: PANTOPRAZOLE 40 MG TABLET.DR PO SCH (08:12)
[2023-01-28] MEDS: ALPRAZOLAM 0.25 MG TABLET PO PRN (09:29)
[2023-01-28] MEDS ORDERED: METOPROLOL TARTRATE INJ 5 MG/5 ML AMPUL IVP PRN (10:30)
[2023-01-28 10:39] LABS: EOSINOPHILS % (MANUAL) 3 % (0-4); LYMPHOCYTES % (MANUAL) 33 % (16-48); METAMYELOCYTES % 1 % (0-0); MONOCYTES % (MANUAL) 6 % (0-11.0); NEUTROPHILS % (MANUAL) 57 (42-76)
[2023-01-28 12:00] VITALS: BP 138/72
[2023-01-28 16:00] VITALS: BP 122/65
[2023-01-28] MEDS: HYDROCODONE/APAP 5/325MG TABLET PO PRN (16:33)
[2023-01-28] MEDS: WARFARIN SODIUM 1 MG TABLET PO SCH (16:33)
--- NOTE | 2023-01-28 19:43 | NUR ---
COMMUNICATIONS TECHNOLOGIST CLOSING NOTES PATIENT RESTING IN BED, ALERT/ORIENTED X3, AWAKE, EASY TO AROUSE AND RESPONSIVE. ABLE TO MAKE NEEDS KNOWN. AFEBRILE AND NOT IN ANY FORM OF ACUTE DISTRESS. BREATHING EVEN AND NON LABORED, STABLE ON ROOM AIR. WITH NECK IMMOBILIZER. WITH IV ACCESS ON L HAND 22G RUNNING WITH NS AT 75ML/HR. ON TELE MONITORING WITH CURRENT READING OF SR 93. ALL MEDS GIVEN ORDERED. SAFETY MEASURES IN PLACE. KEPT BED IN LOCKED AND IN LOW POSITION. SIDE RAILS UP X2. ADVISED TO USE THE CALL LIGHT WHEN IN NEED OF ASSISTANCE. ALL NURSING NEEDS ATTENDED. WILL CONTINUE TO MONITOR.
[2023-01-28 20:00] VITALS: BP 136/62
--- NOTE | 2023-01-28 20:51 | NUR ---
COOPERAGE SHOP SUPERVISOR OPENING NOTES RECEIVED PT AWAKE IN BED, ALERT/ORIENTED X3, AWAKE, EASY TO AROUSE AND RESPONSIVE. ABLE TO MAKE NEEDS KNOWN. ON RA, BREATHING EVEN AND NON-LABORED. AFEBRILE AND NOT IN ANY FORM OF ACUTE DISTRESS. WITH NECK IMMOBILIZER. WITH IV ACCESS RAC #20G SL, AND L HAND #22G RUNNING WITH NS AT 75ML/HR, BOTH PATENT, INTACT, FLUSHING WELL. ON LIGHT TECHNICIAN READING OF SR 99. SAFETY MEASURES IN PLACE: BED LOCKED AND IN LOW POSITION, SIDE RAILS UP X3, CALL LIGHT AND TRAY TABLE WITHIN REACH. WILL CONTINUE TO MONITOR AND ASSIST.
[2023-01-28] MEDS: TEMAZEPAM 15 MG CAPSULE PO PRN (21:12)
[2023-01-28] MEDS: QUETIAPINE FUMARATE 25 MG TABLET PO SCH (21:12)
[2023-01-28] MEDS: ATORVASTATIN 40 MG TABLET PO SCH (21:12)
--- NOTE | 2023-01-28 21:15 | NUR ---
RN NOTE: PT C/O OF ANXIETY AND REQUESTING SLEEP MEDICATION. PT VITALS WNL AND REHABILITATION AIDE/SCHEDULER SHOWING SINUS RHYTHM. ADMINISTERED RESTORIL ORDERED.
[2023-01-28] MEDS: NITROGLYCERIN 0.4 MG/TAB BOTTLE SL PRN ×3 (21:54→22:12)
--- NOTE | 2023-01-28 23:07 | NUR ---
RN NOTE: PT C/O CHEST PAIN 10/10 AND SOB, INITIALLY STATED PANIC ATTACK. CLARIFIED WITH PATIENT HOW IT FELT, PT UNABLE TO EXPLAIN CHARACTERISTICS OF PAIN BUT STATED IT IS MORE OF CHEST PAIN THAN ANXIETY. SKIN DRY, AFEBRILE, NOT DIAPHORETIC. PROVIDED O2 2L VIA NC FOR SOB, PT STATED RELIEF. ADMINISTERED NITROGLYCERIN ORDERED FOR CHEST PAIN, PT VERBALIZED RELIEF AFTER FIRST DOSE, PAIN LEVEL ASSESSED AT 8/10. GIVEN NITROGLYCERIN TWO MORE TIMES, PAIN LEVEL STILL AT 8/10. TROPONIN LEVELS ORDERED, LAB REPORTED VALUE OF 75 (PREVIOUS WAS 103). NOTIFIED DRILL OPERATOR PNEUMATIC MADDISON GUILLORY, ORDERED EKG, AND TO MONITOR AND CONTINUE PAIN MANAGEMENT.
[2023-01-29] VITALS (7 sets, daily range): BP systolic 108–182; BP diastolic 64–81
[2023-01-29] MEDS ORDERED: MORPHINE SULFATE INJ 2 MG/ML DISP.SYRIN IV PRN (00:10)
--- NOTE | 2023-01-29 00:10 | NUR ---
RN NOTE: EKG RESULTS SHOWN TO PRESS WASHER MADDISON GUILLORY PER REQUEST, ORDERED FOLLOW UP TROPONIN IN THE MORNING AND MORPHINE 2MG IVP Q4H PRN FOR SEVERE PAIN.
--- NOTE | 2023-01-29 04:00 | NUR ---
RN NOTE: PT WAS SLEEPING COMFORTABLY, WOKE UP RIGHT NOW, DENIES PAIN AT THIS TIME.
--- NOTE | 2023-01-29 05:15 | NUR ---
RN NOTE: PT REQUESTING MED FOR ANXIETY, TOOK XANAX FROM [facility] [employer] [facility] BUT PT NOW COMFORTABLY SLEEPING WITH NO DISTRESS NOTED. ORDERS FROM DR MALONE TO LIMIT SEDATIVE MEDS, XANAX RETURNED FOR NOW, WITNESSED BY RANI PEDERSON LVN.
[2023-01-29 06:17] LABS: BASOPHILS # (AUTO) 0.1 K/uL (0.0-0.2); BASOPHILS % (AUTO) 1.2 % (0.0-2.0); EOSINOPHILS % (AUTO) 7.1 % (0.0-6.0); HEMATOCRIT 30 % (33-45); HEMOGLOBIN 9.5 g/dL (11.5-14.8); LYMPHOCYTES # (AUTO) 1.6 K/uL (0.8-4.8); LYMPHOCYTES % (AUTO) 29.4 % (20.0-44.0); MEAN CORPUSCULAR HGB CONC 32 g/dl (31.0-36.0); MEAN CORPUSCULAR VOLUME 70 fL (82-100); MONOCYTES # (AUTO) 0.5 K/uL (0.1-1.30); MONOCYTES % (AUTO) 8.6 % (2.0-12.0); NEUTROPHILS # (AUTO) 2.9 K/uL (1.8-8.9); NEUTROPHILS % (AUTO) 53.7 % (43.0-81.0); PLATELET COUNT (AUTO) 181 K/uL (150-450); RED BLOOD CELL COUNT(AUTO) 4.24 MIL/uL (4.0-5.2); WHITE BLOOD COUNT (AUTO) 5.3 K/uL (4.3-11.0)
[2023-01-29 06:33] LABS: CALCIUM, SERUM 9.2 mg/dL (8.5-10.1); CARBON DIOXIDE 23 mmol/L (21-32); CHLORIDE 108 mmol/L (98-107); CREATININE 0.9 mg/dL (0.6-1.3); GLUCOSE 96 mg/dL (74-106); MAGNESIUM 2.3 mg/dL (1.8-2.4); POTASSIUM 3.8 mmol/L (3.5-5.1); SODIUM SERUM 139 mmol/L (136-145); UREA NITROGEN, BLOOD 24 mg/dL (7-18)
--- NOTE | 2023-01-29 06:33 | NUR ---
SEX CRIMES DETECTIVE CLOSING NOTES PT AWAKE IN BED, ALERT/ORIENTED X3, AWAKE, EASY TO AROUSE AND RESPONSIVE. ABLE TO MAKE NEEDS KNOWN, SLEPT THROUGH THE NIGHT. STABLE ON O2 2L VIA NC, BREATHING EVEN AND NON-LABORED. AFEBRILE AND NOT IN ANY FORM OF ACUTE DISTRESS. DENIES PAIN AT THIS TIME. WITH NECK IMMOBILIZER. WITH IV ACCESS RAC #20G, L HAND #22G, RUNNING WITH NS AT 75ML/HR, BOTH PATENT, INTACT, FLUSHING WELL. ON DIESEL LOCOMOTIVE CRANE OPERATOR READING OF SR 98. ALL CARE PROVIDED AND MEDS TOLERATED WELL. PUREWICK REPLACED, CURRENTLY INTACT, DRAINED CLEAR, YELLOW URINE, 700 ML. SAFETY MEASURES MAINTAINED: BED LOCKED AND IN LOW POSITION, SIDE RAILS UP X3, CALL LIGHT AND TRAY TABLE WITHIN REACH. WILL ENDORSE ALIN TO DAY SHIFT NURSE.
--- NOTE | 2023-01-29 07:30 | NUR ---
SPECIAL FORCES COMMUNICATIONS SERGEANT NOTES PT IN BED, ASLEEP, EASY TO AROUSE, ALERT AND VERBALLY RESPONSIVE, NO COMPLAINT OF PAIN OR DISCOMFORT AT THIS TIME, BREATHING PATTERN NORMAL, CALL LIGHT WITHIN REACH.
[2023-01-29] MEDS: PANTOPRAZOLE 40 MG TABLET.DR PO SCH (09:28)
[2023-01-29] MEDS: LOSARTAN POTASSIUM 50 MG TABLET PO SCH (09:28)
[2023-01-29] MEDS: DULOXETINE HCL 30 MG CAPSULE.DR PO SCH (09:28)
[2023-01-29] MEDS: ASPIRIN 81 MG TAB.CHEW PO SCH (09:28)
[2023-01-29] MEDS: NITROGLYCERIN 0.4 MG/TAB BOTTLE SL PRN ×2 (10:43→11:02)
[2023-01-29] MEDS: IV NS 0.9% 1,000 ML IV PRN (11:22)
[2023-01-29] MEDS ORDERED: METOPROLOL TARTRATE 50 MG TABLET PO ONE (14:00)
[2023-01-29] MEDS ORDERED: IOHEXOL-350 100 ML VIAL IV ONE (16:56)
[2023-01-29] MEDS ORDERED: NITROGLYCERIN 0.4 MG/TAB BOTTLE ONE (16:56)
[2023-01-29] MEDS ORDERED: METOPROLOL TARTRATE INJ 5 MG/5 ML AMPUL ONE ×4 (16:56→17:40)
[2023-01-29] MEDS ORDERED: CT SWABBABLE VALVE TRANS SET 1 EA INFUS.SET MC ONE (16:57)
[2023-01-29] MEDS ORDERED: IV NS 0.9% 250 ML IV ONE (16:57)
--- NOTE | 2023-01-29 18:00 | NUR ---
RN CTCA COMPLETED CTCA. TOTAL DOSE METOPROLOL 50 MG IVP GIVEN. HR 70'S. NTG GIVEN. TOLERATED WELL. PT TO BE SENT BACK TO ROOM.
--- NOTE | 2023-01-29 18:22 | NUR ---
ANNUAL CAMPAIGN MANAGER NOTES PICKED UP PT FROM CT SUITE VIA BED, TRANSPORTED BACK TO HER ROOM, PT IS AWAKE, ALERT AND ORIENTED, FEELS TIRED, NO COMPLAINT OF PAIN, NOT IN DISTRESS, KEPT WARM AND COMFORTABLE IN BED, SON AT BEDSIDE.
[2023-01-29] MEDS: WARFARIN SODIUM 1 MG TABLET PO SCH (18:35)
--- NOTE | 2023-01-29 19:05 | NUR ---
INDOOR SPORTS CENTRE MANAGER OPENING NOTE PT IS RESTING IN BED. SHE IS AWAKE, ALERT AND ORIENTED, AO X 3. PT IS GREENLANDIC AND ICELANDIC SPEAKING. SHE IS ON RA, TOLERATED WELL. NO S/S OF DISTRESS OR SOB. PT IS ON EXTERNAL FLAT KNITTER HELPER, ON THE MONITOR, HER HEART RHYTHM IS SR WITH HR AT 70S. PT HAS IV ACCESS AT HER L HAND, #22G, INFUSING NS @75 ML / HR. IV SITE IS PATENT AND INTACT. SAFETY MEASURES ARE IN PLACED: BED IN LOWEST AND LOCKED POSITION; SIDE RAILS UP X 2; CALL LIGHT AND TABLE ARE WITHIN REACH. WILL CONTINUE MONITORING THE PT AND PROVIDE THE CARE PT NEEDS.
[2023-01-29] MEDS: ALPRAZOLAM 0.25 MG TABLET PO PRN (20:42)
--- NOTE | 2023-01-29 20:45 | NUR ---
LAB INSTRUCTOR NOTE PT STATED THAT SHE WAS HAVING ANXIETY. PRN PO MEDICATION, XANAX 0.25 MG, ADMINISTERED TO THE PT PER MD ORDER.
[2023-01-29] MEDS: QUETIAPINE FUMARATE 25 MG TABLET PO SCH (21:32)
[2023-01-29] MEDS: ATORVASTATIN 40 MG TABLET PO SCH (21:33)
[2023-01-30] MEDS: TEMAZEPAM 15 MG CAPSULE PO PRN (01:41)
--- NOTE | 2023-01-30 01:41 | NUR ---
AMBULATORY CARE NURSE NOTE PT WOKE UP AND REQUESTED FOR SLEEPING PILL. PRN PO MEDICATION, RESTORIL / TEMAZEPAM 15 MG, ADMINISTERED TO THE PT PER MD ORDER.
[2023-01-30 05:00] VITALS: BP 130/82
--- NOTE | 2023-01-30 07:20 | NUR ---
TORSION SPRING COILING MACHINE SETTER OPENING NOTES RECEIVED PATIENT ON BED, ASLEEP BUT EASY TO AROUSE, A/OX3. ABLE TO MAKE NEEDS KNOWN. NO SIGNS OF ACUTE DISTRESS NOTED. ON O2 INHALATION @ 2LPM VIA NC, TOLERATING WELL. NO SOB NOTED, BREATHING EVEN AND UNLABORED. ON TELE MONITORING WITH READING OF SR WITH HR OF 78BPM. NOTED WITH IV ACCESS ON R HAND#22G RUNNING WITH NS @75ML/HR. PATIENT DENIES ANY PAIN AT THIS TIME. ENCOURAGED VERBALIZATION OF NEEDS. SAFETY MEASURES IN PLACE. BED IN LOW AND LOCKED POSITION; SIDE RAILS UP X2; CALL LIGHT AND TABLE WITHIN EASY REACH. WILL CONTINUE WITH PLAN OF CARE.
--- NOTE | 2023-01-30 07:45 | NUR ---
GLOBAL SALES MANAGER CLOSING NOTE PT IS RESTING IN BED. SHE IS AWAKE, ALERT AND ORIENTED, AO X 3. SHE IS ON RA, TOLERATED WELL. NO S/S OF DISTRESS OR SOB. PT IS ON EXTERNAL BANK VAULT CLERK, ON THE MONITOR, HER HEART RHYTHM IS SR WITH HR AT 70S. PT HAS IV ACCESS AT HER L HAND, #22G, INFUSING NS @75 ML / HR. IV SITE IS PATENT AND INTACT. SAFETY MEASURES ARE IN PLACED: BED IN LOWEST AND LOCKED POSITION; SIDE RAILS UP X 2; CALL LIGHT AND TABLE ARE WITHIN REACH. ENDORSED NEXT SHIFT NURSE FOR CONTINUING PT CARE.
[2023-01-30] MEDS: DULOXETINE HCL 30 MG CAPSULE.DR PO SCH (08:29)
[2023-01-30] MEDS: LOSARTAN POTASSIUM 50 MG TABLET PO SCH (08:30)
[2023-01-30] MEDS: ASPIRIN 81 MG TAB.CHEW PO SCH (08:30)
[2023-01-30] MEDS: PANTOPRAZOLE 40 MG TABLET.DR PO SCH (08:30)
[2023-01-30 09:24] VITALS: BP 148/69
[2023-01-30 12:59] VITALS: BP 114/67
[2023-01-30] MEDS: WARFARIN SODIUM 1 MG TABLET PO SCH (17:28)
[2023-01-30] MEDS: ACETAMINOPHEN 325 MG TABLET PO PRN (17:31)
--- NOTE | 2023-01-30 17:31 | NUR ---
MACHINE PLATE STACKER NOTES. PATIENT COMPLAINED OF HEADACHE AND ASKED FOR TYLENOL. GAVE TYLENOL 650MG. WILL CONTINUE TO MONITOR.
[2023-01-30 18:25] VITALS: BP 120/67
--- NOTE | 2023-01-30 18:52 | NUR ---
WELT SOLE LAYER CLOSING NOTES PATIENT ON BED, ASLEEP BUT EASY TO AROUSE, A/OX3. [place]ANIAN SPEAKING BUT CAN UNDERSTAND AND SPEAK [place] CITIZ[place]. ABLE TO MAKE NEEDS KNOWN. NO SIGNS OF ACUTE DISTRESS NOTED. ON O2 INHALATION @ 2LPM VIA NC, TOLERATED WELL. NO SOB NOTED, BREATHING EVEN AND UNLABORED. ON TELE MONITORING WITH READING OF SR-ST WITH HR OF 100BPM. NOTED WITH IV ACCESS ON R AC #22G-S, INTACT, PATENT AND FLUSHING WELL. PATIENT DENIES ANY PAIN AT THIS TIME. ALL DUE MEDS GIVEN. ALL NURSING NEEDS ATTENDED. SAFETY MEASURES IMPLEMENTED. BED IN LOW AND LOCKED POSITION; SIDE RAILS UP X2; CALL LIGHT AND TABLE WITHIN EASY REACH. WILL ENDORSE TO WIRE MILL ROVER NURSE FOR CONTINUITY OF CARE.
--- NOTE | 2023-01-30 19:05 | NUR ---
NAPHTHOL SOAPING MACHINE OPERATOR OPENING NOTE PT IS RESTING IN BED. SHE IS AWAKE, ALERT AND ORIENTED, AO X 3. PT IS [place] AND [place] SPEAKING. SHE IS ON 2 LPM OF OXYGEN VIA NC , TOLERATED WELL. NO S/S OF DISTRESS OR SOB. PT IS ON EXTERNAL HYDROMETER CALIBRATOR, ON THE MONITOR, HER HEART RHYTHM IS SR WITH HR AT 90S. PT HAS IV ACCESS AT HER R FA, #2OG, SL. FLUSHED WELL WITH 10 CC OF NS. IV SITE IS PATENT AND INTACT. SAFETY MEASURES ARE IN PLACED: BED IN LOWEST AND LOCKED POSITION; SIDE RAILS UP X 2; CALL LIGHT AND TABLE ARE WITHIN REACH. WILL CONTINUE MONITORING THE PT AND PROVIDE THE CARE PT NEEDS.
[2023-01-30 20:00] VITALS: BP 126/67
[2023-01-30] MEDS: ALPRAZOLAM 0.25 MG TABLET PO PRN (21:19)
[2023-01-30] MEDS: QUETIAPINE FUMARATE 25 MG TABLET PO SCH (21:19)
[2023-01-30] MEDS: ATORVASTATIN 40 MG TABLET PO SCH (21:19)
--- NOTE | 2023-01-30 21:20 | NUR ---
TRANSACTION MANAGER NOTE PT STATED THAT SHE WAS HAVING ANXIETY. PRN PO MEDICATION, XANAX 0.25 MG, ADMINISTERED TO THE PT PER MD ORDER.
[2023-01-31] VITALS: BP 140/68
[2023-01-31 04:00] VITALS: BP 141/80
--- NOTE | 2023-01-31 06:46 | NUR ---
GAMEPLAY ENGINEER CLOSING NOTE PT IS SLEEPING IN BED; EASILY BEING AROUSED. SHE IS AWAKE, ALERT AND ORIENTED, AO X 3. PT IS ON 2 LPM OF OXYGEN VIA NC , TOLERATED WELL. NO S/S OF DISTRESS OR SOB. PT IS ON EXTERNAL WOOD FENCE ERECTOR, ON THE MONITOR, HER HEART RHYTHM IS SR WITH HR AT 80S. PT HAS IV ACCESS AT HER R FA, #2OG, SL. FLUSHED WELL WITH 10 CC OF NS. IV SITE IS PATENT AND INTACT. SAFETY MEASURES ARE IN PLACED: BED IN LOWEST AND LOCKED POSITION; SIDE RAILS UP X 2; CALL LIGHT AND TABLE ARE WITHIN REACH. WILL ENDORSE NEXT SHIFT NURSE FOR CONTINUING PT CARE.
--- NOTE | 2023-01-31 07:30 | NUR ---
RN OPENING NOTE RECEIVED PATIENT IN BED, AWAKE, A/O X3, VERBALLY RESPONSIVE AND ABLE TO MAKE NEEDS KNOWN. NO SIGNS OF ACUTE DISTRESS NOTED. ON O2 INHALATION @2LPM VIA N/C, NO SOB NOTED, BREATHING EVEN AND UNLABORED. ON CARDIAC MONITORING SHOWING SINUS TACH, HR @109. PATIENT WITH C/O HEADACHE, WILL MEDICATE ORDERED. WITH IV ACCESS ON RIGHT FOREARM #20G, INTACT AND PATENT, SALINE LOCKED. SAFETY MEASURE IN PLACE. BED IN LOW AND LOCKED POSITION, SIDE RAILS UP X2, CALL LIGHT PLACED WITHIN EASY REACH. WILL CONTINUE TO MONITOR PATIENT.
[2023-01-31] MEDS: PANTOPRAZOLE 40 MG TABLET.DR PO SCH (07:57)
[2023-01-31] MEDS: ACETAMINOPHEN 325 MG TABLET PO PRN (07:57)
[2023-01-31 08:31] VITALS: BP 140/67
[2023-01-31] MEDS: ASPIRIN 81 MG TAB.CHEW PO SCH (08:45)
[2023-01-31] MEDS: DULOXETINE HCL 30 MG CAPSULE.DR PO SCH (08:45)
[2023-01-31] MEDS: LOSARTAN POTASSIUM 50 MG TABLET PO SCH (08:46)
[2023-01-31] MEDS: ALPRAZOLAM 0.25 MG TABLET PO PRN (08:53)
--- NOTE | 2023-01-31 08:53 | NUR ---
Pt complaint of anxiety and manifested HR 136. Administered Xanax 0.25mg per prn order. Pt tolerated well. Continue monitoring for changes. Addendum: 01/31/23 at 1517 by ELIF HERNANDEZ RN AMMY Newman
[2023-01-31] MEDS: NITROGLYCERIN 0.4 MG/TAB BOTTLE SL PRN (09:03)
--- NOTE | 2023-01-31 09:10 | NUR ---
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 Denied SOB. Color Receiver sinus tachy at 135bpm. Assessed vital, BP119/64, HR 132bpm, O2 94% with 2L NC. Administered Nitro 0.4mg SL 1 tab at 0903. Pt still complaint of chest pain 8 out of 10. Repeated vital, BP98/48, [id number], O2 94% with 2L at 0908. Held another dose of Nitro for low BP. Notified MD for advice. MD aware of the incident. Per MD order, chest pain is due to anxiety, and continue monitoring pt. Prn Xanax is given at 0853.
--- NOTE | 2023-01-31 09:40 | NUR ---
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 Pt is rested on bed. No complaint of chest pain and no distress at this moment. Will continue monitoring pt.
[2023-01-31 13:37] VITALS: BP 116/67
[2023-01-31 15:59] VITALS: BP 127/60
[2023-01-31] MEDS: WARFARIN SODIUM 1 MG TABLET PO SCH (17:07)
--- NOTE | 2023-01-31 17:45 | NUR ---
GENERAL EDUCATION PROFESSOR NOTE PATIENT DISCHARGED HOME IN STABLE CONDITION. PATIENT REMAINS AWAKE, ALERT AND ORIENTED X3, VERBALLY RESPONSIVE AND ABLE TO MAKE NEEDS KNOWN. NO SIGNS OF ACUTE DISTRESS NOTED. IV ACCESS REMOVED, NO BLEEDING NOTED, PRESSURE DRESSING APPLIED TO SITE. ID BAND REMOVED. EXIT CARE FOLDER GIVEN TO PATIENT. HEALTH TEACHINGS AND DISCHARGE INSTRUCTIONS PROVIDED TO PATIENT AND GRANDSON, WITH VERBALIZATION OF UNDERSTANDING. PATIENT LEFT UNIT @1740 VIA W/C, NICOLE NORIEGA ACCOMPANIED PATIENT TO THE LOBBY. CN AWARE OF DISCHARGE.
== END 2023-01-31 17:56 | disposition home health service (06) | DRG 280 ==
LOC: ER 18:00 → TELE 23:44
PROVIDERS: ADMIT Nurse Practitioner Acute Care; ATTEND Nurse Practitioner Family
PROC: 0CQ0XZZ Repair Upper Lip, External Approach (ICD-10-PCS; principal; 2023-01-26)
DX: I25.10 Atherosclerotic heart disease of native coronary artery without angina pectoris (principal); G93.41 Metabolic encephalopathy; I21.A1 Myocardial infarction type 2; E87.1 Hypo-osmolality and hyponatremia; F01.54 Vascular dementia, unspecified severity, with anxiety; F03.93 Unspecified dementia, unspecified severity, with mood disturbance; G40.909 Epilepsy, unspecified, not intractable, without status epilepticus; E78.5 Hyperlipidemia, unspecified; E87.6 Hypokalemia; Z79.82 Long term (current) use of aspirin; Z79.01 Long term (current) use of anticoagulants; Z86.73 Personal history of transient ischemic attack (TIA), and cerebral infarction without residual deficits; Z86.711 Personal history of pulmonary embolism; S00.81XA Abrasion of other part of head, initial encounter; S80.212A Abrasion, left knee, initial encounter; W01.0XXA Fall on same level from slipping, tripping and stumbling without subsequent striking against object, initial encounter; Y93.9 Activity, unspecified; Y92.009 Unspecified place in unspecified non-institutional (private) residence as the place of occurrence of the external cause; S01.511A Laceration without foreign body of lip, initial encounter; F32.A Depression, unspecified; R53.1 Weakness; M32.9 Systemic lupus erythematosus, unspecified; I35.2 Nonrheumatic aortic (valve) stenosis with insufficiency; F41.0 Panic disorder [episodic paroxysmal anxiety]; I10 Essential (primary) hypertension; Z91.81 History of falling
CPT/HCPCS: 36415; 70450-TC; 71045-TC; 72125-TC; 73130-TC; 75574; 76770-TC; 80048-TC; 80053-TC; 80076-TC; 82728-TC; 83540-TC; 83735-TC; 84100-TC; 84300-TC; 84443-TC; 84484-TC; 85025-TC; 85610-TC; 85730-TC; 87081-TC; 93307-TC; 97110-TC; 97116-TC; 97530-TC; A4223; G0378; J3490; J7030; J7050; Q9967

== ENCOUNTER 2023-10-12 02:14 | Inpatient (IN) | payer MEDICARE, OTHER ==
[~2023-10-12] VITALS: Ht 162.6 cm; Wt 55.8 kg
[2023-10-12] VITALS (14 sets, daily range): BP systolic 95–127; BP diastolic 69–86; TEMP 97.3–99; O2SAT 100
[~2023-10-12 02:14] MED LIST changes: -LORA-258 PO; +LOSA50TA39 PO
[2023-10-12 02:52] LABS: BASOPHILS # (AUTO) 0.1 K/uL (0.0-0.2); BASOPHILS % (AUTO) 0.7 % (0.0-2.0); EOSINOPHILS # (AUTO) 0.1 K/uL (0.0-0.7); EOSINOPHILS % (AUTO) 1.1 % (0.0-6.0); MEAN CORPUSCULAR HEMOGLOBIN 18 PG (26.0-33.0); MEAN CORPUSCULAR HGB CONC 30 g/dl (31.0-36.0); MEAN CORPUSCULAR VOLUME 59 fL (82-100); MONOCYTES # (AUTO) 0.6 K/uL (0.1-1.30); MONOCYTES % (AUTO) 5.3 % (2.0-12.0); NEUTROPHILS # (AUTO) 9.4 K/uL (1.8-8.9); NEUTROPHILS % (AUTO) 76.9 % (43.0-81.0); PLATELET COUNT (AUTO) 61 K/uL (150-450); RED BLOOD CELL COUNT(AUTO) 3.01 MIL/uL (4.0-5.2); RED CELL DISTRIBUTION WIDTH 18.9 % (11.5-15.0); WHITE BLOOD COUNT (AUTO) 12.3 K/uL (4.3-11.0)
[2023-10-12 02:56] LABS: HEMATOCRIT 18 % (33-45); HEMOGLOBIN 5.3 g/dL (11.5-14.8)
[2023-10-12 03:00] LABS: CALCIUM, SERUM 8.9 mg/dL (8.5-10.1); CREATININE 1.2 mg/dL (0.6-1.3); POTASSIUM 4.7 mmol/L (3.5-5.1)
[2023-10-12 03:08] LABS: LACTIC ACID 1.5 mmol/L (0.4-2.0)
[2023-10-12 03:15] LABS: ALBUMIN 2.7 g/dL (3.4-5.0); BILIRUBIN,TOTAL 0.7 mg/dL (0.2-1.0); TOTAL PROTEIN, SERUM 7.2 g/dL (6.4-8.2)
[2023-10-12 03:29] LABS: PROTHROMBIN TIME 46.6 SECS (9.2-11.1)
[2023-10-12 03:30] LABS: INR 4.88 (0.91-1.10)
[2023-10-12] MEDS ORDERED: FUROSEMIDE 40 MG/4 ML VIAL ONE (03:39)
[2023-10-12] MEDS: FUROSEMIDE 40 MG/4 ML VIAL IV ONE (03:48)
[2023-10-12] MEDS ORDERED: MORPHINE SULFATE INJ 2 MG/ML DISP.SYRIN ONE (06:03)
[2023-10-12] MEDS: MORPHINE SULFATE INJ 2 MG/ML DISP.SYRIN IV ONE (06:05)
[2023-10-12 06:11] LABS: OCCULT BLOOD STOOL NEGATIVE (NEGATIVE)
[2023-10-12 06:31] LABS: APPEARANCE,URINE CLEAR (CLEAR); BILIRUBIN,URINE NEGATIVE (NEGATIVE); BLOOD, URINE NEGATIVE Ery/uL (NEGATIVE); COLOR,URINE YELLOW (YELLOW); KETONES,URINE NEGATIVE (NEGATIVE); LEUKOCYTE ESTERASE ,URINE NEGATIVE (NEGATIVE); NITRITE, URINE NEGATIVE (NEGATIVE); PH,URINE 6.5 (5.0-8.0); PROTEIN,URINE NEGATIVE (NEGATIVE); UGLUCOSE NEGATIVE (NEGATIVE); UROBILINOGEN,URINE 0.2 EU/dL (0.2)
[2023-10-12] MEDS ORDERED: PIPERACI/TAZO 3.375GM/D5W 50ML PB IV ONE (06:47)
[2023-10-12] MEDS: PIPERACILLIN /TAZOBACTAM 3.375 G in IV D5W 50 ML IV ONE (06:57)
[2023-10-12] MEDS ORDERED: Z GUARD REMEDY 4 OZ OINT TP PRN (07:00)
[2023-10-12] MEDS ORDERED: MAG HYDROX/AL HYDROX/SIMETH 30 ML UDC PO PRN (07:00)
[2023-10-12] MEDS ORDERED: FUROSEMIDE 40 MG/4 ML VIAL IV SCH ×3 (09:00→14:00)
[2023-10-12] MEDS ORDERED: LOSARTAN POTASSIUM 50 MG TABLET PO SCH (09:00)
[2023-10-12] MEDS ORDERED: POTASSIUM CHLORIDE 20 MEQ TAB.PRT.SR PO SCH (10:00)
[2023-10-12] MEDS: PANTOPRAZOLE 40 MG TABLET.DR PO SCH (10:48)
[2023-10-12] MEDS: POTASSIUM CHLORIDE 20 MEQ POWDER PACKET PO SCH (10:49)
[2023-10-12] MEDS: DULOXETINE HCL 30 MG CAPSULE.DR PO SCH (10:49)
[2023-10-12 11:25] LABS: BASOPHILS % (MANUAL) 0 % (0.0-2.0); EOSINOPHILS % (MANUAL) 2 % (0-4); LYMPHOCYTES % (MANUAL) 14 % (16-48); MONOCYTES % (MANUAL) 8 % (0-11.0); NEUTROPHILS % (MANUAL) 76 (42-76); PLATELET ESTIMATE DECREASED
[2023-10-12 11:26] LABS: ANISOCYTOSIS 1+; HYPOCHROMASIA 2+
[2023-10-12 12:39] LABS: THYROID STIMULATING HORMONE 1.952 uIU/mL (0.358-3.74)
[2023-10-12 14:25] LABS: ALANINE AMINOTRANSFERASE 12 U/L (12-78); ALBUMIN 2.4 g/dL (3.4-5.0); ALKALINE PHOSPHATASE 97 U/L (46-116); ASPARTATE AMINOTRANSFERASE 14 U/L (15-37); BILIRUBIN,TOTAL 0.8 mg/dL (0.2-1.0); CALCIUM, SERUM 8.3 mg/dL (8.5-10.1); CARBON DIOXIDE 21 mmol/L (21-32); CHLORIDE 102 mmol/L (98-107); CREATININE 1.5 mg/dL (0.6-1.3); GLUCOSE 122 mg/dL (74-106); POTASSIUM 4.2 mmol/L (3.5-5.1); SODIUM SERUM 135 mmol/L (136-145); TOTAL PROTEIN, SERUM 6.4 g/dL (6.4-8.2); UREA NITROGEN, BLOOD 22 mg/dL (7-18)
[2023-10-12] MEDS: FUROSEMIDE 40 MG/4 ML VIAL IV SCH (15:21)
[2023-10-12] MEDS: SOD FERRIC GLUC 125 MG in IV NS 0.9% 100 ML IV SCH (15:33)
[2023-10-12] MEDS: ACETAMINOPHEN 325 MG TABLET PO ONE (16:49)
[2023-10-12] MEDS: diphenhydrAMINE HCL 50 MG/ML VIAL IV ONE (16:49)
[2023-10-12] MEDS: ATORVASTATIN 40 MG TABLET PO SCH (21:12)
[2023-10-12] MEDS: QUETIAPINE FUMARATE 25 MG TABLET PO SCH (21:13)
[2023-10-12] MEDS ORDERED: Medication Not On Formulary EA (Melatonin 10 MG) PO SCH (22:00)
[2023-10-13] VITALS (18 sets, daily range): BP systolic 104–141; BP diastolic 51–91; TEMP 97.7–98.9; O2SAT 88–100
[2023-10-13 03:08] LABS: RHEUMATOID FACTOR SCREEN NEGATIVE (NEGATIVE)
[2023-10-13 07:01] LABS: BASOPHILS # (AUTO) 0.1 K/uL (0.0-0.2); BASOPHILS % (AUTO) 0.8 % (0.0-2.0); EOSINOPHILS # (AUTO) 0.5 K/uL (0.0-0.7); EOSINOPHILS % (AUTO) 4.1 % (0.0-6.0); HEMATOCRIT 24 % (33-45); HEMOGLOBIN 7.8 g/dL (11.5-14.8); LYMPHOCYTES # (AUTO) 1.4 K/uL (0.8-4.8); LYMPHOCYTES % (AUTO) 11.8 % (20.0-44.0); MEAN CORPUSCULAR HEMOGLOBIN 21 PG (26.0-33.0); MEAN CORPUSCULAR HGB CONC 32 g/dl (31.0-36.0); MEAN CORPUSCULAR VOLUME 67 fL (82-100); MONOCYTES # (AUTO) 0.9 K/uL (0.1-1.30); MONOCYTES % (AUTO) 7.7 % (2.0-12.0); NEUTROPHILS % (AUTO) 75.6 % (43.0-81.0); RED BLOOD CELL COUNT(AUTO) 3.66 MIL/uL (4.0-5.2); RED CELL DISTRIBUTION WIDTH 26.1 % (11.5-15.0); WHITE BLOOD COUNT (AUTO) 11.9 K/uL (4.3-11.0)
[2023-10-13 07:04] LABS: INR 2.65 (0.91-1.10); PARTIAL THROMBOPLASTIN TIME 58.2 SEC (24.3-34.3); PROTHROMBIN TIME 26.4 SECS (9.2-11.1)
[2023-10-13 07:10] LABS: ALBUMIN 2.8 g/dL (3.4-5.0); BILIRUBIN,TOTAL 1.3 mg/dL (0.2-1.0); CALCIUM, SERUM 8.6 mg/dL (8.5-10.1); CREATININE 1.3 mg/dL (0.6-1.3); MAGNESIUM 2.1 mg/dL (1.8-2.4); PHOSPHORUS 4.2 mg/dL (2.5-4.9); TOTAL PROTEIN, SERUM 7.1 g/dL (6.4-8.2)
[2023-10-13 07:23] LABS: URINE SODIUM, RANDOM 57 mmol/l (40-220)
[2023-10-13 07:59] LABS: THYROID STIMULATING HORMONE 1.474 uIU/mL (0.358-3.74)
[2023-10-13 08:31] LABS: PLATELET COUNT (AUTO) 98 K/uL (150-450)
[2023-10-13 08:37] LABS: EOSINOPHILS % (MANUAL) 4 % (0-4); LYMPHOCYTES % (MANUAL) 12 % (16-48); MONOCYTES % (MANUAL) 7 % (0-11.0); NEUTROPHILS % (MANUAL) 77 (42-76)
[2023-10-13 08:39] LABS: HYPOCHROMASIA 2+; PLATELET ESTIMATE PLATELET CLUMPS SEEN
[2023-10-13 08:40] LABS: ANISOCYTOSIS 1+; OVALOCYTES 1+; TARGET CELLS 1+
[2023-10-13] MEDS: POTASSIUM CHLORIDE 20 MEQ POWDER PACKET PO ONE (09:37)
[2023-10-13] MEDS: FUROSEMIDE 40 MG/4 ML VIAL IV SCH (10:18)
[2023-10-13] MEDS: POTASSIUM CHLORIDE 20 MEQ TAB.PRT.SR PO SCH (10:19)
[2023-10-13] MEDS: ACETAMINOPHEN 325 MG TABLET PO PRN (11:26)
[2023-10-13] MEDS: CEFTRIAXONE 2 G in IV D5W 100 ML IV SCH (11:38)
[2023-10-13] MEDS: DOXYCYCLINE 100 MG in IV D5W 100 ML IV SCH (12:21)
[2023-10-13 15:57] LABS: OSMOLALITY,URINE 358 mOS/kg (340-1090)
[2023-10-14 00:18] VITALS: BP 128/82; TEMP 98.2; O2SAT 98
[2023-10-14 04:51] VITALS: BP 124/86; TEMP 98.2; O2SAT 99
[2023-10-14 06:09] LABS: FOLIC ACID 3.5 ng/mL (>3.0)
[2023-10-14 06:36] LABS: BASOPHILS # (AUTO) 0.1 K/uL (0.0-0.2); BASOPHILS % (AUTO) 0.9 % (0.0-2.0); EOSINOPHILS # (AUTO) 0.6 K/uL (0.0-0.7); EOSINOPHILS % (AUTO) 6.2 % (0.0-6.0); HEMATOCRIT 29 % (33-45); HEMOGLOBIN 9.5 g/dL (11.5-14.8); LYMPHOCYTES # (AUTO) 1.9 K/uL (0.8-4.8); LYMPHOCYTES % (AUTO) 18.7 % (20.0-44.0); MEAN CORPUSCULAR HEMOGLOBIN 23 PG (26.0-33.0); MEAN CORPUSCULAR HGB CONC 33 g/dl (31.0-36.0); MEAN CORPUSCULAR VOLUME 70 fL (82-100); MONOCYTES # (AUTO) 0.7 K/uL (0.1-1.30); MONOCYTES % (AUTO) 6.8 % (2.0-12.0); NEUTROPHILS # (AUTO) 6.7 K/uL (1.8-8.9); NEUTROPHILS % (AUTO) 67.4 % (43.0-81.0); PLATELET COUNT (AUTO) 57 K/uL (150-450); RED BLOOD CELL COUNT(AUTO) 4.09 MIL/uL (4.0-5.2); RED CELL DISTRIBUTION WIDTH 27.5 % (11.5-15.0)
[2023-10-14 06:42] LABS: INR 2.07 (0.91-1.10); PROTHROMBIN TIME 20.9 SECS (9.2-11.1)
[2023-10-14 07:10] LABS: ALANINE AMINOTRANSFERASE 10 U/L (12-78); ALBUMIN 2.5 g/dL (3.4-5.0); ALKALINE PHOSPHATASE 87 U/L (46-116); ASPARTATE AMINOTRANSFERASE 17 U/L (15-37); BILIRUBIN,TOTAL 0.8 mg/dL (0.2-1.0); CALCIUM, SERUM 8.6 mg/dL (8.5-10.1); CARBON DIOXIDE 24 mmol/L (21-32); CHLORIDE 97 mmol/L (98-107); CREATININE 1.7 mg/dL (0.6-1.3); GLUCOSE 150 mg/dL (74-106); MAGNESIUM 1.8 mg/dL (1.8-2.4); PHOSPHORUS 4.2 mg/dL (2.5-4.9); POTASSIUM 2.9 mmol/L (3.5-5.1); SODIUM SERUM 134 mmol/L (136-145); TOTAL PROTEIN, SERUM 6.5 g/dL (6.4-8.2); UREA NITROGEN, BLOOD 29 mg/dL (7-18)
[2023-10-14 07:11] LABS: IMMUNOGLOBULIN A, SERUM 190 mg/dL (64-422); IMMUNOGLOBULIN G, SERUM 1059 mg/dL (586-1602); IMMUNOGLOBULIN M, SERUM 111 mg/dL (26-217)
[2023-10-14 08:00] VITALS: BP 131/80; TEMP 97.9; O2SAT 97
[2023-10-14 08:12] LABS: *ANA ANTI-CENTROMERE B AB <0.2 AI (0.0-0.9); *ANA ANTI-DNA(DS) AB, QN <1 IU/mL (0-9); *ANA ANTI-JO-1 <0.2 AI (0.0-0.9); *ANA ANTICHROMATIN ANTIBODY 0.3 AI (0.0-0.9); *ANA RNP ANTIBODIES <0.2 AI (0.0-0.9); *ANA SJOGREN'S ANTI-SS-A <0.2 AI (0.0-0.9); *ANA SJOGREN'S ANTI-SS-B <0.2 AI (0.0-0.9); *ANAANTI-SCLERODERMA-70 AB 0.3 AI (0.0-0.9); *ANASMITH AB <0.2 AI (0.0-0.9); HEPATITIS B SURFACE AB Non Reactive (.)
[2023-10-14] MEDS: POTASSIUM CHLORIDE 20 MEQ TAB.PRT.SR PO SCH (08:30)
[2023-10-14 09:07] LABS: *SPE ALBUMIN 2.8 g/dL (2.9-4.4); *SPE ALPHA-1-GLOBULIN 0.5 g/dL (0.0-0.4); *SPE PROTEIN TOTAL 6.1 g/dL (6.0-8.5)
[2023-10-14 09:08] LABS: *SPE A/G RATIO 0.8 (0.7-1.7); *SPE BETA GLOBULIN 0.9 g/dL (0.7-1.3); *SPE GLOBULIN, TOTAL 3.3 g/dL (2.2-3.9); *SPE M-SPIKE Not Observed g/dL (Not Observed); *SPEGAMMA GLOBULIN 0.9 g/dL (0.4-1.8)
[2023-10-14] MEDS: ONDANSETRON HCL/PF 4 MG/2 ML VIAL IVP PRN (10:30)
[2023-10-14] MEDS: ALPRAZOLAM 0.25 MG TABLET PO PRN (10:30)
[2023-10-14 10:44] LABS: EOSINOPHILS % (MANUAL) 5 % (0-4); LYMPHOCYTES % (MANUAL) 16 % (16-48); MONOCYTES % (MANUAL) 8 % (0-11.0); NEUTROPHILS % (MANUAL) 71 (42-76)
[2023-10-14 10:45] LABS: ANISOCYTOSIS 1+; BASOPHILS % (MANUAL) 0 % (0.0-2.0); OVALOCYTES 1+; PLATELET ESTIMATE DECREASED
[2023-10-14 12:00] VITALS: BP 136/77; TEMP 98.1; O2SAT 97
[2023-10-14 13:09] LABS: FREE KAPPA LT CHAINS SERUM 77.5 mg/L (3.3-19.4); FREE LAMBDA LT CHAIN SERUM 59.7 mg/L (5.7-26.3)
[2023-10-14] MEDS: FUROSEMIDE 40 MG/4 ML VIAL IV SCH (14:35)
[2023-10-14 16:00] VITALS: BP 124/80; TEMP 98.4; O2SAT 96
[2023-10-14] MEDS ORDERED: HYDROCODONE/APAP 5/325MG TABLET PO PRN (21:30)
[2023-10-14 22:00] VITALS: BP 117/69; TEMP 98.2; O2SAT 98
[2023-10-15] VITALS (7 sets, daily range): BP systolic 112–148; BP diastolic 63–79; TEMP 97.5–99.5; O2SAT 90–98
[2023-10-15 06:20] LABS: BASOPHILS # (AUTO) 0.1 K/uL (0.0-0.2); BASOPHILS % (AUTO) 1.1 % (0.0-2.0); EOSINOPHILS # (AUTO) 0.6 K/uL (0.0-0.7); HEMATOCRIT 30 % (33-45); HEMOGLOBIN 10.2 g/dL (11.5-14.8); LYMPHOCYTES # (AUTO) 1.9 K/uL (0.8-4.8); LYMPHOCYTES % (AUTO) 20.1 % (20.0-44.0); MEAN CORPUSCULAR HEMOGLOBIN 23 PG (26.0-33.0); MEAN CORPUSCULAR HGB CONC 33 g/dl (31.0-36.0); MEAN CORPUSCULAR VOLUME 70 fL (82-100); MONOCYTES % (AUTO) 10.9 % (2.0-12.0); NEUTROPHILS # (AUTO) 5.8 K/uL (1.8-8.9); NEUTROPHILS % (AUTO) 61.9 % (43.0-81.0); PLATELET COUNT (AUTO) 78 K/uL (150-450); RED BLOOD CELL COUNT(AUTO) 4.37 MIL/uL (4.0-5.2); RED CELL DISTRIBUTION WIDTH 28.6 % (11.5-15.0); WHITE BLOOD COUNT (AUTO) 9.3 K/uL (4.3-11.0)
[2023-10-15 06:40] LABS: ALANINE AMINOTRANSFERASE 10 U/L (12-78); ALBUMIN 2.7 g/dL (3.4-5.0); ALKALINE PHOSPHATASE 98 U/L (46-116); ASPARTATE AMINOTRANSFERASE 18 U/L (15-37); BILIRUBIN,TOTAL 0.8 mg/dL (0.2-1.0); CALCIUM, SERUM 9.1 mg/dL (8.5-10.1); CARBON DIOXIDE 29 mmol/L (21-32); CHLORIDE 98 mmol/L (98-107); CREATININE 1.4 mg/dL (0.6-1.3); GLUCOSE 100 mg/dL (74-106); MAGNESIUM 1.9 mg/dL (1.8-2.4); PHOSPHORUS 5.5 mg/dL (2.5-4.9); POTASSIUM 3.3 mmol/L (3.5-5.1); SODIUM SERUM 137 mmol/L (136-145); TOTAL PROTEIN, SERUM 7.1 g/dL (6.4-8.2); UREA NITROGEN, BLOOD 29 mg/dL (7-18)
[2023-10-15] MEDS: POTASSIUM CL. PREMIX PERIPHER. 50 ML IV SCH (10:26)
[2023-10-15] MEDS: POTASSIUM CHLORIDE 20 MEQ TAB.PRT.SR PO SCH (10:26)
[2023-10-15 11:21] LABS: ANISOCYTOSIS 1+; BASOPHILS % (MANUAL) 0 % (0.0-2.0); EOSINOPHILS % (MANUAL) 6 % (0-4); HYPOCHROMASIA 1+; LYMPHOCYTES % (MANUAL) 18 % (16-48); MONOCYTES % (MANUAL) 10 % (0-11.0); NEUTROPHILS % (MANUAL) 66 (42-76); OVALOCYTES 1+; PLATELET ESTIMATE DECREASED
[2023-10-16] VITALS: BP 128/78; TEMP 97.3; O2SAT 95
[2023-10-16 04:00] VITALS: BP 135/68; TEMP 98; O2SAT 96
[2023-10-16 08:00] VITALS: BP 135/74; TEMP 98.1; O2SAT 96
[2023-10-16 08:07] LABS: INR 1.31 (0.91-1.10); PROTHROMBIN TIME 13.6 SECS (9.2-11.1)
[2023-10-16 08:09] LABS: BASOPHILS # (AUTO) 0.1 K/uL (0.0-0.2); BASOPHILS % (AUTO) 1.4 % (0.0-2.0); EOSINOPHILS # (AUTO) 0.5 K/uL (0.0-0.7); EOSINOPHILS % (AUTO) 4.5 % (0.0-6.0); HEMATOCRIT 32 % (33-45); HEMOGLOBIN 10.6 g/dL (11.5-14.8); LYMPHOCYTES # (AUTO) 1.6 K/uL (0.8-4.8); MEAN CORPUSCULAR HEMOGLOBIN 24 PG (26.0-33.0); MEAN CORPUSCULAR HGB CONC 33 g/dl (31.0-36.0); MEAN CORPUSCULAR VOLUME 73 fL (82-100); MONOCYTES # (AUTO) 0.9 K/uL (0.1-1.30); MONOCYTES % (AUTO) 8.6 % (2.0-12.0); NEUTROPHILS % (AUTO) 69.5 % (43.0-81.0); RED BLOOD CELL COUNT(AUTO) 4.42 MIL/uL (4.0-5.2); WHITE BLOOD COUNT (AUTO) 10.1 K/uL (4.3-11.0)
[2023-10-16 08:14] LABS: PLATELET COUNT (AUTO) 39 K/uL (150-450)
[2023-10-16 08:17] LABS: ALBUMIN 2.6 g/dL (3.4-5.0); BILIRUBIN,TOTAL 0.6 mg/dL (0.2-1.0); CALCIUM, SERUM 9.2 mg/dL (8.5-10.1); CREATININE 1.3 mg/dL (0.6-1.3); POTASSIUM 3.9 mmol/L (3.5-5.1); TOTAL PROTEIN, SERUM 6.9 g/dL (6.4-8.2)
[2023-10-16 08:26] LABS: MAGNESIUM 2.1 mg/dL (1.8-2.4); PHOSPHORUS 3.9 mg/dL (2.5-4.9)
[2023-10-16 10:04] LABS: EOSINOPHILS % (MANUAL) 9 % (0-4); LYMPHOCYTES % (MANUAL) 16 % (16-48); MONOCYTES % (MANUAL) 8 % (0-11.0); NEUTROPHILS % (MANUAL) 67 (42-76); PLATELET ESTIMATE DECREASED
[2023-10-16 10:05] LABS: ANISOCYTOSIS 1+; HYPOCHROMASIA 1+
[2023-10-16 12:00] VITALS: BP 145/79; TEMP 97.9; O2SAT 98
[2023-10-16] MEDS ORDERED: IV NS 0.9% 250 ML IV ONE ×2 (13:18→15:09)
[2023-10-16] MEDS ORDERED: CT SWABBABLE VALVE TRANS SET 1 EA INFUS.SET MC ONE ×2 (13:18→15:09)
[2023-10-16] MEDS ORDERED: IOHEXOL-350 100 ML VIAL IV ONE ×2 (13:18→15:08)
[2023-10-16 14:09] LABS: *CARD ANTI-CARDIOLIPIN AB IgG >150 GPL U/mL (0-14); *CARD ANTI-CARDIOLIPIN AB IgM 43 MPL U/mL (0-12)
[2023-10-16 16:00] VITALS: BP 122/64; TEMP 98.2; O2SAT 95
[2023-10-16 19:12] LABS: *DILUTE PROTHROMBIN TIME (dPT) 190.1 sec (0.0-47.6); *PTT-LA MIX 98.2 sec (0.0-40.5); *THROMBIN TIME 20.3 sec (0.0-23.0); *dPT CONFIRM RATIO 1.88 Ratio (0.00-1.34); *dRVVT 108.3 sec (0.0-47.0); PROTEIN C ACTIVITY 27 % (73-180)
[2023-10-16 20:00] VITALS: BP 135/78; TEMP 98.2; O2SAT 96
[2023-10-17] VITALS: BP 119/71; TEMP 98.6; O2SAT 97
[2023-10-17 04:00] VITALS: BP 124/63; TEMP 98; O2SAT 96
[2023-10-17 07:15] LABS: INR 1.24 (0.91-1.10); PARTIAL THROMBOPLASTIN TIME 56.7 SEC (24.3-34.3)
[2023-10-17 07:17] LABS: ALANINE AMINOTRANSFERASE 13 U/L (12-78); ALBUMIN 2.4 g/dL (3.4-5.0); ALKALINE PHOSPHATASE 84 U/L (46-116); ASPARTATE AMINOTRANSFERASE 18 U/L (15-37); BILIRUBIN,TOTAL 0.5 mg/dL (0.2-1.0); CALCIUM, SERUM 9.4 mg/dL (8.5-10.1); CARBON DIOXIDE 23 mmol/L (21-32); CHLORIDE 101 mmol/L (98-107); CREATININE 1.1 mg/dL (0.6-1.3); GLUCOSE 92 mg/dL (74-106); MAGNESIUM 2.1 mg/dL (1.8-2.4); PHOSPHORUS 3.8 mg/dL (2.5-4.9); POTASSIUM 3.7 mmol/L (3.5-5.1); SODIUM SERUM 134 mmol/L (136-145); TOTAL PROTEIN, SERUM 6.3 g/dL (6.4-8.2); UREA NITROGEN, BLOOD 22 mg/dL (7-18)
[2023-10-17 07:26] LABS: BASOPHILS # (AUTO) 0.1 K/uL (0.0-0.2); BASOPHILS % (AUTO) 0.8 % (0.0-2.0); EOSINOPHILS # (AUTO) 0.4 K/uL (0.0-0.7); HEMATOCRIT 30 % (33-45); HEMOGLOBIN 9.7 g/dL (11.5-14.8); LYMPHOCYTES # (AUTO) 1.8 K/uL (0.8-4.8); LYMPHOCYTES % (AUTO) 16.7 % (20.0-44.0); MEAN CORPUSCULAR HEMOGLOBIN 23 PG (26.0-33.0); MEAN CORPUSCULAR HGB CONC 32 g/dl (31.0-36.0); MEAN CORPUSCULAR VOLUME 73 fL (82-100); NEUTROPHILS # (AUTO) 7.6 K/uL (1.8-8.9); NEUTROPHILS % (AUTO) 69.5 % (43.0-81.0); RED BLOOD CELL COUNT(AUTO) 4.17 MIL/uL (4.0-5.2); RED CELL DISTRIBUTION WIDTH 29.9 % (11.5-15.0)
[2023-10-17 08:00] VITALS: BP 135/74; TEMP 98.7; O2SAT 98
[2023-10-17] MEDS: DOXYCYCLINE HYCLATE (100 MG) 100 MG TABLET PO SCH (08:49)
[2023-10-17 11:01] LABS: NEUTROPHILS % (MANUAL) 77 (42-76); PLATELET COUNT (AUTO) 53 K/uL (150-450)
[2023-10-17 11:02] LABS: ANISOCYTOSIS 1+; EOSINOPHILS % (MANUAL) 3 % (0-4); HYPOCHROMASIA 1+; LYMPHOCYTES % (MANUAL) 12 % (16-48); MONOCYTES % (MANUAL) 8 % (0-11.0); PLATELET ESTIMATE PLATELET CLUMPS SEEN
[2023-10-17 12:00] VITALS: BP 104/59; TEMP 99; O2SAT 99
[2023-10-17 14:18] LABS: BASOPHILS % (AUTO) 0.2 % (0.0-2.0); EOSINOPHILS # (AUTO) 0.4 K/uL (0.0-0.7); EOSINOPHILS % (AUTO) 4.1 % (0.0-6.0); HEMATOCRIT 30 % (33-45); HEMOGLOBIN 9.6 g/dL (11.5-14.8); LYMPHOCYTES # (AUTO) 1.3 K/uL (0.8-4.8); MEAN CORPUSCULAR HEMOGLOBIN 23 PG (26.0-33.0); MEAN CORPUSCULAR HGB CONC 32 g/dl (31.0-36.0); MEAN CORPUSCULAR VOLUME 73 fL (82-100); MONOCYTES # (AUTO) 0.9 K/uL (0.1-1.30); MONOCYTES % (AUTO) 9.9 % (2.0-12.0); NEUTROPHILS # (AUTO) 6.4 K/uL (1.8-8.9); NEUTROPHILS % (AUTO) 71.8 % (43.0-81.0); PLATELET COUNT (AUTO) 53 K/uL (150-450); RED CELL DISTRIBUTION WIDTH 30.2 % (11.5-15.0)
[2023-10-17 16:00] VITALS: BP 137/75; TEMP 98.6; O2SAT 99
[2023-10-17] MEDS: SUCRALFATE 1 G TABLET PO ONE (16:37)
[2023-10-17] MEDS ORDERED: HEPARIN SODIUM, PORCINE 5000 UNITS/1 ML VIAL IV ONE (17:30)
[2023-10-17] MEDS: HEPARIN INFUSION/D5W 500 ML IV SCH (18:06)
[2023-10-17 19:01] LABS: ANISOCYTOSIS 1+; EOSINOPHILS % (MANUAL) 4 % (0-4); LYMPHOCYTES % (MANUAL) 14 % (16-48); MONOCYTES % (MANUAL) 4 % (0-11.0); NEUTROPHILS % (MANUAL) 78 (42-76); PLATELET ESTIMATE DECREASED; TARGET CELLS 1+
[2023-10-17 19:02] LABS: OVALOCYTES RARE
[2023-10-17 20:00] VITALS: BP 126/72; TEMP 98.6; O2SAT 99
[2023-10-18] VITALS: BP 134/68; TEMP 99.9; O2SAT 97
[2023-10-18 01:30] LABS: INR 1.21 (0.91-1.10); PROTHROMBIN TIME 12.7 SECS (9.2-11.1)
[2023-10-18 01:38] LABS: PARTIAL THROMBOPLASTIN TIME > 170.0 SEC (24.3-34.3)
[2023-10-18 04:00] VITALS: BP 126/59; TEMP 98.3; O2SAT 96
[2023-10-18 07:23] LABS: INR 1.16 (0.91-1.10); PROTHROMBIN TIME 12.2 SECS (9.2-11.1)
[2023-10-18 07:27] LABS: CALCIUM, SERUM 9.4 mg/dL (8.5-10.1); CARBON DIOXIDE 24 mmol/L (21-32); CHLORIDE 102 mmol/L (98-107); CREATININE 1.1 mg/dL (0.6-1.3); GLUCOSE 84 mg/dL (74-106); MAGNESIUM 2.1 mg/dL (1.8-2.4); PHOSPHORUS 4.4 mg/dL (2.5-4.9); POTASSIUM 3.9 mmol/L (3.5-5.1); SODIUM SERUM 135 mmol/L (136-145); UREA NITROGEN, BLOOD 24 mg/dL (7-18)
[2023-10-18 07:38] LABS: BASOPHILS # (AUTO) 0.1 K/uL (0.0-0.2); EOSINOPHILS # (AUTO) 0.5 K/uL (0.0-0.7); EOSINOPHILS % (AUTO) 5.8 % (0.0-6.0); HEMATOCRIT 31 % (33-45); HEMOGLOBIN 9.7 g/dL (11.5-14.8); LYMPHOCYTES # (AUTO) 2.1 K/uL (0.8-4.8); LYMPHOCYTES % (AUTO) 24.2 % (20.0-44.0); MEAN CORPUSCULAR HEMOGLOBIN 23 PG (26.0-33.0); MEAN CORPUSCULAR HGB CONC 32 g/dl (31.0-36.0); MEAN CORPUSCULAR VOLUME 74 fL (82-100); MONOCYTES # (AUTO) 0.7 K/uL (0.1-1.30); MONOCYTES % (AUTO) 8.6 % (2.0-12.0); NEUTROPHILS # (AUTO) 5.2 K/uL (1.8-8.9); NEUTROPHILS % (AUTO) 60.4 % (43.0-81.0); RED BLOOD CELL COUNT(AUTO) 4.15 MIL/uL (4.0-5.2); RED CELL DISTRIBUTION WIDTH 30.4 % (11.5-15.0); WHITE BLOOD COUNT (AUTO) 8.6 K/uL (4.3-11.0)
[2023-10-18 07:47] LABS: PLATELET COUNT (AUTO) 49 K/uL (150-450)
[2023-10-18 08:00] VITALS: BP 130/69; TEMP 97.7; O2SAT 100
[2023-10-18] MEDS: ENSURE ENLIVE 237 ML LIQUID (VANILLA) PO SCH (09:00)
[2023-10-18 10:01] LABS: RETICULOCYTE COUNT 6.3 % (0.6-2.5)
[2023-10-18 10:25] LABS: C-REACTIVE PROTEIN 9.7 mg/dL (0.0-0.30)
[2023-10-18 12:00] VITALS: BP 147/84; TEMP 97.1; O2SAT 99
[2023-10-18 12:09] LABS: D-DIMER 0.48 mg/L(FEU (0.17-0.50); INR 1.16 (0.91-1.10); PROTHROMBIN TIME 12.2 SECS (9.2-11.1)
[2023-10-18 12:28] LABS: ANISOCYTOSIS 1+; BAND % (MANUAL) 4 % (0.0-5.0); BASOPHILS % (MANUAL) 0 % (0.0-2.0); EOSINOPHILS % (MANUAL) 4 % (0-4); HYPOCHROMASIA 1+; LYMPHOCYTES % (MANUAL) 16 % (16-48); MONOCYTES % (MANUAL) 5 % (0-11.0); NEUTROPHILS % (MANUAL) 71 (42-76); PLATELET ESTIMATE DECREASED
[2023-10-18] MEDS: SUCRALFATE 1 G TABLET PO SCH (13:09)
[2023-10-18 14:43] LABS: HEMOGLOBIN 9.4 g/dL (11.5-14.8); PLATELET COUNT (AUTO) 74 K/uL (150-450)
[2023-10-18 14:51] LABS: BASOPHILS # (AUTO) 0.1 K/uL (0.0-0.2); EOSINOPHILS # (AUTO) 0.4 K/uL (0.0-0.7); EOSINOPHILS % (AUTO) 4.7 % (0.0-6.0); HEMATOCRIT 30 % (33-45); LYMPHOCYTES # (AUTO) 1.1 K/uL (0.8-4.8); LYMPHOCYTES % (AUTO) 13.8 % (20.0-44.0); MEAN CORPUSCULAR HEMOGLOBIN 24 PG (26.0-33.0); MEAN CORPUSCULAR HGB CONC 32 g/dl (31.0-36.0); MEAN CORPUSCULAR VOLUME 75 fL (82-100); MONOCYTES # (AUTO) 0.6 K/uL (0.1-1.30); MONOCYTES % (AUTO) 7.9 % (2.0-12.0); NEUTROPHILS # (AUTO) 5.6 K/uL (1.8-8.9); NEUTROPHILS % (AUTO) 72.6 % (43.0-81.0); RED BLOOD CELL COUNT(AUTO) 3.97 MIL/uL (4.0-5.2); RED CELL DISTRIBUTION WIDTH 31.3 % (11.5-15.0); WHITE BLOOD COUNT (AUTO) 7.7 K/uL (4.3-11.0)
[2023-10-18 15:08] LABS: BAND % (MANUAL) 1 % (0.0-5.0); EOSINOPHILS % (MANUAL) 6 % (0-4); LYMPHOCYTES % (MANUAL) 10 % (16-48); MONOCYTES % (MANUAL) 6 % (0-11.0); NEUTROPHILS % (MANUAL) 77 (42-76)
[2023-10-18 15:09] LABS: ANISOCYTOSIS 1+; PLATELET ESTIMATE DECREASED
[2023-10-18 16:00] VITALS: BP 121/78; TEMP 97.1; O2SAT 98
[2023-10-18] MEDS: MAGNESIUM HYDROXIDE 30 ML UDC PO PRN (16:34)
[2023-10-18 20:55] LABS: INR 1.15 (0.91-1.10)
[2023-10-18 21:04] VITALS: BP 116/66; TEMP 98.4; O2SAT 99
[2023-10-18 21:08] LABS: PROTHROMBIN TIME 12.1 SECS (9.2-11.1)
[2023-10-19 00:51] LABS: INR 1.13 (0.91-1.10); PROTHROMBIN TIME 11.9 SECS (9.2-11.1)
[2023-10-19 00:52] LABS: PARTIAL THROMBOPLASTIN TIME > 170.0 SEC (24.3-34.3)
[2023-10-19 01:10] VITALS: BP 139/76; TEMP 98.2; O2SAT 99
[2023-10-19 04:09] VITALS: BP 139/75; TEMP 98.6; O2SAT 99
[2023-10-19 07:32] LABS: BASOPHILS # (AUTO) 0.1 K/uL (0.0-0.2); BASOPHILS % (AUTO) 1.3 % (0.0-2.0); EOSINOPHILS # (AUTO) 0.4 K/uL (0.0-0.7); HEMATOCRIT 28 % (33-45); HEMOGLOBIN 9.1 g/dL (11.5-14.8); LYMPHOCYTES # (AUTO) 1.7 K/uL (0.8-4.8); LYMPHOCYTES % (AUTO) 22.6 % (20.0-44.0); MEAN CORPUSCULAR HEMOGLOBIN 24 PG (26.0-33.0); MEAN CORPUSCULAR HGB CONC 32 g/dl (31.0-36.0); MEAN CORPUSCULAR VOLUME 74 fL (82-100); MONOCYTES # (AUTO) 0.6 K/uL (0.1-1.30); MONOCYTES % (AUTO) 7.7 % (2.0-12.0); NEUTROPHILS # (AUTO) 4.7 K/uL (1.8-8.9); NEUTROPHILS % (AUTO) 62.4 % (43.0-81.0); RED CELL DISTRIBUTION WIDTH 30.8 % (11.5-15.0); WHITE BLOOD COUNT (AUTO) 7.5 K/uL (4.3-11.0)
[2023-10-19 07:50] LABS: PLATELET COUNT (AUTO) 40 K/uL (150-450)
[2023-10-19 08:00] VITALS: BP 129/85; TEMP 97.8; O2SAT 99
[2023-10-19 09:58] LABS: INR 1.12 (0.91-1.10); PROTHROMBIN TIME 11.8 SECS (9.2-11.1)
[2023-10-19 10:21] LABS: PARTIAL THROMBOPLASTIN TIME > 170.0 SEC (24.3-34.3)
[2023-10-19 12:00] VITALS: BP 124/72; TEMP 97.9; O2SAT 99
[2023-10-19 12:48] LABS: ANISOCYTOSIS 1+; BASOPHILS % (MANUAL) 0 % (0.0-2.0); EOSINOPHILS % (MANUAL) 4 % (0-4); HYPOCHROMASIA 1+; LYMPHOCYTES % (MANUAL) 16 % (16-48); MONOCYTES % (MANUAL) 9 % (0-11.0); NEUTROPHILS % (MANUAL) 71 (42-76); OVALOCYTES 1+; PLATELET ESTIMATE DECREASED
[2023-10-19 16:00] VITALS: BP 124/72; TEMP 97.9; O2SAT 99
[2023-10-19 17:51] LABS: BASOPHILS # (AUTO) 0.1 K/uL (0.0-0.2); BASOPHILS % (AUTO) 1.5 % (0.0-2.0); EOSINOPHILS # (AUTO) 0.4 K/uL (0.0-0.7); EOSINOPHILS % (AUTO) 6.5 % (0.0-6.0); HEMATOCRIT 28 % (33-45); LYMPHOCYTES # (AUTO) 1.3 K/uL (0.8-4.8); LYMPHOCYTES % (AUTO) 20.6 % (20.0-44.0); MEAN CORPUSCULAR HEMOGLOBIN 24 PG (26.0-33.0); MEAN CORPUSCULAR HGB CONC 32 g/dl (31.0-36.0); MEAN CORPUSCULAR VOLUME 75 fL (82-100); MONOCYTES # (AUTO) 0.5 K/uL (0.1-1.30); MONOCYTES % (AUTO) 8.6 % (2.0-12.0); NEUTROPHILS % (AUTO) 62.8 % (43.0-81.0); PLATELET COUNT (AUTO) 91 K/uL (150-450); RED BLOOD CELL COUNT(AUTO) 3.79 MIL/uL (4.0-5.2); RED CELL DISTRIBUTION WIDTH 30.8 % (11.5-15.0); WHITE BLOOD COUNT (AUTO) 6.4 K/uL (4.3-11.0)
[2023-10-19 18:26] LABS: ANISOCYTOSIS 2+; EOSINOPHILS % (MANUAL) 6 % (0-4); HYPOCHROMASIA 1+; LYMPHOCYTES % (MANUAL) 23 % (16-48); MONOCYTES % (MANUAL) 8 % (0-11.0); NEUTROPHILS % (MANUAL) 63 (42-76); PLATELET ESTIMATE DECREASED
[2023-10-19 18:27] LABS: OVALOCYTES 1+; TARGET CELLS 1+
[2023-10-19 20:00] VITALS: BP 107/57; TEMP 97.6; O2SAT 99
[2023-10-20] VITALS: BP 111/71; TEMP 98; O2SAT 98
[2023-10-20 01:42] LABS: INR 1.08 (0.91-1.10); PROTHROMBIN TIME 11.4 SECS (9.2-11.1)
[2023-10-20 01:47] LABS: PARTIAL THROMBOPLASTIN TIME 150.9 SEC (24.3-34.3)
[2023-10-20 04:00] VITALS: BP 120/82; TEMP 97.6; O2SAT 98
[2023-10-20 06:46] LABS: BASOPHILS # (AUTO) 0.1 K/uL (0.0-0.2); BASOPHILS % (AUTO) 1.3 % (0.0-2.0); EOSINOPHILS # (AUTO) 0.4 K/uL (0.0-0.7); EOSINOPHILS % (AUTO) 6.9 % (0.0-6.0); HEMATOCRIT 28 % (33-45); LYMPHOCYTES # (AUTO) 1.5 K/uL (0.8-4.8); MEAN CORPUSCULAR HEMOGLOBIN 24 PG (26.0-33.0); MEAN CORPUSCULAR HGB CONC 32 g/dl (31.0-36.0); MEAN CORPUSCULAR VOLUME 74 fL (82-100); MONOCYTES # (AUTO) 0.5 K/uL (0.1-1.30); MONOCYTES % (AUTO) 9.9 % (2.0-12.0); NEUTROPHILS % (AUTO) 54.9 % (43.0-81.0); PLATELET COUNT (AUTO) 72 K/uL (150-450); RED BLOOD CELL COUNT(AUTO) 3.82 MIL/uL (4.0-5.2); RED CELL DISTRIBUTION WIDTH 30.8 % (11.5-15.0); WHITE BLOOD COUNT (AUTO) 5.5 K/uL (4.3-11.0)
[2023-10-20 07:35] LABS: CALCIUM, SERUM 9.5 mg/dL (8.5-10.1); CARBON DIOXIDE 25 mmol/L (21-32); CHLORIDE 102 mmol/L (98-107); GLUCOSE 94 mg/dL (74-106); POTASSIUM 3.9 mmol/L (3.5-5.1); SODIUM SERUM 136 mmol/L (136-145); UREA NITROGEN, BLOOD 31 mg/dL (7-18)
[2023-10-20 07:40] LABS: IRON, SERUM 32 ug/dl (50-175); TOTAL IRON BINDING CAPACITY 299 ug/dl (250-450)
[2023-10-20 07:55] LABS: FERRITIN 496 ng/mL (8-388)
[2023-10-20 08:00] VITALS: BP 128/75; TEMP 98.4; O2SAT 98
[2023-10-20 08:08] LABS: INR 1.09 (0.91-1.10); PROTHROMBIN TIME 11.5 SECS (9.2-11.1)
[2023-10-20 08:16] LABS: PARTIAL THROMBOPLASTIN TIME 86.2 SEC (24.3-34.3)
[2023-10-20] MEDS ORDERED: FUROSEMIDE 20 MG/2 ML VIAL IV SCH (08:30)
[2023-10-20] MEDS: POTASSIUM CHLORIDE 20 MEQ TAB.PRT.SR PO ONE (09:22)
[2023-10-20 11:13] LABS: ANISOCYTOSIS 1+; BAND % (MANUAL) 3 % (0.0-5.0); EOSINOPHILS % (MANUAL) 4 % (0-4); HYPOCHROMASIA 1+; LYMPHOCYTES % (MANUAL) 22 % (16-48); MONOCYTES % (MANUAL) 10 % (0-11.0); NEUTROPHILS % (MANUAL) 61 (42-76); OVALOCYTES 1+; PLATELET ESTIMATE DECREASED; TARGET CELLS 1+
[2023-10-20 12:00] VITALS: BP 118/66; TEMP 98.4; O2SAT 98
[2023-10-20 16:00] VITALS: BP 129/77; TEMP 98.2; O2SAT 98
[2023-10-20 20:00] VITALS: BP 132/81; TEMP 98.1; O2SAT 98
[2023-10-21] VITALS: BP 128/73; TEMP 97.4; O2SAT 98
[2023-10-21 04:00] VITALS: BP 118/64; TEMP 98.5; O2SAT 98
[2023-10-21 07:24] LABS: BASOPHILS # (AUTO) 0.1 K/uL (0.0-0.2); BASOPHILS % (AUTO) 1.5 % (0.0-2.0); EOSINOPHILS # (AUTO) 0.4 K/uL (0.0-0.7); EOSINOPHILS % (AUTO) 6.4 % (0.0-6.0); HEMATOCRIT 29 % (33-45); LYMPHOCYTES # (AUTO) 1.6 K/uL (0.8-4.8); LYMPHOCYTES % (AUTO) 27.9 % (20.0-44.0); MEAN CORPUSCULAR HEMOGLOBIN 24 PG (26.0-33.0); MEAN CORPUSCULAR HGB CONC 32 g/dl (31.0-36.0); MEAN CORPUSCULAR VOLUME 75 fL (82-100); MONOCYTES # (AUTO) 0.6 K/uL (0.1-1.30); MONOCYTES % (AUTO) 10.2 % (2.0-12.0); PLATELET COUNT (AUTO) 69 K/uL (150-450); RED BLOOD CELL COUNT(AUTO) 3.82 MIL/uL (4.0-5.2); RED CELL DISTRIBUTION WIDTH 30.5 % (11.5-15.0); WHITE BLOOD COUNT (AUTO) 5.6 K/uL (4.3-11.0)
[2023-10-21 07:42] LABS: CALCIUM, SERUM 9.4 mg/dL (8.5-10.1); POTASSIUM 4.2 mmol/L (3.5-5.1)
[2023-10-21 08:00] VITALS: BP 155/95; TEMP 98.3; O2SAT 98
[2023-10-21 08:37] LABS: MAGNESIUM 2.5 mg/dL (1.8-2.4); PHOSPHORUS 3.9 mg/dL (2.5-4.9)
[2023-10-21] MEDS: METOPROLOL TARTRATE INJ 5 MG/5 ML AMPUL IVP ONE ×2 (10:05→11:31)
[2023-10-21 10:46] LABS: ANISOCYTOSIS 1+; BAND % (MANUAL) 1 % (0.0-5.0); BASOPHILS % (MANUAL) 0 % (0.0-2.0); EOSINOPHILS % (MANUAL) 4 % (0-4); LYMPHOCYTES % (MANUAL) 25 % (16-48); MONOCYTES % (MANUAL) 4 % (0-11.0); NEUTROPHILS % (MANUAL) 66 (42-76); OVALOCYTES 1+; PLATELET ESTIMATE PLATELET CLUMPS SEEN
[2023-10-21 12:00] VITALS: BP 133/92; TEMP 98.5; O2SAT 98
[2023-10-21] MEDS: METOPROLOL TARTRATE INJ 5 MG/5 ML AMPUL IVP PRN ×2 (13:35)
[2023-10-21] MEDS ORDERED: NITROGLYCERIN 0.4 MG/TAB BOTTLE ONE (13:37)
[2023-10-21] MEDS ORDERED: IOHEXOL-350 100 ML VIAL IV ONE (13:37)
[2023-10-21] MEDS ORDERED: CT SWABBABLE VALVE TRANS SET 1 EA INFUS.SET MC ONE (13:37)
[2023-10-21] MEDS ORDERED: METOPROLOL TARTRATE INJ 5 MG/5 ML AMPUL ONE ×2 (13:37→13:49)
[2023-10-21] MEDS ORDERED: IV NS 0.9% 250 ML IV ONE (13:38)
[2023-10-21] MEDS: NITROGLYCERIN 0.4 MG/TAB BOTTLE SL ONE (13:54)
[2023-10-21 16:00] VITALS: BP 130/83; TEMP 98.1; O2SAT 97
[2023-10-21 20:00] VITALS: BP 151/60; TEMP 98; O2SAT 97
[2023-10-22] VITALS: BP 139/67; TEMP 98; O2SAT 98
[2023-10-22 04:00] VITALS: BP 121/81; TEMP 97; O2SAT 95
[2023-10-22 07:08] LABS: BASOPHILS # (AUTO) 0.1 K/uL (0.0-0.2); BASOPHILS % (AUTO) 1.3 % (0.0-2.0); EOSINOPHILS # (AUTO) 0.3 K/uL (0.0-0.7); HEMATOCRIT 29 % (33-45); HEMOGLOBIN 9.1 g/dL (11.5-14.8); LYMPHOCYTES # (AUTO) 1.9 K/uL (0.8-4.8); LYMPHOCYTES % (AUTO) 31.4 % (20.0-44.0); MEAN CORPUSCULAR HEMOGLOBIN 24 PG (26.0-33.0); MEAN CORPUSCULAR HGB CONC 32 g/dl (31.0-36.0); MEAN CORPUSCULAR VOLUME 74 fL (82-100); MONOCYTES # (AUTO) 0.6 K/uL (0.1-1.30); NEUTROPHILS # (AUTO) 3.2 K/uL (1.8-8.9); NEUTROPHILS % (AUTO) 52.3 % (43.0-81.0); PLATELET COUNT (AUTO) 71 K/uL (150-450); RED BLOOD CELL COUNT(AUTO) 3.85 MIL/uL (4.0-5.2); RED CELL DISTRIBUTION WIDTH 30.9 % (11.5-15.0); WHITE BLOOD COUNT (AUTO) 6.1 K/uL (4.3-11.0)
[2023-10-22 07:42] LABS: CALCIUM, SERUM 9.5 mg/dL (8.5-10.1); POTASSIUM 3.9 mmol/L (3.5-5.1)
[2023-10-22 08:00] VITALS: BP 121/68; TEMP 97; O2SAT 95
[2023-10-22] MEDS: POTASSIUM CHLORIDE 20 MEQ TAB.PRT.SR PO SCH (08:57)
[2023-10-22] MEDS: FUROSEMIDE 40 MG TABLET PO SCH (08:57)
[2023-10-22 11:18] LABS: ANISOCYTOSIS 1+; BAND % (MANUAL) 2 % (0.0-5.0); BASOPHILS % (MANUAL) 0 % (0.0-2.0); EOSINOPHILS % (MANUAL) 2 % (0-4); HYPOCHROMASIA 1+; LYMPHOCYTES % (MANUAL) 24 % (16-48); MONOCYTES % (MANUAL) 10 % (0-11.0); NEUTROPHILS % (MANUAL) 62 (42-76); OVALOCYTES 1+; PLATELET ESTIMATE DECREASED
[2023-10-22 12:00] VITALS: BP 114/63; TEMP 98.4; O2SAT 95
[2023-10-22 16:00] VITALS: BP 112/68; TEMP 98.4; O2SAT 95
[2023-10-22] MEDS ORDERED: LORAZEPAM INJ 2 MG/ML VIAL IV ONE (18:30)
[2023-10-22] MEDS: MORPHINE SULFATE INJ 2 MG/ML DISP.SYRIN IV ONE (18:49)
[2023-10-22] MEDS: LORAZEPAM 1 MG TABLET PO ONE (18:49)
[2023-10-22] MEDS: LIDOCAINE 1% INJ 50 ML MDV IJ ONE (18:51)
[2023-10-22 20:00] VITALS: BP 127/80; TEMP 97.7; O2SAT 95
[2023-10-22 20:04] LABS: BASOPHILS # (AUTO) 0.1 K/uL (0.0-0.2); EOSINOPHILS # (AUTO) 0.3 K/uL (0.0-0.7); EOSINOPHILS % (AUTO) 4.4 % (0.0-6.0); HEMATOCRIT 30 % (33-45); HEMOGLOBIN 9.4 g/dL (11.5-14.8); LYMPHOCYTES # (AUTO) 1.3 K/uL (0.8-4.8); LYMPHOCYTES % (AUTO) 20.7 % (20.0-44.0); MEAN CORPUSCULAR HEMOGLOBIN 24 PG (26.0-33.0); MEAN CORPUSCULAR HGB CONC 32 g/dl (31.0-36.0); MEAN CORPUSCULAR VOLUME 75 fL (82-100); MONOCYTES # (AUTO) 0.7 K/uL (0.1-1.30); MONOCYTES % (AUTO) 10.3 % (2.0-12.0); NEUTROPHILS % (AUTO) 63.6 % (43.0-81.0); PLATELET COUNT (AUTO) 117 K/uL (150-450); RED BLOOD CELL COUNT(AUTO) 3.99 MIL/uL (4.0-5.2); RED CELL DISTRIBUTION WIDTH 30.6 % (11.5-15.0); WHITE BLOOD COUNT (AUTO) 6.4 K/uL (4.3-11.0)
[2023-10-22 21:12] LABS: BAND % (MANUAL) 1 % (0.0-5.0); EOSINOPHILS % (MANUAL) 3 % (0-4); LYMPHOCYTES % (MANUAL) 23 % (16-48); MONOCYTES % (MANUAL) 7 % (0-11.0); NEUTROPHILS % (MANUAL) 66 (42-76); PLATELET ESTIMATE DECRE
[2023-10-22 21:13] LABS: ANISOCYTOSIS 1+; HYPOCHROMASIA 1+
[2023-10-22 21:14] LABS: OVALOCYTES 1+
[2023-10-23] VITALS: BP 134/81; TEMP 98.6; O2SAT 98
[2023-10-23 04:00] VITALS: BP 136/67; TEMP 97.1; O2SAT 98
[2023-10-23 07:19] LABS: BASOPHILS # (AUTO) 0.1 K/uL (0.0-0.2); BASOPHILS % (AUTO) 1.2 % (0.0-2.0); EOSINOPHILS # (AUTO) 0.3 K/uL (0.0-0.7); EOSINOPHILS % (AUTO) 4.6 % (0.0-6.0); HEMATOCRIT 29 % (33-45); HEMOGLOBIN 9.4 g/dL (11.5-14.8); LYMPHOCYTES # (AUTO) 1.5 K/uL (0.8-4.8); MEAN CORPUSCULAR HEMOGLOBIN 24 PG (26.0-33.0); MEAN CORPUSCULAR HGB CONC 32 g/dl (31.0-36.0); MEAN CORPUSCULAR VOLUME 75 fL (82-100); MONOCYTES # (AUTO) 0.6 K/uL (0.1-1.30); MONOCYTES % (AUTO) 10.7 % (2.0-12.0); NEUTROPHILS # (AUTO) 3.5 K/uL (1.8-8.9); NEUTROPHILS % (AUTO) 58.5 % (43.0-81.0); PLATELET COUNT (AUTO) 91 K/uL (150-450); RED BLOOD CELL COUNT(AUTO) 3.94 MIL/uL (4.0-5.2); RED CELL DISTRIBUTION WIDTH 30.6 % (11.5-15.0)
[2023-10-23 07:56] LABS: CALCIUM, SERUM 9.7 mg/dL (8.5-10.1); CARBON DIOXIDE 30 mmol/L (21-32); CHLORIDE 99 mmol/L (98-107); CREATININE 1.1 mg/dL (0.6-1.3); GLUCOSE 94 mg/dL (74-106); POTASSIUM 4.1 mmol/L (3.5-5.1); SODIUM SERUM 135 mmol/L (136-145); UREA NITROGEN, BLOOD 30 mg/dL (7-18)
[2023-10-23 08:00] VITALS: BP 128/77; TEMP 98.1; O2SAT 100
[2023-10-23 10:26] LABS: ANISOCYTOSIS 1+; BASOPHILS % (MANUAL) 0 % (0.0-2.0); EOSINOPHILS % (MANUAL) 3 % (0-4); HYPOCHROMASIA 1+; LYMPHOCYTES % (MANUAL) 21 % (16-48); MONOCYTES % (MANUAL) 10 % (0-11.0); NEUTROPHILS % (MANUAL) 66 (42-76); OVALOCYTES 1+; PLATELET ESTIMATE DECREASED
[2023-10-23 12:00] VITALS: BP 105/57; TEMP 98.2; O2SAT 100
[2023-10-23 16:00] VITALS: BP 122/76; TEMP 98.1; O2SAT 99
[2023-10-23 20:00] VITALS: BP 104/66; TEMP 98.1; O2SAT 99
[2023-10-24] VITALS: BP 135/74; TEMP 98.4; O2SAT 98
[2023-10-24 04:00] VITALS: BP 118/71; TEMP 98.2; O2SAT 98
[2023-10-24 06:59] LABS: BASOPHILS # (AUTO) 0.1 K/uL (0.0-0.2); BASOPHILS % (AUTO) 1.2 % (0.0-2.0); EOSINOPHILS # (AUTO) 0.3 K/uL (0.0-0.7); EOSINOPHILS % (AUTO) 3.9 % (0.0-6.0); HEMATOCRIT 29 % (33-45); HEMOGLOBIN 9.5 g/dL (11.5-14.8); LYMPHOCYTES # (AUTO) 1.7 K/uL (0.8-4.8); LYMPHOCYTES % (AUTO) 22.1 % (20.0-44.0); MEAN CORPUSCULAR HEMOGLOBIN 24 PG (26.0-33.0); MEAN CORPUSCULAR HGB CONC 33 g/dl (31.0-36.0); MEAN CORPUSCULAR VOLUME 75 fL (82-100); MONOCYTES # (AUTO) 0.8 K/uL (0.1-1.30); MONOCYTES % (AUTO) 10.1 % (2.0-12.0); NEUTROPHILS # (AUTO) 4.7 K/uL (1.8-8.9); NEUTROPHILS % (AUTO) 62.7 % (43.0-81.0); PLATELET COUNT (AUTO) 77 K/uL (150-450); RED BLOOD CELL COUNT(AUTO) 3.88 MIL/uL (4.0-5.2); RED CELL DISTRIBUTION WIDTH 30.8 % (11.5-15.0); WHITE BLOOD COUNT (AUTO) 7.5 K/uL (4.3-11.0)
[2023-10-24 07:35] LABS: CALCIUM, SERUM 9.5 mg/dL (8.5-10.1); CARBON DIOXIDE 28 mmol/L (21-32); CHLORIDE 97 mmol/L (98-107); GLUCOSE 95 mg/dL (74-106); POTASSIUM 3.7 mmol/L (3.5-5.1); SODIUM SERUM 135 mmol/L (136-145); UREA NITROGEN, BLOOD 30 mg/dL (7-18)
[2023-10-24 08:00] VITALS: BP 117/68; TEMP 98.8; O2SAT 96
[2023-10-24 08:26] LABS: ANISOCYTOSIS 1+; BASOPHILS % (MANUAL) 0 % (0.0-2.0); EOSINOPHILS % (MANUAL) 2 % (0-4); HYPOCHROMASIA 1+; LYMPHOCYTES % (MANUAL) 24 % (16-48); MONOCYTES % (MANUAL) 12 % (0-11.0); NEUTROPHILS % (MANUAL) 62 (42-76); OVALOCYTES 1+; PLATELET ESTIMATE DECREASED
[2023-10-24 12:00] VITALS: BP 120/69; TEMP 98.1; O2SAT 97
[2023-10-24 13:02] LABS: INR 1.08 (0.91-1.10); PARTIAL THROMBOPLASTIN TIME 55.1 SEC (24.3-34.3); PROTHROMBIN TIME 11.4 SECS (9.2-11.1)
[2023-10-24 16:00] VITALS: BP 121/78; TEMP 98.6; O2SAT 99
[2023-10-24] MEDS: WARFARIN SODIUM 5 MG TABLET PO SCH (16:39)
[2023-10-24 17:07] LABS: *FACTOR II, DNA ANALYSIS Negative (.)
[2023-10-24 20:00] VITALS: BP 113/73; TEMP 99; O2SAT 99
[2023-10-25] VITALS: BP 114/73; TEMP 99; O2SAT 99
[2023-10-25 04:00] VITALS: BP 110/70; TEMP 98.8; O2SAT 99
[2023-10-25 06:23] LABS: BASOPHILS # (AUTO) 0.1 K/uL (0.0-0.2); BASOPHILS % (AUTO) 1.2 % (0.0-2.0); EOSINOPHILS # (AUTO) 0.3 K/uL (0.0-0.7); EOSINOPHILS % (AUTO) 4.6 % (0.0-6.0); HEMATOCRIT 29 % (33-45); HEMOGLOBIN 9.4 g/dL (11.5-14.8); LYMPHOCYTES # (AUTO) 1.3 K/uL (0.8-4.8); LYMPHOCYTES % (AUTO) 17.7 % (20.0-44.0); MEAN CORPUSCULAR HEMOGLOBIN 24 PG (26.0-33.0); MEAN CORPUSCULAR HGB CONC 33 g/dl (31.0-36.0); MEAN CORPUSCULAR VOLUME 74 fL (82-100); MONOCYTES # (AUTO) 0.7 K/uL (0.1-1.30); MONOCYTES % (AUTO) 10.3 % (2.0-12.0); NEUTROPHILS # (AUTO) 4.8 K/uL (1.8-8.9); NEUTROPHILS % (AUTO) 66.2 % (43.0-81.0); PLATELET COUNT (AUTO) 71 K/uL (150-450); RED BLOOD CELL COUNT(AUTO) 3.88 MIL/uL (4.0-5.2); RED CELL DISTRIBUTION WIDTH 31.3 % (11.5-15.0); WHITE BLOOD COUNT (AUTO) 7.3 K/uL (4.3-11.0)
[2023-10-25 06:35] LABS: INR 1.09 (0.91-1.10); PARTIAL THROMBOPLASTIN TIME 68.9 SEC (24.3-34.3); PROTHROMBIN TIME 11.5 SECS (9.2-11.1)
[2023-10-25 07:32] LABS: BASOPHILS % (MANUAL) 0 % (0.0-2.0); EOSINOPHILS % (MANUAL) 2 % (0-4); LYMPHOCYTES % (MANUAL) 15 % (16-48); MONOCYTES % (MANUAL) 12 % (0-11.0); NEUTROPHILS % (MANUAL) 71 (42-76)
[2023-10-25 07:33] LABS: ANISOCYTOSIS 1+; HYPOCHROMASIA 1+; PLATELET ESTIMATE PLATELET CLUMPS SEEN
[2023-10-25 08:00] VITALS: BP 120/70; TEMP 98.2; O2SAT 98
[2023-10-25 12:00] VITALS: BP 106/67; TEMP 99; O2SAT 99
[2023-10-25 16:00] VITALS: BP 116/70; TEMP 99.3; O2SAT 97
[2023-10-25 20:00] VITALS: BP 116/69; TEMP 98.8; O2SAT 97
[2023-10-26] VITALS: BP 110/64; TEMP 98.2; O2SAT 97
[2023-10-26 04:00] VITALS: BP 112/68; TEMP 98.2; O2SAT 97
[2023-10-26 06:35] LABS: BASOPHILS # (AUTO) 0.1 K/uL (0.0-0.2); BASOPHILS % (AUTO) 1.4 % (0.0-2.0); EOSINOPHILS # (AUTO) 0.4 K/uL (0.0-0.7); EOSINOPHILS % (AUTO) 6.2 % (0.0-6.0); HEMATOCRIT 29 % (33-45); HEMOGLOBIN 9.6 g/dL (11.5-14.8); LYMPHOCYTES # (AUTO) 1.2 K/uL (0.8-4.8); LYMPHOCYTES % (AUTO) 19.6 % (20.0-44.0); MEAN CORPUSCULAR HEMOGLOBIN 25 PG (26.0-33.0); MEAN CORPUSCULAR HGB CONC 33 g/dl (31.0-36.0); MEAN CORPUSCULAR VOLUME 75 fL (82-100); MONOCYTES # (AUTO) 0.7 K/uL (0.1-1.30); MONOCYTES % (AUTO) 11.7 % (2.0-12.0); NEUTROPHILS # (AUTO) 3.7 K/uL (1.8-8.9); NEUTROPHILS % (AUTO) 61.1 % (43.0-81.0); PLATELET COUNT (AUTO) 94 K/uL (150-450); RED BLOOD CELL COUNT(AUTO) 3.91 MIL/uL (4.0-5.2); RED CELL DISTRIBUTION WIDTH 30.7 % (11.5-15.0); WHITE BLOOD COUNT (AUTO) 6.1 K/uL (4.3-11.0)
[2023-10-26 06:58] LABS: INR 1.14 (0.91-1.10); PARTIAL THROMBOPLASTIN TIME 60.8 SEC (24.3-34.3)
[2023-10-26 07:08] LABS: CALCIUM, SERUM 9.7 mg/dL (8.5-10.1); CREATININE 1.1 mg/dL (0.6-1.3); MAGNESIUM 2.5 mg/dL (1.8-2.4); PHOSPHORUS 4.5 mg/dL (2.5-4.9); POTASSIUM 3.6 mmol/L (3.5-5.1)
[2023-10-26 08:00] VITALS: BP 142/88; TEMP 99.4; O2SAT 100
[2023-10-26 10:07] LABS: ANISOCYTOSIS 1+; BASOPHILS % (MANUAL) 0 % (0.0-2.0); EOSINOPHILS % (MANUAL) 4 % (0-4); HYPOCHROMASIA 1+; LYMPHOCYTES % (MANUAL) 15 % (16-48); MONOCYTES % (MANUAL) 12 % (0-11.0); NEUTROPHILS % (MANUAL) 69 (42-76); OVALOCYTES 1+; PLATELET ESTIMATE DECREASED
[2023-10-26 12:00] VITALS: BP 107/71; TEMP 98; O2SAT 98
[2023-10-26 16:00] VITALS: BP 108/65; TEMP 99; O2SAT 98
[2023-10-26 20:00] VITALS: BP 116/68; TEMP 98.2; O2SAT 99
[2023-10-27] VITALS (7 sets, daily range): BP systolic 106–123; BP diastolic 65–80; TEMP 97.5–99.3; O2SAT 98–99
[2023-10-27 07:32] LABS: INR 1.22 (0.91-1.10); PROTHROMBIN TIME 12.8 SECS (9.2-11.1)
[2023-10-27 07:40] LABS: BASOPHILS # (AUTO) 0.1 K/uL (0.0-0.2); BASOPHILS % (AUTO) 1.3 % (0.0-2.0); EOSINOPHILS # (AUTO) 0.5 K/uL (0.0-0.7); HEMATOCRIT 30 % (33-45); HEMOGLOBIN 9.8 g/dL (11.5-14.8); LYMPHOCYTES # (AUTO) 1.7 K/uL (0.8-4.8); LYMPHOCYTES % (AUTO) 23.7 % (20.0-44.0); MEAN CORPUSCULAR HEMOGLOBIN 25 PG (26.0-33.0); MEAN CORPUSCULAR HGB CONC 32 g/dl (31.0-36.0); MEAN CORPUSCULAR VOLUME 76 fL (82-100); MONOCYTES # (AUTO) 0.9 K/uL (0.1-1.30); MONOCYTES % (AUTO) 13.4 % (2.0-12.0); NEUTROPHILS # (AUTO) 3.9 K/uL (1.8-8.9); NEUTROPHILS % (AUTO) 54.6 % (43.0-81.0); RED BLOOD CELL COUNT(AUTO) 3.99 MIL/uL (4.0-5.2); RED CELL DISTRIBUTION WIDTH 30.7 % (11.5-15.0); WHITE BLOOD COUNT (AUTO) 7.1 K/uL (4.3-11.0)
[2023-10-27 08:06] LABS: IRON, SERUM 30 ug/dl (50-175); TOTAL IRON BINDING CAPACITY 333 ug/dl (250-450)
[2023-10-27 10:28] LABS: FERRITIN 413 ng/mL (8-388)
[2023-10-27 10:38] LABS: PLATELET COUNT (AUTO) 105 K/uL (150-450)
[2023-10-27 10:42] LABS: BASOPHILS % (MANUAL) 0 % (0.0-2.0); EOSINOPHILS % (MANUAL) 6 % (0-4); LYMPHOCYTES % (MANUAL) 20 % (16-48); MONOCYTES % (MANUAL) 13 % (0-11.0); NEUTROPHILS % (MANUAL) 61 (42-76)
[2023-10-27 10:43] LABS: ANISOCYTOSIS 1+; OVALOCYTES 1+; PLATELET ESTIMATE PLATELET CLUMPS SEEN
[2023-10-27] MEDS: PAROXETINE HCL 10 MG TABLET PO SCH (12:29)
[2023-10-27 22:22] LABS: INR 1.24 (0.91-1.10)
[2023-10-27] MEDS: MIRTAZAPINE 15 MG TABLET PO SCH (22:36)
[2023-10-28] VITALS: BP 123/80; TEMP 97.5; O2SAT 99
[2023-10-28 04:00] VITALS: BP 120/82; TEMP 99; O2SAT 100
[2023-10-28 07:03] LABS: BASOPHILS # (AUTO) 0.1 K/uL (0.0-0.2); BASOPHILS % (AUTO) 1.3 % (0.0-2.0); CALCIUM, SERUM 9.6 mg/dL (8.5-10.1); CREATININE 1.1 mg/dL (0.6-1.3); EOSINOPHILS # (AUTO) 0.5 K/uL (0.0-0.7); EOSINOPHILS % (AUTO) 5.9 % (0.0-6.0); HEMATOCRIT 29 % (33-45); HEMOGLOBIN 9.5 g/dL (11.5-14.8); LYMPHOCYTES # (AUTO) 1.4 K/uL (0.8-4.8); LYMPHOCYTES % (AUTO) 16.1 % (20.0-44.0); MAGNESIUM 2.3 mg/dL (1.8-2.4); MEAN CORPUSCULAR HEMOGLOBIN 25 PG (26.0-33.0); MEAN CORPUSCULAR HGB CONC 33 g/dl (31.0-36.0); MEAN CORPUSCULAR VOLUME 75 fL (82-100); MONOCYTES # (AUTO) 0.9 K/uL (0.1-1.30); MONOCYTES % (AUTO) 10.8 % (2.0-12.0); NEUTROPHILS # (AUTO) 5.7 K/uL (1.8-8.9); NEUTROPHILS % (AUTO) 65.9 % (43.0-81.0); PHOSPHORUS 3.2 mg/dL (2.5-4.9); PLATELET COUNT (AUTO) 53 K/uL (150-450); POTASSIUM 3.7 mmol/L (3.5-5.1); RED BLOOD CELL COUNT(AUTO) 3.88 MIL/uL (4.0-5.2); RED CELL DISTRIBUTION WIDTH 30.9 % (11.5-15.0); WHITE BLOOD COUNT (AUTO) 8.6 K/uL (4.3-11.0)
[2023-10-28 07:33] LABS: INR 1.3 (0.91-1.10); PROTHROMBIN TIME 13.5 SECS (9.2-11.1)
[2023-10-28 08:00] VITALS: BP 124/72; TEMP 98.8; O2SAT 100
[2023-10-28] MEDS: HEPARIN INFUSION/D5W 500 ML IV PRN (08:15)
[2023-10-28] MEDS: FERROUS SULFATE (325 MG) 325 MG/TAB TABLET PO SCH (08:59)
[2023-10-28 10:20] LABS: EOSINOPHILS % (MANUAL) 4 % (0-4)
[2023-10-28 10:22] LABS: LYMPHOCYTES % (MANUAL) 15 % (16-48); MONOCYTES % (MANUAL) 10 % (0-11.0); NEUTROPHILS % (MANUAL) 71 (42-76)
[2023-10-28 10:24] LABS: PLATELET ESTIMATE LARGE PLATELET SEEN
[2023-10-28] MEDS ORDERED: ALPRAZOLAM 0.25 MG TABLET PO PRN (10:30)
[2023-10-28 12:00] VITALS: BP 102/65; TEMP 98.6; O2SAT 99
[2023-10-28] MEDS: ALPRAZOLAM 0.5 MG TABLET PO PRN (14:47)
[2023-10-28 14:49] LABS: INR 1.34 (0.91-1.10); PARTIAL THROMBOPLASTIN TIME 59.5 SEC (24.3-34.3); PROTHROMBIN TIME 13.9 SECS (9.2-11.1)
[2023-10-28 16:00] VITALS: BP 116/70; TEMP 99; O2SAT 98
[2023-10-28] MEDS: WARFARIN SODIUM 2 MG TABLET PO SCH (16:47)
[2023-10-28 20:00] VITALS: BP 107/66; TEMP 99.3; O2SAT 94
[2023-10-29] VITALS: BP 130/81; TEMP 97.5; O2SAT 93
[2023-10-29 04:00] VITALS: BP 125/61; TEMP 97.9; O2SAT 2
[2023-10-29 07:20] LABS: BASOPHILS # (AUTO) 0.1 K/uL (0.0-0.2); BASOPHILS % (AUTO) 1.1 % (0.0-2.0); EOSINOPHILS # (AUTO) 0.5 K/uL (0.0-0.7); EOSINOPHILS % (AUTO) 5.3 % (0.0-6.0); HEMATOCRIT 33 % (33-45); HEMOGLOBIN 10.5 g/dL (11.5-14.8); LYMPHOCYTES # (AUTO) 1.5 K/uL (0.8-4.8); LYMPHOCYTES % (AUTO) 16.1 % (20.0-44.0); MEAN CORPUSCULAR HEMOGLOBIN 25 PG (26.0-33.0); MEAN CORPUSCULAR HGB CONC 32 g/dl (31.0-36.0); MEAN CORPUSCULAR VOLUME 76 fL (82-100); MONOCYTES # (AUTO) 1.2 K/uL (0.1-1.30); MONOCYTES % (AUTO) 12.9 % (2.0-12.0); NEUTROPHILS # (AUTO) 5.9 K/uL (1.8-8.9); NEUTROPHILS % (AUTO) 64.6 % (43.0-81.0); RED BLOOD CELL COUNT(AUTO) 4.29 MIL/uL (4.0-5.2); RED CELL DISTRIBUTION WIDTH 31.2 % (11.5-15.0); WHITE BLOOD COUNT (AUTO) 9.1 K/uL (4.3-11.0)
[2023-10-29 07:58] LABS: CALCIUM, SERUM 9.7 mg/dL (8.5-10.1); CARBON DIOXIDE 25 mmol/L (21-32); CHLORIDE 98 mmol/L (98-107); GLUCOSE 95 mg/dL (74-106); MAGNESIUM 2.3 mg/dL (1.8-2.4); PHOSPHORUS 3.5 mg/dL (2.5-4.9); POTASSIUM 3.8 mmol/L (3.5-5.1); SODIUM SERUM 136 mmol/L (136-145); UREA NITROGEN, BLOOD 24 mg/dL (7-18)
[2023-10-29 08:00] VITALS: BP 144/80; TEMP 100.1; O2SAT 95
[2023-10-29 08:38] LABS: PLATELET COUNT (AUTO) 150 K/uL (150-450)
[2023-10-29 08:40] LABS: ANISOCYTOSIS 1+; BAND % (MANUAL) 3 % (0.0-5.0); BASOPHILS % (MANUAL) 0 % (0.0-2.0); EOSINOPHILS % (MANUAL) 5 % (0-4); LYMPHOCYTES % (MANUAL) 14 % (16-48); MONOCYTES % (MANUAL) 10 % (0-11.0); NEUTROPHILS % (MANUAL) 68 (42-76); PLATELET ESTIMATE PLATELET CLUMPS SEEN
[2023-10-29] MEDS: MECLIZINE HCL 12.5 MG TABLET PO PRN (08:58)
[2023-10-29 11:15] LABS: INR 1.43 (0.91-1.10); PROTHROMBIN TIME 14.8 SECS (9.2-11.1)
[2023-10-29 14:39] LABS: INR 1.47 (0.91-1.10); PROTHROMBIN TIME 15.2 SECS (9.2-11.1)
[2023-10-29 20:00] VITALS: BP 116/78; TEMP 99.5; O2SAT 95
[2023-10-30] VITALS: BP 121/92; TEMP 98.9; O2SAT 96
[2023-10-30 07:16] LABS: BASOPHILS # (AUTO) 0.1 K/uL (0.0-0.2); BASOPHILS % (AUTO) 1.5 % (0.0-2.0); EOSINOPHILS # (AUTO) 0.7 K/uL (0.0-0.7); EOSINOPHILS % (AUTO) 8.8 % (0.0-6.0); HEMATOCRIT 32 % (33-45); HEMOGLOBIN 10.6 g/dL (11.5-14.8); LYMPHOCYTES # (AUTO) 2.3 K/uL (0.8-4.8); LYMPHOCYTES % (AUTO) 27.5 % (20.0-44.0); MEAN CORPUSCULAR HEMOGLOBIN 25 PG (26.0-33.0); MEAN CORPUSCULAR HGB CONC 33 g/dl (31.0-36.0); MEAN CORPUSCULAR VOLUME 76 fL (82-100); MONOCYTES # (AUTO) 1.3 K/uL (0.1-1.30); MONOCYTES % (AUTO) 16.1 % (2.0-12.0); NEUTROPHILS # (AUTO) 3.8 K/uL (1.8-8.9); NEUTROPHILS % (AUTO) 46.1 % (43.0-81.0); RED BLOOD CELL COUNT(AUTO) 4.24 MIL/uL (4.0-5.2); WHITE BLOOD COUNT (AUTO) 8.2 K/uL (4.3-11.0)
[2023-10-30 07:32] LABS: INR 1.71 (0.91-1.10); PARTIAL THROMBOPLASTIN TIME 59.5 SEC (24.3-34.3); PROTHROMBIN TIME 17.5 SECS (9.2-11.1)
[2023-10-30 07:46] LABS: CREATININE 1.1 mg/dL (0.6-1.3); MAGNESIUM 2.4 mg/dL (1.8-2.4); PHOSPHORUS 4.2 mg/dL (2.5-4.9); POTASSIUM 3.9 mmol/L (3.5-5.1)
[2023-10-30 10:40] LABS: PLATELET COUNT (AUTO) 149 K/uL (150-450)
[2023-10-30 10:53] LABS: ANISOCYTOSIS 1+; BAND % (MANUAL) 4 % (0.0-5.0); BASOPHILS % (MANUAL) 0 % (0.0-2.0); EOSINOPHILS % (MANUAL) 5 % (0-4); LYMPHOCYTES % (MANUAL) 18 % (16-48); MONOCYTES % (MANUAL) 15 % (0-11.0); NEUTROPHILS % (MANUAL) 58 (42-76); OVALOCYTES 1+; PLATELET ESTIMATE PLATELET CLUMPS SEEN
[2023-10-30] MEDS: METOPROLOL TARTRATE 50 MG TABLET PO SCH (11:09)
[2023-10-30 12:47] VITALS: BP 113/72; TEMP 98.1; O2SAT 96
[2023-10-31] VITALS: BP 105/69; TEMP 97.5; O2SAT 98
[2023-10-31 04:00] VITALS: BP 90/55; TEMP 98.6; O2SAT 99
[2023-10-31 07:19] LABS: BASOPHILS # (AUTO) 0.1 K/uL (0.0-0.2); EOSINOPHILS # (AUTO) 0.7 K/uL (0.0-0.7); HEMATOCRIT 33 % (33-45); HEMOGLOBIN 10.7 g/dL (11.5-14.8); LYMPHOCYTES # (AUTO) 2.9 K/uL (0.8-4.8); LYMPHOCYTES % (AUTO) 29.3 % (20.0-44.0); MEAN CORPUSCULAR HEMOGLOBIN 25 PG (26.0-33.0); MEAN CORPUSCULAR HGB CONC 33 g/dl (31.0-36.0); MEAN CORPUSCULAR VOLUME 76 fL (82-100); MONOCYTES # (AUTO) 1.3 K/uL (0.1-1.30); MONOCYTES % (AUTO) 13.5 % (2.0-12.0); NEUTROPHILS # (AUTO) 4.8 K/uL (1.8-8.9); NEUTROPHILS % (AUTO) 49.2 % (43.0-81.0); PLATELET COUNT (AUTO) 102 K/uL (150-450); RED BLOOD CELL COUNT(AUTO) 4.29 MIL/uL (4.0-5.2); RED CELL DISTRIBUTION WIDTH 30.9 % (11.5-15.0); WHITE BLOOD COUNT (AUTO) 9.8 K/uL (4.3-11.0)
[2023-10-31 07:45] LABS: INR 1.93 (0.91-1.10); PARTIAL THROMBOPLASTIN TIME 59.6 SEC (24.3-34.3); PROTHROMBIN TIME 19.6 SECS (9.2-11.1)
[2023-10-31 10:55] LABS: INR 2.01 (0.91-1.10); PROTHROMBIN TIME 20.4 SECS (9.2-11.1)
[2023-11-01 07:47] LABS: BASOPHILS # (AUTO) 0.1 K/uL (0.0-0.2); BASOPHILS % (AUTO) 0.9 % (0.0-2.0); EOSINOPHILS # (AUTO) 0.7 K/uL (0.0-0.7); EOSINOPHILS % (AUTO) 6.2 % (0.0-6.0); HEMATOCRIT 32 % (33-45); HEMOGLOBIN 10.3 g/dL (11.5-14.8); LYMPHOCYTES # (AUTO) 2.8 K/uL (0.8-4.8); LYMPHOCYTES % (AUTO) 23.5 % (20.0-44.0); MEAN CORPUSCULAR HEMOGLOBIN 25 PG (26.0-33.0); MEAN CORPUSCULAR HGB CONC 33 g/dl (31.0-36.0); MEAN CORPUSCULAR VOLUME 77 fL (82-100); MONOCYTES # (AUTO) 1.5 K/uL (0.1-1.30); MONOCYTES % (AUTO) 12.4 % (2.0-12.0); NEUTROPHILS # (AUTO) 6.7 K/uL (1.8-8.9); RED BLOOD CELL COUNT(AUTO) 4.11 MIL/uL (4.0-5.2); RED CELL DISTRIBUTION WIDTH 30.7 % (11.5-15.0); WHITE BLOOD COUNT (AUTO) 11.8 K/uL (4.3-11.0)
[2023-11-01 07:54] LABS: CARBON DIOXIDE 25 mmol/L (21-32); CHLORIDE 99 mmol/L (98-107); CREATININE 1.5 mg/dL (0.6-1.3); GLUCOSE 92 mg/dL (74-106); MAGNESIUM 2.6 mg/dL (1.8-2.4); PHOSPHORUS 5.1 mg/dL (2.5-4.9); POTASSIUM 4.1 mmol/L (3.5-5.1); SODIUM SERUM 136 mmol/L (136-145); UREA NITROGEN, BLOOD 44 mg/dL (7-18)
[2023-11-01 08:15] LABS: PLATELET COUNT (AUTO) 216 K/uL (150-450)
[2023-11-01] MEDS ORDERED: NEPRO VAN 237 ML CAN PO PRN (09:30)
[2023-11-01 10:06] LABS: BASOPHILS % (MANUAL) 0 % (0.0-2.0); EOSINOPHILS % (MANUAL) 9 % (0-4); LYMPHOCYTES % (MANUAL) 17 % (16-48); MONOCYTES % (MANUAL) 9 % (0-11.0); NEUTROPHILS % (MANUAL) 65 (42-76); PLATELET ESTIMATE PLATELET CLUMPS SEEN
[2023-11-01 10:07] LABS: ANISOCYTOSIS 1+; HYPOCHROMASIA 1+; OVALOCYTES 1+
[2023-11-01 10:24] VITALS: BP 118/71
[2023-11-01 10:46] LABS: BASOPHILS # (AUTO) 0.1 K/uL (0.0-0.2); BASOPHILS % (AUTO) 1.2 % (0.0-2.0); EOSINOPHILS # (AUTO) 0.7 K/uL (0.0-0.7); EOSINOPHILS % (AUTO) 7.3 % (0.0-6.0); HEMATOCRIT 32 % (33-45); HEMOGLOBIN 10.5 g/dL (11.5-14.8); LYMPHOCYTES # (AUTO) 2.4 K/uL (0.8-4.8); MEAN CORPUSCULAR HEMOGLOBIN 25 PG (26.0-33.0); MEAN CORPUSCULAR HGB CONC 32 g/dl (31.0-36.0); MEAN CORPUSCULAR VOLUME 77 fL (82-100); MONOCYTES # (AUTO) 1.1 K/uL (0.1-1.30); MONOCYTES % (AUTO) 11.3 % (2.0-12.0); NEUTROPHILS # (AUTO) 5.3 K/uL (1.8-8.9); NEUTROPHILS % (AUTO) 55.2 % (43.0-81.0); PLATELET COUNT (AUTO) 223 K/uL (150-450); RED BLOOD CELL COUNT(AUTO) 4.24 MIL/uL (4.0-5.2); RED CELL DISTRIBUTION WIDTH 30.6 % (11.5-15.0); WHITE BLOOD COUNT (AUTO) 9.6 K/uL (4.3-11.0)
[2023-11-01 10:55] LABS: INR 2.67 (0.91-1.10); PROTHROMBIN TIME 26.5 SECS (9.2-11.1)
[2023-11-01 11:11] LABS: ALANINE AMINOTRANSFERASE 57 U/L (12-78); ALBUMIN 2.7 g/dL (3.4-5.0); ALKALINE PHOSPHATASE 94 U/L (46-116); ASPARTATE AMINOTRANSFERASE 29 U/L (15-37); BILIRUBIN,TOTAL 0.3 mg/dL (0.2-1.0); CARBON DIOXIDE 28 mmol/L (21-32); CHLORIDE 99 mmol/L (98-107); CREATININE 1.4 mg/dL (0.6-1.3); GLUCOSE 132 mg/dL (74-106); MAGNESIUM 2.5 mg/dL (1.8-2.4); PHOSPHORUS 3.9 mg/dL (2.5-4.9); POTASSIUM 4.1 mmol/L (3.5-5.1); SODIUM SERUM 135 mmol/L (136-145); TOTAL PROTEIN, SERUM 7.2 g/dL (6.4-8.2); UREA NITROGEN, BLOOD 45 mg/dL (7-18)
[2023-11-01] MEDS ORDERED: FERR325T28 PO (13:39)
[2023-11-01] MEDS ORDERED: METO50TA16 PO (13:39)
[2023-11-01] MEDS ORDERED: FURO40TA5 PO (13:39)
[2023-11-01] MEDS ORDERED: SUCR1TAB31 PO (13:39)
== END 2023-11-01 16:44 | DRG 377 ==
LOC: ER 02:18 → TELE-TD 06:50 → TELE1 08:57
PROVIDERS: ADMIT Nurse Practitioner Family; ATTEND Internal Medicine
PROC: 30233K1 Transfusion of Nonautologous Frozen Plasma into Peripheral Vein, Percutaneous Approach (ICD-10-PCS; principal; 2023-10-12)
PROC: 30233N1 Transfusion of Nonautologous Red Blood Cells into Peripheral Vein, Percutaneous Approach (ICD-10-PCS; 2023-10-12)
PROC: 05HC33Z Insertion of Infusion Device into Left Basilic Vein, Percutaneous Approach (ICD-10-PCS; 2023-10-12)
PROC: B54NZZA Ultrasonography of Left Upper Extremity Veins, Guidance (ICD-10-PCS; 2023-10-12)
PROC: 05HB33Z Insertion of Infusion Device into Right Basilic Vein, Percutaneous Approach (ICD-10-PCS; 2023-10-12)
PROC: B54MZZA Ultrasonography of Right Upper Extremity Veins, Guidance (ICD-10-PCS; 2023-10-12)
PROC: 0DB98ZX Excision of Duodenum, Via Natural or Artificial Opening Endoscopic, Diagnostic (ICD-10-PCS; 2023-10-15)
PROC: 079T3ZX Drainage of Bone Marrow, Percutaneous Approach, Diagnostic (ICD-10-PCS; 2023-10-22)
DX: K25.4 Chronic or unspecified gastric ulcer with hemorrhage (principal); I21.A1 Myocardial infarction type 2; I50.33 Acute on chronic diastolic (congestive) heart failure; J96.01 Acute respiratory failure with hypoxia; I13.0 Hypertensive heart and chronic kidney disease with heart failure and stage 1 through stage 4 chronic kidney disease, or unspecified chronic kidney disease; D61.818 Other pancytopenia; D68.62 Lupus anticoagulant syndrome; E44.0 Moderate protein-calorie malnutrition; E87.1 Hypo-osmolality and hyponatremia; N17.9 Acute kidney failure, unspecified; F03.94 Unspecified dementia, unspecified severity, with anxiety; F33.9 Major depressive disorder, recurrent, unspecified; I31.39 Other pericardial effusion (noninflammatory); F03.93 Unspecified dementia, unspecified severity, with mood disturbance; F03.918 Unspecified dementia, unspecified severity, with other behavioral disturbance; M32.9 Systemic lupus erythematosus, unspecified; Z86.73 Personal history of transient ischemic attack (TIA), and cerebral infarction without residual deficits; K29.70 Gastritis, unspecified, without bleeding; K44.9 Diaphragmatic hernia without obstruction or gangrene; D47.2 Monoclonal gammopathy; E78.5 Hyperlipidemia, unspecified; E88.09 Other disorders of plasma-protein metabolism, not elsewhere classified; N18.9 Chronic kidney disease, unspecified; Z79.82 Long term (current) use of aspirin; Z86.711 Personal history of pulmonary embolism; Z86.718 Personal history of other venous thrombosis and embolism; Z79.899 Other long term (current) drug therapy; Z79.01 Long term (current) use of anticoagulants; I25.2 Old myocardial infarction; I25.10 Atherosclerotic heart disease of native coronary artery without angina pectoris; R53.1 Weakness; G40.909 Epilepsy, unspecified, not intractable, without status epilepticus; F41.0 Panic disorder [episodic paroxysmal anxiety]; I27.20 Pulmonary hypertension, unspecified; Z88.2 Allergy status to sulfonamides; D69.6 Thrombocytopenia, unspecified; Z20.822 Contact with and (suspected) exposure to COVID-19; I35.0 Nonrheumatic aortic (valve) stenosis; D50.0 Iron deficiency anemia secondary to blood loss (chronic); K29.80 Duodenitis without bleeding; F41.1 Generalized anxiety disorder; J44.9 Chronic obstructive pulmonary disease, unspecified; K80.20 Calculus of gallbladder without cholecystitis without obstruction; M89.8X9 Other specified disorders of bone, unspecified site
CPT/HCPCS: 36410; 36415; 71045-TC; 71250-TC; 75574; 76700-TC; 80048-TC; 80053-TC; 80061-TC; 81240; 81241; 82232; 82272-TC; 82378; 82607-TC; 82728-TC; 82784; 83010; 83090; 83540-TC; 83605-TC; 83615-TC; 83735-TC; 83880; 83935-TC; 84100-TC; 84155; 84165; 84300-TC; 84439-TC; 84443-TC; 84484-TC; 84550-TC; 85025-TC; 85027-TC; 85045-TC; 85303; 85378-TC; 85396; 85610-TC; 85613; 85652-TC; 85670; 85705; 85730-TC; 85732; 86140-TC; 86147; 86225; 86235; 86334; 86431-TC; 86706; 86803; 86850-TC; 86880-TC; 87040-TC; 87340; 88305-TC; 93307-TC; 93970-TC; 97110-TC; 97530-TC; A4223; G0378; J0696; J1200; J1644; J1940; J2270; J2405; J2543; J2704; J2916; J3480; J3490; J7030; J7040; J7050; J7060; J8597; P9016; P9017; Q9967

== ENCOUNTER 2023-11-14 23:34 | Inpatient (IN) | payer MEDICARE, OTHER ==
[~2023-11-14] VITALS: Ht 167.6 cm; Wt 63.5 kg
[~2023-11-14 23:34] MED LIST changes: +FERR325T28 PO; +FURO40TA5 PO; +METO50TA16 PO; +SUCR1TAB31 PO
[2023-11-15] VITALS (11 sets, daily range): BP systolic 103–165; BP diastolic 46–96; TEMP 97.5–99; O2SAT 97–100
[2023-11-15] MEDS: IV NS 0.9% 1,000 ML BAG IV ONE (00:36)
[2023-11-15 00:47] LABS: BASOPHILS # (AUTO) 0.1 K/uL (0.0-0.2); BASOPHILS % (AUTO) 1.9 % (0.0-2.0); EOSINOPHILS # (AUTO) 0.5 K/uL (0.0-0.7); EOSINOPHILS % (AUTO) 7.9 % (0.0-6.0); HEMATOCRIT 29 % (33-45); HEMOGLOBIN 9.6 g/dL (11.5-14.8); LYMPHOCYTES # (AUTO) 2.6 K/uL (0.8-4.8); LYMPHOCYTES % (AUTO) 41.5 % (20.0-44.0); MEAN CORPUSCULAR HEMOGLOBIN 26 PG (26.0-33.0); MEAN CORPUSCULAR HGB CONC 34 g/dl (31.0-36.0); MEAN CORPUSCULAR VOLUME 77 fL (82-100); MONOCYTES # (AUTO) 0.8 K/uL (0.1-1.30); MONOCYTES % (AUTO) 12.9 % (2.0-12.0); NEUTROPHILS # (AUTO) 2.3 K/uL (1.8-8.9); NEUTROPHILS % (AUTO) 35.8 % (43.0-81.0); RED CELL DISTRIBUTION WIDTH 28.6 % (11.5-15.0); WHITE BLOOD COUNT (AUTO) 6.3 K/uL (4.3-11.0)
[2023-11-15 00:50] LABS: PLATELET COUNT (AUTO) 23 K/uL (150-450)
[2023-11-15 00:57] LABS: CALCIUM, SERUM 8.8 mg/dL (8.5-10.1); POTASSIUM 4.4 mmol/L (3.5-5.1)
[2023-11-15 01:19] LABS: ANISOCYTOSIS 1+; BASOPHILS % (MANUAL) 0 % (0.0-2.0); EOSINOPHILS % (MANUAL) 5 % (0-4); HYPOCHROMASIA 1+; LYMPHOCYTES % (MANUAL) 29 % (16-48); MONOCYTES % (MANUAL) 15 % (0-11.0); NEUTROPHILS % (MANUAL) 51 (42-76); PLATELET ESTIMATE DECREASED
[2023-11-15] MEDS ORDERED: ONDANSETRON HCL/PF 4 MG/2 ML VIAL IV PRN (03:30)
[2023-11-15 07:36] LABS: BASOPHILS # (AUTO) 0.1 K/uL (0.0-0.2); BASOPHILS % (AUTO) 1.9 % (0.0-2.0); EOSINOPHILS # (AUTO) 0.5 K/uL (0.0-0.7); EOSINOPHILS % (AUTO) 9.7 % (0.0-6.0); HEMATOCRIT 29 % (33-45); HEMOGLOBIN 9.6 g/dL (11.5-14.8); LYMPHOCYTES # (AUTO) 1.7 K/uL (0.8-4.8); LYMPHOCYTES % (AUTO) 36.2 % (20.0-44.0); MEAN CORPUSCULAR HEMOGLOBIN 26 PG (26.0-33.0); MEAN CORPUSCULAR HGB CONC 33 g/dl (31.0-36.0); MEAN CORPUSCULAR VOLUME 77 fL (82-100); MONOCYTES # (AUTO) 0.5 K/uL (0.1-1.30); MONOCYTES % (AUTO) 9.8 % (2.0-12.0); NEUTROPHILS % (AUTO) 42.4 % (43.0-81.0); RED BLOOD CELL COUNT(AUTO) 3.75 MIL/uL (4.0-5.2); RED CELL DISTRIBUTION WIDTH 28.5 % (11.5-15.0); WHITE BLOOD COUNT (AUTO) 4.8 K/uL (4.3-11.0)
[2023-11-15 08:04] LABS: PLATELET COUNT (AUTO) 25 K/uL (150-450)
[2023-11-15 08:10] LABS: CALCIUM, SERUM 8.5 mg/dL (8.5-10.1); CARBON DIOXIDE 23 mmol/L (21-32); CHLORIDE 99 mmol/L (98-107); GLUCOSE 85 mg/dL (74-106); SODIUM SERUM 130 mmol/L (136-145); UREA NITROGEN, BLOOD 16 mg/dL (7-18)
[2023-11-15] MEDS: PANTOPRAZOLE 40 MG TABLET.DR PO SCH (08:36)
[2023-11-15] MEDS ORDERED: FERR325T28 PO (08:57)
[2023-11-15] MEDS ORDERED: POLY17PO4 PO (08:57)
[2023-11-15] MEDS ORDERED: FURO-144 PO (08:57)
[2023-11-15] MEDS ORDERED: METO50TA16 PO (08:57)
[2023-11-15] MEDS ORDERED: SUCR1TAB PO (08:57)
[2023-11-15] MEDS: ACETAMINOPHEN 325 MG TABLET PO PRN (09:25)
[2023-11-15 11:12] LABS: INR 1.42 (0.91-1.10); PROTHROMBIN TIME 14.7 SECS (9.2-11.1)
[2023-11-15] MEDS: PAROXETINE HCL 10 MG TABLET PO SCH (12:03)
[2023-11-15] MEDS: SUCRALFATE 1 G TABLET PO SCH (12:06)
[2023-11-15] MEDS ORDERED: PANTOPRAZOLE 40 MG TABLET.DR PO SCH (16:30)
[2023-11-15] MEDS ORDERED: METOPROLOL TARTRATE 25 MG TABLET PO SCH (17:00)
[2023-11-15] MEDS ORDERED: METOPROLOL TARTRATE 50 MG TABLET PO SCH (17:00)
[2023-11-15 18:04] LABS: APPEARANCE,URINE CLEAR (CLEAR); BILIRUBIN,URINE NEGATIVE (NEGATIVE); BLOOD, URINE NEGATIVE Ery/uL (NEGATIVE); COLOR,URINE YELLOW (YELLOW); KETONES,URINE NEGATIVE (NEGATIVE); LEUKOCYTE ESTERASE ,URINE 1+ (NEGATIVE); NITRITE, URINE NEGATIVE (NEGATIVE); PROTEIN,URINE NEGATIVE (NEGATIVE); UGLUCOSE NEGATIVE (NEGATIVE); UROBILINOGEN,URINE 0.2 EU/dL (0.2)
[2023-11-15 18:38] LABS: ADD URINE CULTURE YES; BACTERIA,URINE Moderate /HPF (None Seen); RBC,URINE NONE SEEN /HPF (0-2)
[2023-11-15 18:39] LABS: SQUAMOUS EPITHELIAL CELL,UR 0-2 /HPF (None Seen)
[2023-11-15] MEDS: MIRTAZAPINE 15 MG TABLET PO SCH (21:43)
[2023-11-15] MEDS: FAMOTIDINE (20 MG) 20 MG TABLET PO SCH (21:43)
[2023-11-15] MEDS ORDERED: QUETIAPINE FUMARATE 25 MG TABLET PO SCH (22:00)
[2023-11-16] MEDS: ALPRAZOLAM 0.25 MG TABLET PO SCH (01:04)
[2023-11-16 07:24] LABS: BASOPHILS # (AUTO) 0.1 K/uL (0.0-0.2); BASOPHILS % (AUTO) 1.2 % (0.0-2.0); EOSINOPHILS # (AUTO) 0.1 K/uL (0.0-0.7); EOSINOPHILS % (AUTO) 2.4 % (0.0-6.0); HEMATOCRIT 28 % (33-45); HEMOGLOBIN 9.5 g/dL (11.5-14.8); LYMPHOCYTES # (AUTO) 1.8 K/uL (0.8-4.8); LYMPHOCYTES % (AUTO) 27.8 % (20.0-44.0); MEAN CORPUSCULAR HEMOGLOBIN 26 PG (26.0-33.0); MEAN CORPUSCULAR HGB CONC 34 g/dl (31.0-36.0); MEAN CORPUSCULAR VOLUME 77 fL (82-100); MONOCYTES # (AUTO) 0.5 K/uL (0.1-1.30); MONOCYTES % (AUTO) 8.2 % (2.0-12.0); NEUTROPHILS # (AUTO) 3.8 K/uL (1.8-8.9); NEUTROPHILS % (AUTO) 60.4 % (43.0-81.0); RED BLOOD CELL COUNT(AUTO) 3.67 MIL/uL (4.0-5.2); RED CELL DISTRIBUTION WIDTH 28.7 % (11.5-15.0); WHITE BLOOD COUNT (AUTO) 6.3 K/uL (4.3-11.0)
[2023-11-16 07:35] LABS: ALBUMIN 2.5 g/dL (3.4-5.0); BILIRUBIN,TOTAL 0.4 mg/dL (0.2-1.0); CALCIUM, SERUM 8.8 mg/dL (8.5-10.1); POTASSIUM 3.5 mmol/L (3.5-5.1); TOTAL PROTEIN, SERUM 6.2 g/dL (6.4-8.2)
[2023-11-16 07:47] LABS: PLATELET COUNT (AUTO) 37 K/uL (150-450)
[2023-11-16 07:48] LABS: INR 1.39 (0.91-1.10); PARTIAL THROMBOPLASTIN TIME 52.5 SEC (24.3-34.3); PROTHROMBIN TIME 14.4 SECS (9.2-11.1)
[2023-11-16 08:46] LABS: THYROID STIMULATING HORMONE 0.535 uIU/mL (0.358-3.74)
[2023-11-16] MEDS ORDERED: LOSARTAN POTASSIUM 50 MG TABLET PO SCH (09:00)
[2023-11-16 10:48] LABS: ANISOCYTOSIS 1+; BASOPHILS % (MANUAL) 0 % (0.0-2.0); EOSINOPHILS % (MANUAL) 2 % (0-4); LYMPHOCYTES % (MANUAL) 22 % (16-48); MONOCYTES % (MANUAL) 10 % (0-11.0); NEUTROPHILS % (MANUAL) 66 (42-76); OVALOCYTES 1+; PLATELET ESTIMATE DECREASED
[2023-11-16] MEDS: IV D5/ 0.9% NACL 1,000 ML IV PRN (12:08)
[2023-11-16] MEDS: CEFTRIAXONE 1 G in IV D5W 50 ML IV SCH (12:20)
[2023-11-16] MEDS: QUETIAPINE FUMARATE 25 MG TABLET PO PRN (13:59)
[2023-11-16] MEDS: SOD FERRIC GLUC 125 MG in IV NS 0.9% 100 ML IV SCH (15:03)
[2023-11-16 16:27] LABS: HIV-1 p24 ANTIGEN NON REACTIVE (NONREACTIVE); HIV-1/2 ANTIBODY NON REACTIVE (NONREACTIVE)
[2023-11-16 20:00] VITALS: BP 130/64; TEMP 98.3; O2SAT 98
[2023-11-16] MEDS: METOPROLOL TARTRATE 25 MG TABLET PO SCH (21:09)
[2023-11-17 07:53] LABS: BASOPHILS # (AUTO) 0.1 K/uL (0.0-0.2); BASOPHILS % (AUTO) 2.4 % (0.0-2.0); EOSINOPHILS # (AUTO) 0.5 K/uL (0.0-0.7); EOSINOPHILS % (AUTO) 9.6 % (0.0-6.0); HEMATOCRIT 30 % (33-45); HEMOGLOBIN 9.7 g/dL (11.5-14.8); LYMPHOCYTES # (AUTO) 1.7 K/uL (0.8-4.8); LYMPHOCYTES % (AUTO) 34.9 % (20.0-44.0); MEAN CORPUSCULAR HEMOGLOBIN 26 PG (26.0-33.0); MEAN CORPUSCULAR HGB CONC 33 g/dl (31.0-36.0); MEAN CORPUSCULAR VOLUME 77 fL (82-100); MONOCYTES # (AUTO) 0.6 K/uL (0.1-1.30); MONOCYTES % (AUTO) 12.2 % (2.0-12.0); NEUTROPHILS % (AUTO) 40.9 % (43.0-81.0); RED BLOOD CELL COUNT(AUTO) 3.81 MIL/uL (4.0-5.2); RED CELL DISTRIBUTION WIDTH 29.6 % (11.5-15.0); WHITE BLOOD COUNT (AUTO) 4.8 K/uL (4.3-11.0)
[2023-11-17 07:56] LABS: CALCIUM, SERUM 9.2 mg/dL (8.5-10.1); POTASSIUM 3.8 mmol/L (3.5-5.1)
[2023-11-17 08:00] VITALS: BP 164/63; TEMP 98.6; O2SAT 98
[2023-11-17] MEDS: POLYETHYLENE GLYCOL 3350 17 GM POWD.PACK PO PRN (09:04)
[2023-11-17 10:58] LABS: ANISOCYTOSIS 1+; BASOPHILS % (MANUAL) 0 % (0.0-2.0); EOSINOPHILS % (MANUAL) 10 % (0-4); LYMPHOCYTES % (MANUAL) 33 % (16-48); MONOCYTES % (MANUAL) 8 % (0-11.0); NEUTROPHILS % (MANUAL) 49 (42-76); PLATELET ESTIMATE PLATELET CLUMPS SEEN
[2023-11-17 11:25] LABS: PLATELET COUNT (AUTO) 52 K/uL (150-450)
[2023-11-17 12:00] VITALS: BP 106/78; TEMP 98.8; O2SAT 97
[2023-11-17] MEDS: ALPRAZOLAM 0.25 MG TABLET PO PRN (15:13)
[2023-11-17 15:41] LABS: BASOPHILS # (AUTO) 0.1 K/uL (0.0-0.2); BASOPHILS % (AUTO) 1.6 % (0.0-2.0); EOSINOPHILS # (AUTO) 0.5 K/uL (0.0-0.7); EOSINOPHILS % (AUTO) 8.8 % (0.0-6.0); HEMATOCRIT 30 % (33-45); HEMOGLOBIN 9.7 g/dL (11.5-14.8); LYMPHOCYTES # (AUTO) 1.9 K/uL (0.8-4.8); LYMPHOCYTES % (AUTO) 34.9 % (20.0-44.0); MEAN CORPUSCULAR HEMOGLOBIN 26 PG (26.0-33.0); MEAN CORPUSCULAR HGB CONC 33 g/dl (31.0-36.0); MEAN CORPUSCULAR VOLUME 79 fL (82-100); MONOCYTES # (AUTO) 0.8 K/uL (0.1-1.30); MONOCYTES % (AUTO) 15.3 % (2.0-12.0); NEUTROPHILS # (AUTO) 2.1 K/uL (1.8-8.9); NEUTROPHILS % (AUTO) 39.4 % (43.0-81.0); RED BLOOD CELL COUNT(AUTO) 3.75 MIL/uL (4.0-5.2); RED CELL DISTRIBUTION WIDTH 28.2 % (11.5-15.0); WHITE BLOOD COUNT (AUTO) 5.3 K/uL (4.3-11.0)
[2023-11-17 16:00] VITALS: BP 102/46; TEMP 98.4; O2SAT 98
[2023-11-17 16:29] LABS: PLATELET COUNT (AUTO) 49 K/uL (150-450)
[2023-11-17 16:48] LABS: ANISOCYTOSIS 2+; EOSINOPHILS % (MANUAL) 10 % (0-4); HYPOCHROMASIA 1+; LYMPHOCYTES % (MANUAL) 35 % (16-48); MONOCYTES % (MANUAL) 15 % (0-11.0); NEUTROPHILS % (MANUAL) 40 (42-76); PLATELET ESTIMATE DECREASED
[2023-11-17 16:49] LABS: OVALOCYTES 1+; TARGET CELLS 1+
[2023-11-17 20:00] VITALS: BP 124/59; TEMP 98.2; O2SAT 96
[2023-11-18 07:00] VITALS: BP 125/57; TEMP 98.2; O2SAT 98
[2023-11-18 07:22] LABS: CALCIUM, SERUM 9.9 mg/dL (8.5-10.1)
[2023-11-18 07:32] LABS: BASOPHILS # (AUTO) 0.2 K/uL (0.0-0.2); BASOPHILS % (AUTO) 3.4 % (0.0-2.0); EOSINOPHILS # (AUTO) 0.7 K/uL (0.0-0.7); EOSINOPHILS % (AUTO) 12.9 % (0.0-6.0); HEMATOCRIT 30 % (33-45); HEMOGLOBIN 9.9 g/dL (11.5-14.8); LYMPHOCYTES # (AUTO) 1.9 K/uL (0.8-4.8); LYMPHOCYTES % (AUTO) 35.8 % (20.0-44.0); MEAN CORPUSCULAR HEMOGLOBIN 26 PG (26.0-33.0); MEAN CORPUSCULAR HGB CONC 33 g/dl (31.0-36.0); MEAN CORPUSCULAR VOLUME 78 fL (82-100); MONOCYTES # (AUTO) 0.5 K/uL (0.1-1.30); MONOCYTES % (AUTO) 10.2 % (2.0-12.0); NEUTROPHILS % (AUTO) 37.7 % (43.0-81.0); RED BLOOD CELL COUNT(AUTO) 3.82 MIL/uL (4.0-5.2); RED CELL DISTRIBUTION WIDTH 28.3 % (11.5-15.0); WHITE BLOOD COUNT (AUTO) 5.3 K/uL (4.3-11.0)
[2023-11-18 08:55] LABS: PLATELET COUNT (AUTO) 51 K/uL (150-450)
[2023-11-18] MEDS: ENSURE ENLIVE 237 ML LIQUID (VANILLA) PO SCH (09:33)
[2023-11-18 11:07] LABS: NEUTROPHILS % (MANUAL) 44 (42-76)
[2023-11-18 11:08] LABS: ANISOCYTOSIS 1+; BASOPHILS % (MANUAL) 0 % (0.0-2.0); EOSINOPHILS % (MANUAL) 15 % (0-4); LYMPHOCYTES % (MANUAL) 31 % (16-48); MONOCYTES % (MANUAL) 10 % (0-11.0); PLATELET ESTIMATE PLATELET CLUMPS SEEN
[2023-11-18] MEDS: HEPARIN SODIUM, PORCINE 5000 UNITS/1 ML VIAL SQ SCH (14:51)
[2023-11-18 16:00] VITALS: BP 118/50; TEMP 99; O2SAT 96
[2023-11-18] MEDS: LEVOFLOXACIN (250MG) 250 MG TABLET PO SCH (17:45)
[2023-11-18] MEDS: TRAZODONE 50 MG TABLET PO SCH (21:30)
[2023-11-18] MEDS: LORAZEPAM 0.5 MG TABLET PO PRN (21:31)
[2023-11-19 06:57] LABS: BASOPHILS # (AUTO) 0.1 K/uL (0.0-0.2); BASOPHILS % (AUTO) 1.4 % (0.0-2.0); EOSINOPHILS # (AUTO) 0.6 K/uL (0.0-0.7); EOSINOPHILS % (AUTO) 11.5 % (0.0-6.0); HEMATOCRIT 33 % (33-45); HEMOGLOBIN 10.7 g/dL (11.5-14.8); LYMPHOCYTES % (AUTO) 38.8 % (20.0-44.0); MEAN CORPUSCULAR HEMOGLOBIN 26 PG (26.0-33.0); MEAN CORPUSCULAR HGB CONC 33 g/dl (31.0-36.0); MEAN CORPUSCULAR VOLUME 78 fL (82-100); MONOCYTES # (AUTO) 0.5 K/uL (0.1-1.30); MONOCYTES % (AUTO) 9.1 % (2.0-12.0); NEUTROPHILS # (AUTO) 2.1 K/uL (1.8-8.9); NEUTROPHILS % (AUTO) 39.2 % (43.0-81.0); RED BLOOD CELL COUNT(AUTO) 4.15 MIL/uL (4.0-5.2); RED CELL DISTRIBUTION WIDTH 28.7 % (11.5-15.0); WHITE BLOOD COUNT (AUTO) 5.3 K/uL (4.3-11.0)
[2023-11-19 07:31] LABS: CALCIUM, SERUM 9.9 mg/dL (8.5-10.1); CREATININE 1.2 mg/dL (0.6-1.3); POTASSIUM 4.1 mmol/L (3.5-5.1)
[2023-11-19 07:32] LABS: PLATELET COUNT (AUTO) 30 K/uL (150-450)
[2023-11-19 08:00] VITALS: BP 149/52; TEMP 98.1; O2SAT 97
[2023-11-19 11:57] LABS: BASOPHILS % (MANUAL) 0 % (0.0-2.0); EOSINOPHILS % (MANUAL) 13 % (0-4); LYMPHOCYTES % (MANUAL) 35 % (16-48); MONOCYTES % (MANUAL) 9 % (0-11.0); NEUTROPHILS % (MANUAL) 43 (42-76)
[2023-11-19 11:58] LABS: ANISOCYTOSIS 1+; HYPOCHROMASIA 1+; OVALOCYTES 1+; PLATELET ESTIMATE DECREASED
[2023-11-19 16:00] VITALS: BP 118/58; TEMP 98.5; O2SAT 97
[2023-11-20 07:43] LABS: BASOPHILS % (AUTO) 0.7 % (0.0-2.0); EOSINOPHILS # (AUTO) 0.6 K/uL (0.0-0.7); EOSINOPHILS % (AUTO) 9.8 % (0.0-6.0); HEMATOCRIT 31 % (33-45); LYMPHOCYTES # (AUTO) 2.2 K/uL (0.8-4.8); LYMPHOCYTES % (AUTO) 38.3 % (20.0-44.0); MEAN CORPUSCULAR HEMOGLOBIN 26 PG (26.0-33.0); MEAN CORPUSCULAR HGB CONC 32 g/dl (31.0-36.0); MEAN CORPUSCULAR VOLUME 81 fL (82-100); MONOCYTES # (AUTO) 0.6 K/uL (0.1-1.30); MONOCYTES % (AUTO) 10.6 % (2.0-12.0); NEUTROPHILS # (AUTO) 2.3 K/uL (1.8-8.9); NEUTROPHILS % (AUTO) 40.6 % (43.0-81.0); RED BLOOD CELL COUNT(AUTO) 3.86 MIL/uL (4.0-5.2); WHITE BLOOD COUNT (AUTO) 5.7 K/uL (4.3-11.0)
[2023-11-20 07:54] LABS: CALCIUM, SERUM 9.5 mg/dL (8.5-10.1); CARBON DIOXIDE 22 mmol/L (21-32); CHLORIDE 100 mmol/L (98-107); CREATININE 1.2 mg/dL (0.6-1.3); GLUCOSE 94 mg/dL (74-106); POTASSIUM 4.5 mmol/L (3.5-5.1); SODIUM SERUM 132 mmol/L (136-145); UREA NITROGEN, BLOOD 21 mg/dL (7-18)
[2023-11-20 08:00] VITALS: BP 141/68; TEMP 99; O2SAT 99
[2023-11-20 11:21] LABS: ANISOCYTOSIS 1+; BASOPHILS % (MANUAL) 0 % (0.0-2.0); EOSINOPHILS % (MANUAL) 5 % (0-4); LYMPHOCYTES % (MANUAL) 39 % (16-48); MONOCYTES % (MANUAL) 10 % (0-11.0); NEUTROPHILS % (MANUAL) 46 (42-76); PLATELET COUNT (AUTO) 36 K/uL (150-450); PLATELET ESTIMATE PLATELET CLUMPS SEEN
[2023-11-20 16:00] VITALS: BP 120/69; TEMP 98.8; O2SAT 97
[2023-11-20 20:00] VITALS: BP 107/56; TEMP 97.9; O2SAT 97
[2023-11-20 21:24] VITALS: BP 107/56; TEMP 97.9; O2SAT 97
[2023-11-21 07:30] VITALS: BP 133/67; TEMP 98.2; O2SAT 97
[2023-11-21 08:45] LABS: BASOPHILS # (AUTO) 0.1 K/uL (0.0-0.2); EOSINOPHILS # (AUTO) 0.5 K/uL (0.0-0.7); EOSINOPHILS % (AUTO) 8.8 % (0.0-6.0); HEMATOCRIT 33 % (33-45); HEMOGLOBIN 10.8 g/dL (11.5-14.8); LYMPHOCYTES # (AUTO) 1.8 K/uL (0.8-4.8); LYMPHOCYTES % (AUTO) 34.3 % (20.0-44.0); MEAN CORPUSCULAR HEMOGLOBIN 26 PG (26.0-33.0); MEAN CORPUSCULAR HGB CONC 33 g/dl (31.0-36.0); MEAN CORPUSCULAR VOLUME 79 fL (82-100); MONOCYTES # (AUTO) 0.3 K/uL (0.1-1.30); MONOCYTES % (AUTO) 6.7 % (2.0-12.0); NEUTROPHILS # (AUTO) 2.5 K/uL (1.8-8.9); NEUTROPHILS % (AUTO) 49.2 % (43.0-81.0); RED BLOOD CELL COUNT(AUTO) 4.14 MIL/uL (4.0-5.2); RED CELL DISTRIBUTION WIDTH 28.7 % (11.5-15.0); WHITE BLOOD COUNT (AUTO) 5.1 K/uL (4.3-11.0)
[2023-11-21 09:15] LABS: PLATELET COUNT (AUTO) 35 K/uL (150-450)
[2023-11-21 10:59] LABS: ANISOCYTOSIS 1+; BAND % (MANUAL) 3 % (0.0-5.0); BASOPHILS % (MANUAL) 0 % (0.0-2.0); EOSINOPHILS % (MANUAL) 7 % (0-4); LYMPHOCYTES % (MANUAL) 38 % (16-48); MONOCYTES % (MANUAL) 8 % (0-11.0); NEUTROPHILS % (MANUAL) 44 (42-76); PLATELET ESTIMATE DECREASED
[2023-11-21] MEDS: predniSONE 20 MG TABLET PO SCH (11:45)
[2023-11-21 16:00] VITALS: BP 100/53; TEMP 98.6; O2SAT 96
[2023-11-21 20:00] VITALS: BP 121/55; TEMP 99; O2SAT 97
[2023-11-22 07:19] LABS: CALCIUM, SERUM 9.4 mg/dL (8.5-10.1); CREATININE 1.1 mg/dL (0.6-1.3); POTASSIUM 4.4 mmol/L (3.5-5.1)
[2023-11-22 07:40] LABS: BASOPHILS % (AUTO) 0.2 % (0.0-2.0); EOSINOPHILS % (AUTO) 0.2 % (0.0-6.0); HEMATOCRIT 30 % (33-45); HEMOGLOBIN 9.9 g/dL (11.5-14.8); LYMPHOCYTES # (AUTO) 1.5 K/uL (0.8-4.8); LYMPHOCYTES % (AUTO) 20.7 % (20.0-44.0); MEAN CORPUSCULAR HEMOGLOBIN 26 PG (26.0-33.0); MEAN CORPUSCULAR HGB CONC 33 g/dl (31.0-36.0); MEAN CORPUSCULAR VOLUME 78 fL (82-100); MONOCYTES # (AUTO) 0.4 K/uL (0.1-1.30); MONOCYTES % (AUTO) 5.7 % (2.0-12.0); NEUTROPHILS # (AUTO) 5.2 K/uL (1.8-8.9); NEUTROPHILS % (AUTO) 73.2 % (43.0-81.0); RED BLOOD CELL COUNT(AUTO) 3.82 MIL/uL (4.0-5.2); RED CELL DISTRIBUTION WIDTH 27.9 % (11.5-15.0); WHITE BLOOD COUNT (AUTO) 7.1 K/uL (4.3-11.0)
[2023-11-22 08:00] VITALS: BP 121/53; TEMP 97.3; O2SAT 95
[2023-11-22 11:52] LABS: PLATELET COUNT (AUTO) 33 K/uL (150-450)
[2023-11-22 11:53] LABS: ANISOCYTOSIS 1+; BAND % (MANUAL) 3 % (0.0-5.0); BASOPHILS % (MANUAL) 0 % (0.0-2.0); EOSINOPHILS % (MANUAL) 0 % (0-4); LYMPHOCYTES % (MANUAL) 24 % (16-48); MONOCYTES % (MANUAL) 10 % (0-11.0); NEUTROPHILS % (MANUAL) 63 (42-76); OVALOCYTES 1+; PLATELET ESTIMATE PLATELET CLUMPS SEEN
[2023-11-22] MEDS: FOLIC ACID 1 MG TABLET PO SCH (13:29)
[2023-11-22 16:00] VITALS: BP 111/62; TEMP 99.3; O2SAT 96
[2023-11-22 20:00] VITALS: BP 104/51; TEMP 98.8; O2SAT 95
[2023-11-23 07:12] LABS: BASOPHILS % (AUTO) 0.6 % (0.0-2.0); EOSINOPHILS # (AUTO) 0.1 K/uL (0.0-0.7); EOSINOPHILS % (AUTO) 1.7 % (0.0-6.0); HEMATOCRIT 30 % (33-45); HEMOGLOBIN 10.5 g/dL (11.5-14.8); LYMPHOCYTES # (AUTO) 1.9 K/uL (0.8-4.8); LYMPHOCYTES % (AUTO) 27.6 % (20.0-44.0); MEAN CORPUSCULAR HEMOGLOBIN 28 PG (26.0-33.0); MEAN CORPUSCULAR HGB CONC 35 g/dl (31.0-36.0); MEAN CORPUSCULAR VOLUME 78 fL (82-100); MONOCYTES # (AUTO) 0.6 K/uL (0.1-1.30); NEUTROPHILS # (AUTO) 4.3 K/uL (1.8-8.9); NEUTROPHILS % (AUTO) 61.1 % (43.0-81.0); RED BLOOD CELL COUNT(AUTO) 3.81 MIL/uL (4.0-5.2); RED CELL DISTRIBUTION WIDTH 28.2 % (11.5-15.0)
[2023-11-23 07:15] LABS: PLATELET COUNT (AUTO) 23 K/uL (150-450)
[2023-11-23 07:17] LABS: CALCIUM, SERUM 9.8 mg/dL (8.5-10.1); CREATININE 1.1 mg/dL (0.6-1.3); POTASSIUM 3.9 mmol/L (3.5-5.1)
[2023-11-23 08:00] VITALS: BP 139/53; TEMP 97.7; O2SAT 97
[2023-11-23 09:47] LABS: BASOPHILS % (MANUAL) 0 % (0.0-2.0); EOSINOPHILS % (MANUAL) 2 % (0-4); LYMPHOCYTES % (MANUAL) 22 % (16-48); MONOCYTES % (MANUAL) 10 % (0-11.0); NEUTROPHILS % (MANUAL) 66 (42-76)
[2023-11-23 09:48] LABS: ANISOCYTOSIS 1+; OVALOCYTES 1+; PLATELET ESTIMATE DECREASED
[2023-11-23] MEDS: LORAZEPAM 0.5 MG TABLET PO ONE (11:38)
[2023-11-23 16:00] VITALS: BP 122/78; TEMP 98.6; O2SAT 97
[2023-11-23 20:00] VITALS: BP 119/49; TEMP 98.6; O2SAT 98
[2023-11-24 07:35] LABS: BASOPHILS % (AUTO) 0.4 % (0.0-2.0); EOSINOPHILS # (AUTO) 0.1 K/uL (0.0-0.7); EOSINOPHILS % (AUTO) 0.8 % (0.0-6.0); HEMATOCRIT 32 % (33-45); HEMOGLOBIN 10.6 g/dL (11.5-14.8); LYMPHOCYTES # (AUTO) 2.1 K/uL (0.8-4.8); LYMPHOCYTES % (AUTO) 32.7 % (20.0-44.0); MEAN CORPUSCULAR HEMOGLOBIN 26 PG (26.0-33.0); MEAN CORPUSCULAR HGB CONC 33 g/dl (31.0-36.0); MEAN CORPUSCULAR VOLUME 79 fL (82-100); MONOCYTES # (AUTO) 0.6 K/uL (0.1-1.30); MONOCYTES % (AUTO) 9.6 % (2.0-12.0); NEUTROPHILS # (AUTO) 3.7 K/uL (1.8-8.9); NEUTROPHILS % (AUTO) 56.5 % (43.0-81.0); RED BLOOD CELL COUNT(AUTO) 4.03 MIL/uL (4.0-5.2); RED CELL DISTRIBUTION WIDTH 27.9 % (11.5-15.0); WHITE BLOOD COUNT (AUTO) 6.6 K/uL (4.3-11.0)
[2023-11-24 08:00] VITALS: BP 125/38; TEMP 98.4; O2SAT 99
[2023-11-24 08:20] LABS: ALANINE AMINOTRANSFERASE 37 U/L (12-78); ALBUMIN 2.8 g/dL (3.4-5.0); ALKALINE PHOSPHATASE 76 U/L (46-116); ASPARTATE AMINOTRANSFERASE 24 U/L (15-37); BILIRUBIN,TOTAL 0.2 mg/dL (0.2-1.0); CALCIUM, SERUM 9.6 mg/dL (8.5-10.1); CARBON DIOXIDE 25 mmol/L (21-32); CHLORIDE 98 mmol/L (98-107); CREATININE 1.2 mg/dL (0.6-1.3); GLUCOSE 88 mg/dL (74-106); POTASSIUM 3.9 mmol/L (3.5-5.1); SODIUM SERUM 133 mmol/L (136-145); UREA NITROGEN, BLOOD 30 mg/dL (7-18)
[2023-11-24 11:00] LABS: PLATELET COUNT (AUTO) 37 K/uL (150-450)
[2023-11-24 11:01] LABS: ANISOCYTOSIS 1+; BAND % (MANUAL) 4 % (0.0-5.0); EOSINOPHILS % (MANUAL) 0 % (0-4); LYMPHOCYTES % (MANUAL) 28 % (16-48); MONOCYTES % (MANUAL) 7 % (0-11.0); NEUTROPHILS % (MANUAL) 61 (42-76); PLATELET ESTIMATE PLATELET CLUMPS SEEN
[2023-11-24] MEDS ORDERED: IV NS 0.9% 100 ML IV SCH (15:00)
[2023-11-24 16:00] VITALS: BP 110/48; TEMP 98.8; O2SAT 97
[2023-11-24] MEDS: IV NS 0.9% 1,000 ML IV SCH (17:05)
[2023-11-24 20:00] VITALS: BP_SYST 105; BP_SYST 156; BP_DIAS 49; BP_DIAS 73; TEMP 98.8; O2SAT 96; O2SAT 97
[2023-11-25 06:54] LABS: BASOPHILS % (AUTO) 0.4 % (0.0-2.0); EOSINOPHILS # (AUTO) 0.1 K/uL (0.0-0.7); HEMATOCRIT 30 % (33-45); HEMOGLOBIN 10.2 g/dL (11.5-14.8); LYMPHOCYTES # (AUTO) 2.1 K/uL (0.8-4.8); LYMPHOCYTES % (AUTO) 30.2 % (20.0-44.0); MEAN CORPUSCULAR HEMOGLOBIN 27 PG (26.0-33.0); MEAN CORPUSCULAR HGB CONC 34 g/dl (31.0-36.0); MEAN CORPUSCULAR VOLUME 79 fL (82-100); MONOCYTES # (AUTO) 0.7 K/uL (0.1-1.30); MONOCYTES % (AUTO) 10.6 % (2.0-12.0); NEUTROPHILS % (AUTO) 57.8 % (43.0-81.0); RED BLOOD CELL COUNT(AUTO) 3.75 MIL/uL (4.0-5.2); RED CELL DISTRIBUTION WIDTH 27.6 % (11.5-15.0)
[2023-11-25 07:18] LABS: CALCIUM, SERUM 9.2 mg/dL (8.5-10.1); CREATININE 1.2 mg/dL (0.6-1.3); POTASSIUM 3.9 mmol/L (3.5-5.1)
[2023-11-25 07:20] LABS: PLATELET COUNT (AUTO) 39 K/uL (150-450)
[2023-11-25 08:00] VITALS: BP 128/49; TEMP 98.1; O2SAT 97
[2023-11-25 08:38] VITALS: BP 128/49
[2023-11-25 12:07] LABS: BAND % (MANUAL) 3 % (0.0-5.0); BASOPHILS % (MANUAL) 0 % (0.0-2.0); EOSINOPHILS % (MANUAL) 2 % (0-4); LYMPHOCYTES % (MANUAL) 27 % (16-48); MONOCYTES % (MANUAL) 5 % (0-11.0); NEUTROPHILS % (MANUAL) 63 (42-76)
[2023-11-25 12:08] LABS: ANISOCYTOSIS 1+; OVALOCYTES 1+; PLATELET ESTIMATE PLATELET CLUMPS SEEN
== END 2023-11-25 14:59 | DRG 813 ==
LOC: ER 23:36 → MED 11-15 01:56
PROVIDERS: ADMIT Internal Medicine; ATTEND Internal Medicine
PROC: 6A550Z2 Pheresis of Platelets, Single (ICD-10-PCS; principal; 2023-11-15)
DX: D69.6 Thrombocytopenia, unspecified (principal); E87.1 Hypo-osmolality and hyponatremia; N39.0 Urinary tract infection, site not specified; D68.62 Lupus anticoagulant syndrome; F03.918 Unspecified dementia, unspecified severity, with other behavioral disturbance; I11.0 Hypertensive heart disease with heart failure; I50.9 Heart failure, unspecified; M32.9 Systemic lupus erythematosus, unspecified; D50.9 Iron deficiency anemia, unspecified; E86.0 Dehydration; R79.89 Other specified abnormal findings of blood chemistry; I35.0 Nonrheumatic aortic (valve) stenosis; Z79.82 Long term (current) use of aspirin; Z79.899 Other long term (current) drug therapy; Z86.711 Personal history of pulmonary embolism; Z86.718 Personal history of other venous thrombosis and embolism; Z86.73 Personal history of transient ischemic attack (TIA), and cerebral infarction without residual deficits; Z79.01 Long term (current) use of anticoagulants; I25.10 Atherosclerotic heart disease of native coronary artery without angina pectoris; G47.00 Insomnia, unspecified; F41.1 Generalized anxiety disorder; F41.0 Panic disorder [episodic paroxysmal anxiety]; B95.2 Enterococcus as the cause of diseases classified elsewhere; D47.2 Monoclonal gammopathy; R53.81 Other malaise; E78.5 Hyperlipidemia, unspecified; G40.909 Epilepsy, unspecified, not intractable, without status epilepticus; Z88.2 Allergy status to sulfonamides
CPT/HCPCS: 36415; 71045-TC; 80048-TC; 80053-TC; 81001; 82728-TC; 83540-TC; 84443-TC; 85025-TC; 85610-TC; 85652-TC; 85730-TC; 86140-TC; 86803; 86850-TC; 87081-TC; 87086-TC; 87806; 97110-TC; 97112-TC; 97116-TC; 97530-TC; A4223; G0378; J0696; J1644; J2916; J7030; J7042; J7050; J7060; P9034

== ENCOUNTER 2024-07-08 16:21 | Inpatient (IN) | payer MEDICARE, OTHER ==
[~2024-07-08] VITALS: Ht 157.5 cm; Wt 61.7 kg
[~2024-07-08 16:21] MED LIST changes: -ASPI-1169 PO; +FURO-144 PO; -FURO40TA5 PO; +POLY17PO4 PO; +SUCR1TAB PO; -SUCR1TAB31 PO; +ZOLP5TAB8 PO
[2024-07-08] MEDS ORDERED: ACETAMINOPHEN 650 MG/SUPP.RECT RC ONE (17:13)
[2024-07-08 17:25] LABS: BASOPHILS # (AUTO) 0.1 K/uL (0.0-0.2); BASOPHILS % (AUTO) 1.1 % (0.0-2.0); EOSINOPHILS # (AUTO) 0.5 K/uL (0.0-0.7); HEMATOCRIT 21 % (33-45); LYMPHOCYTES # (AUTO) 1.7 K/uL (0.8-4.8); LYMPHOCYTES % (AUTO) 14.5 % (20.0-44.0); MEAN CORPUSCULAR HEMOGLOBIN 25 PG (26.0-33.0); MEAN CORPUSCULAR HGB CONC 33 g/dl (31.0-36.0); MEAN CORPUSCULAR VOLUME 77 fL (82-100); MONOCYTES # (AUTO) 0.7 K/uL (0.1-1.30); MONOCYTES % (AUTO) 6.2 % (2.0-12.0); NEUTROPHILS # (AUTO) 8.6 K/uL (1.8-8.9); NEUTROPHILS % (AUTO) 74.2 % (43.0-81.0); PLATELET COUNT (AUTO) 142 K/uL (150-450); RED BLOOD CELL COUNT(AUTO) 2.73 MIL/uL (4.0-5.2); RED CELL DISTRIBUTION WIDTH 14.7 % (11.5-15.0); WHITE BLOOD COUNT (AUTO) 11.6 K/uL (4.3-11.0)
[2024-07-08] MEDS ORDERED: LACT-58 PO (17:28)
[2024-07-08] MEDS ORDERED: LEVE500T20 PO (17:28)
[2024-07-08] MEDS ORDERED: METO25TA6 PO (17:28)
[2024-07-08] MEDS ORDERED: DOCU100C36 PO (17:28)
[2024-07-08] MEDS ORDERED: CLON0.5T4 PO (17:28)
[2024-07-08] MEDS ORDERED: MELA3TAB41 PO (17:28)
[2024-07-08] MEDS ORDERED: ACET325T53 PO (17:28)
[2024-07-08] MEDS ORDERED: FOLI0.8C PO (17:28)
[2024-07-08] MEDS ORDERED: POLY15DR31 EACHEYE (17:28)
[2024-07-08] MEDS ORDERED: MIRT-90 PO (17:28)
[2024-07-08] MEDS ORDERED: OXCA300T15 PO (17:28)
[2024-07-08] MEDS ORDERED: QUET50TA PO (17:28)
[2024-07-08 17:30] LABS: CALCIUM, SERUM 8.7 mg/dL (8.5-10.1); CARBON DIOXIDE 25 mmol/L (21-32); CHLORIDE 98 mmol/L (98-107); CREATININE 1.2 mg/dL (0.6-1.3); GLUCOSE 100 mg/dL (74-106); POTASSIUM 4.9 mmol/L (3.5-5.1); SODIUM SERUM 130 mmol/L (136-145); UREA NITROGEN, BLOOD 22 mg/dL (7-18)
[2024-07-08] MEDS: ACETAMINOPHEN 650 MG/SUPP.RECT RC ONE (17:30)
[2024-07-08] MEDS: IV NS 0.9% 1,000 ML BAG IV ONE (17:30)
[2024-07-08 17:31] LABS: HEMOGLOBIN 6.9 g/dL (11.5-14.8)
[2024-07-08 17:36] LABS: ALANINE AMINOTRANSFERASE 49 U/L (12-78); ALBUMIN 2.7 g/dL (3.4-5.0); ALKALINE PHOSPHATASE 118 U/L (46-116); ASPARTATE AMINOTRANSFERASE 40 U/L (15-37); BILIRUBIN,DIRECT 0.1 mg/dL (0.0-0.2); BILIRUBIN,TOTAL 0.2 mg/dL (0.2-1.0); TOTAL PROTEIN, SERUM 6.8 g/dL (6.4-8.2)
[2024-07-08 17:38] LABS: INR 1.44 (0.91-1.10); PARTIAL THROMBOPLASTIN TIME 51.3 SEC (24.3-34.3); PROTHROMBIN TIME 14.9 SECS (9.2-11.1)
[2024-07-08 17:39] LABS: LACTIC ACID 0.9 mmol/L (0.4-2.0)
[2024-07-08 17:47] LABS: ANISOCYTOSIS 1+; BAND % (MANUAL) 2 % (0.0-5.0); BASOPHILS % (MANUAL) 0 % (0.0-2.0); EOSINOPHILS % (MANUAL) 2 % (0-4); LYMPHOCYTES % (MANUAL) 12 % (16-48); MONOCYTES % (MANUAL) 8 % (0-11.0); NEUTROPHILS % (MANUAL) 76 (42-76); PLATELET ESTIMATE ADEQUATE
[2024-07-08] MEDS: PIPERACILLIN /TAZOBACTAM 3.375 G in IV D5W 50 ML IV ONE (18:00)
[2024-07-08 18:02] LABS: APPEARANCE,URINE CLEAR (CLEAR); BILIRUBIN,URINE NEGATIVE (NEGATIVE); BLOOD, URINE NEGATIVE Ery/uL (NEGATIVE); COLOR,URINE YELLOW (YELLOW); KETONES,URINE NEGATIVE (NEGATIVE); LEUKOCYTE ESTERASE ,URINE NEGATIVE (NEGATIVE); NITRITE, URINE NEGATIVE (NEGATIVE); PH,URINE 7.5 (5.0-8.0); PROTEIN,URINE TRACE mg/dl (NEGATIVE); UGLUCOSE NEGATIVE (NEGATIVE); UROBILINOGEN,URINE 0.2 EU/dL (0.2)
[2024-07-08] MEDS: VANCOMYCIN 1 GM in IV D5W 250 ML IV ONE (18:15)
[2024-07-08] MEDS ORDERED: HALOPERIDOL LACTATE INJ 5 MG/ML VIAL ONE (18:33)
[2024-07-08] MEDS: HALOPERIDOL LACTATE INJ 5 MG/ML VIAL IM ONE (18:44)
[2024-07-08] MEDS ORDERED: ZOLPIDEM TARTRATE 5 MG TABLET PO PRN (19:30)
[2024-07-08] MEDS ORDERED: ACETAMINOPHEN 650 MG/SUPP.RECT RC PRN (19:30)
[2024-07-08 20:00] VITALS: BP 110/61; TEMP 97.9
[2024-07-08] MEDS: IV NS 0.9% 1,000 ML BAG IV PRN (21:02)
[2024-07-08] MEDS: LEVETIRACETAM (250 MG) 250 MG TABLET PO SCH (21:03)
[2024-07-08] MEDS: MIRTAZAPINE 15 MG TABLET PO SCH (21:03)
[2024-07-08 21:28] VITALS: BP 123/90; TEMP 98.6
[2024-07-08 21:45] VITALS: BP 129/89; TEMP 97.7
[2024-07-08 22:15] VITALS: BP 145/98; TEMP 98.4
[2024-07-08 23:15] VITALS: BP 136/88; TEMP 98.7
[2024-07-09] VITALS (18 sets, daily range): BP systolic 99–146; BP diastolic 70–110; TEMP 98.5–99.3; O2SAT 94–100
[2024-07-09] MEDS: PIPERACI/TAZO 3.375GM/D5W 50ML PB IV ONE (00:28)
[2024-07-09] MEDS: PIPERACILLIN /TAZOBACTAM 3.375 G in IV D5W 50 ML IV SCH (00:31)
[2024-07-09] MEDS: clonazePAM 0.5 MG TABLET PO PRN (00:56)
[2024-07-09] MEDS: ACETAMINOPHEN 325 MG TABLET PO PRN (01:20)
[2024-07-09] MEDS ORDERED: PIPERACI/TAZO 3.375GM/D5W 50ML PB IV ONE (06:00)
[2024-07-09] MEDS: METOPROLOL TARTRATE INJ 5 MG/5 ML AMPUL IVP PRN (06:39)
[2024-07-09 07:51] LABS: INR 1.31 (0.91-1.10); PROTHROMBIN TIME 13.6 SECS (9.2-11.1)
[2024-07-09 07:52] LABS: BASOPHILS # (AUTO) 0.2 K/uL (0.0-0.2); BASOPHILS % (AUTO) 1.1 % (0.0-2.0); EOSINOPHILS # (AUTO) 0.3 K/uL (0.0-0.7); EOSINOPHILS % (AUTO) 1.8 % (0.0-6.0); HEMATOCRIT 27 % (33-45); HEMOGLOBIN 8.5 g/dL (11.5-14.8); LYMPHOCYTES # (AUTO) 1.5 K/uL (0.8-4.8); LYMPHOCYTES % (AUTO) 9.8 % (20.0-44.0); MEAN CORPUSCULAR HEMOGLOBIN 26 PG (26.0-33.0); MEAN CORPUSCULAR HGB CONC 32 g/dl (31.0-36.0); MEAN CORPUSCULAR VOLUME 79 fL (82-100); MONOCYTES # (AUTO) 0.6 K/uL (0.1-1.30); MONOCYTES % (AUTO) 3.7 % (2.0-12.0); NEUTROPHILS # (AUTO) 12.6 K/uL (1.8-8.9); NEUTROPHILS % (AUTO) 83.6 % (43.0-81.0); PLATELET COUNT (AUTO) 128 K/uL (150-450); RED BLOOD CELL COUNT(AUTO) 3.35 MIL/uL (4.0-5.2); RED CELL DISTRIBUTION WIDTH 14.8 % (11.5-15.0); WHITE BLOOD COUNT (AUTO) 15.1 K/uL (4.3-11.0)
[2024-07-09 08:03] LABS: IRON, SERUM 23 ug/dl (50-175); TOTAL IRON BINDING CAPACITY 382 ug/dl (250-450)
[2024-07-09 08:33] LABS: ALANINE AMINOTRANSFERASE 42 U/L (12-78); ALBUMIN 2.5 g/dL (3.4-5.0); ALKALINE PHOSPHATASE 131 U/L (46-116); ASPARTATE AMINOTRANSFERASE 42 U/L (15-37); BILIRUBIN,TOTAL 0.5 mg/dL (0.2-1.0); CALCIUM, SERUM 8.4 mg/dL (8.5-10.1); CARBON DIOXIDE 20 mmol/L (21-32); CHLORIDE 100 mmol/L (98-107); CREATININE 1.3 mg/dL (0.6-1.3); GLUCOSE 108 mg/dL (74-106); PHOSPHORUS 2.8 mg/dL (2.5-4.9); POTASSIUM 4.7 mmol/L (3.5-5.1); SODIUM SERUM 131 mmol/L (136-145); TOTAL PROTEIN, SERUM 6.8 g/dL (6.4-8.2); UREA NITROGEN, BLOOD 15 mg/dL (7-18)
[2024-07-09 08:34] LABS: CHOLESTEROL 198 mg/dL (<200); HDL CHOLESTEROL 56 mg/dL (40-60); LDL 109 mg/dL (0-99); TRIGLYCERIDES 122 mg/dL (30-150)
[2024-07-09] MEDS: OXCARBAZEPINE 150 MG TABLET PO SCH (08:37)
[2024-07-09] MEDS: DOCUSATE SODIUM 100 MG CAPSULE PO SCH (08:38)
[2024-07-09] MEDS: METOPROLOL TARTRATE 25 MG TABLET PO SCH (08:38)
[2024-07-09] MEDS ORDERED: DOCUSATE SODIUM 100 MG CAPSULE PO SCH (09:00)
[2024-07-09] MEDS: PANTOPRAZOLE 40 MG TABLET.DR PO SCH (09:03)
[2024-07-09] MEDS ORDERED: ENOXAPARIN SODIUM 60 MG/0.6 ML DISP.SYRIN SQ SCH (10:00)
[2024-07-09] MEDS ORDERED: HEPARIN INFUSION/D5W 500 ML IV PRN (10:00)
[2024-07-09] MEDS ORDERED: BUMETANIDE INJ 4 MG in IV D5W 24 ML IV ONE (10:00)
[2024-07-09] MEDS ORDERED: MEROPENEM 1 G in IV NS 0.9% 100 ML IV SCH (10:30)
[2024-07-09] MEDS: BUMETANIDE INJ 4 MG in IV NS 0.9% 24 ML IV ONE (11:10)
[2024-07-09] MEDS: ENOXAPARIN SODIUM 60 MG/0.6 ML DISP.SYRIN SQ SCH (11:12)
[2024-07-09] MEDS ORDERED: PIPERACILLIN /TAZOBACTAM 3.375 G in IV D5W 50 ML IV SCH (12:00)
[2024-07-09] MEDS: HALOPERIDOL LACTATE INJ 5 MG/ML VIAL IM PRN (12:46)
[2024-07-09] MEDS: CEFEPIME 1 GM in IV D5W 50 ML IV SCH (13:01)
[2024-07-09] MEDS: IV NS 0.9% 1,000 ML IV PRN (13:15)
[2024-07-09] MEDS ORDERED: IV NS 0.9% 250 ML IV ONE (15:32)
[2024-07-09] MEDS ORDERED: CT SWABBABLE VALVE TRANS SET 1 EA INFUS.SET MC ONE (15:32)
[2024-07-09] MEDS ORDERED: IOHEXOL-350 100 ML VIAL IV ONE (15:32)
[2024-07-09] MEDS ORDERED: WARFARIN SODIUM 5 MG TABLET PO SCH (17:00)
[2024-07-09] MEDS: VANCOMYCIN 1 GM in IV D5W 250ml IV SCH (18:21)
[2024-07-10] VITALS (55 sets, daily range): BP systolic 60–136; BP diastolic 40–111; TEMP 97.7–99.4; O2SAT 88–100
[2024-07-10 04:58] LABS: BASOPHILS # (AUTO) 0.1 K/uL (0.0-0.2); BASOPHILS % (AUTO) 0.5 % (0.0-2.0); EOSINOPHILS # (AUTO) 0.2 K/uL (0.0-0.7); EOSINOPHILS % (AUTO) 1.3 % (0.0-6.0); HEMATOCRIT 24 % (33-45); LYMPHOCYTES # (AUTO) 1.6 K/uL (0.8-4.8); LYMPHOCYTES % (AUTO) 11.3 % (20.0-44.0); MEAN CORPUSCULAR HEMOGLOBIN 26 PG (26.0-33.0); MEAN CORPUSCULAR HGB CONC 33 g/dl (31.0-36.0); MEAN CORPUSCULAR VOLUME 79 fL (82-100); MONOCYTES # (AUTO) 0.8 K/uL (0.1-1.30); MONOCYTES % (AUTO) 5.2 % (2.0-12.0); NEUTROPHILS # (AUTO) 11.9 K/uL (1.8-8.9); NEUTROPHILS % (AUTO) 81.7 % (43.0-81.0); PLATELET COUNT (AUTO) 108 K/uL (150-450); RED BLOOD CELL COUNT(AUTO) 3.03 MIL/uL (4.0-5.2); WHITE BLOOD COUNT (AUTO) 14.6 K/uL (4.3-11.0)
[2024-07-10 05:14] LABS: CALCIUM, SERUM 8.6 mg/dL (8.5-10.1); CARBON DIOXIDE 22 mmol/L (21-32); CHLORIDE 97 mmol/L (98-107); CREATININE 1.5 mg/dL (0.6-1.3); GLUCOSE 104 mg/dL (74-106); POTASSIUM 3.5 mmol/L (3.5-5.1); SODIUM SERUM 131 mmol/L (136-145); UREA NITROGEN, BLOOD 17 mg/dL (7-18)
[2024-07-10 05:16] LABS: IRON, SERUM 10 ug/dl (50-175); TOTAL IRON BINDING CAPACITY 341 ug/dl (250-450)
[2024-07-10 05:34] LABS: FERRITIN 104 ng/mL (8-388)
[2024-07-10] MEDS: PANTOPRAZOLE 40 MG VIAL IV SCH (08:54)
[2024-07-10] MEDS: IV NS 0.9% 250 ML IV ONE ×2 (08:58→09:58)
[2024-07-10] MEDS: IV NS 0.9% 500 ML BAG IV ONE (10:38)
[2024-07-10 10:40] LABS: ABG BASE EXCESS -6.5 mmol/L (-2.0-3.0); ABG OXYGEN SATURATION 96.8 % (94.0-98.0); ABG PCO2 25.6 mmHg (32.0-45.0); ABG PH 7.435 (7.350-7.450); ABG PO2 93.8 mmHg (83.0-108.0); ABG TOTAL HEMOGLOBIN 8.1 G/dL (12.0-16.0); COHb 0.5 % (0.5-1.5); MetHb 0.1 % (0.0-1.5); O2Hb 96.2 % (94.0-97.0); SITE, ABG RIGHT RADIAL
[2024-07-10] MEDS: LEVETIRACETAM (500MG) 500 MG in IV NS 0.9% 100 ML IV SCH (10:57)
[2024-07-10] MEDS: IV D5/ 0.9% NACL 1,000 ML IV PRN (13:48)
[2024-07-10] MEDS ORDERED: AZITHROMYCIN 250 MG TABLET PO SCH ×2 (17:00→18:30)
[2024-07-10] MEDS: FERROUS SULFATE (325 MG) 325 MG/TAB TABLET PO SCH (17:00)
[2024-07-10 17:20] LABS: HEMOGLOBIN 8.1 g/dL (11.5-14.8)
[2024-07-10] MEDS: VANCOMYCIN 750 MG in IV D5W 250 ML IV SCH (18:49)
[2024-07-10] MEDS: AZITHROMYCIN 500 MG in IV D5W 250 ML IV SCH (19:15)
[2024-07-11] VITALS (29 sets, daily range): BP systolic 94–122; BP diastolic 56–80; TEMP 97.4–98.9; O2SAT 92–100
[2024-07-11 04:33] LABS: BASOPHILS # (AUTO) 0.1 K/uL (0.0-0.2); EOSINOPHILS # (AUTO) 0.5 K/uL (0.0-0.7); EOSINOPHILS % (AUTO) 4.1 % (0.0-6.0); HEMATOCRIT 21 % (33-45); LYMPHOCYTES # (AUTO) 1.4 K/uL (0.8-4.8); LYMPHOCYTES % (AUTO) 11.8 % (20.0-44.0); MEAN CORPUSCULAR HEMOGLOBIN 26 PG (26.0-33.0); MEAN CORPUSCULAR HGB CONC 32 g/dl (31.0-36.0); MEAN CORPUSCULAR VOLUME 80 fL (82-100); MONOCYTES # (AUTO) 0.7 K/uL (0.1-1.30); MONOCYTES % (AUTO) 6.3 % (2.0-12.0); NEUTROPHILS % (AUTO) 76.8 % (43.0-81.0); PLATELET COUNT (AUTO) 108 K/uL (150-450); RED BLOOD CELL COUNT(AUTO) 2.69 MIL/uL (4.0-5.2); RED CELL DISTRIBUTION WIDTH 15.2 % (11.5-15.0); WHITE BLOOD COUNT (AUTO) 11.7 K/uL (4.3-11.0)
[2024-07-11 04:56] LABS: HEMOGLOBIN 6.9 g/dL (11.5-14.8)
[2024-07-11 05:01] LABS: CALCIUM, SERUM 7.8 mg/dL (8.5-10.1); CARBON DIOXIDE 22 mmol/L (21-32); CHLORIDE 106 mmol/L (98-107); CREATININE 1.4 mg/dL (0.6-1.3); GLUCOSE 112 mg/dL (74-106); POTASSIUM 3.5 mmol/L (3.5-5.1); SODIUM SERUM 136 mmol/L (136-145); UREA NITROGEN, BLOOD 20 mg/dL (7-18)
[2024-07-11 05:31] LABS: EOSINOPHILS % (MANUAL) 2 % (0-4); LYMPHOCYTES % (MANUAL) 15 % (16-48); MONOCYTES % (MANUAL) 4 % (0-11.0); NEUTROPHILS % (MANUAL) 79 (42-76)
[2024-07-11 05:32] LABS: ANISOCYTOSIS 1+; HYPOCHROMASIA 1+; PLATELET ESTIMATE DECREASED
[2024-07-11 08:09] LABS: IMMUNOGLOBULIN A, SERUM 149 mg/dL (64-422); IMMUNOGLOBULIN G, SERUM 981 mg/dL (586-1602); IMMUNOGLOBULIN M, SERUM 125 mg/dL (26-217)
[2024-07-11] MEDS: FUROSEMIDE 20 MG/2 ML VIAL IV ONE (08:25)
[2024-07-11 12:07] LABS: FREE KAPPA LT CHAINS SERUM 48.4 mg/L (3.3-19.4); FREE LAMBDA LT CHAIN SERUM 57.6 mg/L (5.7-26.3); KAPPA/LAMBDA RATIO SERUM 0.84 (0.26-1.65)
[2024-07-11] MEDS: SOD FERRIC GLUC 125 MG in IV NS 0.9% 100 ML IV SCH (14:10)
[2024-07-11 17:39] LABS: D-DIMER 0.71 mg/L(FEU (0.17-0.50); INR 1.33 (0.91-1.10); PARTIAL THROMBOPLASTIN TIME 50.5 SEC (24.3-34.3); PROTHROMBIN TIME 13.8 SECS (9.2-11.1)
[2024-07-12] VITALS (24 sets, daily range): BP systolic 86–132; BP diastolic 52–86; TEMP 97.9–98.6; O2SAT 95–100
[2024-07-12 09:08] LABS: BASOPHILS # (AUTO) 0.1 K/uL (0.0-0.2); EOSINOPHILS # (AUTO) 0.8 K/uL (0.0-0.7); EOSINOPHILS % (AUTO) 8.5 % (0.0-6.0); HEMATOCRIT 30 % (33-45); HEMOGLOBIN 9.7 g/dL (11.5-14.8); LYMPHOCYTES % (AUTO) 11.2 % (20.0-44.0); MEAN CORPUSCULAR HEMOGLOBIN 26 PG (26.0-33.0); MEAN CORPUSCULAR HGB CONC 32 g/dl (31.0-36.0); MEAN CORPUSCULAR VOLUME 82 fL (82-100); MONOCYTES # (AUTO) 0.6 K/uL (0.1-1.30); MONOCYTES % (AUTO) 6.3 % (2.0-12.0); NEUTROPHILS # (AUTO) 6.7 K/uL (1.8-8.9); PLATELET COUNT (AUTO) 86 K/uL (150-450); RED BLOOD CELL COUNT(AUTO) 3.72 MIL/uL (4.0-5.2); WHITE BLOOD COUNT (AUTO) 9.2 K/uL (4.3-11.0)
[2024-07-12 09:12] LABS: *SPE A/G RATIO 0.6 (0.7-1.7); *SPE ALBUMIN 2.3 g/dL (2.9-4.4); *SPE ALPHA-1-GLOBULIN 0.6 g/dL (0.0-0.4); *SPE ALPHA-2-GLOBULIN 1.1 g/dL (0.4-1.0); *SPE GLOBULIN, TOTAL 3.8 g/dL (2.2-3.9); *SPE M-SPIKE Not Observed g/dL (Not Observed); *SPE PROTEIN TOTAL 6.1 g/dL (6.0-8.5); *SPEGAMMA GLOBULIN 1.1 g/dL (0.4-1.8)
[2024-07-12] MEDS: POTASSIUM CHLORIDE 20 MEQ TAB.PRT.SR PO SCH (09:23)
[2024-07-12] MEDS: FUROSEMIDE 40 MG/4 ML VIAL IV SCH (09:23)
[2024-07-12 09:38] LABS: ALANINE AMINOTRANSFERASE 27 U/L (12-78); ALBUMIN 1.9 g/dL (3.4-5.0); ALKALINE PHOSPHATASE 110 U/L (46-116); ASPARTATE AMINOTRANSFERASE 25 U/L (15-37); BILIRUBIN,TOTAL 0.3 mg/dL (0.2-1.0); CALCIUM, SERUM 8.3 mg/dL (8.5-10.1); CARBON DIOXIDE 19 mmol/L (21-32); CHLORIDE 106 mmol/L (98-107); CREATININE 1.3 mg/dL (0.6-1.3); GLUCOSE 106 mg/dL (74-106); MAGNESIUM 2.2 mg/dL (1.8-2.4); PHOSPHORUS 3.7 mg/dL (2.5-4.9); POTASSIUM 3.3 mmol/L (3.5-5.1); SODIUM SERUM 136 mmol/L (136-145); TOTAL PROTEIN, SERUM 6.3 g/dL (6.4-8.2); UREA NITROGEN, BLOOD 22 mg/dL (7-18)
[2024-07-12 09:49] LABS: EOSINOPHILS % (MANUAL) 6 % (0-4); LYMPHOCYTES % (MANUAL) 10 % (16-48); MONOCYTES % (MANUAL) 5 % (0-11.0); NEUTROPHILS % (MANUAL) 79 (42-76); PLATELET ESTIMATE DECREASED
[2024-07-12 14:07] LABS: BETA-2 MICROGLOBULIN, SERUM 5.4 mg/L (0.6-2.4)
[2024-07-12 16:58] LABS: HEMOGLOBIN 9.1 g/dL (11.5-14.8)
[2024-07-13] VITALS (20 sets, daily range): BP systolic 87–125; BP diastolic 59–86; TEMP 97.3–98.1; O2SAT 93–100
[2024-07-13 04:57] LABS: BASOPHILS # (AUTO) 0.1 K/uL (0.0-0.2); EOSINOPHILS # (AUTO) 0.7 K/uL (0.0-0.7); EOSINOPHILS % (AUTO) 10.6 % (0.0-6.0); HEMATOCRIT 29 % (33-45); HEMOGLOBIN 9.6 g/dL (11.5-14.8); LYMPHOCYTES # (AUTO) 1.4 K/uL (0.8-4.8); LYMPHOCYTES % (AUTO) 21.1 % (20.0-44.0); MEAN CORPUSCULAR HEMOGLOBIN 26 PG (26.0-33.0); MEAN CORPUSCULAR HGB CONC 33 g/dl (31.0-36.0); MEAN CORPUSCULAR VOLUME 79 fL (82-100); MONOCYTES # (AUTO) 0.5 K/uL (0.1-1.30); MONOCYTES % (AUTO) 6.9 % (2.0-12.0); NEUTROPHILS % (AUTO) 60.4 % (43.0-81.0); PLATELET COUNT (AUTO) 75 K/uL (150-450); RED BLOOD CELL COUNT(AUTO) 3.67 MIL/uL (4.0-5.2); RED CELL DISTRIBUTION WIDTH 15.1 % (11.5-15.0); WHITE BLOOD COUNT (AUTO) 6.6 K/uL (4.3-11.0)
[2024-07-13 05:21] LABS: ALANINE AMINOTRANSFERASE 25 U/L (12-78); ALBUMIN 2.1 g/dL (3.4-5.0); ALKALINE PHOSPHATASE 109 U/L (46-116); ASPARTATE AMINOTRANSFERASE 25 U/L (15-37); BILIRUBIN,TOTAL 0.3 mg/dL (0.2-1.0); CALCIUM, SERUM 8.6 mg/dL (8.5-10.1); CARBON DIOXIDE 24 mmol/L (21-32); CHLORIDE 103 mmol/L (98-107); CREATININE 1.6 mg/dL (0.6-1.3); GLUCOSE 108 mg/dL (74-106); PHOSPHORUS 3.9 mg/dL (2.5-4.9); POTASSIUM 3.7 mmol/L (3.5-5.1); SODIUM SERUM 136 mmol/L (136-145); TOTAL PROTEIN, SERUM 6.7 g/dL (6.4-8.2); UREA NITROGEN, BLOOD 25 mg/dL (7-18)
[2024-07-13 06:02] LABS: PLATELET ESTIMATE DECREASED
[2024-07-13 06:04] LABS: ANISOCYTOSIS 1+; OVALOCYTES 1+
[2024-07-13] MEDS: CEFTRIAXONE 2 G in IV D5W 100 ML IV SCH (13:34)
[2024-07-13 14:52] LABS: HEMOGLOBIN 8.9 g/dL (11.5-14.8)
[2024-07-13] MEDS: AZITHROMYCIN 250 MG TABLET PO SCH (19:35)
[2024-07-13] MEDS: HEPARIN SODIUM, PORCINE 5000 UNITS/1 ML VIAL SQ SCH (21:50)
[2024-07-14] VITALS: BP 140/75; TEMP 98.5; O2SAT 99
[2024-07-14 04:00] VITALS: BP 120/69; TEMP 98.5; O2SAT 97
[2024-07-14] MEDS: MORPHINE SULFATE INJ 2 MG/ML DISP.SYRIN IV ONE (04:19)
[2024-07-14] MEDS: METOPROLOL TARTRATE INJ 5 MG/5 ML AMPUL IVP ONE (05:09)
[2024-07-14 07:29] LABS: BASOPHILS # (AUTO) 0.1 K/uL (0.0-0.2); BASOPHILS % (AUTO) 1.2 % (0.0-2.0); EOSINOPHILS # (AUTO) 0.2 K/uL (0.0-0.7); EOSINOPHILS % (AUTO) 2.7 % (0.0-6.0); HEMATOCRIT 29 % (33-45); HEMOGLOBIN 9.7 g/dL (11.5-14.8); LYMPHOCYTES # (AUTO) 0.8 K/uL (0.8-4.8); LYMPHOCYTES % (AUTO) 9.3 % (20.0-44.0); MEAN CORPUSCULAR HEMOGLOBIN 26 PG (26.0-33.0); MEAN CORPUSCULAR HGB CONC 34 g/dl (31.0-36.0); MEAN CORPUSCULAR VOLUME 78 fL (82-100); MONOCYTES # (AUTO) 0.6 K/uL (0.1-1.30); MONOCYTES % (AUTO) 6.6 % (2.0-12.0); NEUTROPHILS # (AUTO) 7.1 K/uL (1.8-8.9); NEUTROPHILS % (AUTO) 80.2 % (43.0-81.0); PLATELET COUNT (AUTO) 62 K/uL (150-450); WHITE BLOOD COUNT (AUTO) 8.9 K/uL (4.3-11.0)
[2024-07-14 07:43] LABS: CALCIUM, SERUM 9.2 mg/dL (8.5-10.1); CARBON DIOXIDE 21 mmol/L (21-32); CHLORIDE 103 mmol/L (98-107); CREATININE 1.5 mg/dL (0.6-1.3); GLUCOSE 136 mg/dL (74-106); POTASSIUM 4.2 mmol/L (3.5-5.1); SODIUM SERUM 137 mmol/L (136-145); UREA NITROGEN, BLOOD 24 mg/dL (7-18)
[2024-07-14 08:00] VITALS: BP 129/87; TEMP 98.3; O2SAT 97
[2024-07-14 08:41] LABS: ANISOCYTOSIS 1+; BASOPHILS % (MANUAL) 0 % (0.0-2.0); EOSINOPHILS % (MANUAL) 1 % (0-4); LYMPHOCYTES % (MANUAL) 11 % (16-48); MONOCYTES % (MANUAL) 5 % (0-11.0); NEUTROPHILS % (MANUAL) 83 (42-76); OVALOCYTES 1+; PLATELET ESTIMATE DECREASED
[2024-07-14] MEDS: METOPROLOL TARTRATE 50 MG TABLET PO SCH (09:01)
[2024-07-14 12:00] VITALS: BP 119/76; TEMP 98.4; O2SAT 95
[2024-07-14] MEDS: HALOPERIDOL LACTATE INJ 5 MG/ML VIAL IM PRN (15:18)
[2024-07-14 16:00] VITALS: BP 146/88; TEMP 97.6; O2SAT 95
[2024-07-14 20:00] VITALS: BP 149/92; TEMP 98.1; O2SAT 98
[2024-07-14] MEDS: LEVETIRACETAM (250 MG) 250 MG TABLET PO SCH (21:21)
[2024-07-15] VITALS (7 sets, daily range): BP systolic 114–151; BP diastolic 72–89; TEMP 97.5–98.2; O2SAT 95–99
[2024-07-15 06:54] LABS: CALCIUM, SERUM 9.2 mg/dL (8.5-10.1); CARBON DIOXIDE 24 mmol/L (21-32); CHLORIDE 104 mmol/L (98-107); CREATININE 1.2 mg/dL (0.6-1.3); GLUCOSE 106 mg/dL (74-106); POTASSIUM 3.8 mmol/L (3.5-5.1); SODIUM SERUM 135 mmol/L (136-145); UREA NITROGEN, BLOOD 23 mg/dL (7-18)
[2024-07-15 06:59] LABS: BASOPHILS # (AUTO) 0.1 K/uL (0.0-0.2); BASOPHILS % (AUTO) 1.2 % (0.0-2.0); EOSINOPHILS # (AUTO) 0.8 K/uL (0.0-0.7); EOSINOPHILS % (AUTO) 8.9 % (0.0-6.0); HEMATOCRIT 30 % (33-45); HEMOGLOBIN 9.9 g/dL (11.5-14.8); LYMPHOCYTES # (AUTO) 1.1 K/uL (0.8-4.8); LYMPHOCYTES % (AUTO) 12.9 % (20.0-44.0); MEAN CORPUSCULAR HEMOGLOBIN 26 PG (26.0-33.0); MEAN CORPUSCULAR HGB CONC 33 g/dl (31.0-36.0); MEAN CORPUSCULAR VOLUME 79 fL (82-100); MONOCYTES # (AUTO) 0.5 K/uL (0.1-1.30); MONOCYTES % (AUTO) 5.9 % (2.0-12.0); NEUTROPHILS # (AUTO) 6.1 K/uL (1.8-8.9); NEUTROPHILS % (AUTO) 71.1 % (43.0-81.0); RED BLOOD CELL COUNT(AUTO) 3.84 MIL/uL (4.0-5.2); RED CELL DISTRIBUTION WIDTH 15.4 % (11.5-15.0); WHITE BLOOD COUNT (AUTO) 8.6 K/uL (4.3-11.0)
[2024-07-15 07:34] LABS: PLATELET COUNT (AUTO) 47 K/uL (150-450)
[2024-07-15] MEDS: PANTOPRAZOLE 40 MG TABLET.DR PO SCH (08:38)
[2024-07-15 10:08] LABS: EOSINOPHILS % (MANUAL) 10 % (0-4); LYMPHOCYTES % (MANUAL) 12 % (16-48); MONOCYTES % (MANUAL) 5 % (0-11.0); NEUTROPHILS % (MANUAL) 73 (42-76); PLATELET ESTIMATE DECREASED
[2024-07-15 10:09] LABS: ANISOCYTOSIS 1+; OVALOCYTES 1+
[2024-07-15] MEDS: METOPROLOL TARTRATE 50 MG TABLET PO SCH (21:30)
[2024-07-16] VITALS: BP 126/72; TEMP 98.1; O2SAT 96
[2024-07-16 04:00] VITALS: BP 143/68; TEMP 97.9; O2SAT 97
[2024-07-16 06:54] LABS: BASOPHILS # (AUTO) 0.1 K/uL (0.0-0.2); BASOPHILS % (AUTO) 1.3 % (0.0-2.0); EOSINOPHILS # (AUTO) 0.7 K/uL (0.0-0.7); EOSINOPHILS % (AUTO) 7.5 % (0.0-6.0); HEMATOCRIT 30 % (33-45); HEMOGLOBIN 9.9 g/dL (11.5-14.8); LYMPHOCYTES # (AUTO) 1.3 K/uL (0.8-4.8); LYMPHOCYTES % (AUTO) 13.8 % (20.0-44.0); MEAN CORPUSCULAR HEMOGLOBIN 27 PG (26.0-33.0); MEAN CORPUSCULAR HGB CONC 33 g/dl (31.0-36.0); MEAN CORPUSCULAR VOLUME 80 fL (82-100); MONOCYTES # (AUTO) 0.6 K/uL (0.1-1.30); MONOCYTES % (AUTO) 6.7 % (2.0-12.0); NEUTROPHILS # (AUTO) 6.7 K/uL (1.8-8.9); NEUTROPHILS % (AUTO) 70.7 % (43.0-81.0); PLATELET COUNT (AUTO) 57 K/uL (150-450); RED BLOOD CELL COUNT(AUTO) 3.72 MIL/uL (4.0-5.2); RED CELL DISTRIBUTION WIDTH 15.4 % (11.5-15.0); WHITE BLOOD COUNT (AUTO) 9.4 K/uL (4.3-11.0)
[2024-07-16 08:00] VITALS: BP 135/90; TEMP 98.1; O2SAT 95
[2024-07-16 08:43] LABS: ALANINE AMINOTRANSFERASE 34 U/L (12-78); ALBUMIN 2.4 g/dL (3.4-5.0); ALKALINE PHOSPHATASE 130 U/L (46-116); ASPARTATE AMINOTRANSFERASE 46 U/L (15-37); BILIRUBIN,TOTAL 0.3 mg/dL (0.2-1.0); CALCIUM, SERUM 9.5 mg/dL (8.5-10.1); CARBON DIOXIDE 22 mmol/L (21-32); CHLORIDE 105 mmol/L (98-107); CREATININE 1.1 mg/dL (0.6-1.3); GLUCOSE 96 mg/dL (74-106); POTASSIUM 3.8 mmol/L (3.5-5.1); SODIUM SERUM 138 mmol/L (136-145); TOTAL PROTEIN, SERUM 6.4 g/dL (6.4-8.2); UREA NITROGEN, BLOOD 21 mg/dL (7-18)
[2024-07-16 10:07] LABS: *IFEU ALBUMIN Note: % (.); *PEU PROTEIN,TOTAL 66.2 mg/dL (Not Estab.)
[2024-07-16 10:52] LABS: EOSINOPHILS % (MANUAL) 5 % (0-4); LYMPHOCYTES % (MANUAL) 15 % (16-48); MONOCYTES % (MANUAL) 7 % (0-11.0); NEUTROPHILS % (MANUAL) 73 (42-76)
[2024-07-16 10:53] LABS: ANISOCYTOSIS 1+; OVALOCYTES 1+; PLATELET ESTIMATE DECREASED
[2024-07-16 12:00] VITALS: BP 114/78; TEMP 98.7; O2SAT 98
[2024-07-16 16:00] VITALS: BP 135/97; TEMP 97.4; O2SAT 96
[2024-07-16 20:00] VITALS: BP 137/97; TEMP 98.4; O2SAT 96
[2024-07-16] MEDS: METOPROLOL TARTRATE 50 MG TABLET PO SCH (21:36)
[2024-07-17] VITALS: BP 131/78; TEMP 98.8; O2SAT 96
[2024-07-17 04:00] VITALS: BP 122/65; TEMP 98.2; O2SAT 96
[2024-07-17 06:41] LABS: BASOPHILS # (AUTO) 0.1 K/uL (0.0-0.2); BASOPHILS % (AUTO) 1.4 % (0.0-2.0); EOSINOPHILS # (AUTO) 0.6 K/uL (0.0-0.7); EOSINOPHILS % (AUTO) 9.2 % (0.0-6.0); HEMATOCRIT 29 % (33-45); HEMOGLOBIN 9.7 g/dL (11.5-14.8); LYMPHOCYTES # (AUTO) 1.4 K/uL (0.8-4.8); MEAN CORPUSCULAR HEMOGLOBIN 26 PG (26.0-33.0); MEAN CORPUSCULAR HGB CONC 34 g/dl (31.0-36.0); MEAN CORPUSCULAR VOLUME 79 fL (82-100); MONOCYTES # (AUTO) 0.5 K/uL (0.1-1.30); MONOCYTES % (AUTO) 7.6 % (2.0-12.0); NEUTROPHILS # (AUTO) 4.2 K/uL (1.8-8.9); NEUTROPHILS % (AUTO) 60.8 % (43.0-81.0); PLATELET COUNT (AUTO) 58 K/uL (150-450); RED BLOOD CELL COUNT(AUTO) 3.67 MIL/uL (4.0-5.2); RED CELL DISTRIBUTION WIDTH 15.3 % (11.5-15.0); WHITE BLOOD COUNT (AUTO) 6.9 K/uL (4.3-11.0)
[2024-07-17 07:06] LABS: CALCIUM, SERUM 9.4 mg/dL (8.5-10.1); CARBON DIOXIDE 26 mmol/L (21-32); CHLORIDE 105 mmol/L (98-107); CREATININE 1.2 mg/dL (0.6-1.3); GLUCOSE 96 mg/dL (74-106); POTASSIUM 3.4 mmol/L (3.5-5.1); SODIUM SERUM 139 mmol/L (136-145); UREA NITROGEN, BLOOD 20 mg/dL (7-18)
[2024-07-17 07:11] LABS: NT-PRO BNP > 25000 pg/mL (0-125)
[2024-07-17 07:27] LABS: IRON, SERUM 29 ug/dl (50-175); TOTAL IRON BINDING CAPACITY 293 ug/dl (250-450)
[2024-07-17 07:37] LABS: PLATELET ESTIMATE DECREASED
[2024-07-17 07:40] LABS: EOSINOPHILS % (MANUAL) 3 % (0-4); FERRITIN 843 ng/mL (8-388); LYMPHOCYTES % (MANUAL) 16 % (16-48); MONOCYTES % (MANUAL) 5 % (0-11.0); NEUTROPHILS % (MANUAL) 76 (42-76)
[2024-07-17 08:21] VITALS: BP 123/79; TEMP 98.1; O2SAT 94
[2024-07-17] MEDS: POTASSIUM CHLORIDE 20 MEQ TAB.PRT.SR PO SCH ×2 (10:30→13:51)
[2024-07-17] MEDS ORDERED: LORAZEPAM 0.5 MG TABLET PO PRN (12:30)
[2024-07-17 12:48] VITALS: BP 121/58; TEMP 97.8; O2SAT 97
[2024-07-17] MEDS: FUROSEMIDE 20 MG/2 ML VIAL IV ONE (13:37)
[2024-07-17] MEDS: risperiDONE 0.25 MG TABLET PO SCH (16:08)
[2024-07-17 16:15] VITALS: BP 115/70; TEMP 98.2; O2SAT 95
[2024-07-17 20:00] VITALS: BP 104/66; TEMP 97.2; O2SAT 95
[2024-07-18] VITALS: BP 107/71; TEMP 97.9; O2SAT 96
[2024-07-18 04:00] VITALS: BP 122/79; TEMP 97.9; O2SAT 96
[2024-07-18 08:00] VITALS: BP 123/78; TEMP 97.5; O2SAT 94
[2024-07-18 12:00] VITALS: BP 114/66; TEMP 97.9; O2SAT 94
[2024-07-18 16:00] VITALS: BP 110/53; TEMP 97.6; O2SAT 96
[2024-07-18 20:00] VITALS: BP 113/62; TEMP 98; O2SAT 98
== END 2024-07-18 22:12 | DRG 811 ==
LOC: ER 16:28 → TELE1 18:59 → TELE-TD 20:36 → ICU 07-09 10:35 → TELE1 07-13 16:12
PROVIDERS: ADMIT Internal Medicine; ATTEND Internal Medicine
PROC: 30233N1 Transfusion of Nonautologous Red Blood Cells into Peripheral Vein, Percutaneous Approach (ICD-10-PCS; principal; 2024-07-08)
DX: D64.9 Anemia, unspecified (principal); G92.8 Other toxic encephalopathy; J18.9 Pneumonia, unspecified organism; J96.90 Respiratory failure, unspecified, unspecified whether with hypoxia or hypercapnia; D68.59 Other primary thrombophilia; E87.1 Hypo-osmolality and hyponatremia; F03.94 Unspecified dementia, unspecified severity, with anxiety; F03.93 Unspecified dementia, unspecified severity, with mood disturbance; I13.0 Hypertensive heart and chronic kidney disease with heart failure and stage 1 through stage 4 chronic kidney disease, or unspecified chronic kidney disease; I31.39 Other pericardial effusion (noninflammatory); D61.818 Other pancytopenia; F41.0 Panic disorder [episodic paroxysmal anxiety]; R13.10 Dysphagia, unspecified; G40.909 Epilepsy, unspecified, not intractable, without status epilepticus; E78.5 Hyperlipidemia, unspecified; I35.0 Nonrheumatic aortic (valve) stenosis; R53.81 Other malaise; N18.9 Chronic kidney disease, unspecified; Z87.11 Personal history of peptic ulcer disease; Z86.718 Personal history of other venous thrombosis and embolism; Z86.711 Personal history of pulmonary embolism; Z79.899 Other long term (current) drug therapy; Z78.1 Physical restraint status; Z86.19 Personal history of other infectious and parasitic diseases; D47.2 Monoclonal gammopathy; E87.6 Hypokalemia; I25.10 Atherosclerotic heart disease of native coronary artery without angina pectoris; I27.20 Pulmonary hypertension, unspecified; K44.9 Diaphragmatic hernia without obstruction or gangrene; K80.20 Calculus of gallbladder without cholecystitis without obstruction; Z86.73 Personal history of transient ischemic attack (TIA), and cerebral infarction without residual deficits; Z87.01 Personal history of pneumonia (recurrent); Z87.19 Personal history of other diseases of the digestive system
CPT/HCPCS: 36415; 70450-TC; 71045-TC; 80048-TC; 80053-TC; 80061-TC; 80076-TC; 80202-TC; 82232; 82378; 82728-TC; 82784; 83540-TC; 83605-TC; 83735-TC; 83880; 84100-TC; 84155; 84165; 84484-TC; 85025-TC; 85027-TC; 85378-TC; 85396; 85610-TC; 85730-TC; 86334; 86850-TC; 87040-TC; 87081-TC; 87899; 92526; 92611-TC; 93307-TC; 93970-TC; 94799-TC; 97110-TC; 97530-TC; A4223; G0378; J0456; J0692; J0696; J1630; J1644; J1650; J1940; J1953; J2185; J2270; J2470; J2543; J2916; J3370; J3371; J3490; J7030; J7040; J7042; J7050; J7060; P9016; Q9967

== ENCOUNTER 2024-10-25 05:53 | Inpatient (IN) | payer MEDICARE, OTHER ==
[~2024-10-25] VITALS: Ht 165.1 cm; Wt 50.1 kg
[2024-10-25] VITALS (21 sets, daily range): BP systolic 103–142; BP diastolic 51–109; TEMP 99.7–100.1; O2SAT 95–100
[~2024-10-25 05:53] MED LIST changes: +ACET325T53 PO; -ATOR80TA PO; +CLON0.5T4 PO; +DOCU100C36 PO; -DULO60CA45 PO; -FERR325T28 PO; +FOLI0.8C PO; -FURO-144 PO; +LACT-58 PO; +LEVE500T20 PO; -LOSA50TA39 PO; +MELA3TAB41 PO; -MELA5TAB PO; +METO25TA6 PO; -METO50TA16 PO; +MIRT-90 PO; +OXCA300T15 PO; +POLY15DR31 EACHEYE; -POLY17PO4 PO; +QUET50TA PO; -SUCR1TAB PO
[2024-10-25] MEDS ORDERED: PIPERACI/TAZO 3.375GM/D5W 50ML PB IV ONE (06:15)
[2024-10-25] MEDS: PIPERACILLIN /TAZOBACTAM 3.375 G in IV D5W 50 ML IV ONE (06:30)
[2024-10-25] MEDS: IV NS 0.9% 1,000 ML BAG IV ONE (06:30)
[2024-10-25] MEDS ORDERED: LORAZEPAM INJ 2 MG/ML VIAL ONE (06:40)
[2024-10-25 06:41] LABS: BASOPHILS % (AUTO) 0.6 % (0.0-2.0); EOSINOPHILS # (AUTO) 0.4 K/uL (0.0-0.7); EOSINOPHILS % (AUTO) 5.9 % (0.0-6.0); HEMATOCRIT 33 % (33-45); HEMOGLOBIN 11.3 g/dL (11.5-14.8); LYMPHOCYTES # (AUTO) 1.3 K/uL (0.8-4.8); LYMPHOCYTES % (AUTO) 20.8 % (20.0-44.0); MEAN CORPUSCULAR HEMOGLOBIN 30 PG (26.0-33.0); MEAN CORPUSCULAR HGB CONC 34 g/dl (31.0-36.0); MEAN CORPUSCULAR VOLUME 88 fL (82-100); MONOCYTES # (AUTO) 0.3 K/uL (0.1-1.30); MONOCYTES % (AUTO) 4.9 % (2.0-12.0); NEUTROPHILS # (AUTO) 4.1 K/uL (1.8-8.9); NEUTROPHILS % (AUTO) 67.8 % (43.0-81.0); PLATELET COUNT (AUTO) 141 K/uL (150-450); RED BLOOD CELL COUNT(AUTO) 3.77 MIL/uL (4.0-5.2); WHITE BLOOD COUNT (AUTO) 6.1 K/uL (4.3-11.0)
[2024-10-25] MEDS: LORAZEPAM INJ 2 MG/ML VIAL IV ONE (06:42)
[2024-10-25 06:57] LABS: CALCIUM, SERUM 8.5 mg/dL (8.5-10.1); CARBON DIOXIDE 22 mmol/L (21-32); CHLORIDE 93 mmol/L (98-107); CREATININE 1.6 mg/dL (0.6-1.3); GLUCOSE 99 mg/dL (74-106); POTASSIUM 4.9 mmol/L (3.5-5.1); SODIUM SERUM 121 mmol/L (136-145); UREA NITROGEN, BLOOD 20 mg/dL (7-18)
[2024-10-25 07:01] LABS: LACTIC ACID 1.9 mmol/L (0.4-2.0)
[2024-10-25 07:02] LABS: ALANINE AMINOTRANSFERASE 14 U/L (12-78); ALBUMIN 2.6 g/dL (3.4-5.0); ALKALINE PHOSPHATASE 93 U/L (46-116); ASPARTATE AMINOTRANSFERASE 24 U/L (15-37); BILIRUBIN,DIRECT 0.1 mg/dL (0.0-0.2); BILIRUBIN,TOTAL 0.3 mg/dL (0.2-1.0); LIPASE 59 U/L (16-77); TOTAL PROTEIN, SERUM 6.5 g/dL (6.4-8.2)
[2024-10-25 07:07] LABS: INR 1.18 (0.91-1.10); PARTIAL THROMBOPLASTIN TIME 43.5 SEC (24.3-34.3); PROTHROMBIN TIME 12.4 SECS (9.2-11.1)
[2024-10-25] MEDS: ONDANSETRON HCL/PF 4 MG/2 ML VIAL IV ONE (07:14)
[2024-10-25] MEDS ORDERED: NOREPINEPHRINE 8MG/250ML RTU 250 ML IV ONE (07:34)
[2024-10-25] MEDS: NOREPINEPHRINE 8 MG in IV D5W 242 ML IV PRN (07:44)
[2024-10-25] MEDS ORDERED: NOREPINEPHRINE 8 MG in IV NS 0.9% 250 ML IV PRN (08:00)
[2024-10-25] MEDS ORDERED: IV NS 0.9% 100 ML IV PRN (08:00)
[2024-10-25] MEDS: PANTOPRAZOLE 80 MG in IV NS 0.9% 100 ML IV ONE (08:00)
[2024-10-25] MEDS: PANTOPRAZOLE 80 MG in IV NS 0.9% 500 ML IV ONE (08:15)
[2024-10-25] MEDS ORDERED: SODIUM CHLORIDE 1000 MG TABLET PO SCH (09:00)
[2024-10-25] MEDS ORDERED: PANTOPRAZOLE 40 MG VIAL IV SCH (09:00)
[2024-10-25] MEDS: LEVETIRACETAM (500MG) 750 MG in IV NS 0.9% 100 ML IV SCH (09:10)
[2024-10-25] MEDS ORDERED: NUTR1PAC14 PO (10:06)
[2024-10-25] MEDS ORDERED: WARF-58 PO (10:06)
[2024-10-25] MEDS ORDERED: SERT50TA PO (10:06)
[2024-10-25] MEDS ORDERED: ASCO-352 PO (10:06)
[2024-10-25] MEDS ORDERED: AMIN30LI66 PO (10:06)
[2024-10-25] MEDS ORDERED: MULT-213 PO (10:06)
[2024-10-25] MEDS ORDERED: ZINC454O5 TP (10:06)
[2024-10-25] MEDS ORDERED: LEVE1000 PO (10:06)
[2024-10-25] MEDS ORDERED: ZINC50TA69 PO (10:06)
[2024-10-25] MEDS ORDERED: POLY17PO4 PO (10:06)
[2024-10-25] MEDS: IV NS 0.9% 1,000 ML IV PRN (11:39)
[2024-10-25] MEDS: LORAZEPAM INJ 2 MG/ML VIAL IV PRN (12:14)
[2024-10-25] MEDS: PIPERACILLIN /TAZOBACTAM 3.375 G in IV D5W 50 ML IV SCH (12:14)
[2024-10-25] MEDS: PANTOPRAZOLE 80 MG in IV NS 0.9% 500 ML IV SCH (12:49)
[2024-10-25 15:23] LABS: HEMOGLOBIN 10.5 g/dL (11.5-14.8)
[2024-10-25 15:41] LABS: CALCIUM, SERUM 8.1 mg/dL (8.5-10.1); CREATININE 1.3 mg/dL (0.6-1.3); POTASSIUM 5.2 mmol/L (3.5-5.1)
[2024-10-25] MEDS: ACETAMINOPHEN 650 MG/SUPP.RECT RC PRN (16:12)
[2024-10-25] MEDS: POLYVINYL ALCOHOL 15 ML BOTTLE EACHEYE SCH (17:30)
[2024-10-25 19:29] LABS: APPEARANCE,URINE CLEAR (CLEAR); BILIRUBIN,URINE NEGATIVE (NEGATIVE); BLOOD, URINE NEGATIVE Ery/uL (NEGATIVE); COLOR,URINE YELLOW (YELLOW); KETONES,URINE NEGATIVE (NEGATIVE); LEUKOCYTE ESTERASE ,URINE NEGATIVE (NEGATIVE); NITRITE, URINE NEGATIVE (NEGATIVE); PROTEIN,URINE NEGATIVE (NEGATIVE); UGLUCOSE NEGATIVE (NEGATIVE); UROBILINOGEN,URINE 0.2 EU/dL (0.2)
[2024-10-25 19:46] LABS: HEMOGLOBIN 9.7 g/dL (11.5-14.8)
[2024-10-25] MEDS: MIRTAZAPINE 15 MG TABLET PO SCH (21:23)
[2024-10-26] VITALS (33 sets, daily range): BP systolic 104–158; BP diastolic 58–114; TEMP 99–99.5; O2SAT 89–100
[2024-10-26 05:23] LABS: BASOPHILS # (AUTO) 0.1 K/uL (0.0-0.2); BASOPHILS % (AUTO) 0.7 % (0.0-2.0); EOSINOPHILS # (AUTO) 0.2 K/uL (0.0-0.7); EOSINOPHILS % (AUTO) 2.5 % (0.0-6.0); HEMATOCRIT 28 % (33-45); HEMOGLOBIN 9.4 g/dL (11.5-14.8); LYMPHOCYTES # (AUTO) 1.8 K/uL (0.8-4.8); LYMPHOCYTES % (AUTO) 20.7 % (20.0-44.0); MEAN CORPUSCULAR HEMOGLOBIN 30 PG (26.0-33.0); MEAN CORPUSCULAR HGB CONC 34 g/dl (31.0-36.0); MEAN CORPUSCULAR VOLUME 89 fL (82-100); MONOCYTES # (AUTO) 0.4 K/uL (0.1-1.30); MONOCYTES % (AUTO) 4.6 % (2.0-12.0); NEUTROPHILS # (AUTO) 6.2 K/uL (1.8-8.9); NEUTROPHILS % (AUTO) 71.5 % (43.0-81.0); PLATELET COUNT (AUTO) 122 K/uL (150-450); RED BLOOD CELL COUNT(AUTO) 3.11 MIL/uL (4.0-5.2); RED CELL DISTRIBUTION WIDTH 15.6 % (11.5-15.0); WHITE BLOOD COUNT (AUTO) 8.7 K/uL (4.3-11.0)
[2024-10-26 05:40] LABS: ALBUMIN 2.1 g/dL (3.4-5.0); BILIRUBIN,TOTAL 0.6 mg/dL (0.2-1.0); CALCIUM, SERUM 8.5 mg/dL (8.5-10.1); CREATININE 1.3 mg/dL (0.6-1.3); MAGNESIUM 1.7 mg/dL (1.8-2.4); PHOSPHORUS 2.8 mg/dL (2.5-4.9); POTASSIUM 4.2 mmol/L (3.5-5.1); TOTAL PROTEIN, SERUM 5.8 g/dL (6.4-8.2)
[2024-10-26 05:53] LABS: THYROID STIMULATING HORMONE 2.88 uIU/mL (0.358-3.74); URIC ACID 2.6 mg/dL (2.6-7.2)
[2024-10-26 08:52] LABS: IRON, SERUM 13 ug/dl (50-175); TOTAL IRON BINDING CAPACITY 201 ug/dl (250-450)
[2024-10-26] MEDS: IV D5/ 0.9% NACL 1,000 ML IV SCH (10:09)
[2024-10-26] MEDS: METOPROLOL TARTRATE 25 MG TABLET PO SCH (10:10)
[2024-10-26] MEDS: QUETIAPINE FUMARATE 25 MG TABLET PO SCH (10:10)
[2024-10-26] MEDS: MAGNESIUM OXIDE 400 MG TABLET PO ONE (13:35)
[2024-10-26] MEDS: Magnesium 1GM/D5W 100ML PREMIX 100 ML IV SCH (14:06)
[2024-10-26] MEDS: OLANZAPINE 10 MG VIAL IM PRN (14:20)
[2024-10-26] MEDS: IV NS 0.9% 250 ML IV PRN (16:19)
[2024-10-26] MEDS: SOD FERRIC GLUC 125 MG in IV NS 0.9% 100 ML IV SCH (16:36)
[2024-10-26] MEDS ORDERED: LORAZEPAM IV ONE (18:30)
[2024-10-26] MEDS ORDERED: NS 0.9% IV ONE (18:30)
[2024-10-26] MEDS: LORAZEPAM INJ 2 MG/ML VIAL IV PRN (18:34)
[2024-10-26] MEDS: PANTOPRAZOLE 40 MG VIAL IV SCH (20:57)
[2024-10-27] VITALS (26 sets, daily range): BP systolic 99–160; BP diastolic 59–98; TEMP 98.1–99.8; O2SAT 77–100
[2024-10-27 04:58] LABS: BASOPHILS # (AUTO) 0.1 K/uL (0.0-0.2); BASOPHILS % (AUTO) 0.7 % (0.0-2.0); EOSINOPHILS % (AUTO) 0.5 % (0.0-6.0); HEMATOCRIT 24 % (33-45); HEMOGLOBIN 8.4 g/dL (11.5-14.8); LYMPHOCYTES # (AUTO) 1.6 K/uL (0.8-4.8); LYMPHOCYTES % (AUTO) 15.7 % (20.0-44.0); MEAN CORPUSCULAR HEMOGLOBIN 31 PG (26.0-33.0); MEAN CORPUSCULAR HGB CONC 35 g/dl (31.0-36.0); MEAN CORPUSCULAR VOLUME 87 fL (82-100); MONOCYTES # (AUTO) 0.5 K/uL (0.1-1.30); MONOCYTES % (AUTO) 4.6 % (2.0-12.0); NEUTROPHILS # (AUTO) 8.2 K/uL (1.8-8.9); NEUTROPHILS % (AUTO) 78.5 % (43.0-81.0); PLATELET COUNT (AUTO) 123 K/uL (150-450); RED BLOOD CELL COUNT(AUTO) 2.73 MIL/uL (4.0-5.2); RED CELL DISTRIBUTION WIDTH 15.9 % (11.5-15.0); WHITE BLOOD COUNT (AUTO) 10.5 K/uL (4.3-11.0)
[2024-10-27 05:01] LABS: CALCIUM, SERUM 8.3 mg/dL (8.5-10.1); CREATININE 1.1 mg/dL (0.6-1.3); POTASSIUM 3.4 mmol/L (3.5-5.1)
[2024-10-27] MEDS: OLANZAPINE 10 MG VIAL IM ONE (05:28)
[2024-10-27] MEDS: POTASSIUM CHLORIDE 20 MEQ POWDER PACKET PO SCH (08:51)
[2024-10-27] MEDS: POTASSIUM CL. PREMIX PERIPHER. 50 ML IV SCH ×2 (09:49→14:45)
[2024-10-27] MEDS: FUROSEMIDE 40 MG/4 ML VIAL IV SCH (09:49)
[2024-10-27] MEDS ORDERED: METOPROLOL TARTRATE INJ 5 MG/5 ML AMPUL IVP PRN (21:30)
[2024-10-27] MEDS: METOPROLOL TARTRATE INJ 5 MG/5 ML AMPUL IVP SCH (21:59)
[2024-10-28] VITALS (24 sets, daily range): BP systolic 82–130; BP diastolic 42–78; TEMP 98.2–101.2; O2SAT 94–100
[2024-10-28 04:54] LABS: BASOPHILS # (AUTO) 0.1 K/uL (0.0-0.2); BASOPHILS % (AUTO) 0.6 % (0.0-2.0); EOSINOPHILS # (AUTO) 0.2 K/uL (0.0-0.7); EOSINOPHILS % (AUTO) 2.1 % (0.0-6.0); HEMATOCRIT 26 % (33-45); HEMOGLOBIN 9.3 g/dL (11.5-14.8); LYMPHOCYTES # (AUTO) 2.8 K/uL (0.8-4.8); LYMPHOCYTES % (AUTO) 24.2 % (20.0-44.0); MEAN CORPUSCULAR HEMOGLOBIN 32 PG (26.0-33.0); MEAN CORPUSCULAR HGB CONC 35 g/dl (31.0-36.0); MEAN CORPUSCULAR VOLUME 90 fL (82-100); MONOCYTES # (AUTO) 0.7 K/uL (0.1-1.30); MONOCYTES % (AUTO) 6.1 % (2.0-12.0); NEUTROPHILS # (AUTO) 7.8 K/uL (1.8-8.9); PLATELET COUNT (AUTO) 169 K/uL (150-450); RED BLOOD CELL COUNT(AUTO) 2.94 MIL/uL (4.0-5.2); RED CELL DISTRIBUTION WIDTH 15.9 % (11.5-15.0); WHITE BLOOD COUNT (AUTO) 11.6 K/uL (4.3-11.0)
[2024-10-28 06:27] LABS: BILIRUBIN,TOTAL 0.5 mg/dL (0.2-1.0); CALCIUM, SERUM 8.8 mg/dL (8.5-10.1); CREATININE 1.5 mg/dL (0.6-1.3); MAGNESIUM 2.1 mg/dL (1.8-2.4); PHOSPHORUS 4.7 mg/dL (2.5-4.9); POTASSIUM 3.8 mmol/L (3.5-5.1); TOTAL PROTEIN, SERUM 6.1 g/dL (6.4-8.2)
[2024-10-28] MEDS: IV D5/0.45 NACL 1,000 ML IV SCH (11:00)
[2024-10-28] MEDS: MEROPENEM 500 MG in IV NS 0.9% 50 ML IV SCH (16:27)
[2024-10-28] MEDS: LINEZOLID RTU BAG 600 MG in PREMIX 1 EA IV SCH (21:42)
[2024-10-29] VITALS (25 sets, daily range): BP systolic 87–115; BP diastolic 46–65; TEMP 97.3–98.7; O2SAT 96–100
[2024-10-29 04:54] LABS: BASOPHILS # (AUTO) 0.1 K/uL (0.0-0.2); BASOPHILS % (AUTO) 0.7 % (0.0-2.0); EOSINOPHILS # (AUTO) 0.7 K/uL (0.0-0.7); EOSINOPHILS % (AUTO) 9.6 % (0.0-6.0); HEMATOCRIT 22 % (33-45); HEMOGLOBIN 7.8 g/dL (11.5-14.8); LYMPHOCYTES # (AUTO) 1.6 K/uL (0.8-4.8); LYMPHOCYTES % (AUTO) 22.5 % (20.0-44.0); MEAN CORPUSCULAR HEMOGLOBIN 31 PG (26.0-33.0); MEAN CORPUSCULAR HGB CONC 35 g/dl (31.0-36.0); MEAN CORPUSCULAR VOLUME 89 fL (82-100); MONOCYTES # (AUTO) 0.6 K/uL (0.1-1.30); NEUTROPHILS # (AUTO) 4.2 K/uL (1.8-8.9); NEUTROPHILS % (AUTO) 59.2 % (43.0-81.0); PLATELET COUNT (AUTO) 187 K/uL (150-450); RED BLOOD CELL COUNT(AUTO) 2.52 MIL/uL (4.0-5.2); RED CELL DISTRIBUTION WIDTH 15.6 % (11.5-15.0); WHITE BLOOD COUNT (AUTO) 7.2 K/uL (4.3-11.0)
[2024-10-29 05:00] LABS: INR 2.86 (0.91-1.10); PROTHROMBIN TIME 28.3 SECS (9.2-11.1)
[2024-10-29 05:03] LABS: ALBUMIN 1.7 g/dL (3.4-5.0); BILIRUBIN,TOTAL 0.4 mg/dL (0.2-1.0); CALCIUM, SERUM 8.6 mg/dL (8.5-10.1); CREATININE 1.4 mg/dL (0.6-1.3); POTASSIUM 3.6 mmol/L (3.5-5.1); TOTAL PROTEIN, SERUM 5.5 g/dL (6.4-8.2)
[2024-10-29 05:06] LABS: PARTIAL THROMBOPLASTIN TIME 81.8 SEC (24.3-34.3)
[2024-10-29] MEDS: PHYTONADIONE INJ 10 MG/1 ML AMPUL SQ ONE (11:01)
[2024-10-29] MEDS: BUMETANIDE INJ 1 MG in IV NS 0.9% 40 ML IV ONE (11:31)
[2024-10-29] MEDS: IV D5/0.45 NACL 1,000 ML IV PRN (15:54)
[2024-10-29] MEDS: BISACODYL SUPP (10 MG) 10 MG/SUPP.RECT SUPP.RECT RC ONE (18:52)
[2024-10-29] MEDS: OXCARBAZEPINE 150 MG TABLET PO SCH (21:01)
[2024-10-30] VITALS (24 sets, daily range): BP systolic 92–125; BP diastolic 50–73; TEMP 98.7–98.9; O2SAT 94–100
[2024-10-30 04:59] LABS: ALANINE AMINOTRANSFERASE 11 U/L (12-78); ALBUMIN 1.5 g/dL (3.4-5.0); ALKALINE PHOSPHATASE 64 U/L (46-116); ASPARTATE AMINOTRANSFERASE 22 U/L (15-37); BILIRUBIN,TOTAL 0.4 mg/dL (0.2-1.0); CALCIUM, SERUM 8.5 mg/dL (8.5-10.1); CARBON DIOXIDE 26 mmol/L (21-32); CHLORIDE 108 mmol/L (98-107); CREATININE 1.3 mg/dL (0.6-1.3); GLUCOSE 100 mg/dL (74-106); POTASSIUM 2.9 mmol/L (3.5-5.1); SODIUM SERUM 141 mmol/L (136-145); TOTAL PROTEIN, SERUM 5.1 g/dL (6.4-8.2); UREA NITROGEN, BLOOD 13 mg/dL (7-18)
[2024-10-30 05:05] LABS: INR 1.19 (0.91-1.10); PROTHROMBIN TIME 12.5 SECS (9.2-11.1)
[2024-10-30 05:16] LABS: BASOPHILS % (AUTO) 0.6 % (0.0-2.0); EOSINOPHILS # (AUTO) 0.7 K/uL (0.0-0.7); HEMATOCRIT 22 % (33-45); HEMOGLOBIN 7.5 g/dL (11.5-14.8); LYMPHOCYTES # (AUTO) 1.8 K/uL (0.8-4.8); LYMPHOCYTES % (AUTO) 24.2 % (20.0-44.0); MEAN CORPUSCULAR HEMOGLOBIN 31 PG (26.0-33.0); MEAN CORPUSCULAR HGB CONC 34 g/dl (31.0-36.0); MEAN CORPUSCULAR VOLUME 89 fL (82-100); MONOCYTES # (AUTO) 0.4 K/uL (0.1-1.30); MONOCYTES % (AUTO) 5.8 % (2.0-12.0); NEUTROPHILS # (AUTO) 4.4 K/uL (1.8-8.9); NEUTROPHILS % (AUTO) 59.4 % (43.0-81.0); PLATELET COUNT (AUTO) 171 K/uL (150-450); RED BLOOD CELL COUNT(AUTO) 2.47 MIL/uL (4.0-5.2); RED CELL DISTRIBUTION WIDTH 15.4 % (11.5-15.0); WHITE BLOOD COUNT (AUTO) 7.4 K/uL (4.3-11.0)
[2024-10-30] MEDS: POLYETHYLENE GLYCOL 3350 17 GM POWD.PACK PO SCH (08:19)
[2024-10-30] MEDS: SENNOSIDES/DOCUSATE SODIUM 1 TAB TABLET PO SCH (08:30)
[2024-10-30] MEDS: POTASSIUM CL. PREMIX PERIPHER. 50 ML IV SCH (10:08)
[2024-10-30] MEDS: ACETAMINOPHEN 325 MG TABLET PO PRN (12:30)
[2024-10-30] MEDS: POTASSIUM CHLORIDE 20 MEQ POWDER PACKET PO ONE (17:54)
[2024-10-30] MEDS: ENSURE ENLIVE CHOC 237 ML CAN PO SCH (17:55)
[2024-10-31] VITALS (14 sets, daily range): BP systolic 100–125; BP diastolic 52–80; TEMP 98.1–98.6; O2SAT 93–100
[2024-10-31] MEDS: NA PHOS,M-B/NA PHOS,DI-BA 1 EA ENEMA RC PRN (02:13)
[2024-10-31 04:56] LABS: BASOPHILS % (AUTO) 0.8 % (0.0-2.0); EOSINOPHILS # (AUTO) 0.7 K/uL (0.0-0.7); EOSINOPHILS % (AUTO) 12.8 % (0.0-6.0); HEMATOCRIT 23 % (33-45); HEMOGLOBIN 7.9 g/dL (11.5-14.8); LYMPHOCYTES # (AUTO) 1.5 K/uL (0.8-4.8); LYMPHOCYTES % (AUTO) 27.4 % (20.0-44.0); MEAN CORPUSCULAR HEMOGLOBIN 31 PG (26.0-33.0); MEAN CORPUSCULAR HGB CONC 35 g/dl (31.0-36.0); MEAN CORPUSCULAR VOLUME 90 fL (82-100); MONOCYTES # (AUTO) 0.3 K/uL (0.1-1.30); MONOCYTES % (AUTO) 5.9 % (2.0-12.0); NEUTROPHILS # (AUTO) 2.9 K/uL (1.8-8.9); NEUTROPHILS % (AUTO) 53.1 % (43.0-81.0); PLATELET COUNT (AUTO) 110 K/uL (150-450); RED BLOOD CELL COUNT(AUTO) 2.54 MIL/uL (4.0-5.2); RED CELL DISTRIBUTION WIDTH 14.9 % (11.5-15.0); WHITE BLOOD COUNT (AUTO) 5.5 K/uL (4.3-11.0)
[2024-10-31 04:57] LABS: CALCIUM, SERUM 8.5 mg/dL (8.5-10.1); POTASSIUM 3.6 mmol/L (3.5-5.1)
[2024-10-31 07:56] LABS: ABG BASE EXCESS -4.7 mmol/L (-2.0-3.0); ABG OXYGEN SATURATION 98.5 % (94.0-98.0); ABG PH 7.411 (7.350-7.450); ABG PO2 140.1 mmHg (83.0-108.0); ABG TOTAL HEMOGLOBIN 8.7 G/dL (12.0-16.0); COHb 0.3 % (0.5-1.5); MetHb 0.2 % (0.0-1.5); SITE, ABG RIGHT RADIAL
[2024-10-31] MEDS ORDERED: ENSURE ENLIVE 237 ML LIQUID (VANILLA) PO SCH (09:00)
[2024-11-01] VITALS: BP 120/80; TEMP 98.2; O2SAT 99
[2024-11-01 04:00] VITALS: BP 107/72; TEMP 97.8; O2SAT 100
[2024-11-01 08:00] VITALS: BP 103/68; TEMP 97.9; O2SAT 100
[2024-11-01] MEDS: METOPROLOL TARTRATE 25 MG TABLET PO SCH (09:47)
[2024-11-01 12:00] VITALS: BP 117/65; TEMP 97.9; O2SAT 100
[2024-11-01 16:00] VITALS: BP 110/63; TEMP 97.9; O2SAT 100
[2024-11-01 20:00] VITALS: BP 128/75; TEMP 97.4; O2SAT 97
[2024-11-02] VITALS: BP 130/76; TEMP 98; O2SAT 96
[2024-11-02 04:00] VITALS: BP 113/68; TEMP 97.7; O2SAT 97
[2024-11-02 08:05] VITALS: BP 116/54; TEMP 98.8; O2SAT 98
[2024-11-02] MEDS: LEVETIRACETAM SOL (5 ML) 100 MG/ML UDC PO SCH (08:07)
[2024-11-02 08:24] LABS: BASOPHILS % (AUTO) 0.7 % (0.0-2.0); EOSINOPHILS # (AUTO) 0.3 K/uL (0.0-0.7); EOSINOPHILS % (AUTO) 9.5 % (0.0-6.0); HEMATOCRIT 21 % (33-45); HEMOGLOBIN 7.3 g/dL (11.5-14.8); LYMPHOCYTES # (AUTO) 1.6 K/uL (0.8-4.8); LYMPHOCYTES % (AUTO) 44.5 % (20.0-44.0); MEAN CORPUSCULAR HEMOGLOBIN 32 PG (26.0-33.0); MEAN CORPUSCULAR HGB CONC 35 g/dl (31.0-36.0); MEAN CORPUSCULAR VOLUME 89 fL (82-100); MONOCYTES # (AUTO) 0.2 K/uL (0.1-1.30); MONOCYTES % (AUTO) 6.7 % (2.0-12.0); NEUTROPHILS # (AUTO) 1.4 K/uL (1.8-8.9); NEUTROPHILS % (AUTO) 38.6 % (43.0-81.0); PLATELET COUNT (AUTO) 55 K/uL (150-450); RED BLOOD CELL COUNT(AUTO) 2.32 MIL/uL (4.0-5.2); RED CELL DISTRIBUTION WIDTH 14.4 % (11.5-15.0); WHITE BLOOD COUNT (AUTO) 3.6 K/uL (4.3-11.0)
[2024-11-02 09:44] LABS: CALCIUM, SERUM 8.7 mg/dL (8.5-10.1); MAGNESIUM 1.8 mg/dL (1.8-2.4); POTASSIUM 3.2 mmol/L (3.5-5.1)
[2024-11-02 10:48] LABS: EOSINOPHILS % (MANUAL) 7 % (0-4); LYMPHOCYTES % (MANUAL) 46 % (16-48); MONOCYTES % (MANUAL) 6 % (0-11.0); NEUTROPHILS % (MANUAL) 41 (42-76)
[2024-11-02 10:49] LABS: ANISOCYTOSIS 1+; PLATELET ESTIMATE DECREASED
[2024-11-02 12:05] VITALS: BP 132/66; TEMP 97.7; O2SAT 96
[2024-11-02] MEDS: clonazePAM 0.5 MG TABLET PO PRN (12:14)
[2024-11-02 16:05] VITALS: BP 137/58; TEMP 97.7; O2SAT 100
[2024-11-02] MEDS: BUMETANIDE (1 MG) 1 MG TABLET PO ONE (18:08)
[2024-11-02] MEDS: POTASSIUM CHLORIDE 20 MEQ TAB.PRT.SR PO ONE (18:08)
[2024-11-02] MEDS: clonazePAM 0.5 MG TABLET PO SCH (18:08)
[2024-11-02 20:00] VITALS: BP 125/58; TEMP 98; O2SAT 100
== END 2024-11-02 20:35 | disposition short-term general hospital (02) | DRG 871 ==
LOC: ER 06:00 → TRANSITION 08:37 → ICU 09:30 → TELE1 10-31 09:17
PROVIDERS: ADMIT Internal Medicine; ATTEND Internal Medicine
PROC: 06HM33Z Insertion of Infusion Device into Right Femoral Vein, Percutaneous Approach (ICD-10-PCS; principal; 2024-10-25)
PROC: B54BZZA Ultrasonography of Right Lower Extremity Veins, Guidance (ICD-10-PCS; 2024-10-25)
DX: A41.9 Sepsis, unspecified organism (principal); E43 Unspecified severe protein-calorie malnutrition; I21.A1 Myocardial infarction type 2; J96.01 Acute respiratory failure with hypoxia; J69.0 Pneumonitis due to inhalation of food and vomit; R65.21 Severe sepsis with septic shock; R57.1 Hypovolemic shock; I50.33 Acute on chronic diastolic (congestive) heart failure; K92.2 Gastrointestinal hemorrhage, unspecified; E87.20 Acidosis, unspecified; N17.9 Acute kidney failure, unspecified; E22.2 Syndrome of inappropriate secretion of antidiuretic hormone; G93.40 Encephalopathy, unspecified; F03.93 Unspecified dementia, unspecified severity, with mood disturbance; F03.918 Unspecified dementia, unspecified severity, with other behavioral disturbance; D68.59 Other primary thrombophilia; F03.92 Unspecified dementia, unspecified severity, with psychotic disturbance; F03.94 Unspecified dementia, unspecified severity, with anxiety; Z68.1 Body mass index [BMI] 19.9 or less, adult; G40.909 Epilepsy, unspecified, not intractable, without status epilepticus; I11.0 Hypertensive heart disease with heart failure; E78.5 Hyperlipidemia, unspecified; E87.6 Hypokalemia; I48.91 Unspecified atrial fibrillation; R13.10 Dysphagia, unspecified; M32.9 Systemic lupus erythematosus, unspecified; Z79.01 Long term (current) use of anticoagulants; Z86.718 Personal history of other venous thrombosis and embolism; Z86.73 Personal history of transient ischemic attack (TIA), and cerebral infarction without residual deficits; Z86.711 Personal history of pulmonary embolism; Z87.440 Personal history of urinary (tract) infections; Z20.822 Contact with and (suspected) exposure to COVID-19; F32.A Depression, unspecified; I25.10 Atherosclerotic heart disease of native coronary artery without angina pectoris; E87.8 Other disorders of electrolyte and fluid balance, not elsewhere classified; F03.90 Unspecified dementia, unspecified severity, without behavioral disturbance, psychotic disturbance, mood disturbance, and anxiety; I35.0 Nonrheumatic aortic (valve) stenosis; D69.6 Thrombocytopenia, unspecified; I95.9 Hypotension, unspecified; F41.9 Anxiety disorder, unspecified; F39 Unspecified mood [affective] disorder; D64.9 Anemia, unspecified; F29 Unspecified psychosis not due to a substance or known physiological condition; E86.0 Dehydration; F41.0 Panic disorder [episodic paroxysmal anxiety]; I27.20 Pulmonary hypertension, unspecified; Z79.899 Other long term (current) drug therapy; D50.0 Iron deficiency anemia secondary to blood loss (chronic)
CPT/HCPCS: 36415; 36600; 71045-TC; 80048-TC; 80053-TC; 80076-TC; 82962-TC; 83540-TC; 83605-TC; 83690-TC; 83735-TC; 84100-TC; 84443-TC; 84484-TC; 84550-TC; 85025-TC; 85027-TC; 85610-TC; 85730-TC; 86850-TC; 87040-TC; 87081-TC; 87086-TC; 92526; 92611-TC; 93970-TC; A4216; A4223; A4349; G0378; J1940; J1953; J2020; J2060; J2185; J2405; J2470; J2543; J2916; J3430; J3475; J3480; J3490; J7030; J7040; J7042; J7050; J7060

== ENCOUNTER 2024-12-07 12:21 | Inpatient (IN) | payer MEDICARE, OTHER ==
[~2024-12-07] VITALS: Ht 165.1 cm; Wt 52.8 kg
[~2024-12-07 12:21] MED LIST changes: +AMIN30LI66 PO; +ASCO-352 PO; -CLON0.5T4 PO; -LACT-58 PO; +LEVE1000 PO; -LEVE500T20 PO; -MELA3TAB41 PO; -MIRT-90 PO; +MULT-213 PO; +NUTR1PAC14 PO; +POLY17PO4 PO; -QUET50TA PO; +SERT50TA PO; +WARF-58 PO; -WARF3TAB59 PO; +ZINC454O5 TP; +ZINC50TA69 PO; -ZOLP5TAB8 PO
[2024-12-07] MEDS: CEFEPIME 1 GM in IV D5W 50 ML IV ONE (13:00)
[2024-12-07] MEDS: IV NS 0.9% 1,000 ML BAG IV ONE (13:10)
[2024-12-07 13:16] LABS: BASOPHILS # (AUTO) 0.1 K/uL (0.0-0.2); BASOPHILS % (AUTO) 1.1 % (0.0-2.0); EOSINOPHILS # (AUTO) 0.5 K/uL (0.0-0.7); EOSINOPHILS % (AUTO) 9.5 % (0.0-6.0); HEMATOCRIT 31 % (33-45); HEMOGLOBIN 11.2 g/dL (11.5-14.8); LYMPHOCYTES # (AUTO) 1.7 K/uL (0.8-4.8); LYMPHOCYTES % (AUTO) 29.5 % (20.0-44.0); MEAN CORPUSCULAR HEMOGLOBIN 33 PG (26.0-33.0); MEAN CORPUSCULAR HGB CONC 36 g/dl (31.0-36.0); MEAN CORPUSCULAR VOLUME 90 fL (82-100); MONOCYTES # (AUTO) 0.5 K/uL (0.1-1.30); MONOCYTES % (AUTO) 9.3 % (2.0-12.0); NEUTROPHILS # (AUTO) 2.9 K/uL (1.8-8.9); NEUTROPHILS % (AUTO) 50.6 % (43.0-81.0); PLATELET COUNT (AUTO) 170 K/uL (150-450); RED BLOOD CELL COUNT(AUTO) 3.46 MIL/uL (4.0-5.2); RED CELL DISTRIBUTION WIDTH 15.3 % (11.5-15.0); WHITE BLOOD COUNT (AUTO) 5.8 K/uL (4.3-11.0)
[2024-12-07 13:37] LABS: ALANINE AMINOTRANSFERASE 20 U/L (12-78); ALBUMIN 3.3 g/dL (3.4-5.0); ALKALINE PHOSPHATASE 122 U/L (46-116); ASPARTATE AMINOTRANSFERASE 15 U/L (15-37); BILIRUBIN,DIRECT 0.1 mg/dL (0.0-0.2); BILIRUBIN,TOTAL 0.2 mg/dL (0.2-1.0); CALCIUM, SERUM 9.8 mg/dL (8.5-10.1); CARBON DIOXIDE 23 mmol/L (21-32); CHLORIDE 89 mmol/L (98-107); CREATININE 0.9 mg/dL (0.6-1.3); GLUCOSE 95 mg/dL (74-106); LACTIC ACID 1.5 mmol/L (0.4-2.0); POTASSIUM 4.7 mmol/L (3.5-5.1); SODIUM SERUM 121 mmol/L (136-145); TOTAL PROTEIN, SERUM 7.6 g/dL (6.4-8.2); UREA NITROGEN, BLOOD 17 mg/dL (7-18)
[2024-12-07 13:38] LABS: INR 1.4 (0.91-1.10); PARTIAL THROMBOPLASTIN TIME 55.5 SEC (24.3-34.3); PROTHROMBIN TIME 14.5 SECS (9.2-11.1)
[2024-12-07] MEDS ORDERED: TRAZ-252 PO (13:50)
[2024-12-07] MEDS ORDERED: ACET325T53 PO (13:50)
[2024-12-07] MEDS ORDERED: SODI100037 PO (13:50)
[2024-12-07] MEDS ORDERED: ZINC1CAP2 PO (13:50)
[2024-12-07] MEDS ORDERED: OLAN5TAB3 PO (13:50)
[2024-12-07] MEDS ORDERED: ATOR40TA PO (13:50)
[2024-12-07] MEDS ORDERED: MELA5TAB PO (13:50)
[2024-12-07] MEDS ORDERED: SENN8.6T19 PO (13:50)
[2024-12-07 14:51] LABS: APPEARANCE,URINE CLEAR (CLEAR); BILIRUBIN,URINE NEGATIVE (NEGATIVE); BLOOD, URINE NEGATIVE Ery/uL (NEGATIVE); COLOR,URINE YELLOW (YELLOW); KETONES,URINE NEGATIVE (NEGATIVE); LEUKOCYTE ESTERASE ,URINE NEGATIVE (NEGATIVE); NITRITE, URINE NEGATIVE (NEGATIVE); PROTEIN,URINE NEGATIVE (NEGATIVE); UGLUCOSE NEGATIVE (NEGATIVE); UROBILINOGEN,URINE 0.2 EU/dL (0.2)
[2024-12-07] MEDS ORDERED: Z GUARD REMEDY 4 OZ OINT TP PRN (16:00)
[2024-12-07] MEDS ORDERED: MAGNESIUM HYDROXIDE 30 ML UDC PO PRN (16:00)
[2024-12-07] MEDS ORDERED: ONDANSETRON HCL/PF 4 MG/2 ML VIAL IVP PRN (16:00)
[2024-12-07] MEDS ORDERED: ACETAMINOPHEN 325 MG TABLET PO PRN ×2 (16:00)
[2024-12-07] MEDS ORDERED: MAG HYDROX/AL HYDROX/SIMETH 30 ML UDC PO PRN (16:00)
[2024-12-07] MEDS: DOCUSATE SODIUM 100 MG CAPSULE PO SCH (16:59)
[2024-12-07] MEDS: LEVETIRACETAM (250 MG) 250 MG TABLET PO SCH (16:59)
[2024-12-07] MEDS: SODIUM CHLORIDE 1000 MG TABLET PO SCH (17:00)
[2024-12-07] MEDS: ENOXAPARIN SODIUM 40 MG/0.4 ML DISP.SYRIN SQ SCH (17:00)
[2024-12-07] MEDS: IV NS 0.9% 1,000 ML IV PRN (18:09)
[2024-12-07 20:00] VITALS: BP 139/70; TEMP 98.1; O2SAT 100
[2024-12-07] MEDS: OLANZAPINE 5 MG TABLET PO SCH (21:22)
[2024-12-07] MEDS: TRAZODONE 50 MG TABLET PO SCH (21:22)
[2024-12-07] MEDS: SENNOSIDES 8.6 MG TABLET PO SCH (21:22)
[2024-12-07] MEDS: WARFARIN SODIUM 5 MG TABLET PO SCH (21:24)
[2024-12-08] VITALS: BP 117/76; TEMP 97.9; O2SAT 99
[2024-12-08 04:00] VITALS: BP 126/62; TEMP 98.2; O2SAT 98
[2024-12-08 06:30] LABS: BASOPHILS # (AUTO) 0.1 K/uL (0.0-0.2); EOSINOPHILS # (AUTO) 0.5 K/uL (0.0-0.7); EOSINOPHILS % (AUTO) 10.4 % (0.0-6.0); HEMATOCRIT 27 % (33-45); HEMOGLOBIN 9.7 g/dL (11.5-14.8); LYMPHOCYTES # (AUTO) 1.7 K/uL (0.8-4.8); LYMPHOCYTES % (AUTO) 32.4 % (20.0-44.0); MEAN CORPUSCULAR HEMOGLOBIN 32 PG (26.0-33.0); MEAN CORPUSCULAR HGB CONC 36 g/dl (31.0-36.0); MEAN CORPUSCULAR VOLUME 90 fL (82-100); MONOCYTES # (AUTO) 0.5 K/uL (0.1-1.30); MONOCYTES % (AUTO) 10.1 % (2.0-12.0); NEUTROPHILS # (AUTO) 2.3 K/uL (1.8-8.9); NEUTROPHILS % (AUTO) 45.1 % (43.0-81.0); PLATELET COUNT (AUTO) 174 K/uL (150-450); RED BLOOD CELL COUNT(AUTO) 3.01 MIL/uL (4.0-5.2); RED CELL DISTRIBUTION WIDTH 15.3 % (11.5-15.0); WHITE BLOOD COUNT (AUTO) 5.2 K/uL (4.3-11.0)
[2024-12-08 06:57] LABS: CALCIUM, SERUM 9.1 mg/dL (8.5-10.1); CREATININE 0.7 mg/dL (0.6-1.3); MAGNESIUM 2.1 mg/dL (1.8-2.4); PHOSPHORUS 3.5 mg/dL (2.5-4.9); POTASSIUM 4.4 mmol/L (3.5-5.1)
[2024-12-08] MEDS: PANTOPRAZOLE 40 MG TABLET.DR PO SCH (08:40)
[2024-12-08] MEDS: MULTIVIT W/MINERALS 1 TAB TABLET PO SCH (09:13)
[2024-12-08] MEDS: POLYETHYLENE GLYCOL 3350 17 GM POWD.PACK PO SCH (09:13)
[2024-12-08] MEDS: IV NS 0.9% 1,000 ML IV SCH (13:19)
[2024-12-08] MEDS: FERROUS SULFATE (325 MG) 325 MG/TAB TABLET PO SCH (17:22)
[2024-12-08 20:00] VITALS: BP 114/80; TEMP 97.7; O2SAT 98
[2024-12-09] VITALS: BP 149/74; TEMP 97.8; O2SAT 98
[2024-12-09 04:00] VITALS: BP 114/76; TEMP 97.9; O2SAT 99
[2024-12-09 05:00] VITALS: BP 114/76; TEMP 97.9; O2SAT 99
[2024-12-09 06:22] LABS: BASOPHILS # (AUTO) 0.1 K/uL (0.0-0.2); BASOPHILS % (AUTO) 1.3 % (0.0-2.0); EOSINOPHILS # (AUTO) 0.6 K/uL (0.0-0.7); EOSINOPHILS % (AUTO) 11.3 % (0.0-6.0); HEMATOCRIT 26 % (33-45); HEMOGLOBIN 9.4 g/dL (11.5-14.8); LYMPHOCYTES # (AUTO) 1.8 K/uL (0.8-4.8); LYMPHOCYTES % (AUTO) 37.4 % (20.0-44.0); MEAN CORPUSCULAR HEMOGLOBIN 33 PG (26.0-33.0); MEAN CORPUSCULAR HGB CONC 36 g/dl (31.0-36.0); MEAN CORPUSCULAR VOLUME 91 fL (82-100); MONOCYTES # (AUTO) 0.6 K/uL (0.1-1.30); MONOCYTES % (AUTO) 11.5 % (2.0-12.0); NEUTROPHILS # (AUTO) 1.9 K/uL (1.8-8.9); NEUTROPHILS % (AUTO) 38.5 % (43.0-81.0); PLATELET COUNT (AUTO) 166 K/uL (150-450); RED CELL DISTRIBUTION WIDTH 15.3 % (11.5-15.0); WHITE BLOOD COUNT (AUTO) 4.9 K/uL (4.3-11.0)
[2024-12-09 06:37] LABS: INR 1.41 (0.91-1.10); PROTHROMBIN TIME 14.6 SECS (9.2-11.1)
[2024-12-09 06:40] LABS: CALCIUM, SERUM 9.3 mg/dL (8.5-10.1); CREATININE 0.8 mg/dL (0.6-1.3); POTASSIUM 3.9 mmol/L (3.5-5.1)
[2024-12-09 08:45] VITALS: BP 100/70; TEMP 98.1; O2SAT 99
[2024-12-09 13:24] VITALS: BP 140/69; TEMP 98.9; O2SAT 100
[2024-12-09 15:56] VITALS: BP 126/74; TEMP 99; O2SAT 99
[2024-12-09] MEDS ORDERED: WARFARIN SODIUM 5 MG TABLET PO SCH (22:00)
== END 2024-12-09 19:00 | DRG 643 ==
LOC: ER 12:25 → TELE 15:15
PROVIDERS: ADMIT Internal Medicine; ATTEND Internal Medicine
DX: E22.2 Syndrome of inappropriate secretion of antidiuretic hormone (principal); G92.9 Unspecified toxic encephalopathy; D68.59 Other primary thrombophilia; E46 Unspecified protein-calorie malnutrition; Z68.1 Body mass index [BMI] 19.9 or less, adult; E86.0 Dehydration; E78.5 Hyperlipidemia, unspecified; G47.00 Insomnia, unspecified; I25.10 Atherosclerotic heart disease of native coronary artery without angina pectoris; I48.91 Unspecified atrial fibrillation; Z86.73 Personal history of transient ischemic attack (TIA), and cerebral infarction without residual deficits; Z87.440 Personal history of urinary (tract) infections; Z88.2 Allergy status to sulfonamides; Z86.711 Personal history of pulmonary embolism; Z86.718 Personal history of other venous thrombosis and embolism; G40.909 Epilepsy, unspecified, not intractable, without status epilepticus; D64.9 Anemia, unspecified; I35.0 Nonrheumatic aortic (valve) stenosis; F41.0 Panic disorder [episodic paroxysmal anxiety]; I11.0 Hypertensive heart disease with heart failure; I50.9 Heart failure, unspecified; Z79.01 Long term (current) use of anticoagulants; I27.20 Pulmonary hypertension, unspecified; F03.90 Unspecified dementia, unspecified severity, without behavioral disturbance, psychotic disturbance, mood disturbance, and anxiety; R53.1 Weakness; F41.9 Anxiety disorder, unspecified
CPT/HCPCS: 36415; 70450-TC; 71045-TC; 80048-TC; 80076-TC; 83605-TC; 83735-TC; 84100-TC; 84484-TC; 85025-TC; 85610-TC; 85730-TC; 87040-TC; 87081-TC; 87086-TC; A4223; G0378; J0692; J1650; J7030; J7060

== ENCOUNTER 2025-04-30 05:22 | Inpatient (IN) | payer MEDICARE, OTHER ==
[~2025-04-30] VITALS: Ht 157.5 cm; Wt 59.4 kg
[2025-04-30] VITALS (29 sets, daily range): BP systolic 77–131; BP diastolic 44–78; TEMP 98.7–99.6; O2SAT 98–100
[~2025-04-30 05:22] MED LIST changes: +ATOR40TA PO; -FOLI0.8C PO; +MELA5TAB PO; -METO25TA6 PO; -NUTR1PAC14 PO; +OLAN5TAB3 PO; -OXCA300T15 PO; -QUET25TA PO; +SENN8.6T19 PO; -SERT50TA PO; +SODI100037 PO; +TRAZ-252 PO; +ZINC1CAP2 PO; -ZINC50TA69 PO
[2025-04-30] MEDS ORDERED: DILTIAZEM HCL 50 MG IV ONE (05:36)
[2025-04-30] MEDS ORDERED: PANTOPRAZOLE 40 MG VIAL ONE (05:36)
[2025-04-30] MEDS: VANCOMYCIN HCL 1.25 GM in IV D5W 250 ML IV STA (05:48)
[2025-04-30 05:49] LABS: ABG BASE EXCESS -3.6 mmol/L (-2.0-3.0); ABG OXYGEN SATURATION 99.2 % (94.0-98.0); ABG PCO2 32.0 mmHg (32.0-45.0); ABG PH 7.416 (7.350-7.450); ABG PO2 192.9 mmHg (83.0-108.0); ABG TOTAL HEMOGLOBIN 11.5 G/dL (12.0-16.0); FLOW, BLOOD GAS 15.00 L/min (0.00-30.00); FRACTIONATED INSPIRED OXYGEN 100.0 %; SITE, ABG RIGHT RADIAL
[2025-04-30] MEDS ORDERED: ACETAMINOPHEN 325 MG/SUPP.RECT RC ONE (05:49)
[2025-04-30] MEDS: ACETAMINOPHEN 650 MG/SUPP.RECT RC ONE (05:56)
[2025-04-30] MEDS ORDERED: CEFEPIME 1 GM VIAL ONE (05:57)
[2025-04-30] MEDS: PANTOPRAZOLE 40 MG VIAL IV ONE (05:58)
[2025-04-30] MEDS: DILTIAZEM HCL 50 MG IV IV ONE (05:59)
[2025-04-30] MEDS: CEFEPIME 1 GM in IV D5W 50 ML IV ONE (06:04)
[2025-04-30] MEDS ORDERED: DOXYCYCLINE 100 MG VIAL ONE (06:11)
[2025-04-30 06:15] LABS: PLATELET COUNT (AUTO) 150 K/uL (150-450); RED BLOOD CELL COUNT(AUTO) 4.50 MIL/uL (4.0-5.2); RED CELL DISTRIBUTION WIDTH 13.9 % (11.5-15.0); WHITE BLOOD COUNT (AUTO) 10.7 K/uL (4.3-11.0)
[2025-04-30] MEDS: DOXYCYCLINE 100 MG in IV D5W 100 ML IV STA (06:20)
[2025-04-30 06:24] LABS: APPEARANCE,URINE CLEAR (CLEAR); BLOOD, URINE NEGATIVE Ery/uL (NEGATIVE); LEUKOCYTE ESTERASE ,URINE NEGATIVE (NEGATIVE); NITRITE, URINE NEGATIVE (NEGATIVE); UGLUCOSE NEGATIVE (NEGATIVE)
[2025-04-30 06:26] LABS: ASPARTATE AMINOTRANSFERASE 19.0 U/L (15-37); CALCIUM, SERUM 9.9 mg/dL (8.5-10.1); CREATININE 1.2 mg/dL (0.6-1.3); SODIUM SERUM 129.0 mmol/L (136-145); TOTAL PROTEIN, SERUM 8.1 g/dL (6.4-8.2); UREA NITROGEN, BLOOD 15.0 mg/dL (7-18)
[2025-04-30 06:32] LABS: LACTIC ACID 4.2 mmol/L (0.4-2.0)
[2025-04-30 06:40] LABS: INR 3.11 (0.91-1.10)
[2025-04-30] MEDS ORDERED: VANCOMYCIN 1 GM /D5W 250 ML PB IV ONE (06:49)
[2025-04-30] MEDS ORDERED: dexaMETHasone SOD PHOSPHATE 1 ML ONE (06:49)
[2025-04-30] MEDS: dexaMETHasone SOD PHOSPHATE 10 MG/ML VIAL IV ONE (06:56)
[2025-04-30] MEDS ORDERED: ACETAMINOPHEN 650 MG/SUPP.RECT RC PRN (07:30)
[2025-04-30] MEDS ORDERED: ONDANSETRON HCL/PF 4 MG/2 ML VIAL IVP PRN (07:30)
[2025-04-30] MEDS ORDERED: METOPROLOL TARTRATE INJ 5 MG/5 ML AMPUL IVP PRN (08:00)
[2025-04-30] MEDS ORDERED: ACETAMINOPHEN 325 MG TABLET PO PRN (08:00)
[2025-04-30] MEDS ORDERED: DOSING PER PHARMACY-VANCOMYCIN IV XX PRN (08:00)
[2025-04-30] MEDS ORDERED: FERR220E2 PO (08:11)
[2025-04-30] MEDS ORDERED: MAGN400O6 PO (08:11)
[2025-04-30] MEDS ORDERED: FOLI0.4T6 PO (08:11)
[2025-04-30] MEDS ORDERED: MEMA10TA PO (08:11)
[2025-04-30] MEDS ORDERED: VITS42.53 TP (08:11)
[2025-04-30] MEDS ORDERED: MELA3TAB41 PO (08:11)
[2025-04-30] MEDS ORDERED: BUSP5TAB3 PO (08:11)
[2025-04-30] MEDS ORDERED: ONDA-97 PO (08:11)
[2025-04-30] MEDS ORDERED: WARF-68 PO (08:11)
[2025-04-30] MEDS: PANTOPRAZOLE 40 MG VIAL IV SCH (09:00)
[2025-04-30] MEDS: LEVETIRACETAM (500MG) 1,000 MG in IV NS 0.9% 90 ML IV SCH (09:34)
[2025-04-30] MEDS: VANCOMYCIN 500 MG in IV D5W 100ml IV ONE (09:37)
[2025-04-30] MEDS: ASCORBIC ACID 500 MG TABLET PO SCH (11:30)
[2025-04-30] MEDS: ACETAMINOPHEN 325 MG TABLET PO SCH (11:30)
[2025-04-30] MEDS: DOCUSATE SODIUM 100 MG CAPSULE PO SCH (11:30)
[2025-04-30] MEDS: POLYETHYLENE GLYCOL 3350 17 GM POWD.PACK PO SCH (11:30)
[2025-04-30] MEDS: IV D5/ 0.9% NACL 1,000 ML IV SCH (11:52)
[2025-04-30] MEDS: REMDESIVIR (CHARGED) 200 MG, *LOADING DOSE 1 EA in IV NS 0.9% 210 ML IV ONE (13:25)
[2025-04-30] MEDS: CEFEPIME 1 GM in IV D5W 50 ML IV SCH (17:13)
[2025-04-30] MEDS: OLANZAPINE 5 MG TABLET PO SCH (22:00)
[2025-04-30] MEDS: TRAZODONE 50 MG TABLET PO SCH (22:00)
[2025-04-30] MEDS: ATORVASTATIN 40 MG TABLET PO SCH (22:00)
[2025-04-30] MEDS: SENNOSIDES 8.6 MG TABLET PO SCH (22:00)
[2025-04-30] MEDS: IV NS 0.9% 500 ML IV ONE (23:40)
[2025-05-01] VITALS (32 sets, daily range): BP systolic 89–144; BP diastolic 47–93; TEMP 97.2–98.8; O2SAT 93–100
[2025-05-01 04:57] LABS: PLATELET COUNT (AUTO) 120 K/uL (150-450); RED BLOOD CELL COUNT(AUTO) 2.93 MIL/uL (4.0-5.2); RED CELL DISTRIBUTION WIDTH 13.7 % (11.5-15.0); WHITE BLOOD COUNT (AUTO) 8.2 K/uL (4.3-11.0)
[2025-05-01 05:29] LABS: INR 4.21 (0.91-1.10)
[2025-05-01 05:41] LABS: ASPARTATE AMINOTRANSFERASE 15.0 U/L (15-37); CALCIUM, SERUM 9.1 mg/dL (8.5-10.1); CREATININE 0.9 mg/dL (0.6-1.3); SODIUM SERUM 132.0 mmol/L (136-145); TOTAL PROTEIN, SERUM 5.8 g/dL (6.4-8.2); UREA NITROGEN, BLOOD 18.0 mg/dL (7-18)
[2025-05-01] MEDS ORDERED: Z GUARD REMEDY 4 OZ OINT TP PRN (07:30)
[2025-05-01] MEDS: dexaMETHasone SOD PHOSPHATE 10 MG/ML VIAL IV SCH (08:42)
[2025-05-01] MEDS: VANCOMYCIN 1 GM in IV D5W 250ml IV SCH (08:43)
[2025-05-01] MEDS: Z GUARD REMEDY 4 OZ OINT TP SCH (08:44)
[2025-05-01] MEDS: METOPROLOL TARTRATE 25 MG TABLET PO SCH (10:40)
[2025-05-01] MEDS: CEFEPIME 2 GM in IV D5W 100 ML IV SCH (11:29)
[2025-05-01] MEDS: REMDESIVIR (CHARGED) 100 MG in IV NS 0.9% 80 ML IV SCH (12:18)
[2025-05-01] MEDS: IV D5/ 0.9% NACL 1,000 ML IV PRN (12:31)
[2025-05-01] MEDS: LORAZEPAM INJ 2 MG/ML VIAL IV PRN (12:46)
[2025-05-01] MEDS: IV D5/ 0.9% NACL 1,000 ML IV SCH (15:45)
[2025-05-02] VITALS: BP 130/79; TEMP 97.1; O2SAT 100
[2025-05-02 04:00] VITALS: BP 121/70; TEMP 97.2; O2SAT 99
[2025-05-02 08:00] VITALS: BP 118/77; TEMP 97.9; O2SAT 100
[2025-05-02 09:48] LABS: PLATELET COUNT (AUTO) 168 K/uL (150-450); RED BLOOD CELL COUNT(AUTO) 3.18 MIL/uL (4.0-5.2); RED CELL DISTRIBUTION WIDTH 14.0 % (11.5-15.0); WHITE BLOOD COUNT (AUTO) 7.6 K/uL (4.3-11.0)
[2025-05-02 09:52] LABS: ASPARTATE AMINOTRANSFERASE 19.0 U/L (15-37); CALCIUM, SERUM 9.6 mg/dL (8.5-10.1); CREATININE 0.8 mg/dL (0.6-1.3); SODIUM SERUM 137.0 mmol/L (136-145); TOTAL PROTEIN, SERUM 6.3 g/dL (6.4-8.2); UREA NITROGEN, BLOOD 19.0 mg/dL (7-18)
[2025-05-02 09:54] LABS: IRON, SERUM 14 ug/dl (50-175)
[2025-05-02 09:57] LABS: INR 3.13 (0.91-1.10)
[2025-05-02 12:00] VITALS: BP 99/60; TEMP 97.9; O2SAT 100
[2025-05-02 16:00] VITALS: BP 101/56; TEMP 97.9; O2SAT 100
[2025-05-02] MEDS: WARFARIN SODIUM 5 MG TABLET PO SCH (16:14)
[2025-05-02 20:00] VITALS: BP 118/60; TEMP 97.5; O2SAT 99
[2025-05-03] VITALS: BP 122/61; TEMP 97.5; O2SAT 100
[2025-05-03 04:00] VITALS: BP 120/65; TEMP 97.5; O2SAT 100
[2025-05-03 08:00] VITALS: BP 121/47; TEMP 97.6; O2SAT 100
[2025-05-03 08:07] LABS: FOLIC ACID > 20.0 ng/mL (>3.0)
[2025-05-03 08:08] LABS: ASPARTATE AMINOTRANSFERASE 13.0 U/L (15-37); CALCIUM, SERUM 9.1 mg/dL (8.5-10.1); CREATININE 1.1 mg/dL (0.6-1.3); SODIUM SERUM 137.0 mmol/L (136-145); TOTAL PROTEIN, SERUM 6.0 g/dL (6.4-8.2); UREA NITROGEN, BLOOD 21.0 mg/dL (7-18)
[2025-05-03 08:11] LABS: PLATELET COUNT (AUTO) 163 K/uL (150-450); RED BLOOD CELL COUNT(AUTO) 3.12 MIL/uL (4.0-5.2); RED CELL DISTRIBUTION WIDTH 14.3 % (11.5-15.0); WHITE BLOOD COUNT (AUTO) 6.2 K/uL (4.3-11.0)
[2025-05-03 08:39] LABS: INR 3.53 (0.91-1.10)
[2025-05-03 12:00] VITALS: BP 105/80; TEMP 97.6; O2SAT 100
[2025-05-03 16:00] VITALS: BP 106/56; TEMP 97.1; O2SAT 100
[2025-05-03] MEDS: WARFARIN SODIUM 5 MG TABLET PO SCH (17:02)
[2025-05-03 20:00] VITALS: BP 116/63; TEMP 98.2; O2SAT 100
[2025-05-03] MEDS: PANTOPRAZOLE 40 MG/PACK PACK PO SCH (21:55)
[2025-05-04] VITALS: BP 110/63; TEMP 97.9; O2SAT 100
[2025-05-04 04:00] VITALS: BP 107/54; TEMP 97.9; O2SAT 100
[2025-05-04 08:00] VITALS: BP 124/54; TEMP 98.1; O2SAT 100
[2025-05-04 08:16] LABS: PLATELET COUNT (AUTO) 156 K/uL (150-450); RED BLOOD CELL COUNT(AUTO) 3.16 MIL/uL (4.0-5.2); RED CELL DISTRIBUTION WIDTH 13.8 % (11.5-15.0); WHITE BLOOD COUNT (AUTO) 5.8 K/uL (4.3-11.0)
[2025-05-04 08:34] LABS: INR 3.14 (0.91-1.10)
[2025-05-04 08:39] LABS: ASPARTATE AMINOTRANSFERASE 18 U/L (15-37); CALCIUM, SERUM 9.2 mg/dL (8.5-10.1); CREATININE 0.7 mg/dL (0.6-1.3); SODIUM SERUM 137 mmol/L (136-145); TOTAL PROTEIN, SERUM 5.8 g/dL (6.4-8.2); UREA NITROGEN, BLOOD 21 mg/dL (7-18)
[2025-05-04 12:00] VITALS: BP 114/48; TEMP 97.5; O2SAT 99
[2025-05-04 16:00] VITALS: BP 104/56; TEMP 97.5; O2SAT 100
[2025-05-04] MEDS: WARFARIN SODIUM 5 MG TABLET PO SCH (17:44)
[2025-05-04 20:00] VITALS: BP 113/59; TEMP 98.2; O2SAT 100
[2025-05-05] VITALS: BP 94/68; TEMP 97.7; O2SAT 100
[2025-05-05 04:00] VITALS: BP 112/55; TEMP 96.8; O2SAT 100
[2025-05-05] MEDS: ACETAMINOPHEN 325 MG TABLET PO PRN (04:47)
[2025-05-05 07:46] LABS: PLATELET COUNT (AUTO) 147 K/uL (150-450); RED BLOOD CELL COUNT(AUTO) 3.22 MIL/uL (4.0-5.2); RED CELL DISTRIBUTION WIDTH 14.1 % (11.5-15.0); WHITE BLOOD COUNT (AUTO) 7.1 K/uL (4.3-11.0)
[2025-05-05 07:48] LABS: INR 2.53 (0.91-1.10)
[2025-05-05 08:00] VITALS: BP 115/59; TEMP 97.5; O2SAT 100
[2025-05-05 08:29] LABS: ASPARTATE AMINOTRANSFERASE 20.0 U/L (15-37); CALCIUM, SERUM 9.1 mg/dL (8.5-10.1); CREATININE 1.0 mg/dL (0.6-1.3); SODIUM SERUM 138.0 mmol/L (136-145); TOTAL PROTEIN, SERUM 5.5 g/dL (6.4-8.2); UREA NITROGEN, BLOOD 21.0 mg/dL (7-18)
[2025-05-05 12:00] VITALS: BP 110/70; TEMP 97.7; O2SAT 100
[2025-05-06 10:07] LABS: VITAMIN B1 THIAMINE,WB 112.8 nmol/L (66.5-200.0)
== END 2025-05-05 17:35 | DRG 871 ==
LOC: ER 05:24 → ICU 07:19 → TELE1 05-01 19:09
PROVIDERS: ADMIT Nurse Practitioner Acute Care; ATTEND Internal Medicine
PROC: XW033E5 Introduction of Remdesivir Anti-infective into Peripheral Vein, Percutaneous Approach, New Technology Group 5 (ICD-10-PCS; principal; 2025-04-30)
DX: A41.89 Other specified sepsis (principal); E43 Unspecified severe protein-calorie malnutrition; U07.1 COVID-19; J69.0 Pneumonitis due to inhalation of food and vomit; J96.21 Acute and chronic respiratory failure with hypoxia; G93.41 Metabolic encephalopathy; E87.1 Hypo-osmolality and hyponatremia; F03.94 Unspecified dementia, unspecified severity, with anxiety; F03.93 Unspecified dementia, unspecified severity, with mood disturbance; D68.59 Other primary thrombophilia; I35.0 Nonrheumatic aortic (valve) stenosis; D64.9 Anemia, unspecified; E78.5 Hyperlipidemia, unspecified; I48.91 Unspecified atrial fibrillation; M32.9 Systemic lupus erythematosus, unspecified; R13.10 Dysphagia, unspecified; Z79.899 Other long term (current) drug therapy; Z86.711 Personal history of pulmonary embolism; Z86.718 Personal history of other venous thrombosis and embolism; Z86.73 Personal history of transient ischemic attack (TIA), and cerebral infarction without residual deficits; Z79.01 Long term (current) use of anticoagulants; I50.9 Heart failure, unspecified; I27.20 Pulmonary hypertension, unspecified; G40.909 Epilepsy, unspecified, not intractable, without status epilepticus; F32.A Depression, unspecified; I25.10 Atherosclerotic heart disease of native coronary artery without angina pectoris; I11.0 Hypertensive heart disease with heart failure; F39 Unspecified mood [affective] disorder; F41.9 Anxiety disorder, unspecified; D69.6 Thrombocytopenia, unspecified; E05.90 Thyrotoxicosis, unspecified without thyrotoxic crisis or storm
CPT/HCPCS: 31720; 36415; 36600; 71045-TC; 80048-TC; 80053-TC; 80076-TC; 80202-TC; 82607-TC; 82728-TC; 82803-TC; 82962-TC; 83540-TC; 83605-TC; 83735-TC; 83880; 83921; 84425; 84439-TC; 84443-TC; 84484-TC; 85025-TC; 85378-TC; 85610-TC; 85730-TC; 86140-TC; 86850-TC; 87040-TC; 87081-TC; 87086-TC; 92526; 92611; A4216; A4223; A6213; G0378; J0692; J1100; J1953; J2048; J2060; J2470; J3373; J3490; J7030; J7040; J7042; J7050; J7060

== ENCOUNTER 2025-07-06 19:59 | Inpatient (IN) | payer MEDICARE, OTHER ==
[~2025-07-06] VITALS: Ht 162.6 cm; Wt 51.3 kg
[~2025-07-06 19:59] MED LIST changes: -AMIN30LI66 PO; +BUSP5TAB3 PO; +FERR220E2 PO; +FOLI0.4T6 PO; +MAGN400O6 PO; +MELA3TAB41 PO; -MELA5TAB PO; +MEMA10TA PO; +ONDA-97 PO; +VITS42.53 TP; -WARF-58 PO; +WARF-68 PO; -ZINC1CAP2 PO; -ZINC454O5 TP
[2025-07-06] MEDS: IV LR 1000 ML 1,000 ML BAG IV ONE (20:40)
[2025-07-06] MEDS ORDERED: CEFEPIME 1 GM VIAL ONE (20:40)
[2025-07-06] MEDS: CEFEPIME 1 GM in IV D5W 50 ML IV ONE (20:45)
[2025-07-06] MEDS ORDERED: ACETAMINOPHEN ES 500 MG TABLET ONE (20:54)
[2025-07-06] MEDS: ACETAMINOPHEN ES 500 MG TABLET PO ONE (20:55)
[2025-07-06 20:56] LABS: CALCIUM, SERUM 9.0 mg/dL (8.5-10.1); CREATININE 1.3 mg/dL (0.6-1.3); SODIUM SERUM 129.0 mmol/L (136-145); UREA NITROGEN, BLOOD 27.0 mg/dL (7-18)
[2025-07-06 20:57] LABS: PLATELET COUNT (AUTO) 132 K/uL (150-450); RED BLOOD CELL COUNT(AUTO) 3.01 MIL/uL (4.0-5.2); RED CELL DISTRIBUTION WIDTH 15.9 % (11.5-15.0); WHITE BLOOD COUNT (AUTO) 7.6 K/uL (4.3-11.0)
[2025-07-06 21:02] LABS: ASPARTATE AMINOTRANSFERASE 17.0 U/L (15-37); TOTAL PROTEIN, SERUM 6.7 g/dL (6.4-8.2)
[2025-07-06 21:04] LABS: LACTIC ACID 1.8 mmol/L (0.4-2.0)
[2025-07-06 21:32] LABS: INR 4.37 (0.91-1.10)
[2025-07-06 21:57] LABS: APPEARANCE,URINE SLIGHTLY CLOUDY (CLEAR); BLOOD, URINE TRACE-INTA Ery/uL (NEGATIVE); LEUKOCYTE ESTERASE ,URINE 3+ (NEGATIVE); NITRITE, URINE POSITIVE (NEGATIVE); UGLUCOSE NEGATIVE (NEGATIVE)
[2025-07-06] MEDS ORDERED: METOPROLOL TARTRATE 25 MG TABLET ONE (21:57)
[2025-07-06 22:03] LABS: ADD URINE CULTURE YES
[2025-07-06] MEDS: METOPROLOL TARTRATE 25 MG TABLET PO ONE (22:04)
[2025-07-06 22:05] LABS: SQUAMOUS EPITHELIAL CELL,UR Few /HPF (None Seen)
[2025-07-06 22:32] LABS: NT-PRO BNP 1166.0 pg/mL (0-125)
[2025-07-06] MEDS: IV LR 1000 ML 1,000 ML IV ONE (22:55)
[2025-07-06] MEDS ORDERED: ONDANSETRON HCL/PF 4 MG/2 ML VIAL IVP PRN (23:30)
[2025-07-06] MEDS ORDERED: MAGNESIUM HYDROXIDE 30 ML UDC PO PRN (23:30)
[2025-07-06] MEDS ORDERED: HYDROCODONE/APAP 5/325MG TABLET PO PRN (23:30)
[2025-07-07] MEDS ORDERED: DOSING PER PHARMACY-VANCOMYCIN IV XX PRN
[2025-07-07] MEDS: IV NS 0.9% 1,000 ML IV SCH
[2025-07-07] MEDS: VANCOMYCIN 1 GM /D5W 250 ML PB IV ONE (02:30)
[2025-07-07] MEDS: MEROPENEM 500MG/NS 50 ML PB IV ONE (02:32)
[2025-07-07] MEDS: MEROPENEM 1 G in IV NS 0.9% 100 ML IV SCH ×2 (02:40→15:22)
[2025-07-07] MEDS: VANCOMYCIN 1 GM in IV D5W 250ml IV ONE (03:36)
[2025-07-07 04:00] VITALS: BP 106/66; TEMP 99.3; O2SAT 100
[2025-07-07] MEDS: LORAZEPAM INJ 2 MG/ML VIAL IV PRN (04:46)
[2025-07-07 08:00] VITALS: BP 97/63; TEMP 98.7; O2SAT 98
[2025-07-07] MEDS ORDERED: DOCUSATE SODIUM 100 MG CAPSULE PO SCH (09:00)
[2025-07-07] MEDS: METOPROLOL TARTRATE 25 MG TABLET PO SCH (09:11)
[2025-07-07] MEDS: DOCUSATE SODIUM 100 MG CAPSULE PO SCH (09:11)
[2025-07-07] MEDS: PANTOPRAZOLE 40 MG TABLET.DR PO SCH (09:11)
[2025-07-07] MEDS: ASCORBIC ACID 500 MG TABLET PO SCH (09:11)
[2025-07-07] MEDS: Z GUARD REMEDY 4 OZ OINT TP SCH (09:12)
[2025-07-07] MEDS ORDERED: CLON0.5T PO (09:37)
[2025-07-07] MEDS ORDERED: OMEP20CA15 PO (09:37)
[2025-07-07] MEDS ORDERED: ZINC220T4 PO (09:37)
[2025-07-07] MEDS ORDERED: METH5TAB70 PO (09:37)
[2025-07-07] MEDS ORDERED: AMIN30LI66 PO (09:37)
[2025-07-07] MEDS ORDERED: FERR325T30 PO (09:37)
[2025-07-07] MEDS ORDERED: METO25TA6 PO (09:37)
[2025-07-07] MEDS ORDERED: ACETAMINOPHEN 325 MG TABLET PO PRN (10:00)
[2025-07-07 11:14] LABS: PLATELET COUNT (AUTO) 127 K/uL (150-450); RED BLOOD CELL COUNT(AUTO) 3.01 MIL/uL (4.0-5.2); RED CELL DISTRIBUTION WIDTH 16.2 % (11.5-15.0); WHITE BLOOD COUNT (AUTO) 11.0 K/uL (4.3-11.0)
[2025-07-07 11:27] LABS: INR 2.8 (0.91-1.10)
[2025-07-07 11:38] LABS: ASPARTATE AMINOTRANSFERASE 16 U/L (15-37); CALCIUM, SERUM 8.8 mg/dL (8.5-10.1); CREATININE 0.9 mg/dL (0.6-1.3); PHOSPHORUS 2.5 mg/dL (2.5-4.9); SODIUM SERUM 132 mmol/L (136-145); TOTAL PROTEIN, SERUM 6.2 g/dL (6.4-8.2); UREA NITROGEN, BLOOD 19 mg/dL (7-18)
[2025-07-07] MEDS: LEVETIRACETAM (250 MG) 250 MG TABLET PO SCH (11:56)
[2025-07-07 12:00] VITALS: BP 96/64; TEMP 98.2; O2SAT 100
[2025-07-07 16:00] VITALS: BP 108/60; TEMP 99; O2SAT 100
[2025-07-07] MEDS: FERROUS SULFATE (325 MG) 325 MG/TAB TABLET PO SCH (16:53)
[2025-07-07] MEDS: IV NS 0.9% 1,000 ML IV PRN (18:02)
[2025-07-07 20:00] VITALS: BP 118/86; TEMP 98.4; O2SAT 99
[2025-07-07] MEDS: TRAZODONE 50 MG TABLET PO SCH (21:15)
[2025-07-07] MEDS: SENNOSIDES 8.6 MG TABLET PO SCH (21:15)
[2025-07-07] MEDS: ATORVASTATIN 40 MG TABLET PO SCH (21:15)
[2025-07-07] MEDS: ACETAMINOPHEN 325 MG TABLET PO PRN (21:18)
[2025-07-08] VITALS (7 sets, daily range): BP systolic 100–130; BP diastolic 57–83; TEMP 98.1–99.3; O2SAT 96–100
[2025-07-08] MEDS: VANCOMYCIN 750 MG in IV D5W 250 ML IV SCH (03:29)
[2025-07-08 06:56] LABS: INR 2.04 (0.91-1.10)
[2025-07-08 06:57] LABS: PLATELET COUNT (AUTO) 112 K/uL (150-450); RED BLOOD CELL COUNT(AUTO) 2.76 MIL/uL (4.0-5.2); RED CELL DISTRIBUTION WIDTH 16.4 % (11.5-15.0); WHITE BLOOD COUNT (AUTO) 4.3 K/uL (4.3-11.0)
[2025-07-08 07:07] LABS: CALCIUM, SERUM 8.8 mg/dL (8.5-10.1); CREATININE 1.1 mg/dL (0.6-1.3); SODIUM SERUM 138.0 mmol/L (136-145); UREA NITROGEN, BLOOD 13.0 mg/dL (7-18)
[2025-07-08 07:18] LABS: IRON, SERUM 10 ug/dl (50-175)
[2025-07-08] MEDS: METHIMAZOLE (5MG) 5 MG TABLET PO SCH (08:49)
[2025-07-08] MEDS: MULTIVIT W/MINERALS 1 TAB TABLET PO SCH (08:52)
[2025-07-08] MEDS: SODIUM CHLORIDE 1000 MG TABLET PO SCH (08:52)
[2025-07-08] MEDS: ENSURE ENLIVE CHOC 237 ML CAN PO SCH (13:31)
[2025-07-08] MEDS: SOD FERRIC GLUC 125 MG in IV NS 0.9% 100 ML IV SCH (14:10)
[2025-07-08] MEDS: WARFARIN SODIUM 2 MG TABLET PO SCH (16:17)
[2025-07-09] VITALS (9 sets, daily range): BP systolic 92–137; BP diastolic 49–66; TEMP 97.5–98.6; O2SAT 96–100
[2025-07-09 06:57] LABS: CALCIUM, SERUM 8.8 mg/dL (8.5-10.1); CREATININE 1.0 mg/dL (0.6-1.3); SODIUM SERUM 137.0 mmol/L (136-145); UREA NITROGEN, BLOOD 10.0 mg/dL (7-18)
[2025-07-09 06:59] LABS: PLATELET COUNT (AUTO) 133 K/uL (150-450); RED BLOOD CELL COUNT(AUTO) 2.83 MIL/uL (4.0-5.2); RED CELL DISTRIBUTION WIDTH 16.1 % (11.5-15.0); WHITE BLOOD COUNT (AUTO) 3.0 K/uL (4.3-11.0)
[2025-07-09] MEDS: CEFTRIAXONE 1 G in IV D5W 50 ML IV SCH (18:32)
[2025-07-10] VITALS: BP 116/75; TEMP 98.1; O2SAT 100
[2025-07-10 04:00] VITALS: BP 90/62; TEMP 97.9; O2SAT 97
[2025-07-10 06:56] LABS: PLATELET COUNT (AUTO) 154 K/uL (150-450); RED BLOOD CELL COUNT(AUTO) 3.16 MIL/uL (4.0-5.2); RED CELL DISTRIBUTION WIDTH 15.9 % (11.5-15.0); WHITE BLOOD COUNT (AUTO) 3.7 K/uL (4.3-11.0)
[2025-07-10 07:12] LABS: INR 2.23 (0.91-1.10)
[2025-07-10 07:33] LABS: CALCIUM, SERUM 9.0 mg/dL (8.5-10.1); CREATININE 0.8 mg/dL (0.6-1.3); SODIUM SERUM 136.0 mmol/L (136-145); UREA NITROGEN, BLOOD 11.0 mg/dL (7-18)
[2025-07-10 08:00] VITALS: BP 119/85; TEMP 97.8; O2SAT 100
[2025-07-10 11:46] LABS: BASOPHILS % (MANUAL) 0 % (0.0-2.0); EOSINOPHILS % (MANUAL) 3 % (0-4); LYMPHOCYTES % (MANUAL) 34 % (16-48); MONOCYTES % (MANUAL) 18 % (0-11.0); NEUTROPHILS % (MANUAL) 45 (42-76); PLATELET ESTIMATE ADEQUATE
[2025-07-10 12:00] VITALS: BP 98/60; TEMP 97.5; O2SAT 98
[2025-07-10 16:00] VITALS: BP 117/69; TEMP 97.5; O2SAT 100
[2025-07-10 16:36] VITALS: BP 117/69
== END 2025-07-10 20:00 | DRG 871 ==
LOC: ER 20:04 → TELE-TD 07-07 01:16 → TELE1 07-07 09:44
PROVIDERS: ADMIT Internal Medicine; ATTEND Internal Medicine
DX: A41.51 Sepsis due to Escherichia coli [E. coli] (principal); E43 Unspecified severe protein-calorie malnutrition; D68.62 Lupus anticoagulant syndrome; D69.6 Thrombocytopenia, unspecified; R13.10 Dysphagia, unspecified; D63.8 Anemia in other chronic diseases classified elsewhere; I50.9 Heart failure, unspecified; E86.0 Dehydration; N39.0 Urinary tract infection, site not specified; Z79.01 Long term (current) use of anticoagulants; F03.93 Unspecified dementia, unspecified severity, with mood disturbance; I11.0 Hypertensive heart disease with heart failure; I35.0 Nonrheumatic aortic (valve) stenosis; G40.909 Epilepsy, unspecified, not intractable, without status epilepticus; E05.90 Thyrotoxicosis, unspecified without thyrotoxic crisis or storm; F39 Unspecified mood [affective] disorder; M32.9 Systemic lupus erythematosus, unspecified; E87.1 Hypo-osmolality and hyponatremia; Z68.1 Body mass index [BMI] 19.9 or less, adult; F41.0 Panic disorder [episodic paroxysmal anxiety]; Z20.822 Contact with and (suspected) exposure to COVID-19; I25.10 Atherosclerotic heart disease of native coronary artery without angina pectoris; Z86.73 Personal history of transient ischemic attack (TIA), and cerebral infarction without residual deficits; Z86.718 Personal history of other venous thrombosis and embolism; Z86.711 Personal history of pulmonary embolism
CPT/HCPCS: 36415; 71045-TC; 80048-TC; 80053-TC; 80076-TC; 80202-TC; 81001; 82962-TC; 83540-TC; 83605-TC; 83735-TC; 83880; 84100-TC; 84439-TC; 84443-TC; 84484-TC; 85025-TC; 85027-TC; 85610-TC; 85730-TC; 87040-TC; 87081-TC; 87086-TC; 87186-TC; 92526; 92611; A4223; G0378; J0692; J0696; J2060; J2185; J2916; J3373; J3374; J7030; J7060; J7120